=== PATIENT | female | born 1940 | race Caucasian/White ===

== ENCOUNTER → 2017-08-16 09:58 | Outpatient (CLI) | payer MEDICARE, SELFPAY ==
[2017-08-16 12:05] LABS: Absolute Lymphocyte Count 2.58 X10^3/ul (0.83-4.51); Absolute Neutrophil Count 6.3 X10^3/uL (2.0-7.7); Basophil# 0.07 X10^3/uL; Basophil% 0.7 % (0-1); Eosinophils% 3.9 % (0-5); Hemoglobin 12.7 g/dl (12.0-15.0); Lymphocyte # 2.58 X10^3/ul (4.0); Lymphocyte % 25.4 % (19-41); Mean Corp Hgb Conc 31.8 g/gl (32-36); Mean Corpuscular Hgb 26.5 pg (27.0-32.0); Mean Corpuscular Volume 83.3 fL (81-99); Mean Platelet Vol. 10.8 fl (6.2-12.0); Monocyte# 0.66 X10^3/uL; Monocyte% 6.5 % (0-10); Neutrophil # 6.34 X10^3/uL (2.7-7.7); Neutrophil % 62.5 % (47-70); Platelet Count 255 K/mm3 (150-450); RBC Distribution Width CV 14.3 % (11.6-14.6); RBC Distribution Width SD 43.1 fl (35.1-43.9); White Blood Count 10.2 K/mm3 (4.4-11.0)
[2017-08-16 12:07] LABS: POSITIVE COUNT NO; POSITIVE DIFFERENTIAL NO; POSITIVE MORPHOLOGY NO
[2017-08-16 12:46] LABS: ALB/GLOB Ratio 0.7 RATIO (0.9-2.4); AST(SGOT) 13 U/L (15-37); Alanine Aminotransfer ALT/SGPT 27 U/L (13-56); Albumin, Serum 3.3 g/dL (3.2-5.0); Alkaline Phosphatase 87 U/L (45-117); Anion Gap 9 (5-15); BUN 10 mg/dL (7-18); BUN/Creat Ratio 10.3 RATIO (10-20); Calcium,Total 8.4 mg/dL (8.5-10.1); Chloride 100 mmol/L (98-107); Creatinine, Serum 0.97 mg/dL (0.55-1.02); EST Glomerular Filtration Rate 59 mL/min (>60); Est Glom Filt Rate - Afr Amer 71 mL/min (>60); Globulin 4.5 g/dL (2.2-4.2); Glucose 143 mg/dL (70-110); Potassium 3.7 mmol/L (3.5-5.1); Protein, Total 7.8 g/dL (6.4-8.2); Sodium Level 136 mmol/L (136-145); T4 Free Direct 1.28 ng/dL (0.76-1.46); Thyroid Stim Hormone (TSH) 2.51 uIU/mL (0.358-3.74)
== END ==
PROVIDERS: Family Provider Family Medicine; PCP Family Medicine; Visit Provider Family Medicine
DX: E11.9 Type 2 diabetes mellitus without complications (principal); I10 Essential (primary) hypertension; E55.9 Vitamin D deficiency, unspecified; F41.9 Anxiety disorder, unspecified
CPT/HCPCS: 36415; 80053; 84439; 84443; 85025

== ENCOUNTER → 2017-08-23 08:41 | Outpatient (CLI) | payer MEDICARE, SELFPAY ==
[2017-08-23 13:31] LABS: Vitamin D,25 Hydroxy 37.4 ng/mL (19.95-100.01)
== END ==
PROVIDERS: Visit Provider Family Medicine
DX: E11.9 Type 2 diabetes mellitus without complications (principal); I10 Essential (primary) hypertension; E55.9 Vitamin D deficiency, unspecified; F41.9 Anxiety disorder, unspecified
CPT/HCPCS: 82306

== ENCOUNTER → 2017-08-27 08:39 | Outpatient (CLI) | payer MEDICARE, SELFPAY ==
[2017-08-10 08:31] VITALS: BP 175/75; BMI 40.8
[2017-08-27 09:36] VITALS: PULSE 103; PULSE 110; PULSE 113; PULSE 117; PULSE 120; PULSE 122; PULSE 91; PULSE 92; O2SAT 95; O2SAT 96; O2SAT 97; O2SAT 98
--- NOTE | 2017-08-27 09:41 | CPS ---
PATIENT ARRIVED AT BASELINE BREATHING (RATED AT 2) SHORT REST BREAK TAKEN AT 3 AND 5 MINUTES FOR LEG FATIGUE AND SHORTNESS OF BREATH. ENTIRE TEST DONE ON ROOM AIR
--- NOTE | 2017-08-27 11:26 | WT_ITS ---
PSN 6 Minute Walk Test - 6 Minute Walk Test 6 Minute Walk Test: 6 Minute Walk Test PSN:6-Minute Walk Test Start: 08/27/17 09: 36 Freq: Status: Active Protocol: RESP.6MINW Document 08/27/17 09:36 [facility] (Rec: 08/27/17 09:46 [facility] [id number]) 6 Minute Walk Test Date Performed 08/27/17 Time Performed 09:00 Height 5 ft 6 in Weight: 115.666 kg Weight in Pounds 255.[address]: Patricia Espana FIO2 (% Oxygen) 21 Assistive device used: None Pre-test Oxygen Delivery Method Room Air Pulse Ox (%) 98 Pulse Rate (60-100 beats/min) 91 Dyspnea Shakeel Scale (0-10) 2 Reported Symptoms Increased Work of Breathing 1st minute Oxygen Delivery Method Room Air Pulse Ox (%) 96 Pulse Rate (60-100 beats/min) 103 H Dyspnea Shakeel Scale (0-10) 3 Reported Symptoms Increased Work of Breathing 2nd minute Oxygen Delivery Method Room Air Pulse Ox (%) 96 Pulse Rate (60-100 beats/min) 113 H Dyspnea Shakeel Scale (0-10) 3 Reported Symptoms Increased Work of Breathing 3rd minute Oxygen Delivery Method Room Air Pulse Ox (%) 96 Pulse Rate (60-100 beats/min) 117 H Dyspnea Shakeel Scale (0-10) 4 Number of Rests Taken 1 Reported Symptoms Increased Work of Breathing 4th minute Oxygen Delivery Method Room Air Pulse Ox (%) 95 Pulse Rate (60-100 beats/min) 122 H Dyspnea Shakeel Scale (0-10) 4 Reported Symptoms Increased Work of Breathing 5th minute Oxygen Delivery Method Room Air Pulse Ox (%) 96 Pulse Rate (60-100 beats/min) 120 H Dyspnea Shakeel Scale (0-10) 4 Number of Rests Taken 1 Reported Symptoms Increased Work of Breathing 6th minute Oxygen Delivery Method Room Air Pulse Ox (%) 97 Pulse Rate (60-100 beats/min) 110 H Dyspnea Shakeel Scale (0-10) 5 Reported Symptoms Increased Work of Breathing Post-test Oxygen Delivery Method Room Air Pulse Ox (%) 98 Pulse Rate (60-100 beats/min) 92 Dyspnea Shakeel Scale (0-10) 2 Reported Symptoms Increased Work of Breathing Full Laps Walked 11 Partial Lap, Number of Tiles Walked 11 Total Distance Walked (ft) 660 08/27/17 09:41 Cardiopulmonary Services by Sangeeta Mendoza PATIENT ARRIVED AT BASELINE BREATHING (RATED AT 2) SHORT REST BREAK TAKEN AT 3 AND 5 MINUTES FOR LEG FATIGUE AND SHORTNESS OF BREATH. ENTIRE TEST DONE ON ROOM AIR Initialized on 08/27/17 09:41 - END OF NOTE - Interpretation Interpretation: The patient ambulated 660 feet over the course of 6 minutes on room air with no assistive devices and 2 breaks. Patient reported leg pain and increased work of breathing as etiology of breaks. No significant desaturation was noted, but patient did have significant tachycardia as high as 122 bpm. These findings are consistent with a cardiovascular limitation exercise tolerance. - Recommendations Recommendations: No supplemental oxygen is indicated at this time. Patient may benefit from a cardiovascular evaluation if not completed previously.
== END ==
PROVIDERS: Family Provider Family Medicine; PCP Family Medicine; Visit Provider Nurse Practitioner Acute Care
DX: J44.9 Chronic obstructive pulmonary disease, unspecified (principal)
CPT/HCPCS: 94618

== ENCOUNTER → 2017-09-07 08:38 | Outpatient (CLI) | payer MEDICARE, SELFPAY ==
--- NOTE | 2017-09-07 15:05 | PFTCOMP ---
COMPLETE PULMONARY FUNCTION TEST INTERPRETATION Brief HPI: Patient is a 77 year old female, currently under the care of Patricia Espana, who presents to [facility] for complete pulmonary function tests secondary to diagnosis of COPD. Respiratory therapist reports good effort and reproducible results. Interpretation: Forced expiration spirometry shows no large airways obstructive ventilatory defect with an FEV1 of 74 % predicted. There is no significant bronchodilator response by ATS criteria. Spirograms are of good quality and plateau slowly, indicating slowly emptying areas of the lungs. The respiratory flow volume loop shows decreased expiratory flow rates at high lung volumes consistent with small airways obstruction. Lung volumes by body plethysmography show a normal total lung capacity at 4.9 L, 95 % predicted. There is a trend towards air-trapping, but this does not reach clinical significance by ATS criteria. Diffusion capacity by carbon monoxide is decreased at 50 % predicted. The airway resistance is normal. No previous pulmonary function tests were available for review. Impression: Isolated defect in diffusion capacity consistent with possible pulmonary hypertension. There is some stigmata of small airways disease noted.
--- NOTE | 2017-09-07 15:08 | PFTCOMP_ITS ---
COMPLETE PULMONARY FUNCTION TEST INTERPRETATION Brief HPI: Patient is a 77 year old female, currently under the care of Patricia Espana, who presents to [facility] for complete pulmonary function tests secondary to diagnosis of COPD. Respiratory therapist reports good effort and reproducible results. Interpretation: Forced expiration spirometry shows no large airways obstructive ventilatory defect with an FEV1 of 74 % predicted. There is no significant bronchodilator response by ATS criteria. Spirograms are of good quality and plateau slowly, indicating slowly emptying areas of the lungs. The respiratory flow volume loop shows decreased expiratory flow rates at high lung volumes consistent with small airways obstruction. Lung volumes by body plethysmography show a normal total lung capacity at 4.9 L , 95 % predicted. There is a trend towards air-trapping, but this does not reach clinical significance by ATS criteria. Diffusion capacity by carbon monoxide is decreased at 50 % predicted. The airway resistance is normal. No previous pulmonary function tests were available for review. Impression: Isolated defect in diffusion capacity consistent with possible pulmonary hypertension. There is some stigmata of small airways disease noted.
== END ==
PROVIDERS: Family Provider Family Medicine; PCP Family Medicine; Visit Provider Nurse Practitioner Acute Care
DX: J44.9 Chronic obstructive pulmonary disease, unspecified (principal)
CPT/HCPCS: 94060; 94726; 94729

== ENCOUNTER → 2017-09-28 08:28 | Outpatient (CLI) | payer MEDICARE, SELFPAY | PROVIDERS: Family Provider Family Medicine; PCP Family Medicine; Visit Provider Nurse Practitioner Acute Care | DX: R06.02 Shortness of breath (principal) | CPT/HCPCS: 36415; 83880 ==

== ENCOUNTER → 2017-10-19 08:39 | Outpatient (CLI) | payer MEDICARE, SELFPAY ==
--- NOTE | 2017-10-19 08:41 | ECHOCS_ITS ---
Reason For Study: DYSPNEA Procedure This was a 2D Doppler, Color Flow transthoracic echocardiogram. Contrast injection was performed. The exam was of poor technical quality due to body habitus. Exam performed in department. Left Ventricle Normal size and thickness. The estimated ejection fraction is 60 %. Stage 1 diastolic dysfunction. No regional wall motion abnormalities noted. Right Ventricle Normal size and thickness. Normal systolic function. Mitral Valve The mitral valve is structurally normal. No prolapse or stenosis seen. Tricuspid Valve Normal tricuspid valve. Trivial tricuspid valve insufficiency. Right ventricular systolic pressure estimated to be 16 mmHg. Aortic Valve Normal aortic valve. Pulmonic Valve Normal pulmonic valve. Great Vessels Normal aortic root. Normal arch. Normal inferior vena cava. Inferior vena cava collapse with sniff. Pericardium/Pleural No pericardial effusion. Medication 22 gauge I.V. with prn adaptor inserted into left arm. Diluted definity 3ml given slow IV push to enhance endocardial definition. MMode/2D Measurements & Calculations LVIDd: 5.3 cm IVSd: 1.1 cm Ao root diam: 3.5 cm LVIDs: 3.6 cm LVPWd: 0.98 cm LA dimension: 3.1 cm RVDd: 4.2 cm FS: 32.5 % LVAd ap4: 29.6 cm2 SV(MOD-sp4): 48.9 ml SV(sp4-el): 51.6 ml EDV(MOD-sp4): 98.0 ml EDV(sp4-el): 102.1 ml LVAs ap4: 18.5 cm2 ESV(MOD-sp4): 49.1 ml ESV(sp4-el): 50.5 ml EF(MOD-sp4): 49.9 % EF(sp4-el): 50.5 % Doppler Measurements & Calculations MV E max ivelisse: 112.1 cm/sec Ao V2 max: 168.5 cm/sec LV V1 max: 94.3 cm/sec MV A max ivelisse: 131.9 cm/sec Ao max P.4 mmHg LV V1 max P.6 mmHg MV E/A: 0.85 PA V2 max: 85.5 cm/sec TR max ivelisse: 166.4 cm/sec TR max P.1 mmHg Interpretation Summary The estimated ejection fraction is 60 %. Trivial tricuspid valve insufficiency. Right ventricular systolic pressure estimated to be 16 mmHg, may be underestimated. Stage 1 diastolic dysfunction. Compared to echo report dated 09/15/2016, No appreciable changes noted. The study was technically difficult. Contrast injection was performed. Ordering Physician: Patricia Espana Referring Physician: AYLA TURNER Performed By: Josephine Haider RDCS, RVT
== END ==
PROVIDERS: Family Provider Family Medicine; PCP Family Medicine; Visit Provider Nurse Practitioner Acute Care
DX: R60.0 Localized edema (principal)
CPT/HCPCS: 93306; Q9957; A4216; C8929

== ENCOUNTER → 2017-11-04 09:27 | Outpatient (CLI) | payer MEDICARE, SELFPAY ==
[2017-11-04 10:38] LABS: Anion Gap 9 (5-15); BUN 13 mg/dL (7-18); BUN/Creat Ratio 12.9 RATIO (10-20); Calcium,Total 8.8 mg/dL (8.5-10.1); Chloride 99 mmol/L (98-107); Creatinine, Serum 1.01 mg/dL (0.55-1.02); EST Glomerular Filtration Rate 56 mL/min (>60); Est Glom Filt Rate - Afr Amer 68 mL/min (>60); Glucose 138 mg/dL (74-106); Sodium Level 137 mmol/L (136-145)
== END ==
PROVIDERS: Family Provider Family Medicine; PCP Family Medicine; Visit Provider Nurse Practitioner Acute Care
DX: E11.9 Type 2 diabetes mellitus without complications (principal)
CPT/HCPCS: 36415; 80048

== ENCOUNTER → 2018-06-20 07:42 | Outpatient (CLI) | payer MEDICARE, SELFPAY ==
[2018-03-28 11:08] VITALS: BMI 42.3
--- NOTE | 2018-06-20 13:37 | PFT ---
INTRODUCTION: The patient is an 78-year-old female that presents for pulmonary function testing secondary to a diagnosis of MATTHEW and heart disease. Respiratory therapy reports good patient effort. Bronchodilators were used during testing. INTERPRETATION: Forced expiration spirometry demonstrates no evidence of a large airways obstructive ventilatory defect. There was no significant response to aerosolized bronchodilators. Spirograms are of good quality and do not plateau indicating slow emptying of the lungs. Body plethysmography was performed and reveals a decreased TLC to 4.48 L, 78% of predicted, indicative of a mild restrictive ventilatory defect. The remainder of the lung volumes are symmetrically reduced. Diffusing capacity by single breath CO is severely reduced at 26% of predicted. When compared to previous pulmonary function studies dated August 2017, there has been a significant reduction in the patient's DLCO. 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 There has been significant worsening in the patient's DLCO since August 2017.
--- OUTSIDE RECORDS SUMMARY | 2018-08-13 07:17 | XMS RPT_ITS ---
:1940 Author Organization [place] Support Name Relationship Address Phone HAL BEN Unavailable [address] + [place] [address] R Unavailable Unavailable Unavailable HAL, BEN Unavailable [address] + [place] [address] R Unavailable Unavailable Unavailable HAL, BEN Unavailable [address] + [place] [address] R Unavailable Unavailable Unavailable HAL, BEN Unavailable [address] + [place] [address] R Unavailable Unavailable Unavailable HAL, BEN Unavailable [address] + [place] [address] R Unavailable Unavailable Unavailable HAL, BEN Unavailable [address] + [place] [address] R Unavailable Unavailable Unavailable HAL, BEN Unavailable [address] + [place] [address] R Unavailable Unavailable Unavailable HAL, BEN Unavailable [address] + [place] [address] R Unavailable Unavailable Unavailable HAL, BEN Unavailable [address] + [place] [address] R Unavailable Unavailable Unavailable HAL, BEN Unavailable [address] + [place] [address] R Unavailable Unavailable Unavailable HAL, BEN Unavailable [address] + [place] [address] R Unavailable Unavailable Unavailable HAL, BEN Unavailable [address] + [place] [address] R Unavailable Unavailable Unavailable HAL, BEN Unavailable [address] + [place] [address] R Unavailable Unavailable Unavailable HAL, BEN Unavailable [address] + [place] [address] R Unavailable Unavailable Unavailable HAL, BEN Unavailable [address] + [place] [address] R Unavailable Unavailable Unavailable HAL, BEN Unavailable [address] + [place] [address] R Unavailable Unavailable Unavailable HAL, BEN Unavailable [address] + [place] [address] R Unavailable Unavailable Unavailable HAL, BEN Unavailable [address] + [place] [address] R Unavailable Unavailable Unavailable HAL, BEN Unavailable [address] + [place] [address] R Unavailable Unavailable Unavailable Care Team Providers Name Role Phone Bryant Bangura D.O. Attending Unavailable Quintin Uribe Referring Unavailable Natalie Riddle Attending Unavailable Patricia Espana Attending Unavailable Marilynn, Ayla Referring Unavailable Marilynn, Ayla Attending Unavailable [facility], Ayla Primary Care Unavailable Marilynn, Ayla Attending Unavailable Patricia Espana Attending Unavailable Marilynn, Ayla Primary Care Unavailable Patricia Espana Referring Unavailable Patricia Espana Attending Unavailable [facility], Ayla Primary Care Unavailable Quintin Uribe Attending Unavailable Patricia Espana Referring Unavailable Patricia Espana Attending Unavailable Marilynn, Ayla Referring Unavailable Patricia Espana Attending Unavailable Marilynn, Ayla Referring Unavailable Marilynn, Ayla Primary Care Unavailable Patricia Espana Attending Unavailable Patricia Espana Referring Unavailable Marilynn, Ayla Primary Care Unavailable Quintin Uribe Attending Unavailable Patricia Espana Referring Unavailable Patricia Espana Attending Unavailable Patricia Espana Referring Unavailable Marilynn, Ayla Primary Care Unavailable Patricia Espana Attending Unavailable Marilynn, Ayla Referring Unavailable Patricia Espana Attending Unavailable Jovi Patricia Referring Unavailable Marilynn, Ayla Primary Care Unavailable Silvio Yost Attending Unavailable Jovi, Patricia Referring Unavailable Rony, Quintin Attending Unavailable Marilynn, Ayla Referring Unavailable Marilynn, Ayla Primary Care Unavailable Rony, Quintin Attending Unavailable Rony, Quintin Referring Unavailable Marilynn, Ayla Primary Care Unavailable Rony, Quintin Attending Unavailable Rony, Quintin Referring Unavailable Marilynn, Ayla Primary Care Unavailable PROBLEMS PROBLEMS DATE TYPE CONDITION / CODE ATTENDING STATUS SOURCE 07/01/2018 Unknown G47.33 - Rony, Quintin Active [facility] Obstructive sleep Community apnea (adult) Hospital (pediatric) / Repository G47.33(ICD-10) 07/01/2018 Unknown M32.9 - Systemic Rony, Quintin Active [facility] lupus Community erythematosus, Hospital unspecified / Repository M32.9(ICD-10) 07/01/2018 Unknown I51.9 - Heart Rony, Quintin Active [facility] disease, Community unspecified / Hospital I51.9(ICD-10) Repository 03/28/2018 Unknown E66.01 - Morbid RonyQuintin chambers Active [facility] (severe) obesity Community due to excess Hospital calories / Repository E66.01(ICD-10) 11/04/2017 Unknown E11.9 - Type 2 [place], Active [facility] diabetes mellitus [facility] without Hospital complications / Repository E11.9(ICD-10) 11/12/2017 Unknown R60.0 - Localized Silvio Yost Active Ward edema / Community R60.0(ICD-10) Hospital Repository 09/28/2017 Unknown R06.02 - Shortness [place]a, Active [facility] of breath / [facility] R06.02(ICD-10) Hospital Repository 09/07/2017 Unknown J44.9 - Chronic [place], Active Ward obstructive [facility] pulmonary disease, Hospital unspecified / Repository J44.9(ICD-10) 09/07/2017 Unknown F17.200 - Nicotine [place], Active [facility] dependence, [facility] unspecified, Hospital uncomplicated / Repository F17.200(ICD-10) PROCEDURES PROCEDURES No Procedure Records FoundRESULTS RESULTS 6 MINUTE WALK TEST Observed: 07/02/2018 Status: F Source: [facility] 5:48 AM [facility]PITAL REPOSITORY [facility] Pulmonary Services/Neurology [address] [place] [address] MR#: [id number] Acct: [id number] Name: CANDICE BARRY Rep #: [id number] : 1940 78 From: Quintin Uribe MD Referring Dr: Quintin Uribe MD Date: Ordering Dr: Sex: F C Location: PS PSN 6 Minute Walk Test - 6 Minute Walk Test 6 Minute Walk Test: 6 Minute Walk Test PSN:6-Minute Walk Test Start: 07/01/18 11:17 Freq: Status: Active Protocol: RESP.6MINW Document 07/01/18 11:17 SFENTON (Rec: 07/01/18 11:19 SFENTON [id number]) 6 Minute Walk Test Date Performed 07/01/18 Time Performed 11:00 Height 5 ft 8 in Weight: 116.12 kg Weight in Pounds 256.[address]: Quintin Uribe Assistive device used: None Pre-test Oxygen Delivery Method Room Air Pulse Ox (%) 98 Pulse Rate (60-100 beats/min) 80 Dyspnea Shakeel Scale (0-10) 0 Exertion Shakeel Scale (6-20) 6 1st minute Oxygen Delivery Method Room Air Pulse Ox (%) 96 Pulse Rate (60-100 beats/min) 108 H 2nd minute Oxygen Delivery Method Room Air Pulse Ox (%) 96 Pulse Rate (60-100 beats/min) 121 H 3rd minute Oxygen Delivery Method Room Air Pulse Ox (%) 97 Pulse Rate (60-100 beats/min) 124 H Number of Rests Taken 1 4th minute Oxygen Delivery Method Room Air Pulse Ox (%) 97 Pulse Rate (60-100 beats/min) 121 H 5th minute Oxygen Delivery Method Room Air Pulse Ox (%) 98 Pulse Rate (60-100 beats/min) 133 H Number of Rests Taken 1 6th minute Oxygen Delivery Method Room Air Pulse Ox (%) 98 Pulse Rate (60-100 beats/min) 135 H Dyspnea Shakeel Scale (0-10) 4 Exertion Shakeel Scale (6-20) 14 Post-test Oxygen Delivery Method Room Air Pulse Ox (%) 98 Pulse Rate (60-100 beats/min) 89 Full Laps Walked 12 Partial Lap, Number of Tiles Walked 30 Total Distance Walked (ft) 738 - Interpretation Interpretation: The patient was able to ambulate 738 feet over the course of 6 minutes on room air with no assistive devices, but 2 breaks. The patient experienced no significant desaturation, but did have significant tachycardia with a peak heart rate of 135 bpm. These findings are consistent with a cardiovascular limitation exercise tolerance. - Recommendations Recommendations: No supplemental oxygen is indicated at this time. Patient may benefit from a cardiovascular evaluation. 07/02/18 0548 <Electronically signed by Quintin Uribe MD> Date Quintin Uribe MD CC: Date Dictated: 07/01/18 1524 Date Transcribed: 07/01/181523 Db2 Dba: Quintin Uribe Signed PULMONARY FUNCTION Observed: 06/20/2018 Status: F Source: [place] TEST 1:40 PM [facility] REPOSITORY [facility] Pulmonary Services/Neurology [address] [place] [address] MR#: [id number] Acct: [id number] Name: CANDICE BARRY Rep #: [id number] : 1940 78 From: Bryant Bangura DO Referring Dr: Quintin Uribe MD Status: REG CLI Ordering Dr: Date: Location: [facility] Sex: F C INTRODUCTION: The patient is an 78-year-old female that presents for pulmonary function testing secondary to a diagnosis of MATTHEW and heart disease. Respiratory therapy reports good patient effort. Bronchodilators were used during testing. INTERPRETATION: Forced expiration spirometry demonstrates no evidence of a large airways obstructive ventilatory defect. There was no significant response to aerosolized bronchodilators. Spirograms are of good quality and do not plateau indicating slow emptying of the lungs. Body plethysmography was performed and reveals a decreased TLC to 4.48 L, 78% of predicted, indicative of a mild restrictive ventilatory defect. The remainder of the lung volumes are symmetrically reduced. Diffusing capacity by single breath CO is severely reduced at 26% of predicted. When compared to previous pulmonary function studies dated August 2017, there has been a significant reduction in the patient's DLCO. 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 There has been significant worsening in the patient's DLCO since August 2017. 06/20/18 1340 <Electronically signed by Bryant Bangura DO> Date Bryant Willem NULL CC: Quintin Uribe MD; Ayla Subramanian MD Date Dictated: 06/20/181336 Date Transcribed: 06/20/181336 Db2 Dba: KEENA Signed PULMONARY VISIT REPORT Observed: 03/28/2018 Status: F Source: [place] 11:55 AM [facility] REPOSITORY [facility] [place] [address] [place] [address] OFFICE VISIT Date of Service: 03/28/18 MR#: [id number] Acct: [id number] Name: CANDICE BARRY Rep #: [id number] : 1940 Provider: Quintin Uribe MD Age/Sex: 77/F [facility] Status: Signed Assessment AND Plan Problems 1. MATTHEW (obstructive sleep apnea) G47.33 2. Diastolic dysfunction I51.9 3. Morbid obesity E66.01 4. SLE (systemic lupus erythematosus) M32.9 Plan Unclear etiology at this time. Patient does not report any smoking or exposure that would lead to decompensation of respiratory function. Patient has not had any significant response to Symbicort therapy. Clinical suspicion for possible uncompensated diastolic dysfunction leading to issues given patient's increased lower extremity swelling and significant salt intake. Did discuss with patient at length about a low-salt diet. Will obtain a complete pulmonary function test for comparison to see if there is been any change compared to previous. We will also obtain a walking oximetry for evaluation of exertional hypoxemia. No change in medications for now until further information is available. Also discussed with the patient about increasing MATTHEW therapy to 6 hours per night to achieve better results of both congestive heart failure and daytime fatigue. Continue current medications. Obtain walking oximetry and complete PFT. Goal for patient to increase MATTHEW therapy to 6 hours per night. Orders Orders: Plan Detail Follow Up 3 Months ([facility]) HPI 3 M FU: Chief Complaint: Shortness of breath on exertion Details: Patient is a 77-year-old female, currently under care of Dr. Subramanian, who presents for evaluation secondary to increased shortness of breath on exertion. Since last visit, patient denies any ER visits, hospitalizations or prednisone burst. Patient was initiated on Symbicort therapy and reports no subjective change in overall condition. Patient reports she has been compliant with her MATTHEW therapy. Patient states that she typically only sleeps 3-4 hours a night, but feels herself falling asleep during the day. Patient states she typically goes to bed at 10:00 and will wake up at about 3 or 4:00. Patient denies any issues with dry mouth, epistaxis or soreness limiting compliance. Patient does not wake up with the mask beside her. Patient does state that recently she slept for 7 hours a night and felt significantly better during the day. Patient feels her dyspnea is worsened compared to previous visit. Patient feels that the Symbicort made no difference in her overall condition. Patient is reporting significant swelling of her lower extremities that is sore to the touch. Patient denies any fevers, chills or exudate. Patient states that cardiology has increased her from 20 mg of Lasix to 40 mg of Lasix but she is unclear if this is making any difference. When asked about a low-salt diet. Patient does admit that she tends to babysit her grandchildren on a daily basis. Patient states she does not add salt to anything, but was very surprised to find out that diet soda does have salt in it. Patient was also unaware of the quadrants of salt in sauces or packaged food. Patient has made some effort to limit lunch meat and cheese out of her diet. Patient does state that she drinks water frequently. Documentation personally reviewed with the patient Compliance report (February 2018): Compliant 97% of days for an average of 4 hours 31 minutes on CPAP 15 cm of water with residual AHI of 0.9 and fairly controlled leak. Intake Vital Signs03/28/18 Height 5 ft 6 in 03/28/18 Weight: 118.841 kg 03/28/18 Body Mass Index (BMI) 42.3 03/28/18 Blood Pressure 154/84 Intake Visit Reasons: 3 M FU Chief Complaint: Shortness of breath DME Vendor: [employer] Accompanied by: Self Allergies acetaminophen [From Darvocet-N] Allergy (Severe, Verified 11/04/17 08:27) Unknown bupropion [From Wellbutrin] Allergy (Severe, Verified 11/04/17 08:27) Unknown gabapentin [From Neurontin] Allergy (Severe, Verified 11/04/17 08:27) Unknown pregabalin [From Lyrica] Allergy (Severe, Verified 11/04/17 08:27) Unknown propoxyphene [From Darvocet-N] Allergy (Severe, Verified 11/04/17 08:27) Unknown sulfadiazine Allergy (Severe, Verified 11/04/17 08:27) Unknown Medications cholecalciferol (vitamin D3) 50,000 unit capsule 50,000 unit PO QWEEK 07/26/17 [History Confirmed 11/04/17] insulin admin supplies subcutaneous pen See Dose Instructions .ROUTE .MEDSUPPLY #1 ea 07/26/17 [History Confirmed 11/04/17] lisinopril 20 mg tablet 20 mg PO BID tab 07/26/17 [History Confirmed 11/04/17] lorazepam 0.5 mg tablet 0.5 mg PO TID PRN tab 07/26/17 [History Confirmed 11/04/17] potassium chloride ER 10 mEq capsule,extended release 10 meq PO QDAY 07/26/17 [History Confirmed 11/04/17] ranitidine 150 mg tablet 150 mg PO Q12H PRN tab 07/26/17 [History Confirmed 11/04/17] simvastatin 20 mg tablet 20 mg PO QAM 07/26/17 [History Confirmed 11/04/17] albuterol sulfate 2.5 mg/3 mL (0.083 %) solution for nebulization 2.5 mg INHALATION Q4H PRN ml 08/10/17 [History Confirmed 11/04/17] furosemide 40 mg tablet 40 mg PO BID #14 tab 09/28/17 [Rx Confirmed 11/04/17] albuterol sulfate HFA 90 mcg/actuation aerosol inhaler 2 puff INHALATION Q4H PRN #18 g 11/04/17 [Rx Confirmed 11/04/17] budesonide-formoterol HFA 160 mcg-4.5 mcg/actuation aerosol inhaler 2 puff INHALATION BID #1 ea 11/04/17 [Rx Confirmed 11/04/17] [facility] TIA (transient ischemic attack) (Acute) Fibromyalgia (Chronic) Depression (Chronic) MATTHEW (obstructive sleep apnea) (Chronic) Emphysema, unspecified (Chronic) Anxiety (Chronic) Morbid obesity (Chronic) Hypokalemia (Acute) Hyperlipidemia (Acute) Diabetic neuropathy (Chronic) Diabetes type 2, controlled (Chronic) COPD (chronic obstructive pulmonary disease) (Chronic) CAD (coronary artery disease) (Chronic) HTN (hypertension) (Chronic) SLE (systemic lupus erythematosus) (Chronic) Tobacco use disorder (Chronic) History of rectal bleeding (Chronic) Surgical History History of cholecystectomy (Resolved) History of hysterectomy (Resolved) Knee joint replacement status (Chronic) Family History Father CAD (coronary artery disease) Social History Smoking Status: Former smoker second hand exposure: Yes alcohol intake: never substance use type: does not use Review of Systems Const CONSTITUTIONAL: Positive fever(s), night sweats and fatigue; negative anorexia, body ache, chills, daytime sleepiness, oral thrush, stops breathing during sleep, weight loss, sleeping in chair, weight loss, weight gain, frequent colds, seasonal allergies, other, headache(s) or orthopnea EETM Ear Nose Throat Mouth: Positive hearing normal; negative hard of hearing, hoarseness, dry mouth in morning, change in vision, itchy eyes, eye pain, swallowing Difficulty, ear pain, nose bleed, headache(s), mouth pain, nasal congestion, nasal discharge, post nasal drip, sinus pain, sinus pressure, sore throat or other Cardio Cardiovascular: Negative chest pain, chest pain at rest, chest pain with activity, irregular heart rhythm, edema, shortness of breath when lying down, palpitations, murmur or other Resp Respiratory: Positive as per HPI, shortness of breath shortness of breath: Positive with activity and worsening and chest tightness; negative pain with cough, wheezing, chest congestion, cough, pain on inspiration, inhalers, increase use of rescue inhalers, snoring, apnea or other Gastro Gastrointestional: Negative bloody stools, change in appetite, difficulty swallowing, reflux, hematemesis, melena stool, loose stool, constipation or other Genitourinary: Negative blood in urine, nocturia, pain with urination or other Musc Musculoskeletal: Negative body pain, back pain, neck pain or other Skin/Breast Skin/Breast: Negative dry skin, itching, rash, unusual bruising, breast lump or other Neuro Neurological: Negative restless legs, confusion, weakness or other Psych Psychocological: Negative abnormal sleep pattern, anxiety, thoughts of hurting self/others, hopelessness or other Lymph Lymphatic: Negative easy bleeding, easy bruising, swollen lymph nodes or other Exam Const Constitutional: Positive conversant, cooperative, in no acute respiratory distress, healthy appearing, well developed, well nourished, good hygiene and obese; negative wearing supplemental oxygen or ill appearing Head Head: Positive normocephalic and atraumatic; negative cyanosis of lips/distal nose, frontal sinus tenderness or maxillary sinus tenderness Eyes Eye: Positive clear conjunctiva; negative nystagmus, scleral abnormality or cataract present Ears Ear: Positive hearing normal and external ears normal; negative hard of hearing Nose Nose: Positive external nose normal and no nasal discharge; negative epistaxis, nasal polyp or septum normal Mouth Mouth: Positive oral mucosae normal, no lesions, dentures and crowded posterior oropharynx; negative post nasal drip, malodorous breath or oral thrush present Mallampati Score: III: Mallampati Score Neck Neck: Positive normal visual inspection, full ROM, trachea midline, thick neck and female neck greater than 37 cm (15 in); negative lymphadenopathy or JVD Chest Wall Chest: Positive normal inspection of the chest and symmetric chest movement; negative crepitus or tenderness Resp lung sounds: Positive clear to auscultation, diminished and prolonged expiratory time; negative wheezes, rhonchi, rales, use of accessory muscles, wheeze present on forced exhalation or dullness to percussion Cardio Cardiac: Positive regular rate, regular rhythm, S1 normal and S2 normal; negative murmur, rub or gallop GI GI: Positive normal to inspection, normal bowel sounds and obese; negative distended, ascites or epigastric tenderness Genitourinary: Positive deferred Musc Musculoskeletal: Positive steady gait; negative using an assistive device for ambulation, kyphosis or scoliosis Skin Pulmonary Skin Exam: Positive intact; negative rash, lesion, ulcers or erythema Pulses Pulse: Yes radial pulses present Extremities Extremities: Yes capillary refill normal, No clubbing, No cyanosis, Yes edema (2+ lower extremity) Neuro Neurologic: Yes conversant, Yes no focal neuro deficits, Yes normal concentration, Yes understands questions, Yes cooperative, Yes normal cognition, Yes normal coordination Lymph Lymphatic: No lymphadenopathy Psych Appearance: Positive grossly normal Mental Status: Positive mental status grossly normal Mood: Positive congruent mood Affect: Positive normal affect Coding Level of Care Code Off vis,est,level 4 Diagnoses MATTHEW (obstructive sleep apnea) G47.33 Diastolic dysfunction I51.9 Morbid obesity E66.01 SLE (systemic lupus erythematosus) M32.9 03/28/18 1155 <Electronically signed by Quintin Uribe MD> Date Quintin Uribe MD Cosigner Signature: Date (if applicable) CC: Ayla Subramanian MD PULMONARY VISIT REPORT Observed: 11/04/2017 Status: F Source: [place] 10:54 AM [facility] REPOSITORY Pulmonary Medicine of [address] [place] [address] OFFICE VISIT Date of Service: 11/04/17 MR#: [id number] Acct: [id number] Name: JHONNYCANDICE Tereso Rep #: [id number] : 1940 Provider: Patricia Espana Age/Sex: 77/F Location: [facility] Status: Signed Assessment AND Plan 1. MATTHEW (obstructive sleep apnea) G47.33 Status Chronic Plan She is using and benefiting from current CPAP therapy. No indication for titration study at this time. Replacement headgear will be ordered. Follow- up with Dr. Uribe in 3 months. 2. Diastolic dysfunction I51.9 Status Acute Plan Deteriorated. Continue 40 mg of Lasix twice daily, has a follow-up next week with her primary care physician. Defer further management of the Lasix to her PCP. Will obtain a BMP today to evaluate kidney function given the increased dose of Lasix over the past few weeks. She has been encouraged to label read, as the below-knee and cottage cheese that she has been eating are high in sodium. She conveys understanding. She has been asked to keep a food diary starting today through the day that she follows up with her primary care provider at which time she has been asked to present to him. Follow-up with Dr. Uribe in 3 months. 3. Chronic obstructive pulmonary disease, unspecified COPD type J44.9 Status Chronic Plan Deteriorated. She does not appear to be in exacerbation of her COPD at this time, but she is not adequately maintained without the use of a maintenance inhaler. Reviewed her pulmonary function test which were completed back in August and showed some small airway obstruction. She does have some wheezing occasionally. Therefore, I have placed her on Symbicort to be taken 2 puffs twice daily. A sample was provided in the office today, as well as a spacer. She was given personal instruction on how to use the medication and the first dose was administered in the office. She has been encouraged to contact the office after she has been on the medication for approximately 2 weeks to give us an update on how she is feeling. Otherwise, follow-up with Dr. Uribe in 3 months. Plan Detail Other Orders Orders: Other Medications New: budesonide-formoterol 160-4.5 mcg/actuation (Symbicort) adminis2 puffs Inhalation BID ter with spacer, rinse mouth after each use Follow Up 3 Months ([facility] HPI 2 W FU: Chief Complaint: shortness of breath HPI Comments Details: This patient presents to the office today for a short interval follow-up after recently being treated for diastolic heart failure. She is ambulatory and currently on room air. She has not been seen in the ED or urgent care since her last office visit. She has not required antibiotics or prednisone for any breathing problems. She has been compliant with the increased dose of Lasix which is 40 mg twice daily. She is having a good urinary output, but feels as though it probably should be more. Unfortunately, she felt that she was compliant with a low-sodium diet by not adding salt to her meals, but has been consuming cottage cheese frequently and has even had processed below-knee. She reports that her lower extremity edema has not improved and quite possibly might be worse. She continues to experience shortness of breath with minimal activity. She feels as though she is bloated and swollen. She is using her nebulizer before bedtime. She is not currently on any maintenance inhalers. She denies any cough, wheezing or sputum production/hemoptysis. She denies any fever, chills or body aches. She has been compliant with her CPAP. Current complaints report shows that she has been 100% compliant with an average use of 4 hours and 37 minutes. Setting is 15 cm of water. Current AHI is controlled at an average of one event per hour. Leaks do appear to be an occasional issue, she does report that she needs a replacement headgear. Echo completed on 10/19/17, showing an EF of 60% with stage I diastolic dysfunction. RVSP estimated to be 16 mmHg. BNP drawn shows level of 7. 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: [employer] Accompanied by: Self Allergies acetaminophen [From Darvocet-N] Allergy (Severe, Verified 11/04/17 08:27) Unknown bupropion [From Wellbutrin] Allergy (Severe, Verified 11/04/17 08:27) Unknown gabapentin [From Neurontin] Allergy (Severe, Verified 11/04/17 08:27) Unknown pregabalin [From Lyrica] Allergy (Severe, Verified 11/04/17 08:27) Unknown propoxyphene [From Darvocet-N] Allergy (Severe, Verified 11/04/17 08:27) Unknown sulfadiazine Allergy (Severe, Verified 11/04/17 08:27) Unknown Medications cholecalciferol (vitamin D3) 50,000 unit capsule 50,000 unit PO QWEEK 07/26/17 [History Confirmed 11/04/17] insulin admin supplies subcutaneous pen See Dose Instructions .ROUTE .MEDSUPPLY #1 ea 07/26/17 [History Confirmed 11/04/17] lisinopril 20 mg tablet 20 mg PO BID tab 07/26/17 [History Confirmed 11/04/17] lorazepam 0.5 mg tablet 0.5 mg PO TID PRN tab 07/26/17 [History Confirmed 11/04/17] potassium chloride ER 10 mEq capsule,extended release 10 meq PO QDAY 07/26/17 [History Confirmed 11/04/17] ranitidine 150 mg tablet 150 mg PO Q12H PRN tab 07/26/17 [History Confirmed 11/04/17] simvastatin 20 mg tablet 20 mg PO QAM 07/26/17 [History Confirmed 11/04/17] albuterol sulfate 2.5 mg/3 mL (0.083 %) solution for nebulization 2.5 mg INHALATION Q4H PRN ml 08/10/17 [History Confirmed 11/04/17] furosemide 40 mg tablet 40 mg PO BID #14 tab 09/28/17 [Rx Confirmed 11/04/17] albuterol sulfate HFA 90 mcg/actuation aerosol inhaler 2 puff INHALATION Q4H PRN #18 g 11/04/17 [Rx Confirmed 11/04/17] budesonide-formoterol HFA 160 mcg-4.5 mcg/actuation aerosol inhaler 2 puff INHALATION BID #1 ea 11/04/17 [Rx Confirmed 11/04/17] PFS Medical History TIA (transient ischemic attack) (Acute) Fibromyalgia (Chronic) Depression (Chronic) MATTHEW (obstructive sleep apnea) (Chronic) Emphysema, unspecified (Chronic) Anxiety (Chronic) Morbid obesity (Chronic) Hypokalemia (Acute) Hyperlipidemia (Acute) Diabetic neuropathy (Chronic) Diabetes type 2, controlled (Chronic) COPD (chronic obstructive pulmonary disease) (Chronic) CAD (coronary artery disease) (Chronic) HTN (hypertension) (Chronic) SLE (systemic lupus erythematosus) (Chronic) Tobacco use disorder (Chronic) History of rectal bleeding (Chronic) Surgical History History of cholecystectomy (Resolved) History of hysterectomy (Resolved) Knee joint replacement status (Chronic) Family History Father CAD (coronary artery disease) Social History Smoking Status: Former smoker second hand exposure: Yes alcohol intake: never substance use type: does not use Review of Systems Const CONSTITUTIONAL: Negative anorexia, body ache, chills, daytime sleepiness, fever(s), night sweats, oral thrush, stops breathing during sleep, weight loss, sleeping in chair, fatigue, weight loss, weight gain, frequent colds, seasonal allergies, other, headache(s) or orthopnea EETM Ear Nose Throat Mouth: Positive hearing normal; negative hard of hearing, hoarseness, dry mouth in morning, change in vision, itchy eyes, eye pain, swallowing Difficulty, ear pain, nose bleed, headache(s), mouth pain, nasal congestion, nasal discharge, post nasal drip, sinus pain, sinus pressure, sore throat or other Cardio Cardiovascular: Negative chest pain, chest pain at rest, chest pain with activity, irregular heart rhythm, edema, shortness of breath when lying down, palpitations, murmur or other Resp Respiratory: Positive as per HPI, shortness of breath shortness of breath: Positive with activity and worsening and chest tightness; negative pain with cough, wheezing, chest congestion, cough, pain on inspiration, inhalers, increase use of rescue inhalers, snoring, apnea or other Gastro Gastrointestional: Negative bloody stools, change in appetite, difficulty swallowing, reflux, hematemesis, melena stool, loose stool, constipation or other Genitourinary: Negative blood in urine, nocturia, pain with urination or other Musc Musculoskeletal: Negative body pain, back pain, neck pain or other Skin/Breast Skin/Breast: Negative dry skin, itching, rash, unusual bruising, breast lump or other Neuro Neurological: Negative restless legs, confusion, weakness or other Psych Psychocological: Negative abnormal sleep pattern, anxiety, thoughts of hurting self/others, hopelessness or other Lymph Lymphatic: Negative easy bleeding, easy bruising, swollen lymph nodes or other Exam Const Constitutional: Positive conversant, cooperative, in no acute respiratory distress, healthy appearing, well developed, well nourished, good hygiene, obese and dyspenic Head Head: Positive normocephalic and atraumatic; negative cyanosis of lips/distal nose Eyes Eye: Positive clear conjunctiva and nystagmus; negative scleral abnormality Ears Ear: Positive hearing normal and external ears normal; negative hard of hearing Nose Nose: Positive external nose normal and no nasal discharge; negative epistaxis Mouth Mouth: Positive oral mucosae normal, no lesions, poor dentition and crowded posterior oropharynx; negative post nasal drip, malodorous breath or oral thrush present Mallampati Score: III: Mallampati Score Neck Neck: Positive normal visual inspection, full ROM, trachea midline, female neck greater than 37 cm (15 in) and thick neck; negative lymphadenopathy, JVD or tender Chest Wall Chest: Positive normal inspection of the chest and symmetric chest movement; negative increased A/P diameter Resp lung sounds: Positive clear to auscultation, diminished, normal expiratory time and normal respiratory effort; negative wheezes, rhonchi, rales, dullness to percussion or wheeze present on forced exhalation Cardio Cardiac: Positive regular rate, regular rhythm, S1 normal and S2 normal; negative murmur GI GI: Positive normal to inspection, normal bowel sounds and obese; negative distended Genitourinary: Positive deferred Musc Musculoskeletal: Positive steady gait and ROM normal; negative kyphosis or scoliosis Skin Pulmonary Skin Exam: Positive intact; negative rash, lesion, ulcers, erythema, scaly or dermal atrophy Pulses Pulse: Yes pulses normal x4 extremities Extremities Extremities: Yes edema Location: lower extremity location: Bilateral pitting +2, Yes capillary refill normal, No clubbing, No cyanosis, No stasis dermatitis Neuro Neurologic: Yes conversant, Yes no focal neuro deficits, Yes cooperative, Yes normal cognition, Yes normal coordination, Yes normal concentration, Yes understands questions Lymph Lymphatic: No lymphadenopathy, No tenderness, No cervical adenopathy, No axillary adenopathy Psych Appearance: Positive grossly normal, eye contact and well kempt Mental Status: Positive mental status grossly normal Mood: Positive anxious mood Affect: Positive anxious affect Office Procedures Inhaler Training Inhaler Training Procedure performed by: Patricia Espana Inhaler Training: Yes personally trained on inhaler use, sample provided, first dose given in the office, expresses understanding and continue to monitor Coding Level of Care Code Off vis,est,level 4 Diagnoses MATTHEW (obstructive sleep apnea) G47.33 Diastolic dysfunction I51.9 Chronic obstructive pulmonary disease, unspecified COPD type J44.9 COPD type: unspecified COPD 11/04/17 1054 <Electronically signed by Patricia LÓPEZ> Date Patricia LÓPEZ Cosigner Signature: Date (if applicable) CC: Ayla Subramanian BASIC METABOLIC Collected: 11/04/2017 Status: F Source: EDVIN PROFILE ([facility]) 9:32 AM [facility] [place] REPOSITORY TYPE CODE TESTS RESULT OUT OF RANGE REFERENCE UNITS LAB L501.0100 74-106 mg/dL High GLU 138 Result Comment: Fasting Glucose result greater than or equal to 126 mg/dL suggests DIABETES MELLITUS per A.D.A. criteria. Please note revised GLUCOSE reference range effective 2017. LAB L501.1000 7-18 mg/dL Normal BUN 13 LAB L501.1100 0.55-1.02 mg/dL Normal CREAT,SERUM 1.01 Result Comment: The validity of the calculated GFR AND GFRAA in patients over 70 years has not been determined. Clinical correlation is essential. LAB L501.1110 >60 mL/min Low EST GFR 56 Result Comment: Non- GFR Calc LAB L501.1115 >60 mL/min Normal EST GFR - AA 68 Result Comment: GFR Calc LAB L501.1300 10-20 RATIO Normal BUN/CRE 12.9 LAB L501.2200 8.5-10.1 mg/dL CA Normal 8.8 LAB L501.5300 136-145 mmol/L NA Normal 137 LAB L501.5600 3.5-5.1 mmol/L K Normal 4.0 LAB L501.5900 98-107 mmol/L CL Normal 99 LAB L501.6100 21.0-32.0 mmol/L Normal CO2 29.0 LAB L501.6200 5-15 Normal GAP 9 Performed By: #### L500.2500 #### [facility] [address] [place], [address] ECHO, COMPLETE W/ Observed: 10/19/2017 Status: F Source: STIGLER CONTRAST 10:49 AM [facility] [place] REPOSITORY [facility] Cardiovascular Services [address] [place] [address] Echo Complete W/ Contrast 10/19/17 0857 MR#: [id number] Acct: [id number] Name: CANDICE BARRY Tereso Rep #: [id number] : 1940 77 From: Silvio Yost MD Attending Dr: Patricia Espana MAIL READER Status: REG CLI Ordering Dr: Patricia Espana MAIL READER-C Date: 10/19/17 Location: [facility] Sex: F C Admitted: Reason For Study: DYSPNEA Procedure This was a 2D Doppler, Color Flow transthoracic echocardiogram. Contrast injection was performed. The exam was of poor technical quality due to body habitus. Exam performed in department. Left Ventricle Normal size and thickness. The estimated ejection fraction is 60 %. Stage 1 diastolic dysfunction. No regional wall motion abnormalities noted. Right Ventricle Normal size and thickness. Normal systolic function. Mitral Valve The mitral valve is structurally normal. No prolapse or stenosis seen. Tricuspid Valve Normal tricuspid valve. Trivial tricuspid valve insufficiency. Right ventricular systolic pressure estimated to be 16 mmHg. Aortic Valve Normal aortic valve. Pulmonic Valve Normal pulmonic valve. Great Vessels Normal aortic root. Normal arch. Normal inferior vena cava. Inferior vena cava collapse with sniff. Pericardium/Pleural No pericardial effusion. Medication 22 gauge I.V. with prn adaptor inserted into left arm. Diluted definity 3ml given slow IV push to enhance endocardial definition. MMode/2D Measurements AND Calculations LVIDd: 5.3 cm IVSd: 1.1 cm Ao root diam: 3.5 cm LVIDs: 3.6 cm LVPWd: 0.98 cm LA dimension: 3.1 cm RVDd: 4.2 cm FS: 32.5 % LVAd ap4: 29.6 cm2 SV(MOD-sp4): 48.9 ml SV(sp4-el): 51.6 ml EDV(MOD-sp4): 98.0 ml EDV(sp4-el): 102.1 ml LVAs ap4: 18.5 cm2 ESV(MOD-sp4): 49.1 ml ESV(sp4-el): 50.5 ml EF(MOD-sp4): 49.9 % EF(sp4-el): 50.5 % Doppler Measurements AND Calculations MV E max ivelisse: 112.1 cm/sec Ao V2 max: 168.5 cm/sec LV V1 max: 94.3 cm/sec MV A max ivelisse: 131.9 cm/sec Ao max P.4 mmHg LV V1 max P.6 mmHg MV E/A: 0.85 PA V2 max: 85.5 cm/sec TR max ivelisse: 166.4 cm/sec TR max P.1 mmHg Interpretation Summary The estimated ejection fraction is 60 %. Trivial tricuspid valve insufficiency. Right ventricular systolic pressure estimated to be 16 mmHg, may be underestimated. Stage 1 diastolic dysfunction. Compared to echo report dated 09/15/2016, No appreciable changes noted. The study was technically difficult. Contrast injection was performed. Ordering Physician: Patricia Espana Referring Physician: AYLA SUBRAMANIAN Performed By: Josephine Haider RDCS, RVT 10/19/17 1048 Date Silvio Yost MD CC: Patricia Subramanian Date Dictated: 10/19/17 0857 Date Transcribed: 10/19/171047 Db2 Dba: Signed BNP,B-TYPE NATRIURETIC Collected: 09/28/2017 Status: F Source: EDVIN PEPTIDE 8:33 AM [facility] [place] REPOSITORY TYPE CODE TESTS RESULT OUT OF RANGE REFERENCE UNITS LAB L503.6620 0-100 pg/mL Normal B-TYPE 7.0 CHIOMA PEP Performed By: #### L503.6620 #### [facility] [address] [place], [address] PULMONARY VISIT REPORT Observed: 09/28/2017 Status: F Source: EDVIN 8:32 AM [facility] [place] REPOSITORY [facility] [address] [place] [address] OFFICE VISIT Date of Service: 09/28/17 MR#: [id number] Acct: [id number] Name: CANDICE BARRY Rep #: [id number] : 1940 Provider: Patricia Espana Age/Sex: 77/F Location: [facility] [place] Status: Signed Assessment AND Plan 1. MATTHEW (obstructive sleep apnea) G47.33 Status Chronic CPAP of 15 cm water Plan She is using and benefiting from current CPAP therapy. No indication for titration study at this time. Leaks that were present on this months compliance report were related to a worn out cushion, which has since been replaced. Plan to follow-up with her in approximately 2 weeks to discuss test results that have been ordered today. 2. Shortness of breath R06.02 Plan Recent pulmonary function tests indicate possible pulmonary vascular disorder, concern for pulmonary hypertension. Patient has not had an echocardiogram since 2012. We will repeat the echocardiogram, as well as obtain a BNP. Patient is displaying symptoms of heart failure at this time with fluid volume overload. Plan to treat with increasing Lasix from 20 mg twice daily to 40 mg twice daily for 7 days. She has been encouraged to contact the office if she develops any side effects from the increased dose of Lasix, such as leg cramping. She is currently on calcium replacement and has been encouraged to continue that. I will follow-up with her in about 2 weeks to discuss test results and to see how she responded to therapy. Orders Orders: 3. Lower extremity edema R60.0 Plan As discussed in assessment and plan #2, plan to treat for an acute exacerbation of what is felt to be heart failure. BNP to be drawn today echocardiogram scheduled. Increasing Lasix for 7 days. Patient has been encouraged to contact the office if her symptoms worsen or if new symptoms present. Orders Orders: Plan Detail Other Medications New: Follow Up 2 Weeks (CSM) HPI 2 W FU: Chief Complaint: Shortness of breath HPI Comments Details: This is a 77 year old very pleasant f, currently under the care of Ayla Subramanian MD, here today to review test results. I personally reviewed the tests/images/tracings which showed: Complete Pulmonary Function test were preformed on September 07, 2017, and showed FVC of 77 % of predicted, FEV1 of 7472 % of predicted, FEV1/FVC ratio of %, TLC of 95 % of predicted, RV of 07/30/1951 percent of predicted % of predicted, DLCO . The test was interpreted to be consistent with an isolated defect in diffusing capacity. Pulmonary stress test was completed on August 27, 2017, and did not show a drop in saturation below 89%, which suggested no current need for supplemental oxygen on ambulation at this time. She did experience tachycardia, highest heart rate was 120 bpm which occurred during minute 5. Compliance report for the past 30 days was reviewed and showed the patient has been 97% compliance. Average use is 3 hours and 49 minutes. Current setting is 15 cm of water. Current AHI is 0.7 events per hour leaks do appear to be a consistent issue. She reports that her shortness of breath has worsened. She is more short of breath on exertion. She also reports that she is having lower extremity edema bilaterally. Her weight is up 6 pounds since her last office visit. She is now using her nebulizer twice daily and senna only before bedtime. She does have wheezing but denies any cough, sputum production or hemoptysis. She denies any chest pain or palpitations. She is compliant with her CPAP and denies any difficulties with the mask or pressure support. She does report feeling rested in the morning. She denies snoring through the mask. She denies dry mouth in the morning. She denies any episodes of nocturia or napping. Intake Vital Signs09/28/17 Height 5 ft 6 in 09/28/17 Weight: 261 lb Intake Visit Reasons: 2 W [place] [facility] [place] Vendor[place] [employer] Accompanied by: Daughter Allergies acetaminophen [From Darvocet-N] Allergy (Severe, Verified 09/28/17 07:36) Unknown bupropion [From Wellbutrin] Allergy (Severe, Verified 09/28/17 07:36) Unknown gabapentin [From Neurontin] Allergy (Severe, Verified 09/28/17 07:36) Unknown pregabalin [From Lyrica] Allergy (Severe, Verified 09/28/17 07:36) Unknown propoxyphene [From Darvocet-N] Allergy (Severe, Verified 09/28/17 07:36) Unknown sulfadiazine Allergy (Severe, Verified 09/28/17 07:36) Unknown Medications albuterol sulfate 2.5 mg/3 mL (0.083 %) solution for nebulization 2.5 mg INHALATION Q4H PRN ml 07/26/17 [History Confirmed 09/28/17] cholecalciferol (vitamin D3) 50,000 unit capsule 50,000 unit PO QWEEK 07/26/17 [History Confirmed 09/28/17] furosemide 20 mg tablet 20 mg PO BID tab 07/26/17 [History Confirmed 09/28/17] insulin admin supplies subcutaneous pen See Dose Instructions .ROUTE .MEDSUPPLY #1 ea 07/26/17 [History Confirmed 09/28/17] lisinopril 20 mg tablet 20 mg PO BID tab 07/26/17 [History Confirmed 09/28/17] lorazepam 0.5 mg tablet 0.5 mg PO TID PRN tab 07/26/17 [History Confirmed 09/28/17] potassium chloride ER 10 mEq capsule,extended release 10 meq PO QDAY 07/26/17 [History Confirmed 09/28/17] ranitidine 150 mg tablet 150 mg PO Q12H PRN tab 07/26/17 [History Confirmed 09/28/17] simvastatin 20 mg tablet 20 mg PO QAM 07/26/17 [History Confirmed 09/28/17] albuterol sulfate 2.5 mg/3 mL (0.083 %) solution for nebulization 2.5 mg INHALATION Q4H PRN ml 08/10/17 [History Confirmed 09/28/17] furosemide 40 mg tablet 40 mg PO BID #14 tab 09/28/17 [Rx Confirmed 09/28/17] PFSH Medical History TIA (transient ischemic attack) (Acute) Fibromyalgia (Chronic) Depression (Chronic) MATTHEW (obstructive sleep apnea) (Chronic) Emphysema, unspecified (Chronic) Anxiety (Chronic) Morbid obesity (Chronic) Hypokalemia (Acute) Hyperlipidemia (Acute) Diabetic neuropathy (Chronic) Diabetes type 2, controlled (Chronic) COPD (chronic obstructive pulmonary disease) (Chronic) CAD (coronary artery disease) (Chronic) HTN (hypertension) (Chronic) SLE (systemic lupus erythematosus) (Chronic) Tobacco use disorder (Chronic) History of rectal bleeding (Chronic) Surgical History History of cholecystectomy (Resolved) History of hysterectomy (Resolved) Knee joint replacement status (Chronic) Family History Father CAD (coronary artery disease) Social History Smoking Status: Former smoker second hand exposure: Yes alcohol intake: never substance use type: does not use Review of Systems Const CONSTITUTIONAL: Positive fatigue; negative anorexia, body ache, chills, daytime sleepiness, fever(s), night sweats, oral thrush, stops breathing during sleep, weight loss, sleeping in chair, weight loss, weight gain, frequent colds, seasonal allergies, other, headache(s) or orthopnea EETM Ear Nose Throat Mouth: Positive hearing normal; negative hard of hearing, hoarseness, dry mouth in morning, change in vision, itchy eyes, eye pain, swallowing Difficulty, ear pain, nose bleed, headache(s), mouth pain, nasal congestion, nasal discharge, post nasal drip, sinus pain, sinus pressure, sore throat or other Cardio Cardiovascular: Negative chest pain, chest pain at rest, chest pain with activity, irregular heart rhythm, edema, shortness of breath when lying down, palpitations, murmur or other Resp Respiratory: Positive as per HPI, shortness of breath shortness of breath: Positive with activity and worsening, wheezing and inhalers; negative pain with cough, chest congestion, cough, chest tightness, pain on inspiration, increase use of rescue inhalers, snoring, apnea or other Gastro Gastrointestional: Negative bloody stools, change in appetite, difficulty swallowing, reflux, hematemesis, melena stool, loose stool, constipation or other Genitourinary: Negative blood in urine, nocturia, pain with urination or other Musc Musculoskeletal: Negative body pain, back pain, neck pain or other Skin/Breast Skin/Breast: Negative dry skin, itching, rash, unusual bruising, breast lump or other Neuro Neurological: Negative restless legs, confusion, weakness or other Psych Psychocological: Negative abnormal sleep pattern, anxiety, thoughts of hurting self/others, hopelessness or other Lymph Lymphatic: Negative easy bleeding, easy bruising, swollen lymph nodes or other Exam Const Constitutional: Positive conversant, cooperative, in no acute respiratory distress, healthy appearing, well developed, well nourished, good hygiene and obese Head Head: Positive normocephalic and atraumatic; negative cyanosis of lips/distal nose Eyes Eye: Positive clear conjunctiva and nystagmus; negative scleral abnormality Ears Ear: Positive hearing normal and external ears normal; negative hard of hearing Nose Nose: Positive external nose normal and no nasal discharge; negative epistaxis Mouth Mouth: Positive oral mucosae normal, no lesions, poor dentition and crowded posterior oropharynx; negative post nasal drip, malodorous breath or oral thrush present Mallampati Score: III: Mallampati Score Neck Neck: Positive normal visual inspection, full ROM, trachea midline, thick neck and female neck greater than 37 cm (15 in); negative lymphadenopathy, JVD or tender Chest Wall Chest: Positive normal inspection of the chest and symmetric chest movement; negative increased A/P diameter Resp lung sounds: Positive clear to auscultation, good air exchange, normal expiratory time and normal respiratory effort; negative diminished, wheezes, rhonchi, rales, dullness to percussion or wheeze present on forced exhalation Cardio Cardiac: Positive regular rate, regular rhythm, S1 normal and S2 normal; negative murmur GI GI: Positive normal to inspection, normal bowel sounds and obese; negative distended Genitourinary: Positive deferred Musc Musculoskeletal: Positive steady gait and ROM normal; negative kyphosis or scoliosis Skin Pulmonary Skin Exam: Positive intact; negative rash, lesion, ulcers, erythema, scaly or dermal atrophy Pulses Pulse: Yes pulses normal x4 extremities Extremities Extremities: Yes capillary refill normal, No clubbing, No cyanosis, Yes edema Location: lower extremity location: Right leg swelling: pitting pitting: +1 (left LE 2+) Neuro Neurologic: Yes conversant, Yes no focal neuro deficits, Yes cooperative, Yes normal cognition, Yes normal coordination, Yes normal concentration, Yes understands questions Lymph Lymphatic: No lymphadenopathy, No tenderness, No cervical adenopathy, No axillary adenopathy Psych Appearance: Positive grossly normal, eye contact and well kempt Mental Status: Positive mental status grossly normal Mood: Positive congruent mood Affect: Positive normal affect Coding Level of Care Code Off vis,est,level 4 Diagnoses MATTHEW (obstructive sleep apnea) G47.33 Shortness of breath R06.02 Lower extremity edema R60.0 09/28/17 0832 <Electronically signed by Patricia Espana MAIL READER-C> Date Patricia Espana MAIL READER-C Cosigner Signature: Date (if applicable) CC: Ayla Subramanian PULMONARY FUNCTION Observed: 09/07/2017 Status: F Source: STIGLER REPORT COMP 3:08 PM [facility] [place] REPOSITORY [facility] Pulmonary Services/Neurology [address] [place] [address] MR#: [id number] Acct: [id number] Name: CANDICE BARRY Rep #: [id number] : 1940 77 From: Quintin Uribe MD Referring Dr: Patricia Espana MAIL READER Status: REG CLI Ordering Dr: Date: Location: [facility] Sex: F C COMPLETE PULMONARY FUNCTION TEST INTERPRETATION Brief HPI: Patient is a 77 year old female, currently under the care of Patricia Espana, who presents to [facility] for complete pulmonary function tests secondary to diagnosis of COPD. Respiratory therapist reports good effort and reproducible results. Interpretation: Forced expiration spirometry shows no large airways obstructive ventilatory defect with an FEV1 of 74 % predicted. There is no significant bronchodilator response by ATS criteria. Spirograms are of good quality and plateau slowly, indicating slowly emptying areas of the lungs. The respiratory flow volume loop shows decreased expiratory flow rates at high lung volumes consistent with small airways obstruction. Lung volumes by body plethysmography show a normal total lung capacity at 4.9 L, 95 % predicted. There is a trend towards air-trapping, but this does not reach clinical significance by ATS criteria. Diffusion capacity by carbon monoxide is decreased at 50 % predicted. The airway resistance is normal. No previous pulmonary function tests were available for review. Impression: Isolated defect in diffusion capacity consistent with possible pulmonary hypertension. There is some stigmata of small airways disease noted. 09/07/17 1508 <Electronically signed by Quintin Uribe MD> Date Quintin Uribe MD CC: Quintin Uribe MD; Ayla Subramanian Date Dictated: 09/07/171504 Date Transcribed: 09/07/171504 Db2 Dba: TREV Signed 6 MINUTE WALK TEST Observed: 08/27/2017 Status: F Source: EDVIN 11:26 AM [facility] REPOSITORY [facility] Pulmonary Services/Neurology [address] [place] [address] MR#: [id number] Acct: [id number] Name: CANDICE BARRY Rep #: [id number] : 1940 77 From: Quintin Uribe MD Referring Dr: Patricia Espana MAIL READER Date: Ordering Dr: Sex: F C Location: PSN PSN 6 Minute Walk Test - 6 Minute Walk Test 6 Minute Walk Test: 6 Minute Walk Test PSN:6-Minute Walk Test Start: 08/27/17 09:36 Freq: Status: Active Protocol: RESP.6MINW Document 08/27/17 09:36 AMH (Rec: 08/27/17 09:46 AMH [id number]) 6 Minute Walk Test Date Performed 08/27/17 Time Performed 09:00 Height 5 ft 6 in Weight: 115.666 kg Weight in Pounds 255.[address]: Patricia Espana FIO2 (% Oxygen) 21 Assistive device used: None Pre-test Oxygen Delivery Method Room Air Pulse Ox (%) 98 Pulse Rate (60-100 beats/min) 91 Dyspnea Shakeel Scale (0-10) 2 Reported Symptoms Increased Work of Breathing 1st minute Oxygen Delivery Method Room Air Pulse Ox (%) 96 Pulse Rate (60-100 beats/min) 103 H Dyspnea Shakeel Scale (0-10) 3 Reported Symptoms Increased Work of Breathing 2nd minute Oxygen Delivery Method Room Air Pulse Ox (%) 96 Pulse Rate (60-100 beats/min) 113 H Dyspnea Shakeel Scale (0-10) 3 Reported Symptoms Increased Work of Breathing 3rd minute Oxygen Delivery Method Room Air Pulse Ox (%) 96 Pulse Rate (60-100 beats/min) 117 H Dyspnea Shakeel Scale (0-10) 4 Number of Rests Taken 1 Reported Symptoms Increased Work of Breathing 4th minute Oxygen Delivery Method Room Air Pulse Ox (%) 95 Pulse Rate (60-100 beats/min) 122 H Dyspnea Shakeel Scale (0-10) 4 Reported Symptoms Increased Work of Breathing 5th minute Oxygen Delivery Method Room Air Pulse Ox (%) 96 Pulse Rate (60-100 beats/min) 120 H Dyspnea Shakeel Scale (0-10) 4 Number of Rests Taken 1 Reported Symptoms Increased Work of Breathing 6th minute Oxygen Delivery Method Room Air Pulse Ox (%) 97 Pulse Rate (60-100 beats/min) 110 H Dyspnea Shakeel Scale (0-10) 5 Reported Symptoms Increased Work of Breathing Post-test Oxygen Delivery Method Room Air Pulse Ox (%) 98 Pulse Rate (60-100 beats/min) 92 Dyspnea Shakeel Scale (0-10) 2 Reported Symptoms Increased Work of Breathing Full Laps Walked 11 Partial Lap, Number of Tiles Walked 11 Total Distance Walked (ft) 660 08/27/17 09:41 Cardiopulmonary Services by Sangeeta Mendoza PATIENT ARRIVED AT BASELINE BREATHING (RATED AT 2) SHORT REST BREAK TAKEN AT 3 AND 5 MINUTES FOR LEG FATIGUE AND SHORTNESS OF BREATH. ENTIRE TEST DONE ON ROOM AIR Initialized on 08/27/17 09:41 - END OF NOTE - Interpretation Interpretation: The patient ambulated 660 feet over the course of 6 minutes on room air with no assistive devices and 2 breaks. Patient reported leg pain and increased work of breathing as etiology of breaks. No significant desaturation was noted, but patient did have significant tachycardia as high as 122 bpm. These findings are consistent with a cardiovascular limitation exercise tolerance. - Recommendations Recommendations: No supplemental oxygen is indicated at this time. Patient may benefit from a cardiovascular evaluation if not completed previously. 08/27/17 1126 <Electronically signed by Quintin Uribe MD> Date Quintin Uribe MD CC: Date Dictated: 08/27/17 1125 Date Transcribed: 08/27/171124 Db2 Dba: Quintin Uribe Signed VITAMIN D,25 HYDROXY Collected: 08/23/2017 Status: F Source: EDVIN 8:43 AM [facility] REPOSITORY TYPE CODE TESTS RESULT OUT OF RANGE REFERENCE UNITS LAB L506.1000 19.95-100.01 ng/mL Normal Vitamin D 37.4 25-OH Result Comment: Vitamin D 25(OH) Status Range Deficiency <20 ng/mL (50nmol/L) Insuffciency 20 - 30 ng/mL (50 - 75 nmol/L) Sufficiency 30 - 100 ng/mL (75 - 250 nmol/L) Toxicity >100 ng/mL (>250 nmol/L) Performed By: #### L506.1000 #### [facility] [address] [place], [address] CBC W/DIFF, AUTOMATED Collected: 08/16/2017 Status: F Source: EDVIN 10:00 AM [facility] REPOSITORY TYPE CODE TESTS RESULT OUT OF RANGE REFERENCE UNITS LAB L100.1000 4.4-11.0 K/mm3 Normal WBC 10.2 LAB L100.1200 4.2-5.4 M/mm3 Normal RBC 4.80 LAB L100.1300 12.0-15.0 g/dl Normal HGB 12.7 LAB L100.1400 37-47 % Normal HCT 40.0 LAB L100.1500 81-99 fL Normal MCV 83.3 LAB L100.1600 27.0-32.0 pg Low MCH 26.5 LAB L100.1700 32-36 g/gl Low MCHC 31.8 LAB L100.1810 11.6-14.6 % Normal RDW CV 14.3 LAB L100.1820 35.1-43.9 fl Normal RDW SD 43.1 LAB L100.1900 150-450 K/mm3 Normal PLT 255 LAB L100.2000 6.2-12.0 fl Normal MPV 10.8 LAB L100.2100 47-70 % Normal NEUT% 62.5 LAB L100.2200 19-41 % Normal LY% 25.4 LAB L100.2300 0-10 % Normal MONO% 6.5 LAB L100.2400 0-5 % Normal EO% 3.9 LAB L100.2500 0-1 % Normal BASO% 0.7 LAB L100.2550 0.0-0.9 % High IM GRAN % 1.000 Result Comment: IG% - Immature Granulocytes (promyelocytes, myelocytes and metamyelocytes) > 1% indicates that a LEFT SHIFT is Present. LAB L100.2620 2.0-7.7 X10 3/uL Normal Absolute Neut 6.3 LAB L100.2720 0.83-4.51 X10 3/ul Normal Absolute Lymph 2.58 Performed By: #### L100.0100 #### [facility] [address] [place], [place], [address] COMPREHENSIVE METABOLIC Collected: 08/16/2017 Status: F Source: EDVIN PROFIL 10:00 AM [facility] REPOSITORY TYPE CODE TESTS RESULT OUT OF RANGE REFERENCE UNITS LAB L501.0100 70-110 mg/dL High GLU 143 Result Comment: Fasting Glucose result greater than or equal to 126 mg/dL suggests DIABETES MELLITUS per A.D.A. criteria. LAB L501.1000 7-18 mg/dL Normal BUN 10 LAB L501.1100 0.55-1.02 mg/dL Normal CREAT,SERUM 0.97 Result Comment: The validity of the calculated GFR AND GFRAA in patients over 70 years has not been determined. Clinical correlation is essential. LAB L501.1110 >60 mL/min Low EST GFR 59 Result Comment: Non- GFR Calc LAB L501.1115 >60 mL/min Normal EST GFR - AA 71 Result Comment: GFR Calc LAB L501.1300 10-20 RATIO Normal BUN/CRE 10.3 LAB L501.1500 6.4-8.2 g/dL T Normal PROT 7.8 LAB L501.1800 3.2-5.0 g/dL Normal ALB 3.3 LAB L501.1950 2.2-4.2 g/dL High GLOB 4.5 LAB L501.2000 0.9-2.4 RATIO Low A/G 0.7 LAB L501.2200 8.5-10.1 mg/dL Low CA 8.4 LAB L501.4100 15-37 U/L Low AST 13 LAB L501.4305 45-117 U/L Normal ALK P 87 LAB L501.4405 13-56 U/L Normal ALT 27 Result Comment: Please note revised ALT reference range effective 2017. LAB L501.4600 0.20-1.00 mg/dL Normal T BILI 0.50 LAB L501.5300 136-145 mmol/L Normal NA 136 LAB L501.5600 3.5-5.1 mmol/L Normal K 3.7 LAB L501.5900 98-107 mmol/L Normal CL 100 LAB L501.6100 21.0-32.0 mmol/L Normal CO2 27.0 LAB L501.6200 5-15 Normal GAP 9 Performed By: #### L500.4050, L501.9520, L506.0400 #### [facility] [address] [place], [address] THYROID STIM HORMONE Collected: 08/16/2017 Status: F Source: EDVIN (TSH) 10:00 AM [facility] REPOSITORY TYPE CODE TESTS RESULT OUT OF RANGE REFERENCE UNITS LAB L501.9520 0.358-3.74 uIU/mL Normal TSH 2.51 Performed By: #### L500.4050, L501.9520, L506.0400 #### [facility] [address] [place], [address] T4 FREE DIRECT Collected: 08/16/2017 Status: F Source: EDVIN 10:00 AM [facility] REPOSITORY TYPE CODE TESTS RESULT OUT OF RANGE REFERENCE UNITS LAB L506.0400 0.76-1.46 ng/dL Normal T4 FREE 1.28 DIRECT Performed By: #### L500.4050, L501.9520, L506.0400 #### [facility] [address] [place], [address] PULMONARY VISIT REPORT Observed: 08/10/2017 Status: F Source: EDVIN 1:49 PM [facility] REPOSITORY Pulmonary Medicine of [address] [place] [address] OFFICE VISIT Date of Service: 08/10/17 MR#: [id number] Acct: [id number] Name: CANDICE BARRY Rep #: [id number] : 1940 Provider: Patricia Espana Age/Sex: 77/F Location: [facility] Status: Signed Assessment AND Plan 1. Chronic obstructive pulmonary disease, unspecified COPD type J44.9 Patient Instructions At the last office visit it was discussed to potentially step up her therapy pending pulmonary function tests. Coronary function testing has been ordered, the patient will follow up afterwards discussed appropriate inhaler regime. The patient is agreeable to this plan. She does not appear to be in exacerbation today, does not require antibiotics or prednisone. I do think she would benefit from maintenance medications. Once started on therapy we will initially follow at 3 months, once stable follow-up 6 months. Orders Orders: 2. MATTHEW (obstructive sleep apnea) G47.33 Plan She is using and benefiting from current CPAP. She does admit that she is more comfortable with it and is able to tolerate longer periods of time. No indication for titration study at this time. Continue current prescription. Follow-up in 1 month, if stable will plan to follow-up in 3 months. 3. Morbid obesity E66.01 Plan Encourage the patient to increase her physical activity as tolerates. She does admit that she has difficulty during the wintertime she does not have a ride to a facility to walk-in such as [facility]. Currently, she is walking in [facility] on Sundays. She does anticipate that she will be able to get outside once the weather is nicer and be more active. 4. Tobacco use disorder F17.200 Plan Resolved, patient has been successful at smoking cessation at this time. Continue to encourage smoking cessation. Plan Detail Follow Up 1 Month ([facility]) HPI 6 M FU: Chief Complaint: dyspnea HPI Comments Details: This is a 77 year old pleasant f, currently under the care of Dr. Summers, here to follow up for sleep apnea and chronic obstructive pulmonary disorder. Current use of pressure support therapy is on average of 325 minutes hours per night with current settings of 15 cmH2O. Last sleep study was completed on December 16, 2016. CANDICE denies any daytime somnolence, dry mouth in the morning, nocturia, snoring through the mask, morning headaches or difficulty with mask leaks, but is experiencing daytime somnolence, dry mouth in the morning, nocturia, snoring through the mask, morning headaches and difficulty with mask leaks. CANDICE reports feeling rested in the morning and is benefitting from current therapy. Compliance report was reviewed and shows 100% compliance, current AHI is 0.9 events per hour and air leaks do appear to be an issue. She has not been seen or treated for any respiratory illnesses in the ED urgent care since her last office visit. She has not required antibiotics or prednisone. She continues compliance with her Ventolin rescue inhaler and albuterol nebulizer used as needed. She is typically using her albuterol nebulizer once nightly. She does admit to continued shortness of breath, and utilizes her Ventolin rescue inhaler for shortness of breath when she is out shopping. She denies any cough, but is having some wheezing and chest tightness occasionally. The albuterol does provide her with relief from the shortness of breath, wheezing and chest tightness. She denies any fever or chills. She denies any sputum production or hemoptysis. She does report continued increase in weight since she has stopped smoking. Intake Vital Signs08/10/17 Height 5 ft 7 in 08/10/17 Weight: 261 lb Intake Visit Reasons: 6 M FU Accompanied by: Sister Allergies acetaminophen [From Darvocet-N] Allergy (Severe, Verified 08/10/17 08:32) Unknown bupropion [From Wellbutrin] Allergy (Severe, Verified 08/10/17 08:32) Unknown gabapentin [From Neurontin] Allergy (Severe, Verified 08/10/17 08:32) Unknown pregabalin [From Lyrica] Allergy (Severe, Verified 08/10/17 08:32) Unknown propoxyphene [From Darvocet-N] Allergy (Severe, Verified 08/10/17 08:32) Unknown sulfadiazine Allergy (Severe, Verified 08/10/17 08:32) Unknown Medications albuterol sulfate 2.5 mg/3 mL (0.083 %) solution for nebulization 2.5 mg INHALATION Q4H PRN ml 07/26/17 [History Confirmed 08/10/17] cholecalciferol (vitamin D3) 50,000 unit capsule 50,000 unit PO QWEEK 07/26/17 [History Confirmed 08/10/17] furosemide 20 mg tablet 20 mg PO BID tab 07/26/17 [History Confirmed 08/10/17] insulin admin supplies subcutaneous pen See Dose Instructions .ROUTE .MEDSUPPLY #1 ea 07/26/17 [History Confirmed 08/10/17] lisinopril 20 mg tablet 20 mg PO BID tab 07/26/17 [History Confirmed 08/10/17] lorazepam 0.5 mg tablet 0.5 mg PO TID PRN tab 07/26/17 [History Confirmed 08/10/17] potassium chloride ER 10 mEq capsule,extended release 10 meq PO QDAY 07/26/17 [History Confirmed 08/10/17] ranitidine 150 mg tablet 150 mg PO Q12H PRN tab 07/26/17 [History Confirmed 08/10/17] simvastatin 20 mg tablet 20 mg PO QAM 07/26/17 [History Confirmed 08/10/17] albuterol sulfate 2.5 mg/3 mL (0.083 %) solution for nebulization 2.5 mg INHALATION Q4H PRN ml 08/10/17 [History Confirmed 08/10/17] [facility] Medical History TIA (transient ischemic attack) (Acute) Fibromyalgia (Chronic) Depression (Chronic) MATTHEW (obstructive sleep apnea) (Chronic) Emphysema, unspecified (Chronic) Anxiety (Chronic) Morbid obesity (Chronic) Hypokalemia (Acute) Hyperlipidemia (Acute) Diabetic neuropathy (Chronic) Diabetes type 2, controlled (Chronic) COPD (chronic obstructive pulmonary disease) (Chronic) CAD (coronary artery disease) (Chronic) HTN (hypertension) (Chronic) SLE (systemic lupus erythematosus) (Chronic) Tobacco use disorder (Chronic) History of rectal bleeding (Chronic) Surgical History History of cholecystectomy (Resolved) History of hysterectomy (Resolved) Knee joint replacement status (Chronic) Family History Father CAD (coronary artery disease) Social History Smoking Status: Former smoker second hand exposure: Yes alcohol intake: never substance use type: does not use Review of Systems Const CONSTITUTIONAL: Positive daytime sleepiness; negative anorexia, body ache, chills, fever(s), night sweats, oral thrush, stops breathing during sleep, weight loss, sleeping in chair, fatigue, weight loss, weight gain, frequent colds, seasonal allergies, other, headache(s) or orthopnea EETM Ear Nose Throat Mouth: Positive hearing normal; negative hard of hearing, hoarseness, dry mouth in morning, change in vision, itchy eyes, eye pain, swallowing Difficulty, ear pain, nose bleed, headache(s), mouth pain, nasal congestion, nasal discharge, post nasal drip, sinus pain, sinus pressure, sore throat or other Cardio Cardiovascular: Positive edema Location: lower extremity; negative chest pain, chest pain at rest, chest pain with activity, irregular heart rhythm, shortness of breath when lying down, palpitations, murmur or other Resp Respiratory: Positive as per HPI, wheezing and increase use of rescue inhalers; negative shortness of breath, pain with cough, chest congestion, cough, chest tightness, pain on inspiration, inhalers, snoring, apnea or other Gastro Gastrointestional: Negative bloody stools, change in appetite, difficulty swallowing, reflux, hematemesis, melena stool, loose stool, constipation or other Genitourinary: Negative blood in urine, nocturia, pain with urination or other Musc Musculoskeletal: Positive back pain; negative body pain, neck pain or other Skin/Breast Skin/Breast: Positive dry skin and itching; negative rash, unusual bruising, breast lump or other Neuro Neurological: Positive restless legs; negative confusion, weakness or other Psych Psychocological: Positive abnormal sleep pattern; negative anxiety, thoughts of hurting self/others, hopelessness or other Lymph Lymphatic: Negative easy bleeding, easy bruising, swollen lymph nodes or other Exam Const Constitutional: Positive conversant, cooperative, in no acute respiratory distress, healthy appearing, well developed, well nourished, poor hygiene and obese Head Head: Positive normocephalic and atraumatic; negative cyanosis of lips/distal nose Eyes Eye: Positive clear conjunctiva and nystagmus; negative scleral abnormality Ears Ear: Positive hearing normal and external ears normal; negative hard of hearing Nose Nose: Positive external nose normal and no nasal discharge; negative epistaxis Mouth Mouth: Positive oral mucosae normal, no lesions, edentulous and posterior oropharynx is adequate; negative post nasal drip, malodorous breath or oral thrush present Mallampati Score: II: Mallampati Score Neck Neck: Positive normal visual inspection, full ROM, trachea midline, thick neck and female neck greater than 37 cm (15 in); negative lymphadenopathy, JVD or tender Chest Wall Chest: Positive normal inspection of the chest and symmetric chest movement; negative increased A/P diameter Resp lung sounds: Positive diminished, clear to auscultation and prolonged expiratory time; negative wheeze present on forced exhalation, wheezes, dullness to percussion, rales, rhonchi, normal expiratory time, increased work of breathing or use of accessory muscles Cardio Cardiac: Positive S1 normal and S2 normal; negative murmur, regular rhythm or regular rate GI GI: Positive normal to inspection, normal bowel sounds and obese; negative distended Genitourinary: Positive deferred Musc Musculoskeletal: Positive steady gait and ROM normal; negative kyphosis, scoliosis or using an assistive device for ambulation Skin Pulmonary Skin Exam: Positive intact; negative rash, lesion, ulcers, erythema, scaly or dermal atrophy Pulses Pulse: Yes pulses normal x4 extremities Extremities Extremities: Yes edema Location: lower extremity location: Right leg swelling: pitting (LEFT 2+) pitting: +1, Yes capillary refill normal, Yes clubbing, No cyanosis, No stasis dermatitis Neuro Neurologic: Yes conversant, Yes no focal neuro deficits, Yes cooperative, Yes normal cognition, Yes normal coordination, Yes understands questions, Yes normal concentration Lymph Lymphatic: No lymphadenopathy, No tenderness, No axillary adenopathy, No cervical adenopathy Psych Appearance: Positive grossly normal, eye contact and well kempt Mental Status: Positive mental status grossly normal Mood: Positive congruent mood Affect: Positive anxious affect Coding Level of Care Code Off vis,est,level 4 Diagnoses Chronic obstructive pulmonary disease, unspecified COPD type J44.9 COPD type: unspecified COPD MATTHEW (obstructive sleep apnea) G47.33 Morbid obesity E66.01 Tobacco use disorder F17.200 08/10/17 1349 <Electronically signed by Patricia LÓPEZ> Date Patricia LÓPEZ Cosigner Signature: Date (if applicable) CC: Ayla HOBBS Observed: 08/03/2017 Status: COMPLETED Source: MELODIE 12:00 AM [facility] REPOSITORY Refill (INTMWS) CANDICE BARRY ([id number]) 1940 F Date Time Provider Department 08/03/17 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 MICHA Jimenez 08/04/2017 12:14 PM Signed Patient is receiving care elsewhere and no longer with Dr. Melchor. Sarah Rebollar, YANELIR Allergies As of Date: 08/03/2017 Noted Allergy Reaction ADHESIVE 08/14/2013 2 - Rash CYMBALTA (DULOXETINE) 01/17/2014 1 - Mental Status Change DARVOCET-N 100 (PROPOXYPHENE N-AC*03/02/2005 NEURONTIN (GABAPENTIN) 02/09/2008 Comments: Drowsiness at even low doses WELLBUTRIN (BUPROPION HCL) 06/24/2010 1 - Mental Status Change Comments: tearfulness Date Reviewed: 08/09/2015 Reviewed by: Liseth Cruz Dynamite Packing Machine Feeder - Fully Assessed Reason for Visit: Refill Request [94] Prescriptions as of 08/03/2017 Sig: SIMVASTATIN 20 MG TABLET take 1 tablet by mouth at bed* LISINOPRIL 20 MG TABLET take 2 tablets by mouth once * BACLOFEN 20 MG TABLET take 1 tablet by mouth three * BLOOD SUGAR DIAGNOSTIC, DISC * test 3 times daily - dx E11.4* LORAZEPAM 0.5 MG TABLET Take 1 tablet by mouth twice * PREGABALIN 50 MG CAPSULE Take 1 capsule by mouth three* ALBUTEROL SULFATE 2.5 MG/3 ML* Use 3 mL via nebulizer three * INSULIN GLARGINE 100 UNIT/ML * Inject 10 Units subcutaneousl* PEN NEEDLE, DIABETIC 31 GAUGE* Use 4 times a day DX Diabetes* RANITIDINE 150 MG TABLET Take 1 tablet by mouth twice * CHOLECALCIFEROL (VITAMIN D3) * Take 1 capsule by mouth twice* PREDNISONE 10 MG TABLET Take 4 tabs daily for 3 days,* VITAMIN D2 50,000 UNIT CAPSULE take 1 capsule by mouth TWICE* COMPOUNDED PRESCRIPTION Nebulizer tubing, mask, nasal* COMPOUNDED PRESCRIPTION Blood pressure cuff. CETIRIZINE 10 MG TABLET Take 1 tablet by mouth once d* TRIAMCINOLONE ACETONIDE 0.1 %* Apply 1 application to affect* LANCETS Use as instructed up to 3 soheila* BLOOD-GLUCOSE METER, DISC-TYP* 1 Each as directed. Use up to* FLUTICASONE 250 MCG-SALMETERO* RINSE AND GARGLE MOUTH WITH W* INSULIN ASPART 100 UNIT/ML GONZALEZ* 3 times daily with meals as n* HYDROCHLOROTHIAZIDE 25 MG TAB* Take 1 tablet by mouth once d* AMLODIPINE 10 MG TABLET Take 1 tablet by mouth once d* ASPIRIN 81 MG TABLET Take 1 tablet by mouth once d* COMPOUNDED PRESCRIPTION bath/shower chair * DIAPER,BRIEF,ADULT,DISPOSABLE 1 Each four times daily as ne* * BREEZE 2 TEST STRIPS To check blood sugar ONCE susu* Problem List As Of Date 08/03/2017 Noted Resolved Malignant Neoplasm of Uterus, Part Unspecified *INVALID FOR* Priority: Moderate More... Other Emphysema [J43.8] INVALID FOR* Priority: Moderate More... Unspecified essential hypertension [I10] INVALID FOR* Priority: Moderate More... 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 Diverticulosis of Colon (without Mention of Hem*INVALID FOR* Internal Hemorrhoids without Mention of Complic*INVALID FOR* DM w/o Complication Type II [E11.9] INVALID FOR*04/24/2014 Priority: Moderate More... Systemic lupus erythematosus (HCC) [M32.9] INVALID FOR* Priority: Moderate More... Obesity, unspecified [E66.9] INVALID FOR* Priority: Moderate More... Generalized anxiety disorder [F41.1] INVALID FOR* Priority: Mild More... Edema [R60.9] INVALID FOR* FIBROMYALGIA [QJD2762] INVALID FOR* Priority: A More... 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 More... Routine Gynecological Examination [Z01.419] INVALID FOR* Class: Chronic More... Unspecified vitamin D deficiency [E55.9] INVALID FOR* Priority: Moderate Restless legs syndrome (RLS) [G25.81] INVALID FOR* Priority: A More... Diabetic neuropathy (HCC) [E11.40] INVALID FOR* Priority: Moderate More... Pelvic floor dysfunction [M62.89] INVALID FOR* Priority: Moderate More... Hyperlipidemia [E78.5] INVALID FOR* More... Family history of colon cancer [Z80.0] INVALID FOR* Diabetes mellitus with neuropathy [E11.40] INVALID FOR* More... Depression [F32.9] INVALID FOR* More... Degenerative arthritis of right knee [M17.11] INVALID FOR* TIA (transient ischemic attack) [G45.9] INVALID FOR* More... Abscess [L02.91] INVALID FOR*09/21/2014 Cellulitis [L03.90] INVALID FOR*09/21/2014 Back pain [M54.9] INVALID FOR* Tobacco abuse [Z72.0] INVALID FOR* More... Vitamin D deficiency [E55.9] INVALID FOR* More... Anxiety [F41.9] INVALID FOR* More... Encounter Status:Closed by ELISSA BEAULIEU LPN on 08/10/17 ALLERGIES ALLERGIES DATE TYPE / CODE NAME / CODE REACTION SEVERITY SOURCE 11/04/2017 Drug propoxyphene Unknown [facility] Allergy/4160 /[id number]( [place] [address](SNOMED RXNORM) Repository CT) 11/04/2017 Drug acetaminophe Unknown [facility] Allergy/4160 n/[id number] [place] [address](SNOMED (RXNORM) Repository CT) 11/04/2017 Drug sulfadiazine Unknown [facility] Allergy/4160 /[id number]( [facility] [address](SNOMED RXNORM) Repository CT) 11/04/2017 Drug gabapentin/F Unknown [facility] Allergy/4160 [id number](RX Hospital [address]344(SNOMED NORM) Repository CT) 11/04/2017 Drug bupropion/F0 Unknown [facility] Allergy/4160 76546521(RXN Hospital [address]754(SNOMED ORM) Repository CT) 11/04/2017 Drug pregabalin/F Unknown [facility] Allergy/4160 [id number](RX Hospital [address]82(SNOMED NORM) Repository CT) ENCOUNTERS ENCOUNTERS ADMIT/DISCHARGE ACCOUNT ADMITTING ENCOUNTER LOCATION SOURCE NUMBER CLASS 07/01/2018 [id number] Ambulatory [facility] [facility] 2 [facility] ing:PSN Repository 06/20/2018 [id number] Ambulatory BMSBuilding:W Ward 6 [facility] Repository 06/20/2018 [id number] Ambulatory [facility] [facility] 9 [facility] ing:PSN Repository 03/28/2018/ [id number] Ambulatory [facility]B [place] 8 [facility] [place] 11/04/2017 [id number] Ambulatory Ward [place] 6 [facility] ing:LAB Repository 11/04/2017/ [id number] Ambulatory BMSBuilding:B [address] 8 4 [facility] Repository 10/19/2017 [id number] [facility] [place] [facility] 4 [facility] Repository 10/19/2017 [id number] Ambulatory BMSBuilding:W [place] 9 [facility] Repository 09/28/2017 [id number] Ambulatory Ward [place]vin 1 [facility] ing:LAB Repository 09/28/2017/ [id number] Ambulatory BMSBuilding:B [place] 8 2 [facility] Repository 09/15/2017 [id number] Ambulatory BMSBuilding:B [place] 3 [facility] Repository 09/07/2017 [id number] Ambulatory [facility]PSN Repository 09/07/2017 [id number] Ambulatory BMSBuilding:W Edvin 1 [facility] Repository 08/27/2017 [id number] Ambulatory Edvin Edvin 9 [facility] ing:PSN Repository 08/27/2017 [id number] Ambulatory BMSBuilding:W Ward 9 [facility] Repository 08/23/2017 [id number] Ambulatory Ward Edvin 0 [facility] ing:BFHLAB Repository 08/16/2017 [id number] Ambulatory Edvin Edvin 5 [facility] ing:BFHLAB Repository 08/10/2017/ [id number] [facility] 07/26/2017 [id number] Ambulatory BMSBuilding:B [place] 6 [facility] PAYERS PAYERS ENCOUNTER GUARANTOR PAYER SUBSCRIBER SOURCE 07/01/2018 CANDICE Rider Primary CANDICE Rider Edvin [id number] Insurance:MYCARE [employer]SC MURRAYDOB: Community [place]IN [id number] [place] Number[place]ository [place] [address]Omf: [id number] Date:1299-83-08INDY () CLAIMS DEPO [facility] [address] [place] [address]CN: 07/01/2018 Secondary NOT GIVENUNK Ward Insurance:SELF PAY [facility] Number: Effective Repository Date:2018-03-28 06/20/2018 CANDICE Rider Primary CANDICE Velasquezoster [id number] Insurance:[facility] MURRAYDOB: Community [place] [facility] [id number] [place], Number: [place]ository [place] [address]Hks: [id number] Date:1874-85-26DUHC () [place]S [address], [place] [address]WH: 06/20/2018 Secondary NOT GIVENUNK Ward Insurance:SELF PAY [facility] Number: Effective Repository Date:2018-06-20 06/20/2018 CANDICE Rider Primary CANDICE Velasquezoster [id number] Insurance:MYCARE CRSC MURRAYDOB: Community [place] [facility] [id number] [place], Number: [place]ository [place] [address]Thv: [id number] Date:9119-41-95GILZ () [place] [address]DD: 06/20/2018 Secondary NOT GIVENUNK Ward Insurance:SELF PAY [facility] Number: Effective Repository Date:2018-03-28 03/28/2018 CANDICE Rider Primary CANDICE Rider Ed[place] [id number] Insurance:MYCARE CRSC MURRAYDOB: Community [place] [address]-11-25[facility], Number: [place]ository [place] [address]Tka: [id number] Date:3223-81-48WQYO () [address] [place] [address]AD: 03/28/2018 Secondary NOT GIVENUNK [place] Insurance:SELF PAY [facility] Number: Effective Repository Date:2018-02-22 11/04/2017 CANDICE Rider Primary CANDICE Rider Ward [id number] Insurance:MYCARE CRSC MURRAYDOB: Community [place] [facility] [id number] [place], Number: Repository [place] [address]Vbr: [id number] Date:6243-52-42EYGB () CLAIMS [address] [place] [address]QA: 11/04/2017 Secondary NOT GIVENUNK Ward Insurance:SELF PAY [facility] Number: Effective Repository Date:2017-11-04 11/04/2017 CANDICE Rider Primary CANDICE Rider Ed[place] [id number] Insurance:MYCARE CRSC MURRAYDOB: Community [place] [facility] [id number] Hospital [facility] [place], Number: Repository [place] [address]Htz: [id number] Date:1807-75-46LVUQ (HP) [address]S [address] [address]NS: 11/04/2017 Secondary NOT GIVENUNK [place] Insurance:SELF PAY [facility] Number: Effective Repository Date:2017-10-18 10/19/2017 CANDICE Rider Primary CANDICE D Ward [id number] Insurance:MYCARE CRSC MURRAYDOB: Community [place] [facility] [id number] Hospital [place], Number: [place]ository [place] [address]Zpy: [id number] Date:9210-07-13RGJI (HP) [address]S [address] [address]VK: 10/19/2017 Secondary NOT GIVENUNK [place] Insurance:SELF PAY [facility] Number: Effective Repository Date:2017-09-28 10/19/2017 CANDICE Rider Primary CANDICE D [place] [id number] Insurance:MYCARE CRSC MURRAYDOB: Community [place] [facility] [id number] Hospital [place], Number: [place]ository [place] [address]Rwt: [id number] Date:6754-45-93XCIP (HP) [place]S [address] [address]XF: 10/19/2017 Secondary NOT GIVENUNK Ward Insurance:SELF PAY [facility] Number: Effective Repository Date:2017-10-19 09/28/2017 CANDICE Rider Primary CANDICE D Ward [id number] Insurance:MYCARE CRSC MURRAYDOB: Community [place] [facility] [id number] Hospital [place], Number: [place]ository [place] [address]Vnf: [id number] Date:5233-22-32XGQS (HP) CLAIMS [address] [address]XI: 09/28/2017 Secondary NOT GIVENUNK [place] Insurance:SELF PAY [facility] Number: Effective Repository Date:2017-09-28 09/28/2017 CANDICE Rider Primary CANDICE Tereso Ward [id number] Insurance:MYCARE CRSC MURRAYDOB: Community [place] *[place] [facility] [id number] Hospital [place], Number: [place]ository [place] [address]Qee: [id number] Date:1523-75-35TOSJ (HP) [place]S [address] [address]TE: 09/28/2017 Secondary NOT GIVENUNK [place] Insurance:SELF PAY [facility] Number: Effective Repository Date:2017-09-16 09/15/2017 CANDICE Rider Primary CANDICE Tereso VelasquezWard [id number] Insurance:MYCARE CRSC MURRAYDOB: Community [place] *[place] [facility] [id number] Hospital [place], Number: [place]ository [place] [address]Vef: [id number] Date:6042-09-91RTXL () [place]S [address] [address]DZ: 09/15/2017 Secondary NOT GIVENUNK [place] Insurance:SELF PAY [facility] Number: Effective Repository Date:2017-08-10 09/07/2017 CANDICE Rider Primary CANDICE Tereso [place] [id number] Insurance:MYCARE CRSC MURRAYDOB: Community [place] *[place] [facility] [id number] Hospital [place], Number: [place]ository [place] [address]Lwo: [id number] Date:9967-33-65WJJO () [place]S [address] [address]MW: 09/07/2017 Secondary NOT GIVENUNK Ward Insurance:SELF PAY [facility] Number: Effective Repository Date:2017-08-10 09/07/2017 CANDICE Rider Primary CANDICE D [place] [id number] Insurance:MYCARE CRSC MURRAYDOB: Community [place] *[place] [facility] [id number] Hospital [place], Number: [place]ository [place] [address]Oht: [id number] Date:4836-03-26YIJE () [place]S [address] [address]YX: 09/07/2017 Secondary NOT GIVENUNK Ward Insurance:SELF PAY [facility] Number: Effective Repository Date:2017-09-07 08/27/2017 CANDICE Rider Primary CANDICE Pardo [id number] Insurance:MYCARE CRSC MURRAYDOB: Community [place] [address], Number: [place]ository [place] [address]Smh: [id number] Date:4416-02-37FRLA () [place]S [address] [address]SW: 08/27/2017 Secondary NOT GIVENUNK [place] Insurance:SELF PAY [facility] Number: Effective Repository Date:2017-08-10 08/27/2017 CANDICE Rider Primary CANDICE Pardo [id number] Insurance:MYCARE CRSC MURRAYDOB: Community [place] [address], Number: [place]ository [place] [address]Xgp: [id number] Date:2960-26-08APZK () [place] [address]ZZ: 08/27/2017 Secondary NOT GIVENUNK [place] Insurance:SELF PAY [facility] Number: Effective Repository Date:2017-08-27 08/23/2017 CANDICE Rider Primary CANDICE Pardo [id number] Insurance:MYCARE CRSC MURRAYDOB: Community [place] [address], Number: [place]ository [place] [address]Xry: [id number] Date:5448-26-19XDUX (HP) [address]S [address] [address]TP: 08/23/2017 Secondary NOT GIVENUNK [place] Insurance:SELF PAY [facility] Number: Effective Repository Date:2017-08-23 08/16/2017 CANDICE Rider Primary CANDICE Pardo [id number] Insurance:MYCARE CRSC MURRAYDOB: Community [place] *[place] [facility] [id number] Hospital [place], Number: [place]ository [place] [address]Jgg: [id number] Date:2942-95-52VWPW (HP) [address]S [address] [address]MY: 08/16/2017 Secondary NOT GIVENUNK [place] Insurance:SELF PAY [facility] Number: Effective Repository Date:2017-08-16 08/10/2017 CANDICE Rider Primary CANDICE D Ward [id number] Insurance:MYCARE CRSC MURRAYDOB: Community [place] *[place] [facility] [id number] Hospital [place], Number: [place]ository [place] [address]Lxm: [id number] Date:9766-65-02XZQZ (HP) [address] [place] [address]GS: 08/10/2017 Secondary NOT GIVENUNK [place] Insurance:SELF PAY [facility] Number: Effective Repository Date:2017-06-27 07/26/2017 Candice D Primary Candice D Ed[place] [id number] Insurance:MYCARE CRSC MurrayDOB: Community [place] *[place] [facility] [id number] [facility]e [facility], Number: Repository [place] [address]Zcb: [id number] Date:2375-90-19QOZY (HP) CLAIMS [address] [place] [address]TL: 07/26/2017 Secondary NOT GIVENUNK Ward Insurance:SELF PAY [facility] Number: Effective Repository Date:2017-07-26
== END ==
PROVIDERS: Family Provider Family Medicine; PCP Family Medicine; Referring Provider Internal Medicine Critical Care Medicine; Visit Provider Internal Medicine Critical Care Medicine
DX: G47.33 Obstructive sleep apnea (adult) (pediatric) (principal); I51.9 Heart disease, unspecified; M32.9 Systemic lupus erythematosus, unspecified
CPT/HCPCS: 94060; 94726; 94729

== ENCOUNTER → 2018-07-01 10:44 | Outpatient (CLI) | payer MEDICARE, SELFPAY ==
[2018-07-01 11:17] VITALS: PULSE 108; PULSE 121; PULSE 124; PULSE 133; PULSE 135; PULSE 80; PULSE 89; O2SAT 96; O2SAT 97; O2SAT 98
--- NOTE | 2018-07-01 15:25 | WT_ITS ---
PSN 6 Minute Walk Test - 6 Minute Walk Test 6 Minute Walk Test: 6 Minute Walk Test PSN:6-Minute Walk Test Start: 07/01/18 11:17 Freq: Status: Active Protocol: RESP.6MINW Document 07/01/18 11:17 [facility] (Rec: 07/01/18 11:19 [facility] [id number]) 6 Minute Walk Test Date Performed 07/01/18 Time Performed 11:00 Height 5 ft 8 in Weight: 116.12 kg Weight in Pounds 256.[address]: Quintin Uribe Assistive device used: None Pre-test Oxygen Delivery Method Room Air Pulse Ox (%) 98 Pulse Rate (60-100 beats/min) 80 Dyspnea Shakeel Scale (0-10) 0 Exertion Shakeel Scale (6-20) 6 1st minute Oxygen Delivery Method Room Air Pulse Ox (%) 96 Pulse Rate (60-100 beats/min) 108 H 2nd minute Oxygen Delivery Method Room Air Pulse Ox (%) 96 Pulse Rate (60-100 beats/min) 121 H 3rd minute Oxygen Delivery Method Room Air Pulse Ox (%) 97 Pulse Rate (60-100 beats/min) 124 H Number of Rests Taken 1 4th minute Oxygen Delivery Method Room Air Pulse Ox (%) 97 Pulse Rate (60-100 beats/min) 121 H 5th minute Oxygen Delivery Method Room Air Pulse Ox (%) 98 Pulse Rate (60-100 beats/min) 133 H Number of Rests Taken 1 6th minute Oxygen Delivery Method Room Air Pulse Ox (%) 98 Pulse Rate (60-100 beats/min) 135 H Dyspnea Shakeel Scale (0-10) 4 Exertion Shakeel Scale (6-20) 14 Post-test Oxygen Delivery Method Room Air Pulse Ox (%) 98 Pulse Rate (60-100 beats/min) 89 Full Laps Walked 12 Partial Lap, Number of Tiles Walked 30 Total Distance Walked (ft) 738 - Interpretation Interpretation: The patient was able to ambulate 738 feet over the course of 6 minutes on room air with no assistive devices, but 2 breaks. The patient experienced no significant desaturation, but did have significant tachycardia with a peak heart rate of 135 bpm. These findings are consistent with a cardiovascular limitation exercise tolerance. - Recommendations Recommendations: No supplemental oxygen is indicated at this time. Patient may benefit from a ca rdiovascular evaluation.
--- OUTSIDE RECORDS SUMMARY | 2018-08-17 01:47 | XMS RPT_ITS ---
:1940 Author Organization [place] Support Name Relationship Address Phone HAL, BEN Unavailable [address] + [place] [address] R Unavailable Unavailable Unavailable HAL, BEN Unavailable [address] + [place] [address] R Unavailable Unavailable Unavailable HAL, BEN Unavailable [address] + [place] [address] R Unavailable Unavailable Unavailable HAL, BEN Unavailable [address] + [place] [address] R Unavailable Unavailable Unavailable HAL, BEN Unavailable [address] + [place] [address] R Unavailable Unavailable Unavailable HAL, BEN Unavailable [address] + [place] [address] R Unavailable Unavailable Unavailable HAL, BEN Unavailable [address] + [place] [address] R Unavailable Unavailable Unavailable HAL, BEN Unavailable [address] + [place] [address] R Unavailable Unavailable Unavailable HAL, BEN Unavailable [address] + [place] [address] R Unavailable Unavailable Unavailable HAL, BEN Unavailable [address] + [place] [address] R Unavailable Unavailable Unavailable HAL, BEN Unavailable [address] + [place] [address] R Unavailable Unavailable Unavailable HAL, BEN Unavailable [address] + [place] [address] R Unavailable Unavailable Unavailable HAL, BEN Unavailable [address] + [place] [address] R Unavailable Unavailable Unavailable HAL, BEN Unavailable [address] + [place] [address] R Unavailable Unavailable Unavailable HAL, BEN Unavailable [address] + [place] [address] R Unavailable Unavailable Unavailable HAL, BEN Unavailable [address] + [place] [address] R Unavailable Unavailable Unavailable HAL, BEN Unavailable [address] + [place] [address] R Unavailable Unavailable Unavailable HAL, BEN Unavailable [address] + [place] [address] R Unavailable Unavailable Unavailable HAL, BEN Unavailable [address] + [place] [address] R Unavailable Unavailable Unavailable HAL, BEN Unavailable [address] + [place] [address] R Unavailable Unavailable Unavailable HAL, BEN Unavailable [address] + [place] [address] R Unavailable Unavailable Unavailable HAL, BEN Unavailable [address] + [place] [address] R Unavailable Unavailable Unavailable Care Team Providers Name Role Phone Bryant Bangura D.O. Attending Unavailable Quintin Uribe Referring Unavailable Quintin Uribe Attending Unavailable Quintin Uribe Referring Unavailable Patricia Espana Attending Unavailable Ayla Subramanian Referring Unavailable Patricia Espana Attending Unavailable Ayla Subramanian Referring Unavailable Sanjana Bains Attending Unavailable Montana Shepard Attending Unavailable Ayla Subramanian Referring Unavailable Ayla Subramanian Attending Unavailable Ayla Subramanian Primary Care Unavailable Ayla Subramanian Attending Unavailable Patricia Espana Attending Unavailable Ayla Subramanian Primary Care Unavailable Espana, Patricia Referring Unavailable Espana, Patricia Attending Unavailable Marilynn, Ayla Primary Care Unavailable Rony, Quintin Attending Unavailable Espana, Patricia Referring Unavailable Espana, Patricia Attending Unavailable Marilynn, Ayla Referring Unavailable Espana, Patricia Attending Unavailable Marilynn, Ayla Referring Unavailable Marilynn, Ayla Primary Care Unavailable Espana, Patricia Attending Unavailable Espana, Patricia Referring Unavailable Marilynn, Ayla Primary Care Unavailable Rony, Quintin Attending Unavailable Espana, Patricia Referring Unavailable Espana, Patricia Attending Unavailable Espana, Patricia Referring Unavailable Marilynn, Ayla Primary Care Unavailable Espana, Patricia Attending Unavailable Marilynn, Ayla Referring Unavailable Espana, Patricia Attending Unavailable Espana, Patricia Referring Unavailable Marilynn, Ayla Primary Care Unavailable Silvio Yost Attending Unavailable Espana, Patricia Referring Unavailable Rony, Quintin Attending Unavailable Marilynn, Ayla Referring Unavailable Marilynn, Ayla Primary Care Unavailable Rony, Quintin Attending Unavailable Rony, Quintin Referring Unavailable Marilynn, Ayla Primary Care Unavailable Rony, Quintin Attending Unavailable Rony, Quintin Referring Unavailable Marilynn, Ayla Primary Care Unavailable PROBLEMS PROBLEMS DATE TYPE CONDITION / CODE ATTENDING STATUS SOURCE 08/03/2018 Unknown R07.9 - Chest pain, Drea, [place] Active [facility] unspecified / Community R07.9(ICD-10) Hospital Repository 08/03/2018 Unknown I50.32 - Chronic Drea, [place] Active [facility] diastolic Community (congestive) heart Hospital failure / Repository I50.32(ICD-10) 08/03/2018 Unknown I10 - Essential Drea, [place] Active [facility] (primary) Community hypertension / Hospital I10(ICD-10) Repository 07/25/2018 Unknown R06.02 - Shortness [place], Active [facility] of breath / Patricia Community R06.02(ICD-10) Hospital Repository 07/08/2018 Unknown J96.11 - Chronic Rony, Quintin Active [facility] respiratory failure Community with hypoxia / Hospital J96.11(ICD-10) Repository 07/01/2018 Unknown M32.9 - Systemic Rony, Quintin Active [facility] lupus Community erythematosus, Hospital unspecified / Repository M32.9(ICD-10) 07/01/2018 Unknown G47.33 - Rony, Quintin Active [facility] Obstructive sleep Community apnea (adult) Hospital (pediatric) / Repository G47.33(ICD-10) 07/01/2018 Unknown I51.9 - Heart Rony, Quintin Active [facility] disease, Community unspecified / Hospital I51.9(ICD-10) Repository 03/28/2018 Unknown E66.01 - Morbid Quintin Uribe Active [facility] (severe) obesity Community due to excess Hospital calories / Repository E66.01(ICD-10) 11/04/2017 Unknown E11.9 - Type 2 [place]a, Active [facility] diabetes mellitus [facility] without Hospital complications / Repository E11.9(ICD-10) 11/12/2017 Unknown R60.0 - Localized Silvio Yost Active [facility] edema / Community R60.0(ICD-10) Hospital Repository 09/07/2017 Unknown J44.9 - Chronic [place], Active [facility] obstructive [facility] pulmonary disease, Hospital unspecified / Repository J44.9(ICD-10) PROCEDURES PROCEDURES No Procedure Records FoundRESULTS RESULTS 12 LEAD EKG PERFORMED Observed: 08/03/2018 Status: F Source: [facility] BY [facility] 2:19 PM [facility] REPOSITORY [facility] [address] [place] [address] 12 Lead EKG performed by [facility] 08/03/18 1418 MR#: [id number] Acct: [id number] Name: DAWNA BARRY Rep #: [id number] : 1940 78 From: Montana Shepard MD Attending Dr: Montana Shepard MD Status: DEP AMB Ordering Dr: Montana Shepard MD Date: 08/03/18 [place] [facility] Sex: F C Admitted: BMS/12 Lead EKG performed by [facility] ECG Report Interpretation Sinus Rhythm Low voltage in precordial leads. -Old anterior infarct. -Nonspecific ST depression + Nonspecific T-abnormality -Nondiagnostic. ABNORMAL Electronically signed on 08/09/2018 at 13:31 by Montana Shepard [employer] Version [id number] 08/09/18 1334 Date Montana Shepard MD CC: Ayla Subramanian MD Date Dictated: 08/03/181417 Date Transcribed: 08/03/181417 Director [facility]: [place] Signed CARDIOLOGY VISIT Observed: 08/03/2018 Status: F Source: [place] REPORT 2:16 PM [facility] REPOSITORY [facility] [address] [place] [address] OFFICE VISIT Date of Service: 08/03/18 MR#: [id number] Acct: [id number] Name: DAWNA BARRY Rep #: [id number] : 1940 Provider: [place] Shepard MD Age/Sex: 78/F Location: [facility] Status: Signed HPI HPI Chief Complaint: Initial visit Details: DAWNA BARRY, is a 78 F who presents to the office today for an initial visit. She is a lady with a history of hypertension, diabetes mellitus, previous tobacco abuse, status post cardiac catheterization in 2010 which demonstrated minimal coronary artery disease. She has been complaining of shortness of breath and was evaluated by the head shipper. An echocardiogram was performed with demonstrated preserved ejection fraction of 60% with stage I diastolic dysfunction. She was started on a diuretic which she has continued. She denies any dizziness or diaphoresis or near syncope or syncope. She says she is been compliant with all her medications but sometimes her legs get swollen enough that they sting. She has had no presyncope or syncope. Her physical exam here today demonstrates clear lung mullen regular rate and rhythm and trivial pedal edema. Intake Vital Signs08/03/18 Height 5 ft 6 in 08/03/18 Weight: 255 lb 08/03/18 Body Mass Index (BMI) 41.1 08/03/18 Height 5 ft 6 in Intake Visit Reasons: per Dr Uribe, re-est care Allergies acetaminophen [From Darvocet-N] Allergy (Severe, Verified 07/25/18 09:27) Unknown bupropion [From Wellbutrin] Allergy (Severe, Verified 07/25/18 09:27) Unknown gabapentin [From Neurontin] Allergy (Severe, Verified 07/25/18 09:27) Unknown pregabalin [From Lyrica] Allergy (Severe, Verified 07/25/18 09:27) Unknown propoxyphene [From Darvocet-N] Allergy (Severe, Verified 07/25/18 09:27) Unknown sulfadiazine Allergy (Severe, Verified 07/25/18 09:27) Unknown Medications cholecalciferol (vitamin D3) 50,000 unit capsule 50,000 unit PO QWEEK 07/26/17 [History Confirmed 07/25/18] insulin admin supplies subcutaneous pen See Dose Instructions .ROUTE .MEDSUPPLY #1 ea 07/26/17 [History Confirmed 07/25/18] lisinopril 20 mg tablet 20 mg PO BID tab 07/26/17 [History Confirmed 07/25/18] lorazepam 0.5 mg tablet 0.5 mg PO TID PRN tab 07/26/17 [History Confirmed 07/25/18] ranitidine 150 mg tablet 150 mg PO Q12H PRN tab 07/26/17 [History Confirmed 07/25/18] simvastatin 20 mg tablet 20 mg PO QAM 07/26/17 [History Confirmed 07/25/18] albuterol sulfate 2.5 mg/3 mL (0.083 %) solution for nebulization 2.5 mg INHALATION Q4H PRN ml 08/10/17 [History Confirmed 07/25/18] albuterol sulfate HFA 90 mcg/actuation aerosol inhaler 2 puff INHALATION Q4H PRN #18 g 11/04/17 [Rx Confirmed 07/25/18] budesonide-formoterol HFA 160 mcg-4.5 mcg/actuation aerosol inhaler 2 puff INHALATION BID #1 ea 11/04/17 [Rx Confirmed 07/25/18] benzonatate 200 mg capsule 200 mg PO TID PRN #90 cap 07/25/18 [Rx Confirmed 07/25/18] furosemide 40 mg tablet 40 mg PO DAILY #90 tab 08/03/18 [Rx Confirmed 08/03/18] spironolactone 25 mg tablet 25 mg PO DAILY #90 tab 08/03/18 [Rx Confirmed 08/03/18] [facility] Medical History Chronic diastolic (congestive) heart failure (Chronic) Hyperlipidemia (Chronic) Essential (primary) hypertension (Chronic) TIA (transient ischemic attack) (Chronic) MATTHEW (obstructive sleep apnea) (Chronic) Emphysema, unspecified (Chronic) Morbid obesity (Chronic) COPD (chronic obstructive pulmonary disease) (Chronic) Tobacco use disorder (Chronic) Anxiety and depression (Chronic) Fibromyalgia (Chronic) Rectal bleed (Chronic) Type 2 diabetes mellitus (Chronic) History of left heart catheterization (Resolved 03/30/11) Diabetic neuropathy (Inactive) Hypokalemia (Inactive) Surgical History History of hysterectomy (Resolved) History of knee replacement (Resolved) Hx of cholecystectomy (Resolved) Family History Father CAD (coronary artery disease) Social History Smoking Status: Former smoker second hand exposure: Yes alcohol intake: never substance use type: does not use ROS Const Const: Positive for fatigue (New onset of fatigue over the past 3 months) and weakness; negative for difficulty sleeping, frequent falls, excessive sweating or headache(s) Eyes Eyes: Negative for loss of peripheral vision, transient loss of vision, blurry vision, tunnel vision or double vision ENT ENT: Negative for headache(s), dizziness, Nosebleed/epistaxis or balance problems Cardio Chest Pain: Yes (new onset of chest pain over the past 2 weeks) Frequency: daily Character: other, squeezing (and burning ) Onset: at rest, exercise Location: left chest (radiates to right breast) Duration: minutes Exacerbation: activity, rest (wakes her from her sleep) Palpitations: No Edema: None Muscle aches with walking: None Resp Respiratory: Positive for SOB with activity; negative for SOB at rest, SOB orthopnea\SOB lying down, paroxysmal nocturnal dyspnea or Cough Additional Details: Uses CPAP GI GI: Negative nausea, heartburn, black,tarry stools or vomiting : Negative for hematuria Musc Musc: Negative for balance problems, muscle aches/ myalgia, muscle weakness or joint pain Skin Skin: Negative non-healing lesions, unusual bruising or rash Neuro Neuro: Positive for weakness; negative for frequent falls, headache(s), blurry vision, double vision, dizziness, lightheadedness, orthostatic symptoms, near syncope, syncope or lack of coordination Shane Hematologic/Lymphatic: Negative for easy bruising or easy bleeding Endo Endo: Positive for fatigue (New onset of fatigue over the past 3 months); negative for excessive sweating or increased thirst/drinking Psych Psych: Negative for anxiety or depression Allergy Allergy/Immunology: Negative for hives, Negative for rash Cardiology Exam Const Appearance: cooperative, healthy appearing, well developed, well groomed and no acute distress Nutritional Appearance: well nourished and average body habitus Orientation: alert, awake and oriented x3 Head Head: normal to inspection, normocephalic and atraumatic Ears: hearing grossly normal bilaterally and external ears normal Nose: external nose normal, nasal mucous membranes and turbinates normal, nares normal, septum normal, no nasal discharge Face and Sinus: face symmetric Mouth: oral mucosae normal, tongue normal, oropharynx normal and moist mucous membranes Teeth and gingiva: dentition normal Throat: posterior oropharynx normal, tonsils normal and uvula midline Eyes General: appearance normal, both eyes and all related structures Eyelids: eyelids normal Conjunctivae: conjunctivae normal Pupils: PERRL, normal by confrontation and accommodation normal EOM: EOM intact bilaterally Neck Neck: normal visual inspection, trachea midline and no JVD JVD: +5 Carotids: normal carotid upstroke and bounding pulses Chest Chest inspection: normal inspection of the chest, symmetric chest movement and normal respiratory effort Auscultation: Bilateral: Clear to Auscultation Cardio Palpation: normal PMI Rate: regular rate Rhythm: regular rhythm Heart sounds: S1 normal, S2 normal and normal, physiologic split S2; negative rub, gallop or murmur GI GI: normal to inspection, soft, no hepatosplenomegaly and bowel sounds present Neuro General: alert, awake, oriented x3, no focal sensory deficit, gait normal and moves all extremities Skin Skin: no rashes or lesions noted Extremities Pulses: Normal: Right Femoral Pulse, Left Femoral Pulse, Right Dorsalis Pedis Pulse, Left Dorsalis Pedis Pulse, Right Posterior Tibial Pulse, Left Posterior Tibial Pulse, Right Radial Pulse, Left Radial Pulse Lower Extremity Edema: None: Bilateral Musculoskel Musculoskeletal: No joint tenderness Psych Psychological: normal affect Assessment AND Plan 1. Chest pain R07.9 Plan She does have a history of chest pain. This appears to be somewhat atypical. My recommendation at this time will be for us to obtain a pharmacologic myocardial perfusion stress test. Depending on the results further recommendations will be made. Orders Orders: 2. Chronic diastolic (congestive) heart failure I50.32 Plan She appears to have diastolic heart failure. She is on Lasix 40 mg twice a day I would suggest reducing it to Lasix 40 mg once a day, adding spironolactone 25 mg a day and discontinuing the potassium. She will continue with the YADY inhibitor and check a chemistry profile in approximately 2-4 weeks. 3. Essential (primary) hypertension I10 Plan She does have a history of hypertension but her blood pressure appears to be well controlled at this particular time. No other changes will be made. Thank you for allowing me to participate in the care of your patient. Please don't hesitate to call if any issues arise Plan Detail Other Medications New: Discontinued: Follow Up 6 Months (mmm) Coding Level of Care Code Off vis,new,level 4 Diagnoses Chest pain R07.9 Chronic diastolic (congestive) heart failure I50.32 Essential (primary) hypertension I10 Coding Level of Care Code Off vis,new,level 4 Diagnoses Chest pain R07.9 Chronic diastolic (congestive) heart failure I50.32 Essential (primary) hypertension I10 Supplemental Info Supplemental Information Diagnostics Echocardiogram 10/19/17 Pulmonary Pulmonary Function Test 06/20/18 Pulmonary Exercise Test 07/01/18 08/03/18 1416 <Electronically signed by Montana Shepard MD> Date Montana Shepard MD Cosigner Signature: Date (if applicable) CC: Quintin Uribe MD; Ayla Subramanian MD PULMONARY VISIT REPORT Observed: 07/25/2018 Status: F Source: [place] 1:14 PM [facility] REPOSITORY [facility] of [address] [place] [address] OFFICE VISIT Date of Service: 07/25/18 MR#: [id number] Acct: [id number] Name: DAWNA BARRY Rep #: [id number] : 1940 Provider: Patricia Espana Age/Sex: 78/F Location: [facility] Status: Signed Assessment AND Plan 1. Shortness of breath R06.02 Plan Recent pulmonary stress test showed tachycardia, which could be attributed to deconditioning, obesity, or may be related to an underlying cardiac. The patient previously saw Dr. Shepard but admits that she has not seen him in probably 8-9 years. I have asked her to reestablish a relationship with cardiology for input. Follow-up with Dr. Uribe in 3 months. Contact the office with any new or worsening symptoms in the meantime. Orders Referrals: 2. MATTHEW (obstructive sleep apnea) G47.33 Plan Patient is using and benefiting from Pap therapy. No indication for titration study at this time. Continue to encourage weight loss. Contact the office for any new or worsening symptoms in the meantime. Follow-up in 3 months. 3. Morbid obesity E66.01 Plan Continue to encourage weight loss. Plan Detail Other Medications New: Follow Up 3 Months (BWA) HPI 3 M FU: Chief Complaint: Shortness of breath HPI Comments Details: This is a 78 year old F, currently under the care of Ayla Subramanian MD, here today to review test results. This patient presents the office today follow-up on her shortness of breath. She is ambulatory, currently in room air and accompanied today by her daughter. She has not been seen in the ED or urgent care for any respiratory illnesses since her last office visit. She has not required any antibiotics or prednisone for any breathing problems. She does believe that she is coming down with a common cold, states that she has been babysitting her grandchildren. She has noticed increasing shortness of breath over the weekend, has reported wheezing and a nonproductive cough. Denies any sputum production or hemoptysis. Denies any fever, chills or body aches. Denies any chest pain, chest tightness or palpitations. She has been using her albuterol nebulizer more frequently and reports that does give her temporary relief of her shortness of breath and wheezing. She has not had any [id number] occasions. She is compliant with Symbicort 2 puffs twice daily, and reports rinsing her mouth out after each use. She denies any medication side effects such as sore throat or thrush. I personally reviewed the tests/images/tracings which showed: Complete Pulmonary Function test were preformed on June 20, 2018, and showed FVC of 73 % of predicted, FEV1 of 71 % of predicted, FEV1/FVC ratio of 73 %, TLC of 78 % of predicted, RV of 83 % of predicted, DLCO 26% of predicted. The test was interpreted to be consistent with a mild restrictive ventilatory defect, and a disproportionate reduction in diffusing capacity. Pulmonary stress test was completed on July 01, 2018, and did not show a drop in saturation below 89%, which suggests no requirement of supplemental oxygen on ambulation at this time. She was able to ambulate a total of 738 feet over the course of 6 minutes. She did show tachycardia beginning at minute 3, with the highest heart rate of 135 bpm which occurred at minute 6. Compliance report for the past 30 days was reviewed and shows 100% compliance average use is 5 hours and 41 minutes, current setting is 15 cm of water. AHI is controlled at an average of 0.9 events per hour and leaks do not appear to be a consistent problem. Intake Vital Signs07/25/18 Height 5 ft 6 in 07/25/18 Weight: 256 lb Intake Visit Reasons: 3 M [place] [facility] [place] [employer] Accompanied by: Family / Other Allergies acetaminophen [From Darvocet-N] Allergy (Severe, Verified 07/25/18 09:27) Unknown bupropion [From Wellbutrin] Allergy (Severe, Verified 07/25/18 09:27) Unknown gabapentin [From Neurontin] Allergy (Severe, Verified 07/25/18 09:27) Unknown pregabalin [From Lyrica] Allergy (Severe, Verified 07/25/18 09:27) Unknown propoxyphene [From Darvocet-N] Allergy (Severe, Verified 07/25/18 09:27) Unknown sulfadiazine Allergy (Severe, Verified 07/25/18 09:27) Unknown Medications cholecalciferol (vitamin D3) 50,000 unit capsule 50,000 unit PO QWEEK 07/26/17 [History Confirmed 07/25/18] insulin admin supplies subcutaneous pen See Dose Instructions .ROUTE .MEDSUPPLY #1 ea 07/26/17 [History Confirmed 07/25/18] lisinopril 20 mg tablet 20 mg PO BID tab 07/26/17 [History Confirmed 07/25/18] lorazepam 0.5 mg tablet 0.5 mg PO TID PRN tab 07/26/17 [History Confirmed 07/25/18] potassium chloride ER 10 mEq capsule,extended release 10 meq PO QDAY 07/26/17 [History Confirmed 07/25/18] ranitidine 150 mg tablet 150 mg PO Q12H PRN tab 07/26/17 [History Confirmed 07/25/18] simvastatin 20 mg tablet 20 mg PO QAM 07/26/17 [History Confirmed 07/25/18] albuterol sulfate 2.5 mg/3 mL (0.083 %) solution for nebulization 2.5 mg INHALATION Q4H PRN ml 08/10/17 [History Confirmed 07/25/18] furosemide 40 mg tablet 40 mg PO BID #14 tab 09/28/17 [Rx Confirmed 07/25/18] albuterol sulfate HFA 90 mcg/actuation aerosol inhaler 2 puff INHALATION Q4H PRN #18 g 11/04/17 [Rx Confirmed 07/25/18] budesonide-formoterol HFA 160 mcg-4.5 mcg/actuation aerosol inhaler 2 puff INHALATION BID #1 ea 11/04/17 [Rx Confirmed 07/25/18] benzonatate 200 mg capsule 200 mg PO TID PRN #90 cap 07/25/18 [Rx Confirmed 07/25/18] [facility] Medical History History of hysterectomy (Resolved) TIA (transient ischemic attack) (Acute) Fibromyalgia (Chronic) [...] (Chronic) Surgical History History of cholecystectomy (Resolved) Knee joint replacement status (Chronic) Family [...] other Cardio Cardiovascular: Positive edema Location: lower extremity Right/Left: Left, Right; negative chest pain, chest pain at rest, chest pain with activity, irregular heart rhythm, shortness of breath when lying down, palpitations, murmur or other Resp Respiratory: Positive as per HPI, shortness of breath shortness of breath: Positive with activity and worsening, wheezing and cough cough: Positive non-productive (moist); negative pain with cough, chest congestion, chest tightness, pain on inspiration, inhalers, increase use of [...] rash, unusual bruising, breast lump or other (pain/burming to Rt breast) Neuro Neurological: Negative restless legs, confusion, weakness or other Psych Psychocological: Negative abnormal sleep pattern, anxiety, thoughts of hurting self/others, hopelessness or other Lymph Lymphatic: Negative easy bleeding, easy bruising, swollen lymph nodes or other Exam Const Constitutional: Positive conversant, cooperative, in no acute respiratory distress, healthy appearing, well developed, well nourished, good hygiene, obese and smells of smoke Head Head: Positive normocephalic and atraumatic; negative cyanosis of lips/distal nose Eyes Eye: Positive clear conjunctiva; negative nystagmus or scleral abnormality Ears Ear: Positive hearing normal and external ears normal; negative hard of hearing Nose Nose: Positive external nose normal and no nasal discharge; negative epistaxis Mouth Mouth: Positive oral mucosae normal, no lesions, poor dentition and crowded posterior oropharynx; negative post nasal drip, malodorous breath or oral thrush present Mallampati Score: III: Mallampati Score Neck Neck: Positive normal visual inspection, full ROM and trachea midline; negative lymphadenopathy, JVD or tender Chest Wall Chest: Positive normal inspection of the chest and symmetric chest movement; negative increased A/P diameter Resp lung sounds: Positive clear to auscultation, diminished, normal respiratory effort and prolonged expiratory time; negative wheezes, rhonchi, rales, dullness to percussion or wheeze present on forced exhalation Cardio Cardiac: Positive regular rate, regular rhythm, S1 normal and S2 normal; negative murmur GI GI: Positive normal to inspection and obese; negative distended Genitourinary: Positive deferred Musc Musculoskeletal: Positive steady gait and ROM normal; negative kyphosis or scoliosis Skin Pulmonary Skin Exam: Positive intact; negative rash Pulses Pulse: Yes pulses normal x4 extremities Extremities Extremities: Yes capillary refill normal, No clubbing, No cyanosis, No edema Neuro Neurologic: Yes conversant, Yes no focal neuro deficits, Yes normal concentration, Yes understands questions, Yes cooperative, Yes normal cognition, Yes normal coordination, No tremor Lymph Lymphatic: No lymphadenopathy, No tenderness, No cervical adenopathy Psych Appearance: Positive grossly normal, eye contact and well kempt Mental Status: Positive mental status grossly normal Mood: Positive congruent mood Affect: Positive normal affect Coding Level of Care Code Off vis,est,level 4 Diagnoses Shortness of breath R06.02 MATTHEW (obstructive sleep apnea) G47.33 Morbid obesity E66.01 07/25/18 1314 <Electronically signed by Patricia LÓPEZ> Date Patricia SILVERC Cosigner Signature: Date (if applicable) CC: Ayla Subramanian MD 6 MINUTE WALK TEST Observed: 07/02/2018 Status: F Source: [place] 5:48 AM [facility] REPOSITORY [facility] Pulmonary Services/Neurology [address] [place] [address] MR#: [id number] Acct: [id number] Name: DAWNA BARRY Rep #: [id number] : 1940 78 From: Quintin Uribe MD Referring Dr: Quintin Uribe MD Date: Ordering Dr: Sex: F C Location: PSN PSN 6 Minute Walk Test - 6 Minute Walk Test 6 Minute Walk Test: 6 Minute Walk Test PSN:6-Minute Walk Test Start: 07/01/18 11:17 Freq: Status: Active Protocol: RESP.6MINW Document 07/01/18 11:17 [facility] (Rec: 07/01/18 11:19 SF[facility]ON [id number]) 6 Minute Walk Test Date Performed 07/01/18 [...] Date Dictated: 07/01/18 1524 Date Transcribed: 07/01/181523 Director Child Development Center: Quintin Uribe Signed PULMONARY FUNCTION Observed: 06/20/2018 Status: F Source: [place] TEST 1:40 PM [facility] REPOSITORY [facility] Pulmonary Services/Neurology [address] [place] [address] MR#: [id number] Acct: [id number] Name: DAWNA BARRY Tereso Rep #: [id number] : 1940 78 From: Bryant Bangura DO Referring Dr: Quintin Uribe MD Status: REG CLI Ordering Dr: Date: Location: [facility] Sex: F C INTRODUCTION: The [...] signed by Bryant Bangura DO> Date Bryant Bangura DO CC: Quintin Uribe MD; Ayla Subramanian MD Date Dictated: 06/20/181336 Date Transcribed: 06/20/181336 Director Child Development Center: KEENA Signed PULMONARY VISIT REPORT Observed: 03/28/2018 Status: F Source: [place] 11:55 AM [facility] Pulmonary Medicine of [address] [place] [address] OFFICE VISIT Date of Service: 03/28/18 MR#: [id number] Acct: [id number] Name: DAWNA BARRY Rep #: [id number] : 1940 Provider: Quintin Uribe MD Age/Sex: 77/F Location: [facility].PM[facility] Status: Signed Assessment AND Plan Problems 1. [...] Orders: Plan Detail Follow Up 3 Months ([facility]) HPI 3 M FU: Chief Complaint: Shortness [...] Chief Complaint: Shortness of breath DME Vendor: [employer] Accompanied by: Self Allergies acetaminophen [From Darvocet-N] [...] BID #1 ea 11/04/17 [Rx Confirmed 11/04/17] [facility] Medical History TIA (transient ischemic attack) (Acute) [...] VISIT REPORT Observed: 11/04/2017 Status: F Source: [place] 10:54 AM [facility] Pulmonary Medicine of [address] [place] [address] OFFICE VISIT Date of Service: 11/04/17 MR#: [id number] Acct: [id number] Name: DAWNA BARRY Rep #: [id number] : 1940 Provider: Patricia Espana Age/Sex: 77/F Location: [facility] Status: Signed Assessment AND Plan 1. MATTHEW [...] after each use Follow Up 3 Months ([facility]) HPI 2 W FU: Chief Complaint: shortness [...] Chief Complaint: Shortness of breath DME Vendor: [employer] Accompanied by: Self Allergies acetaminophen [From Darvocet-N] [...] BID #1 ea 11/04/17 [Rx Confirmed 11/04/17] [facility] Medical History TIA (transient ischemic attack) [...] Collected: 11/04/2017 Status: F Source: [place] PROFILE (BMP) 9:32 AM [facility] REPOSITORY TYPE CODE TESTS RESULT OUT OF [...] GAP 9 Performed By: #### L500.2500 #### [facility] [address] [facility] [place], [address] ECHO, COMPLETE W/ Observed: 10/19/2017 Status: F Source: [place] CONTRAST 10:49 AM [facility] REPOSITORY [facility] Cardiovascular Services [address] [facility] [place] [address] Echo Complete W/ Contrast 10/19/17 0857 MR#: [id number] Acct: [id number] Name: DAWNA BARRY Rep #: [id number] : 1940 77 From: Silvio Yost MD Attending Dr: Patricia Espana [address]IGHW[address] MAINTENANCE SUPERVISOR Status: REG CLI Ordering Dr: Patricia Espana [address]IGHW[address] MAINTENANCE SUPERVISOR-C Date: 10/19/17 Location: [facility] Sex: F C Admitted: Reason For Study: [...] Referring Physician: AYLA SUBRAMANIAN Performed By: Josephine Haider, CESARCS, RVT 10/19/17 1048 Date Silvio Yost MD CC: Patricia Subramanian Date Dictated: 10/19/17 0857 Date Transcribed: 10/19/178 Director Child Development Center: Signed BNP,B-TYPE NATRIURETIC Collected: 09/28/2017 Status: F Source: [place] PEPTIDE 8:33 AM [facility] REPOSITORY TYPE CODE TESTS RESULT OUT OF RANGE REFERENCE UNITS LAB L503.6620 0-100 pg/mL Normal B-TYPE 7.0 CHIOMA PEP Performed By: #### L503.6620 #### [facility] [address] [place], [address] PULMONARY VISIT REPORT Observed: 09/28/2017 Status: F Source: [place] 8:32 AM [facility] REPOSITORY Pulmonary Medicine of [place] [address] [place] [address] OFFICE VISIT Date of Service: 09/28/17 MR#: [id number] Acct: [id number] Name: DAWNA BARRY Rep #: [id number] : 1940 Provider: Patricia Espana Age/Sex: 77/F Location: [facility] Status: Signed Assessment AND Plan 1. MATTHEW [...] Other Medications New: Follow Up 2 Weeks ([facility]) HPI 2 W FU: Chief Complaint: Shortness [...] lb Intake Visit Reasons: 2 W FU DME Vendor: [employer] Accompanied by: Daughter Allergies acetaminophen [From Darvocet-N] [...] 09/28/17 0832 <Electronically signed by Patricia Espana HIGHWAY MAINTENANCE SUPERVISOR-C> Date Patricia Espana [address]IGHW[address] MAINTENANCE SUPERVISOR-C Cosigner Signature: Date (if applicable) CC: Ayla Subramanian PULMONARY FUNCTION Observed: 09/07/2017 Status: F Source: [place] REPORT COMP 3:08 PM [facility] REPOSITORY [facility] Pulmonary Services/Neurology [address] [place] [address] MR#: [id number] Acct: [id number] Name: DAWNA BARRY Rep #: [id number] : 1940 77 From: Quintin Uribe MD Referring Dr: Patricia Espana NP Status: REG CLI Ordering Dr: Date: Location: [facility] Sex: F C COMPLETE PULMONARY FUNCTION TEST INTERPRETATION Brief HPI: Patient is a 77 year old female, currently under the care of Patricia Espana, who presents to [facility] for complete pulmonary function tests secondary [...] Quintin Uribe MD; Ayla Subramanian Date Dictated: 09/07/17 150 Date Transcribed: 09/07/171504 Director Child Development Center: TREV Signed 6 MINUTE WALK TEST Observed: 08/27/2017 Status: F Source: [place] 11:26 AM [facility] REPOSITORY [facility] Pulmonary Services/Neurology [address] [place] [address] MR#: [id number] Acct: [id number] Name: JHONNYDAWNA D Rep #: [id number] : 1940 77 From: Quintin Uribe MD Referring Dr: Patricia Espana [address]HW[address] MAINTENANCE SUPERVISOR Date: Ordering Dr: Sex: F C Location: PSN PSN 6 Minute Walk Test - 6 Minute Walk Test 6 Minute Walk Test: 6 Minute Walk Test PSN:6-Minute Walk Test Start: 08/27/17 09:36 Freq: Status: Active Protocol: RESP.6MINW Document 08/27/17 09:36 [facility] (Rec: 08/27/17 09:46 [facility] [id number]) 6 Minute Walk Test Date Performed 08/27/17 [...] Date Quintin Uribe MD CC: Date Dictated: 08/27/175 Date Transcribed: 08/27/171124 Director Child Development Center: Quintin Uribe Signed VITAMIN D,25 HYDROXY Collected: 08/23/2017 Status: F Source: [place] 8:43 AM [facility] REPOSITORY TYPE CODE TESTS RESULT OUT OF RANGE REFERENCE UNITS LAB L506.1000 19.95-100.01 ng/mL Normal Vitamin D 37.4 25-OH Result Comment: Vitamin D 25(OH) Status Range Deficiency <20 ng/mL (50nmol/L) Insuffciency 20 - 30 ng/mL (50 - 75 nmol/L) Sufficiency 30 - 100 ng/mL (75 - 250 nmol/L) Toxicity >100 ng/mL (>250 nmol/L) Performed By: #### L506.1000 #### [facility] [address] [place], [place], [address] CBC W/DIFF, AUTOMATED Collected: 08/16/2017 Status: F Source: [place] 10:00 AM [facility] REPOSITORY TYPE CODE TESTS RESULT OUT OF [...] Lymph 2.58 Performed By: #### L100.0100 #### [facility] [address] [place], [place], [address] COMPREHENSIVE METABOLIC Collected: 08/16/2017 Status: F Source: [facility] 10:00 AM [facility] REPOSITORY TYPE CODE TESTS RESULT OUT OF [...] Performed By: #### L500.4050, L501.9520, L506.0400 #### [facility] [address] [facility] [place], [address] THYROID STIM HORMONE Collected: 08/16/2017 Status: F Source: [place] (TSH) 10:00 AM [facility] REPOSITORY TYPE CODE TESTS RESULT OUT OF RANGE REFERENCE UNITS LAB L501.9520 0.358-3.74 uIU/mL Normal TSH 2.51 Performed By: #### L500.4050, L501.9520, L506.0400 #### [facility] [address] [facility] [place], [address] T4 FREE DIRECT Collected: 08/16/2017 Status: F Source: [place] 10:00 AM [facility] REPOSITORY TYPE CODE TESTS RESULT OUT OF RANGE REFERENCE UNITS LAB L506.0400 0.76-1.46 ng/dL Normal T4 FREE 1.28 DIRECT Performed By: #### L500.4050, L501.9520, L506.0400 #### [facility] [address] [facility] [place], [address] ALLERGIES ALLERGIES DATE TYPE / CODE NAME / CODE REACTION SEVERITY SOURCE 07/25/2018 Drug propoxyphene [facility] All[facility]/4160 /[id number]( [facility] 95221(SNOMED RXNORM) Repository CT) 07/25/2018 Drug acetaminophe Unknown [facility]/4160 n/[id number] [facility] 28571(SNOMED (RXNORM) Repository CT) 07/25/2018 Drug sulfadiazine Unknown [facility] Allergy/4160 /[id number]( Hospital 34911(SNOMED RXNORM) Repository CT) 07/25/2018 Drug gabapentin/F Unknown [facility] Allergy/4160 [id number]([facility] 62943(SNOMED NORM) Repository CT) 07/25/2018 Drug bupropion/F0 Unknown [facility] Allergy/4160 50932259([facility] 81725(SNOMED ORM) Repository CT) 07/25/2018 Drug pregabalin/F Unknown [facility] Allergy/4160 [id number]([facility] 61543(SNOMED NORM) Repository CT) ENCOUNTERS ENCOUNTERS ADMIT/DISCHARGE ACCOUNT ADMITTING ENCOUNTER LOCATION SOURCE NUMBER CLASS 08/03/2018/ [id number] Ambulatory BMSBuilding:B [place] [facility] [address] [place] Repository 08/03/2018 [id number] Ambulatory BMSBuilding:B [place] [address] [facility] Repository 07/25/2018/ [id number] Ambulatory [facility]MSBuilding:[place] 9 [facility] [place] 07/20/2018 [id number] Ambulatory [facility] [place] 8 [facility] [place] 07/01/2018 [id number] Ambulatory BMSBuilding:W [facility] 3 [facility] Repository 07/01/2018 [id number] Ambulatory [facility] 2 [facility] Hospital ing:PSN Repository 06/20/2018 [id number] Ambulatory BMSBuilding:W [facility] 6 [facility] Repository 06/20/2018 [id number] Ambulatory [facility] 9 [facility] Hospital ing:PSN Repository 03/28/2018/ [id number] Ambulatory BMSBuilding:[place] 8 5 [facility] [place] 11/04/2017 [id number] Ambulatory [place] 6 [facility] Hospital ing:LAB Repository 11/04/2017/ [id number] Ambulatory BMSBuilding:[place] 8 4 [facility] [place] 10/19/2017 [id number] Ambulatory [place] 4 [facility] Hospital ing:CVS Repository 10/19/2017 [id number] Ambulatory BMSBuilding:W [place] 9 [facility] Hospital Repository 09/28/2017 [id number] Ambulatory Jack Jack 1 [facility] Hospital ing:LAB Repository 09/28/2017/ [id number] Ambulatory BMSBuilding:B [place] 8 2 [facility] Hospital Repository 09/15/2017 [id number] Ambulatory BMSBuilding:B [place] 3 [facility] Repository 09/07/2017 [id number] Ambulatory [place] 5 [facility] Hospital ing:PSN Repository 09/07/2017 [id number] Ambulatory BMSBuilding:W [place] 1 [facility] Hospital Repository 08/27/2017 [id number] Ambulatory [place] 9 [facility] Hospital ing:PSN Repository 08/27/2017 [id number] Ambulatory BMSBuilding:W Jack 9 [facility] Hospital Repository 08/23/2017 [id number] Ambulatory Jack [place] 0 [facility] Hospital ing:BFHLAB Repository 08/16/2017 [id number] Ambulatory [facility] Jack 5 [facility] Hospital ing:BFHLAB Repository PAYERS PAYERS ENCOUNTER GUARANTOR PAYER SUBSCRIBER SOURCE 08/03/2018 DAWNA Rider Primary DAWNA Pardo [id number] Insurance:MYCARE CRSC MURRAYDOB: Community [place] [facility] 4718[facility]-13[facility], Number: Repository [place] [address]Cgv: [id number] Date:6879-21-62JKMR () [address], [place] [address]MC: 08/03/2018 Secondary NOT GIVENUNK [place] Insurance:SELF PAY [facility] Number: Effective Repository Date:2018-08-03 08/03/2018 DAWNA Rider Primary DAWNA Lomasoster [id number] Insurance:MYCARE CRSC MURRAYDOB: [facility] [place] [facility] 9618-41-36[facility]IX[facility], Number: Repository [place] [address]Zhb: [id number] Date:9360-13-85WTRD (HP) [place]S [address] [address]WQ: 08/03/2018 Secondary NOT GIVENUNK Jack Insurance:SELF PAY [facility] Number: Effective Repository Date:2018-08-03 07/25/2018 DAWNA Rider Primary DAWNA Rider Jack [id number] Insurance:MYCARE CRSC MURRAYDOB: Community [place] [address]25[facility], Number: Repository [place] [address]Xlg: [id number] Date:3500-22-28IMDP (HP) CLAIMS [address] [address]LQ: 07/25/2018 Secondary NOT GIVENUNK [place] Insurance:SELF PAY [facility] Number: Effective Repository Date:2018-07-21 07/20/2018 DAWNA Rider Primary DAWNA D Jack [id number] Insurance:MYCARE CRSC MURRAYDOB: Community [place] [address], Number: Repository [place] [address]Urj: [id number] Date:2143-21-44AXMG (HP) CLAIMS [address] [address]LN: 07/20/2018 Secondary NOT GIVENUNK Jack Insurance:SELF PAY [facility] Number: Effective Repository Date:2018-07-15 07/01/2018 DAWNA Rider Primary DAWNA D Jack [id number] Insurance:MYCARE CRSC MURRAYDOB: Community [place] [address], Number: Repository [place] [address]Rvd: [id number] Date:3825-75-17ZRRP (HP) CLAIMS [address] [address]OW: 07/01/2018 Secondary NOT GIVENUNK Jack Insurance:SELF PAY [facility] Number: Effective Repository Date:2018-07-01 07/01/2018 DAWNA Rider Primary DAWNA D [place] [id number] Insurance:MYCARE CRSC MURRAYDOB: Community [place] *[place] [facility] 9645-55-39[facility]RO[facility], Number: Repository [place] [address]Zqx: [id number] Date:3468-80-38GVRL (HP) CLAIMS [address], [place] [address]QL: 07/01/2018 Secondary NOT GIVENUNK [place] Insurance:SELF PAY [facility] Number: Effective Repository Date:2018-03-28 06/20/2018 DAWNA Rider Primary DAWNA D Jack [id number] Insurance:MYCARE CRSC MURRAYDOB: Community [place] [facility] 7587-33-09PWD[facility], Number: Repository [place] [address]Rwa: [id number] Date:9073-93-92WTCZ (HP) CLAIMS [address], [place] [address]GH: 06/20/2018 Secondary NOT GIVENUNK [place] Insurance:SELF PAY [facility] Number: Effective Repository Date:2018-06-20 06/20/2018 DAWNA Rider Primary DAWNA D Jack [id number] Insurance:MYCARE CRSC MURRAYDOB: Community [place] [facility] 5049-71-74QVKCollege Hospital, Number: Repository [place] [address]Auo: [id number] Date:6295-25-51DGRH (HP) CLAIMS [address], [place] [address]KZ: 06/20/2018 Secondary NOT GIVENUNK [place] Insurance:SELF PAY [facility] Number: Effective Repository Date:2018-03-28 03/28/2018 DAWNA Rider Primary DAWNA D [place] [id number] Insurance:MYCARE CRSC MURRAYDOB: Community [place] [facility] 9430-33-05FWJCollege [facility], Number: Repository [place] [address]Vul: [id number] Date:2639-42-15XDDG () CLAIMS [address] [place] [address]OV: 03/28/2018 Secondary NOT GIVENUNK Jack Insurance:SELF PAY [facility] Number: Effective Repository Date:2018-02-22 11/04/2017 DAWNA Rider Primary DAWNA Tereso [place] [id number] Insurance:MYCARE CRSC MURRAYDOB: Community [place] [facility] 9713-40-47ISBCollege Hospital, Number: Repository [place] [address]Ksr: [id number] Date:1859-61-48WOMR () CLAIMS [address] [address]YC: 11/04/2017 Secondary NOT GIVENUNK [place] Insurance:SELF PAY [facility] Number: Effective Repository Date:2017-11-04 11/04/2017 DAWNA Rider Primary DAWNA Tereso Jack [id number] Insurance:MYCARE CRSC MURRAYDOB: Community [place] [facility] 7838-21-52DCOCollege [facility], Number: Repository [place] [address]Nnl: [id number] Date:1759-30-23HOIK () CLAIMS [address] [place] [address]QN: 11/04/2017 Secondary NOT GIVENUNK Jack Insurance:SELF PAY [facility] Number: Effective Repository Date:2017-10-18 10/19/2017 DAWNA Rider Primary DAWNA Tereso Jack [id number] Insurance:MYCARE CRSC MURRAYDOB: Community [place] [facility] 5838-53-82GESCollege Hospital, Number: Repository [place] [address]Ftf: [id number] Date:9375-10-14XANB () CLAIMS [address], [place] [address]ZK: 10/19/2017 Secondary NOT GIVENUNK Ed[place] Insurance:SELF PAY [facility] Number: Effective Repository Date:2017-09-28 10/19/2017 DAWNA Rider Primary DAWNA D Jack [id number] Insurance:MYCARE CRSC MURRAYDOB: Community [place] [facility] 1694-62-60LKZCollege Hospital, Number: Repository [place] [address]Zjv: [id number] Date:1158-30-29LTHY () CLAIMS [address] [address]SB: 10/19/2017 Secondary NOT GIVENUNK Jack Insurance:SELF PAY [facility] Number: Effective Repository Date:2017-10-19 09/28/2017 DAWNA Rider Primary DAWNA D Jack [id number] Insurance:MYCARE CRSC MURRAYDOB: Community [place] [facility] 9381-05-23VUHCollege Hospital, Number: Repository [place] [address]Tmz: [id number] Date:8207-65-77XUDJ () CLAIMS [address] [address]HV: 09/28/2017 Secondary NOT GIVENUNK Ed[place] Insurance:SELF PAY [facility] Number: Effective Repository Date:2017-09-28 09/28/2017 DAWNA Rider Primary DAWNA D Jack [id number] Insurance:MYCARE CRSC MURRAYDOB: Community [place] [facility] 9628-16-04KXQCollege [facility], Number: Repository [place] [address]Qzb: [id number] Date:2878-27-15GUXJ () CLAIMS [address] [address]GG: 09/28/2017 Secondary NOT GIVENUNK Jack Insurance:SELF PAY [facility] Number: Effective Repository Date:2017-09-16 09/15/2017 DAWNA Rider Primary DAWNA Tereso LomasJack [id number] Insurance:MYCARE CRSC MURRAYDOB: Community [place] [facility] 8173-24-26JRPCollege Hospital, Number: Repository [place] [address]Glm: [id number] Date:0058-53-01SGTZ (HP) CLAIMS [address] [address]PW: 09/15/2017 Secondary NOT GIVENUNK Ed[place] Insurance:SELF PAY [facility] Number: Effective Repository Date:2017-08-10 09/07/2017 DAWNA Rider Primary DAWNA Lomasoster [id number] Insurance:MYCARE CRSC MURRAYDOB: Community [place] [facility] 9387-58-98IHCCollege Hospital, Number: Repository [place] [address]Fcb: [id number] Date:8123-61-35DUAI (HP) CLAIMS [address] [address]MO: 09/07/2017 Secondary NOT GIVENUNK Edvin Insurance:SELF PAY [facility] Number: Effective Repository Date:2017-08-10 09/07/2017 DAWNA Rider Primary DAWNA Rider Jack [id number] Insurance:MYCARE CRSC MURRAYDOB: Community [place] [facility] 0418-78-21XGACollege Hospital, Number: Repository [place] [address]Wac: [id number] Date:5244-65-21GMNU (HP) CLAIMS [address], [place] [address]YD: 09/07/2017 Secondary NOT GIVENUNK Edvin Insurance:SELF PAY [facility] Number: Effective Repository Date:2017-09-07 08/27/2017 DAWNA Rider Primary DAWNA Rider Jack [id number] Insurance:MYCARE CRSC MURRAYDOB: Community [place] [facility] 5820-98-94VVQCollege [facility], Number: Repository [place] [address]Zct: [id number] Date:1487-08-44BROJ () CLAIMS [address] [place] [address]JX: 08/27/2017 Secondary NOT GIVENUNK Ed[place] Insurance:SELF PAY [facility] Number: Effective Repository Date:2017-08-10 08/27/2017 DAWNA Rider Primary DAWNA Pardo [id number] Insurance:MYCARE CRSC MURRAYDOB: Community [place] [address], Number: Repository [place] [address]Rxo: [id number] Date:3629-39-98YQQF () CLAIMS [address] [place] [address]TJ: 08/27/2017 Secondary NOT GIVENUNK Ed[place] Insurance:SELF PAY [facility] Number: Effective Repository Date:2017-08-27 08/23/2017 DAWNA Rider Primary DAWNA Pardo [id number] Insurance:MYCARE CRSC MURRAYDOB: Community [place] *[place] [address]25[facility], Number: Repository [place] [address]Tyz: [id number] Date:2884-42-68EFCD () CLAIMS [address] [place] [address]HO: 08/23/2017 Secondary NOT GIVENUNK Ed[place] Insurance:SELF PAY [facility] Number: Effective Repository Date:2017-08-23 08/16/2017 DAWNA Rider Primary DAWNA [id number] Insurance:MYCARE CRSC MURRAYDOB: Community [place] [address], Number: Repository [place] [address]Urs: [id number] Date:2819-49-43FVUY () CLAIMS [address]PT[address], [place] [address]TW: 08/16/2017 Secondary NOT GIVENUNK Edvin Insurance:SELF PAY [facility] Number: Effective Repository Date:2017-08-16
== END ==
PROVIDERS: Family Provider Family Medicine; PCP Family Medicine; Referring Provider Internal Medicine Critical Care Medicine; Visit Provider Internal Medicine Critical Care Medicine
DX: G47.33 Obstructive sleep apnea (adult) (pediatric) (principal); I51.9 Heart disease, unspecified; M32.9 Systemic lupus erythematosus, unspecified
CPT/HCPCS: 94618

== ENCOUNTER → 2018-08-17 06:59 | Outpatient (CLI) | payer MEDICARE, SELFPAY ==
[2018-08-03 13:49] VITALS: BMI 41.1
--- NOTE | 2018-08-17 10:52 | STRESSREP ---
Stress Test Report Pharmacologic myocardial perfusion stress test. 78-year-old lady with a history of chest pain. Medications: Lisinopril simvastatin furosemide spironolactone. Stress protocol: Resting EKG demonstrates sinus bradycardia with a rate of 54 bpm poor R wave progression resting blood pressure 120/86 mmHg. 0.4 mg of regadenoson was infused per usual protocol followed by rapid intravenous saline flush injection continuous EKG monitoring was performed. The maximum heart rate attained was 69 bpm which was 49% of maximum predicted heart rate the maximum workload was 1 metabolic equivalent. At rest there were no ST or T wave changes noted suggest abnormal flow reserve at peak infusion nonspecific ST-T wave changes were noted suggest abnormal flow reserve. The resting blood pressure 120/86. Myocardial perfusion protocol. 14.2 mCi of technetium 99m sestamibi was injected at rest. 0.4 mg of regadenoson was infused per usual protocol. At peak infusion 44.5 mCi of technetium 99m sestamibi was injected stress images were obtained stress and rest images were reconstructed and compared in the short axis vertical long and horizontal long axis. Gated images were also obtained Perfusion SPECT analysis: Review of the stress images demonstrate normal uptake of tracer noted in all areas of the myocardium. The resting images similarly demonstrate normal uptake of tracer noted in all areas of the myocardium. No areas of reversibility are noted suggest ischemia no previous infarct is noted. Gated SPECT analysis: The gated ejection fraction is noted to be 61%. Conclusion: Normal pharmacologic myocardial perfusion stress test. Preserved ejection fraction.
== END ==
PROVIDERS: Family Provider Family Medicine; PCP Family Medicine; Referring Provider Internal Medicine Cardiovascular Disease; Visit Provider Internal Medicine Cardiovascular Disease
DX: R07.9 Chest pain, unspecified (principal)
CPT/HCPCS: 78452; 93017; A9500; A4216; J2785

== ENCOUNTER → 2019-02-13 10:21 | Outpatient (CLI) | payer MEDICARE, SELFPAY ==
[2018-10-26 08:33] VITALS: BMI 42.6
[2019-02-13 12:22] LABS: Absolute Lymphocyte Count 3.07 X10^3/uL (0.83-4.51); Absolute Neutrophil Count 7.1 X10^3/uL (2.0-7.7); Basophil# 0.11 X10^3/uL; Eosinophil# 0.35 X10^3/uL; Eosinophils% 3.1 % (0-5); Hematocrit 40.1 % (37-47); Hemoglobin 12.4 g/dL (12.0-15.0); Lymphocyte # 3.07 X10^3/ul (4.0); Mean Corp Hgb Conc 30.9 g/dL (32-36); Mean Corpuscular Hgb 25.5 pg (27.0-32.0); Mean Corpuscular Volume 82.5 fL (81-99); Monocyte# 0.56 X10^3/uL; Monocyte% 4.9 % (0-10); NRBC Flagged by Analyzer 0 % (0-5); Neutrophil % 62.2 % (47-70); Platelet Count 243 K/mm3 (150-450); RBC Distribution Width CV 14.3 % (11.6-14.6); RBC Distribution Width SD 42.6 fl (35.1-43.9); Red Blood Count 4.86 M/mm3 (4.2-5.4); White Blood Count 11.4 K/mm3 (4.4-11.0)
[2019-02-13 12:38] LABS: ALB/GLOB Ratio 0.7 RATIO (0.9-2.4); AST(SGOT) 13 U/L (15-37); Alanine Aminotransfer ALT/SGPT 24 U/L (13-56); Albumin, Serum 3.1 g/dL (3.2-5.0); Alkaline Phosphatase 100 U/L (45-117); Anion Gap 10 (5-15); BUN 25 mg/dL (7-18); BUN/Creat Ratio 21.7 RATIO (10-20); Calcium,Total 8.7 mg/dL (8.5-10.1); Chloride 102 mmol/L (98-107); Creatinine, Serum 1.15 mg/dL (0.55-1.02); EST Glomerular Filtration Rate 48 mL/min (>60); Est Glom Filt Rate - Afr Amer 58 mL/min (>60); Globulin 4.5 g/dL (2.2-4.2); Glucose 256 mg/dL (74-106); Protein, Total 7.6 g/dL (6.4-8.2); Sodium Level 136 mmol/L (136-145); T4 Free Direct 1.22 ng/dL (0.76-1.46); Thyroid Stim Hormone (TSH) 3.14 uIU/mL (0.358-3.74)
[2019-02-13 22:06] LABS: Vitamin D,25 Hydroxy 32.6 ng/mL (29.95-100.01)
== END ==
PROVIDERS: Family Provider Family Medicine; PCP Family Medicine; Visit Provider Family Medicine
DX: E11.9 Type 2 diabetes mellitus without complications (principal); I10 Essential (primary) hypertension; E55.9 Vitamin D deficiency, unspecified; E87.6 Hypokalemia
CPT/HCPCS: 36415; 80053; 82306; 84439; 84443; 85025

== ENCOUNTER → 2019-02-17 14:54 | Outpatient (CLI) | payer MEDICARE, SELFPAY ==
[2019-02-17 13:22] VITALS: BMI 42.3
[2019-02-17 16:36] LABS: BNP,B-Type NATRIURETIC PEPTIDE 16.6 pg/mL (0-100)
== END ==
PROVIDERS: Family Provider Family Medicine; PCP Family Medicine; Referring Provider Nurse Practitioner Family; Visit Provider Nurse Practitioner Family
DX: I50.32 Chronic diastolic (congestive) heart failure (principal); R06.09 Other forms of dyspnea
CPT/HCPCS: 83880

== ENCOUNTER → 2019-04-18 07:52 | Outpatient (CLI) | payer MEDICARE, SELFPAY ==
[2018-10-26 08:33] VITALS: BMI 42.6
[2019-02-17 13:22] VITALS: BMI 42.3
--- NOTE | 2019-04-18 14:45 | PFTCOMP ---
COMPLETE PULMONARY FUNCTION TEST INTERPRETATION Brief HPI: Patient is an 78 year old female, currently under the care of myself, who presents to [facility] for complete pulmonary function tests secondary to diagnosis of COPD. Respiratory therapist reports good effort and reproducible results. Interpretation: Forced expiration spirometry shows a mild large airways obstructive ventilatory defect with an FEV1 of 74% predicted. There is no significant bronchodilator response by strict ATS criteria. Spirograms are of good quality and plateau slowly, indicating slowly emptying areas of the lungs. The respiratory flow volume loop shows decreased expiratory flow rates at all lung volumes consistent with airway obstruction. Lung volumes by body plethysmography show a normal total lung capacity at 4.5 L, 88% predicted. All other lung volumes are within normal limits. Diffusion capacity by carbon monoxide is decreased at 55% predicted. The airway resistance is normal. Compared to previous pulmonary function tests from 06/20/2018, there is been a significant improvement in DLCO. Impression: Irreversible mild large airways obstructive ventilatory defect with a reduction in diffusing capacity consistent with patient's diagnosis of COPD. There has been some improvement compared to previous testing.
== END ==
PROVIDERS: Family Provider Family Medicine; PCP Family Medicine; Referring Provider Internal Medicine Critical Care Medicine; Visit Provider Internal Medicine Critical Care Medicine
DX: I50.32 Chronic diastolic (congestive) heart failure (principal); J44.9 Chronic obstructive pulmonary disease, unspecified
CPT/HCPCS: 94060; 94726; 94729

== ENCOUNTER → 2019-04-25 12:03 | Outpatient (CLI) | payer MEDICARE, SELFPAY ==
[2018-10-26 08:33] VITALS: BMI 42.6
[2019-02-17 13:22] VITALS: BMI 42.3
[2019-04-25 12:39] VITALS: PULSE 108; PULSE 117; PULSE 118; PULSE 120; PULSE 131; PULSE 67; PULSE 88; PULSE 94; O2SAT 94; O2SAT 95; O2SAT 96; O2SAT 97
--- NOTE | 2019-04-25 12:46 | CPS ---
She wears CPAP at night. She had to stop walking due to leg and back pain. She states that bothers her more than SO. But she was also audible wheezing with her walk today
--- NOTE | 2019-04-26 13:36 | PCM.PSN.6M ---
PSN 6 Minute Walk Test - 6 Minute Walk Test 6 Minute Walk Test: 6 Minute Walk Test PSN:6-Minute Walk Test Start: 04/25/19 12:39 Freq: Status: Active Protocol: [id number] Document 04/25/19 12:39 FR (Rec: 04/25/19 12:48 FR [id number]) 6 Minute Walk Test Date Performed 04/25/19 Time Performed 12:15 Height 5 ft 6 in Weight: 255 lb Weight in Pounds 255.0 lbs Assistive device used: None Pre-test Oxygen Delivery Method Room Air Pulse Ox (%) 97 Pulse Rate (60-100 beats/min) 67 Dyspnea Shakeel Scale (0-10) 7 Exertion Shakeel Scale (6-20) 13 1st minute Oxygen Delivery Method Room Air Pulse Ox (%) 95 Pulse Rate (60-100 beats/min) 94 2nd minute Oxygen Delivery Method Room Air Pulse Ox (%) 94 Pulse Rate (60-100 beats/min) 108 H Reported Symptoms Increased Work of Breathing 3rd minute Oxygen Delivery Method Room Air Pulse Ox (%) 96 Pulse Rate (60-100 beats/min) 118 H Number of Rests Taken 1 Reported Symptoms Increased Work of Breathing 4th minute Oxygen Delivery Method Room Air Pulse Ox (%) 95 Pulse Rate (60-100 beats/min) 117 H Reported Symptoms Increased Work of Breathing 5th minute Oxygen Delivery Method Room Air Pulse Ox (%) 95 Pulse Rate (60-100 beats/min) 120 H Reported Symptoms Increased Work of Breathing 6th minute Oxygen Delivery Method Room Air Pulse Ox (%) 96 Pulse Rate (60-100 beats/min) 131 H Dyspnea Shakeel Scale (0-10) 10 Exertion Shakeel Scale (6-20) 16 Reported Symptoms Increased Work of Breathing Post-test Oxygen Delivery Method Room Air Pulse Ox (%) 97 Pulse Rate (60-100 beats/min) 88 Full Laps Walked 10 Partial Lap, Number of Tiles Walked 0 Total Distance Walked (ft) 590 04/25/19 12:46 Cardiopulmonary Services by Alejandra Borja She wears CPAP at night. She had to stop walking due to leg and back pain. She states that bothers her more than SO. But she was also audible wheezing with her walk today Initialized on 04/25/19 12:46 - END OF NOTE - Interpretation Interpretation: The patient ambulated 590 feet over the course of 6 minutes beginning on room air without assistive devices. Pretesting oxygen saturation was noted to be 97% on room air. With ambulation, the randal oxygen saturation was 94%. The patient did become progressively tachycardic with exertion. There was no significant exertional oxygen desaturation. - Recommendations Recommendations: There is no indication for the use of supplemental oxygen at this time.
== END ==
PROVIDERS: Family Provider Family Medicine; PCP Family Medicine; Referring Provider Internal Medicine Critical Care Medicine; Visit Provider Internal Medicine Critical Care Medicine
DX: I50.32 Chronic diastolic (congestive) heart failure (principal); J44.9 Chronic obstructive pulmonary disease, unspecified
CPT/HCPCS: 94618

== ENCOUNTER → 2019-05-03 12:54 | Outpatient (CLI) | payer MEDICARE, SELFPAY ==
[2019-05-02 07:52] VITALS: BMI 42.3
== END ==
PROVIDERS: Family Provider Family Medicine; PCP Family Medicine; Referring Provider Nurse Practitioner Acute Care; Visit Provider Nurse Practitioner Acute Care
DX: G47.33 Obstructive sleep apnea (adult) (pediatric) (principal)
CPT/HCPCS: 98960; G0463

== ENCOUNTER → 2020-06-14 09:36 | Outpatient (CLI) | payer MEDICARE, MEDICAID, SELFPAY ==
[2020-05-09 10:51] VITALS: BMI 41.3
--- NOTE | 2020-06-14 09:48 | RAD_ITS ---
STUDY: X-RAY - LUMBAR SPINE REASON FOR EXAM: Female, 80 years old. Severe low back pain. TECHNIQUE: 4 view(s) of the lumbar spine were obtained on 6 images. COMPARISON: None FINDINGS: Diffuse osteopenia. Normal lumbar lordosis. There is no substantial scoliosis. There is a normal alignment of the vertebrae. Diffuse facet sclerosis most marked in the lower lumbar spine. Diffuse intervertebral disc space narrowing with small osteophytes. Vascular calcification. RAD/L/S Spine Min 4 Views IMPRESSION: Osteopenia with diffuse mild lumbar spondylosis. No acute finding. Electronically Signed: Trevon Hayes MD at 12:35 EST , Service support ,
--- NOTE | 2020-06-14 09:55 | RAD_ITS ---
STUDY: X-RAY - PELVIS AND LEFT HIP REASON FOR EXAM: Female, 80 years old. Severe low back pain and leg weakness. TECHNIQUE: 3 views of the pelvis and hip on 4 images. COMPARISON: None. FINDINGS: There is a non-specific bowel gas pattern. Generalized osteopenia. Normal bilateral iliac wings, sacroiliac joints and visualized sacrum. Normal bilateral superior and inferior pubic rami. Osteoarthrosis of the symphysis pubis. Normal bilateral ischial tuberosities. Multiple opacities in the soft tissues projected between the lesser trochanter of the right femur and the ischium felt to be artifact since they were not present on the right hip images. Mild osteoarthrosis of both hips. 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 Probable artifact in the proximal right femoral soft tissues as described. Electronically Signed: Trevon Hayes MD at 12:28 EST , Service support ,
--- NOTE | 2020-06-14 09:55 | RAD_ITS ---
STUDY: X-RAY - PELVIS AND RIGHT HIP REASON FOR EXAM: Female, 80 years old. Severe low back pain and worsening leg weakness. TECHNIQUE: 2 views of the pelvis and hip. COMPARISON: None. FINDINGS: There is a non-specific bowel gas pattern. Normal visualized soft tissue structures. Generalized osteopenia. Normal bilateral iliac wings, sacroiliac joints and visualized sacrum. Normal bilateral superior and inferior pubic rami. Normal pubic symphysis. Normal bilateral ischial tuberosities. Mild arthrosis of the right hip. Normal acetabulum. Normal hip joint. RAD/Hip Min 2 Views (Portable) IMPRESSION: Osteopenia with mild arthrosis of the right hip. No acute osseous abnormality. Electronically Signed: Trevon Hayes MD at 12:24 EST , Service support ,
[2020-06-14 12:21] LABS: Absolute Lymphocyte Count 2.71 X10^3/uL (0.83-4.51); Absolute Neutrophil Count 6.7 X10^3/uL (2.0-7.7); Basophil# 0.11 X10^3/uL; Eosinophil# 0.56 X10^3/uL; Eosinophils% 5.1 % (0-5); Hematocrit 39.5 % (37-47); Hemoglobin 12.2 g/dL (12.0-15.0); Lymphocyte # 2.71 X10^3/ul (4.0); Lymphocyte % 24.8 % (19-41); Mean Corp Hgb Conc 30.9 g/dL (32-36); Mean Corpuscular Hgb 25.6 pg (27.0-32.0); Mean Corpuscular Volume 82.8 fL (81-99); Mean Platelet Vol. 11.1 fl (6.2-12.0); Monocyte# 0.61 X10^3/uL; Monocyte% 5.6 % (0-10); NRBC Flagged by Analyzer 0 % (0-5); Neutrophil % 61.2 % (47-70); Platelet Count 206 K/mm3 (150-450); RBC Distribution Width CV 14.6 % (11.6-14.6); RBC Distribution Width SD 43.8 fl (35.1-43.9); Red Blood Count 4.77 M/mm3 (4.2-5.4); White Blood Count 10.9 K/mm3 (4.4-11.0)
[2020-06-14 12:39] LABS: ALB/GLOB Ratio 0.6 RATIO (0.9-2.4); AST(SGOT) 11 U/L (15-37); Alanine Aminotransfer ALT/SGPT 21 U/L (13-56); Alkaline Phosphatase 113 U/L (45-117); Anion Gap 6 (5-15); BUN 22 mg/dL (7-18); BUN/Creat Ratio 15.9 RATIO (10-20); Calcium,Total 8.9 mg/dL (8.5-10.1); Chloride 100 mmol/L (98-107); Creatinine, Serum 1.38 mg/dL (0.55-1.02); EST Glomerular Filtration Rate 39 mL/min (>60); Est Glom Filt Rate - Afr Amer 47 mL/min (>60); Globulin 4.9 g/dL (2.2-4.2); Glucose 354 mg/dL (74-106); Potassium 4.3 mmol/L (3.5-5.1); Protein, Total 7.9 g/dL (6.4-8.2); Sodium Level 134 mmol/L (136-145); Thyroid Stim Hormone (TSH) 2.17 uIU/mL (0.358-3.74)
[2020-06-14 14:46] LABS: Vitamin D,25 Hydroxy 57.5 ng/mL
[2020-06-14 15:29] LABS: BNP,B-Type NATRIURETIC PEPTIDE 35.6 pg/mL (0-100)
== END ==
PROVIDERS: PCP Family Medicine; Referring Provider Family Medicine; Visit Provider Family Medicine
DX: M54.5 Low back pain (principal); M16.0 Bilateral primary osteoarthritis of hip; M62.81 Muscle weakness (generalized); E11.9 Type 2 diabetes mellitus without complications; E55.9 Vitamin D deficiency, unspecified; I50.30 Unspecified diastolic (congestive) heart failure
CPT/HCPCS: 36415; 72110; 73502; 80053; 82306; 83036; 83880; 84443; 85025

== ENCOUNTER → 2020-09-30 13:25 | Outpatient (CLI) | payer MEDICARE, SELFPAY ==
[2020-08-26 11:29] VITALS: BMI 40.6
[2020-09-30 15:25] LABS: Absolute Lymphocyte Count 3.21 X10^3/uL (0.83-4.51); Basophil# 0.14 X10^3/uL; Eosinophil# 0.41 X10^3/uL; Hemoglobin 12.7 g/dL (12.0-15.0); Lymphocyte # 3.21 X10^3/ul (4.0); Lymphocyte % 23.4 % (19-41); Mean Corp Hgb Conc 30.2 g/dL (32-36); Mean Corpuscular Hgb 24.8 pg (27.0-32.0); Mean Corpuscular Volume 81.9 fL (81-99); Mean Platelet Vol. 10.9 fl (6.2-12.0); Monocyte# 0.67 X10^3/uL; Monocyte% 4.9 % (0-10); NRBC Flagged by Analyzer 0 % (0-5); Neutrophil # 8.97 X10^3/uL (2.7-7.7); Neutrophil % 65.4 % (47-70); Platelet Count 156 K/mm3 (150-450); RBC Distribution Width CV 14.9 % (11.6-14.6); RBC Distribution Width SD 44.8 fl (35.1-43.9); Red Blood Count 5.13 M/mm3 (4.2-5.4); White Blood Count 13.7 K/mm3 (4.4-11.0)
[2020-09-30 16:17] LABS: ALB/GLOB Ratio 0.6 RATIO (0.9-2.4); AST(SGOT) 10 U/L (15-37); Alanine Aminotransfer ALT/SGPT 18 U/L (13-56); Albumin, Serum 3.1 g/dL (3.2-5.0); Alkaline Phosphatase 131 U/L (45-117); Anion Gap 7 (5-15); BUN 31 mg/dL (7-18); BUN/Creat Ratio 22.3 RATIO (10-20); Calcium,Total 9.5 mg/dL (8.5-10.1); Chloride 98 mmol/L (98-107); Creatinine, Serum 1.39 mg/dL (0.55-1.02); EST Glomerular Filtration Rate 39 mL/min (>60); Est Glom Filt Rate - Afr Amer 47 mL/min (>60); Globulin 4.9 g/dL (2.2-4.2); Glucose 264 mg/dL (74-106); Potassium 4.1 mmol/L (3.5-5.1); Sodium Level 131 mmol/L (136-145)
== END ==
PROVIDERS: PCP Family Medicine; Visit Provider Family Medicine
DX: I10 Essential (primary) hypertension (principal); E11.65 Type 2 diabetes mellitus with hyperglycemia
CPT/HCPCS: 36415; 80053; 85025

== ENCOUNTER → 2021-07-10 13:00 | Outpatient (CLI) | payer MEDICARE, SELFPAY | PROVIDERS: PCP Family Medicine; Referring Provider Internal Medicine Critical Care Medicine; Visit Provider Internal Medicine Critical Care Medicine | DX: G47.33 Obstructive sleep apnea (adult) (pediatric) (principal) | CPT/HCPCS: 98960; G0463 ==

== ENCOUNTER → 2022-06-05 | Outpatient (CLI) | payer MEDICARE, MEDICAID, SELFPAY ==
--- NOTE | 2022-06-05 15:26 | MRI_ITS ---
STUDY: MRI BRAIN WITH AND WITHOUT CONTRAST (ATTENTION INTERNAL AUDITORY CANALS - I.A.C.''s) REASON FOR EXAM: Female, 81 years old. HEARING LOSS TECHNIQUE: Standardized multiplanar fat and water weighted pulse sequences were obtained. 25CC IV CLARISCAN was administered for the contrast portion of the examination. COMPARISON: None. FINDINGS: Normal bilateral temporal bones. Normal bilateral internal auditory canals. There is no demonstrated intracanalicular or cisternal vestibular schwannoma (acoustic neuroma). There is no enhancement of the bilateral VIIth or VIIIth cranial nerves. Normal bilateral cochlea, vestibules and semicircular canals. Normal size of the ventricles and extra-axial spaces for the patient''s age. T2 FLAIR hyperintensity foci in the white matter both cerebral hemispheres are chronic white matter ischemic changes. Normal bilateral basal ganglia. Normal thalami. Normal flow voids within the major intracranial circulation suggesting patency by spin echo criteria. Normal venous enhancement. There is no enhancing intra-axial or extra-axial abnormality. There is no extra-axial fluid accumulation. Normal sella turcica, pituitary gland, infundibular stalk, optic chiasm and hypothalamus. Normal tectal plate and pineal gland. Normal midbrain, tania and medulla. Normal cerebellum. Normal basal cisterns. No demonstrated orbital abnormality, within the constraints of a routine brain study. Moderate mucosal thickening in the left maxillary sinus. Mild mucosal thickening in the right maxillary sinus. Mild mucosal thickening in the right sphenoid sinus. Normal ethmoid sinus and frontal sinus. Mucosal edema of the left temporal mastoid bone. Normal right temporal mastoid bone. Normal bony calvarium and skull base. Normal visualized soft tissue structures. Normal visualized upper cervical spine. MRI/Brain W/WO Contrast IMPRESSION: 1. Normal unenhanced and enhanced MRI of the bilateral internal auditory canals (I.A.C''s). 2. Chronic white matter ischemic changes in both cerebral hemispheres. 3. Mucosal edema of the left temporal mastoid bone suggestive of mastoiditis. 4. Moderate mucosal thickening in the left maxillary sinus and mild mucosal thickening in the right maxillary sinus and right sphenoid sinus. Electronically Signed: Irineo Fan MD at 9:48 EST ,
[2022-06-05 15:55] LABS: CREATININE FINGERSTICK 1.1 mg/dL (0.55-1.02)
== END | disposition home or self-care (01) ==
LOC: MRI 15:18
PROVIDERS: PCP Family Medicine; Visit Provider Otolaryngology
DX: H90.3 Sensorineural hearing loss, bilateral (principal)
CPT/HCPCS: 70553; A9575

== ENCOUNTER → 2022-10-22 | Outpatient (CLI) | payer MEDICARE, MEDICAID, SELFPAY ==
[2022-10-22 15:05] LABS: Absolute Lymphocyte Count 2.83 X10^3/uL (0.83-4.51); Absolute Neutrophil Count 7.1 X10^3/uL (2.0-7.7); Basophil# 0.09 X10^3/uL; Basophil% 0.8 % (0-1); Eosinophils% 5.2 % (0-5); Hematocrit 37.9 % (37-47); Hemoglobin 11.9 g/dL (12.0-15.0); Lymphocyte # 2.83 X10^3/ul (0.83-4.51); Lymphocyte % 24.6 % (19-41); Mean Corp Hgb Conc 31.4 g/dL (32-36); Mean Corpuscular Volume 85.9 fL (81-99); Mean Platelet Vol. 10.9 fl (6.2-12.0); Monocyte# 0.64 X10^3/uL; Monocyte% 5.6 % (0-10); NRBC Flagged by Analyzer 0 % (0-5); Neutrophil # 7.13 X10^3/uL (2.7-7.7); Neutrophil % 62.1 % (47-70); Platelet Count 297 K/mm3 (150-450); RBC Distribution Width CV 14.4 % (11.6-14.6); RBC Distribution Width SD 45.2 fl (35.1-43.9); Red Blood Count 4.41 M/mm3 (4.2-5.4); White Blood Count 11.5 K/mm3 (4.4-11.0)
[2022-10-22 16:14] LABS: ALB/GLOB Ratio 0.7 RATIO (0.9-2.4); AST(SGOT) 16 U/L (15-37); Alanine Aminotransfer ALT/SGPT 26 U/L (13-56); Albumin, Serum 3.2 g/dL (3.2-5.0); Alkaline Phosphatase 90 U/L (45-117); Anion Gap 8 (5-15); BUN 54 mg/dL (7-18); BUN/Creat Ratio 34.6 RATIO (10-20); Calcium,Total 9.6 mg/dL (8.5-10.1); Chloride 103 mmol/L (98-107); Cholesterol 131 mg/dL (200); Creatinine, Serum 1.56 mg/dL (0.55-1.02); EST Glomerular Filtration Rate 34 mL/min (>60); Est Glom Filt Rate - Afr Amer 41 mL/min (>60); Globulin 4.3 g/dL (2.2-4.2); Glucose 172 mg/dL (74-106); High Density Lipoprotein 42 mg/dL; Potassium 4.4 mmol/L (3.5-5.1); Protein, Total 7.5 g/dL (6.4-8.2); Sodium Level 135 mmol/L (136-145); Triglycerides 196 mg/dL; Very Low Density Lipoprotein 39 mg/dL (5-40)
[2022-10-22 16:36] LABS: Microalbumin:Creatinine Ratio 19.7 mg/g CRE (<30 mg/g CRE)
== END | disposition home or self-care (01) ==
LOC: BFHLAB 11:18
PROVIDERS: PCP Family Medicine; Referring Provider Family Medicine; Visit Provider Family Medicine
DX: I10 Essential (primary) hypertension (principal); E11.9 Type 2 diabetes mellitus without complications; E78.5 Hyperlipidemia, unspecified
CPT/HCPCS: 36415; 80053; 80061; 82043; 82570; 85025

== ENCOUNTER → 2023-01-21 | Outpatient (CLI) | payer MEDICARE, MEDICAID, SELFPAY ==
[2023-01-21 15:41] LABS: Vitamin B12 1812 pg/mL (211-911)
[2023-01-21 15:46] LABS: Anion Gap 6 (5-15); BUN 52 mg/dL (7-18); Chloride 103 mmol/L (98-107); Creatinine, Serum 1.53 mg/dL (0.55-1.02); EST Glomerular Filtration Rate 34 mL/min (>60); Est Glom Filt Rate - Afr Amer 42 mL/min (>60); Glucose 204 mg/dL (74-106); Potassium 4.2 mmol/L (3.5-5.1); Sodium Level 136 mmol/L (136-145); T4 Free Direct 1.01 ng/dL (0.76-1.46); Thyroid Stim Hormone (TSH) 0.97 uIU/mL (0.358-3.74)
== END | disposition home or self-care (01) ==
LOC: LAB.FUTURE 13:10
PROVIDERS: PCP Family Medicine; Referring Provider Family Medicine; Visit Provider Family Medicine
DX: I10 Essential (primary) hypertension (principal); G47.33 Obstructive sleep apnea (adult) (pediatric); R53.83 Other fatigue
CPT/HCPCS: 36415; 80048; 82607; 84439; 84443; 93306; Q9957; A4216; C8929

== ENCOUNTER → 2023-01-21 | Outpatient (CLI) | payer MEDICARE, MEDICAID, SELFPAY ==
--- NOTE | 2023-01-21 12:31 | ECHOCS_ITS ---
Reason For Study: MATTHEW Procedure This was a 2D Doppler, Color Flow transthoracic echocardiogram. The study was technically difficult. D/T body habitus. Contrast injection was performed. Exam performed in department. Images #[id number] are the two chamber view. Left Ventricle Normal LV size. Left ventricular systolic function is normal. The estimated ejection fraction is 45 %. Stage 1 diastolic dysfunction. No regional wall motion abnormalities noted. Right Ventricle Normal RV size. Normal systolic function. Pulmonic Valve The pulmonic valve is not well visualized. Great Vessels Normal aortic root. The pulmonary is not well visualized. Normal inferior vena cava. Pericardium/Pleural No pericardial effusion. Medication 22 gauge I.V. with prn adaptor inserted into right arm. Diluted definity 4.0ml given slow IV push to enhance endocardial definition. MMode/2D Measurements & Calculations LVIDd: 6.5 cm IVSd: 1.2 cm Ao root diam: 3.4 cm LVIDs: 4.6 cm LVPWd: 1.2 cm RVDd: 2.5 cm FS: 29.6 % LAV(MOD-bp): 61.9 ml LVAd ap4: 29.7 cm2 LVAd ap2: 26.9 cm2 LAV(MOD-bp) Indexed: 27.9 ml/m2 LVLd ap4: 8.0 cm LVLd ap2: 7.4 cm LAV(MOD-sp2): 64.2 ml EDV(MOD-sp4): 90.8 ml EDV(MOD-sp2): 80.1 ml LAV(MOD-sp4): 52.1 ml EDV(sp4-el): 93.8 ml EDV(sp2-el): 83.2 ml LVAs ap4: 14.9 cm2 LVAs ap2: 14.8 cm2 LVLs ap4: 6.0 cm LVLs ap2: 5.9 cm ESV(MOD-sp4): 29.8 ml ESV(MOD-sp2): 30.5 ml ESV(sp4-el): 31.7 ml ESV(sp2-el): 31.6 ml EF(MOD-sp4): 67.1 % EF(MOD-sp2): 61.9 % EF(sp4-el): 66.2 % SV(MOD-sp4): 61.0 ml SV(MOD-sp2): 49.5 ml SV(sp4-el): 62.1 ml LA A4 area: 19.8 cm2 LA dimension(2D): 3.5 cm RA A4 area: 14.8 cm2 TAPSE: 2.5 cm Time Measurements MV dec time: 0.30 sec Doppler Measurements & Calculations MV E max jaspal: 98.2 cm/sec Lat Peak E' Jaspal: 6.7 cm/sec Med Peak E' Jaspal: 5.9 cm/sec MV A max jaspal: 119.1 cm/sec E/E' lat: 14.6 E/E' med: 16.7 MV E/A: 0.82 Ao V2 max: 172.3 cm/sec LV V1 max: 96.2 cm/sec PA V2 max: 85.8 cm/sec Ao max P.9 mmHg LV V1 max P.7 mmHg Ao V2 mean: 136.9 cm/sec LV V1 mean P.5 mmHg Ao mean P.0 mmHg LV V1 mean: 77.2 cm/sec Ao V2 VTI: 40.7 cm LV V1 VTI: 24.4 cm AV (velocity ratio): 0.60 ECHO/Echo Complete W/ Contrast Interpretation Summary Normal LV size. Left ventricular systolic function is normal. The estimated ejection fraction is 45 %. Stage 1 diastolic dysfunction. The study was technically difficult. Contrast injection was performed. Ordering Physician: [place] Shepard Referring Physician: Ruperto Jesus Performed By: Aliyah Colby, JUDY, RVT
== END | disposition home or self-care (01) ==
LOC: CVS 12:30
PROVIDERS: PCP Family Medicine; Referring Provider Internal Medicine Cardiovascular Disease; Visit Provider Internal Medicine Cardiovascular Disease
DX: G47.33 Obstructive sleep apnea (adult) (pediatric) (principal)
CPT/HCPCS: 93306; Q9957; A4216; C8929

== ENCOUNTER → 2023-10-14 | Outpatient (CLI) | payer MEDICARE, MEDICAID, SELFPAY ==
--- NOTE | 2023-10-14 12:21 | STRESSREP ---
Stress Test Report Pharmacologic myocardial perfusion stress test. 83-year-old lady with a history of shortness of breath and chest pain Resting EKG demonstrates sinus rhythm with a left bundle branch block and a rate of 62 bpm. Resting blood pressure is 118/60 mmHg. 0.4 mg of regadenoson was infused per usual protocol followed by rapid intravenous saline flush injection. Continuous EKG monitoring was performed. The maximum heart rate was 80 bpm which was 59% of max impacted heart rate the maximum workload was 1 metabolic equivalent. At rest there were no ST or T wave changes noted to suggest ischemia and at peak infusion nonspecific ST changes were noted which did not meet the criteria for ischemia. No clinical angina is noted. The final blood pressure was 110/60 mmHg. Myocardial perfusion protocol. 14.6 mCi of technetium 99m sestamibi was injected at rest. 0.4 mg of regadenoson was infused per usual protocol. At peak infusion 44 point mCi of technetium 99m sestamibi was injected stress images were obtained stress and rest images were reconstructed and compared in the short axis vertical long and horizontal long axis. Gated images were also obtained. Perfusion SPECT analysis: Review of the stress images demonstrate normal uptake of tracer noted in all areas of the myocardium except for the anterior septum and apex with reduced perfusion. The resting images similar demonstrated near normal uptake of tracer noted in all areas of the myocardium. The improvement in the anteroseptal wall suggest ischemia in this distribution. Gated SPECT analysis: The gated ejection fraction is 67%. Conclusion: Abnormal pharmacologic myocardial perfusion stress test. Preserved ejection fraction. Anteroseptal ischemia noted
== END | disposition home or self-care (01) ==
PROVIDERS: PCP Family Medicine; Referring Provider Physician Assistant Medical; Visit Provider Physician Assistant Medical
DX: R07.9 Chest pain, unspecified (principal)
CPT/HCPCS: 78452; 93017; A9500; A4216; J2785

== ENCOUNTER 2023-10-29 10:02 | Day surgery (SDC) | payer MEDICARE, MEDICAID, SELFPAY ==
[2023-10-18 10:11] LABS: Hematocrit 36.1 % (37-47); Hemoglobin 11.2 g/dL (12.0-15.0); Mean Corpuscular Hgb 25.9 pg (27.0-32.0); Mean Corpuscular Volume 83.6 fL (81-99); Platelet Count 327 K/mm3 (150-450); RBC Distribution Width CV 15.3 % (11.6-14.6); RBC Distribution Width SD 46.6 fl (35.1-43.9); Red Blood Count 4.32 M/mm3 (4.2-5.4); White Blood Count 12.6 K/mm3 (4.4-11.0)
[2023-10-18 10:48] LABS: AST(SGOT) 16 U/L (15-37); Alanine Aminotransfer ALT/SGPT 25 U/L (13-56); Alkaline Phosphatase 92 U/L (45-117); Anion Gap 5 (5-15); BUN 28 mg/dL (7-18); BUN/Creat Ratio 20.4 RATIO (10-20); Bilirubin, Direct 0.16 mg/dL (0.00-0.30); Calcium,Total 9.2 mg/dL (8.5-10.1); Chloride 104 mmol/L (98-107); Cholesterol 129 mg/dL (200); Creatinine, Serum 1.37 mg/dL (0.55-1.02); EST Glomerular Filtration Rate 39 mL/min (>60); Est Glom Filt Rate - Afr Amer 47 mL/min (>60); Globulin 4.2 g/dL (2.2-4.2); Glucose 148 mg/dL (74-106); High Density Lipoprotein 47 mg/dL; Potassium 4.1 mmol/L (3.5-5.1); Protein, Total 7.2 g/dL (6.4-8.2); Sodium Level 138 mmol/L (136-145); Triglycerides 98 mg/dL; Very Low Density Lipoprotein 20 mg/dL (5-40)
--- NOTE | 2023-10-20 20:57 | HP.PCM_ITS ---
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 She has a history of hypertension, diabetes mellitus, previous tobacco abuse, status post cardiac catheterization in 2010 which demonstrated minimal coronary artery disease. She also has a hx of MATTHEW and is on CPAP. She does have hearing aides now, this has helped. Pt notes that previously she had a chest heaviness that this lasted a couple days. She does have mild sharp chest pain. She does not have any worsening SOB. She used a WC to get up to the office and walked back to the exam room. She does not have any palpitations. She does have some edema but she feels that this is better. 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: No Is patient in pain?: No Allergies acetaminophen [From Darvocet-N] Allergy (Severe, Verified 09/21/23 13:16) Unknown bupropion [From Wellbutrin] Allergy (Severe, Verified 09/21/23 13:16) Unknown gabapentin [From Neurontin] Allergy (Severe, Verified 09/21/23 13:16) Unknown pregabalin [From Lyrica] Allergy (Severe, Verified 09/21/23 13:16) Unknown propoxyphene [From Darvocet-N] Allergy (Severe, Verified 09/21/23 13:16) Unknown sulfadiazine Allergy (Severe, Verified 09/21/23 13:16) Unknown Medications See EMR [facility] Medical History Anxiety and depression Chronic diastolic (congestive) heart failure COPD (chronic obstructive pulmonary disease) Diabetic neuropathy Emphysema, unspecified Essential (primary) hypertension Fibromyalgia Hyperlipidemia Morbid obesity MATTHEW (obstructive sleep apnea) TIA (transient ischemic attack) Tobacco use disorder Type 2 diabetes mellitus Surgical History History of ear, nose, and throat (ENT) surgery History of hysterectomy History of knee replacement Hx of cholecystectomy Family History Father CAD (coronary artery disease) Social History Smoking Status: Former smoker how long ago did patient quit smokin years ago second hand exposure: Yes alcohol intake: never substance use type: does not use caffeine: Yes Type: coffee Number of servings: 1 ROS Const Const: Negative for fatigue, weakness, headache(s), frequent falls, difficulty sleeping or excessive sweating Eyes Eyes: Negative for loss of peripheral vision, transient loss of vision, blurry vision, double vision or tunnel vision ENT ENT: Negative for headache(s), dizziness, Nosebleed/epistaxis or balance problems Cardio Chest Pain: Yes Palpitations: No Edema: Bilateral Muscle aches with walking: None Resp Respiratory: Negative for SOB with activity, SOB at rest, SOB orthopnea\SOB lying down, Cough or paroxysmal nocturnal dyspnea GI GI: Negative nausea, vomiting or heartburn : Negative for hematuria Musc Musc: Negative for muscle aches/ myalgia, muscle weakness, joint pain or balance problems Skin Skin: Negative non-healing lesions, rash or unusual bruising Neuro Neuro: Negative for dizziness, lightheadedness, near syncope, syncope, orthos tatic symptoms, frequent falls, headache(s), weakness, confusion, memory loss, blurry vision, double vision, vertigo or lack of coordination Shane Hematologic/Lymphatic: Negative for easy bleeding or easy bruising Endo Endo: Negative for fatigue, excessive sweating, flushing or increased thirst/drinking Psych Psych: Negative for anxiety or depression Allergy Allergy/Immunology: Negative for hives and Negative for rash Cardiology Exam Const Appearance: cooperative, no acute distress and well developed Nutritional Appearance: obese Orientation: alert, awake and oriented x3 Limitations: physical limitations (uses walker) Head Head: normal to inspection Ears: hearing grossly normal bilaterally Nose: external nose normal Face and Sinus: face symmetric Mouth: oral mucosae normal, lip normal and moist mucous membranes Eyes General: appearance normal, both eyes and all related structures Eyelids: eyelids normal Conjunctivae: conjunctivae normal Pupils: PERRL EOM: EOM intact bilaterally Neck Neck: normal visual inspection and trachea midline; Negative no JVD Carotids: Negative bruit Chest Chest inspection: normal inspection of the chest Auscultation: Bilateral: Diminished Lung Sounds Cardio Palpation: normal PMI Rate: regular rate Rhythm: regular rhythm Heart sounds: S1 normal and S2 normal; Negative rub, gallop or murmur GI GI: soft, no hepatosplenomegaly, bowel sounds present and obese Neuro General: patient alert, patient awake, patient oriented x3 and CN's II-XI intact bilaterally Extremities Pulses: Normal: Right Posterior Tibial Pulse, Left Posterior Tibial Pulse, Right Radial Pulse and Left Radial Pulse Lower Extremity Edema: Trace: Bilateral Psych Psychological: normal affect Supplemental Info Supplemental Information Echocardiogram 2022: Normal LV size. Left ventricular systolic function is normal. The estimated ejection fraction is 45 %. Stage 1 diastolic dysfunction. The study was technically difficult. Contrast injection was performed. Echocardiogram 10/19/2017: The estimated ejection fraction is 60 %. Trivial tricuspid valve insufficiency. Right ventricular systolic pressure estimated to be 16 mmHg, may be underesti mated. Stage 1 diastolic dysfunction. Compared to echo report dated 09/15/2016, No appreciable changes noted. The study was technically difficult. Contrast injection was performed. Stress Test From 10/14/2023: Conclusion: Abnormal pharmacologic myocardial perfusion stress test. Preserved ejection fraction. Anteroseptal ischemia noted Assessment and Plan Assessment and Plan (1) Chronic diastolic (congestive) heart failure: Status: Chronic Plan: She has a history of diastolic heart failure. She appears to doing quite well at this time will not recommend that we make any changes. Reviewed echocardiogram from 2022. She will continue with her metoprolol, lisinopril, sp ironolactone, furosemide. She does not have any symptoms of heart failure. (2) Essential (primary) hypertension: Status: Chronic Plan: She does have a history of hypertension. Her blood pressure is under good control I would not recommend that we make any other major changes. (3) Hyperlipidemia: Status: Chronic Qualifiers: Hyperlipidemia type: unspecified Qualified Code(s): E78.5 - Hyperlipidemia, unspecified Plan: She does have a history of hyperlipidemia. She will continue with the current risk factor modification. (4) Chest pain: Status: Acute Plan: With patient's symptoms of chest discomfort, she underwent a stress test on 10/14/2023 to assess further. It was abnormal. On account of symptoms and test results, she will proceed with heart catheterization. Depending on results, further recommendation will be made.
--- NOTE | 2023-10-27 12:20 | RAD_ITS ---
STUDY: X-RAY CHEST REASON FOR EXAM: Female, 83 years old. SOB -- for heart cath TECHNIQUE: PA and lateral views of the chest. COMPARISON: None. FINDINGS: The lungs are clear and expanded. There is no demonstrated pleural abnormality. Normal size heart. Normal mediastinum and isablea. Normal visualized pulmonary arteries. Normal visualized aortic arch and descending thoracic aorta. Normal visualized thoracic spine. Normal visualized ribs, clavicles, and shoulders. There is no demonstrated abnormality of the visualized soft tissue structures of the upper abdomen. RAD/Chest PA and Lateral IMPRESSION: Normal x-ray examination of the chest. Electronically Signed: Zana Alonso MD at 20:35 EDT ,
--- NOTE | 2023-10-29 12:52 | CL.D_ITS ---
Patient Name: DAWNA BARRY Study Date: 10/29/2023 Performing: Montana Shepard MD Ht: 66 inches 167.64 cm : 1940 Wt: lbs kg Age: 83 Gender: female BSA: PROCEDURE(S) PERFORMED [id number])LHC/COR/LV CLINICAL PROFILE AND INDICATIONS Indications: Suspected CAD Heart Failure: None Stress/Imaging Date: 10/14/23 CAD Presentations: No Sxs, no angina. CONCLUSIONS Diffuse LAD disease with no areas of high-grade stenosis present. Mild right coronary artery and left circumflex artery stenosis. RECOMMENDATIONS Medical therapy DESCRIPTION OF PROCEDURE The patient arrived to the procedure lab. The risks and benefits of the procedure as well as a full description of our services here and current unavailability of surgical backup were fully explained to the patient and/or their significant other prior to the catheterization. The Timeout was completed, verifying the correct patient and procedure. The patient's procedural site was prepped and draped in the usual fashion. Local anesthetic was given subcutaneously to right radial region with Lidocaine 2%. Using a modified Seldinger technique, arterial access was obtained via the right radial artery, a 6Fr sheath was inserted. Right Coronary Artery selective angiography was then performed in multiple views using a 5 Fr. 4.0 Bethel catheter. Left Coronary Artery selective angiography was performed in multiple views using a 5 Fr. JL4 catheter. Left Ventriculography was performed in ZAMORA projection using a 5 Fr. Pigtail catheter. LV to AO pullback pressures were then recorded.The arterial sheath was pulled and a TR Band was applied for hemostasis CORONARY ANGIOGRAPHY DOMINANCE: Right Dominant LEFT HEART ASSESSMENT Left Ventricular Ejection Fraction: by LV Gram 60 % Normal LV wall motion Normal Left Ventricular systolic function LEFT MAIN: Angiographically normal LEFT ANTERIOR DESCENDING ARTERY: Left anterior descending artery is a medium size vessel with distal 50% diffuse stenosis present. CIRCUMFLEX ARTERY: Mild luminal irregularities RIGHT CORONARY ARTERY: Mild luminal irregularities less than 30% COMPLICATIONS No Complications PROCEDURE MEDICATIONS Fentanyl 50 mcg IV Versed 1 mg IV Oxygen: 2 L/min via nasal cannula Aspirin (325mg) 1 Tabs PO @ 10/29/2023 10:28:58 Heparin given IA 10/29/2023 11:51:18 Verapamil 2.5mg, Ntg 100mcgs, 3000 units of Heparin given IA 10/29/2023 11:51:18 SUMMARY OF HEMODYNAMIC DATA Time AIR REST ECG 10:30:40 AO 114/54 (73) SA 12:04:25 LV 104/10, 18 12:11:08 LV 111/12, 19 12:11:17 LV 106/14, 22 12:11:53 LVp 102/14, 19 12:12:03 AOp 107/45 (68) 12:12:10 ECG 12:31:18 Signed By Montana Shepard MD On 10/29/2023 12:52:03 Montana Shepard MD
== END 2023-10-29 13:45 | disposition home or self-care (01) ==
LOC: CLSP 10:03
PROVIDERS: PCP Family Medicine; Referring Provider Internal Medicine Cardiovascular Disease; Visit Provider Internal Medicine Cardiovascular Disease
DX: I25.10 Atherosclerotic heart disease of native coronary artery without angina pectoris (principal); I11.0 Hypertensive heart disease with heart failure; I50.32 Chronic diastolic (congestive) heart failure; J43.9 Emphysema, unspecified; E11.40 Type 2 diabetes mellitus with diabetic neuropathy, unspecified; Z79.4 Long term (current) use of insulin; E66.9 Obesity, unspecified; E78.5 Hyperlipidemia, unspecified; G47.33 Obstructive sleep apnea (adult) (pediatric); Z79.84 Long term (current) use of oral hypoglycemic drugs; Z79.899 Other long term (current) drug therapy; Z86.73 Personal history of transient ischemic attack (TIA), and cerebral infarction without residual deficits; Z87.891 Personal history of nicotine dependence; Z82.49 Family history of ischemic heart disease and other diseases of the circulatory system
CPT/HCPCS: 36415; 71046; 80048; 80061; 80076; 85027; 93458; 99152; 99153; J7040; Q9967; C1769; C1894

== ENCOUNTER → 2023-11-22 | Outpatient (CLI) | payer MEDICARE, MEDICAID, SELFPAY ==
[2023-11-22 15:44] LABS: Microalbumin,Random Urine 24.3 mg/L (NO RANGE EST.)
[2023-11-22 16:18] LABS: Cholesterol 123 mg/dL (200); High Density Lipoprotein 42 mg/dL; Triglycerides 169 mg/dL; Very Low Density Lipoprotein 34 mg/dL (5-40)
== END | disposition home or self-care (01) ==
LOC: BFHLAB 14:00
PROVIDERS: PCP Family Medicine; Referring Provider Family Medicine; Visit Provider Family Medicine
DX: E11.40 Type 2 diabetes mellitus with diabetic neuropathy, unspecified (principal); R30.0 Dysuria
CPT/HCPCS: 36415; 80061; 82043; 82570; 87077; 87086; 87088; 87186

== ENCOUNTER → 2024-05-26 | Outpatient (CLI) | payer MEDICARE, MEDICAID, SELFPAY ==
[2024-05-26 17:26] LABS: Absolute Lymphocyte Count 3.18 X10^3/uL (0.83-4.51); Absolute Neutrophil Count 7.9 X10^3/uL (2.0-7.7); Basophil# 0.15 X10^3/uL; Basophil% 1.2 % (0-1); Eosinophils% 3.9 % (0-5); Hemoglobin 11.6 g/dL (12.0-15.0); Lymphocyte # 3.18 X10^3/ul (0.83-4.51); Lymphocyte % 25.1 % (19-41); Mean Corp Hgb Conc 30.5 g/dL (32-36); Mean Corpuscular Hgb 26.1 pg (27.0-32.0); Mean Corpuscular Volume 85.6 fL (81-99); Mean Platelet Vol. 10.5 fl (6.2-12.0); Monocyte# 0.74 X10^3/uL; Monocyte% 5.8 % (0-10); NRBC Flagged by Analyzer 0 % (0-5); Neutrophil # 7.93 X10^3/uL (2.7-7.7); Neutrophil % 62.7 % (47-70); Platelet Count 355 K/mm3 (150-450); RBC Distribution Width CV 15.2 % (11.6-14.6); RBC Distribution Width SD 47.6 fl (35.1-43.9); Red Blood Count 4.44 M/mm3 (4.2-5.4); White Blood Count 12.7 K/mm3 (4.4-11.0)
[2024-05-26 17:37] LABS: Anion Gap 6 (5-15); BUN 62 mg/dL (7-18); BUN/Creat Ratio 30.5 RATIO (10-20); Calcium,Total 9.3 mg/dL (8.5-10.1); Chloride 106 mmol/L (98-107); Creatinine, Serum 2.03 mg/dL (0.55-1.02); EST Glomerular Filtration Rate 25 mL/min (>60); Est Glom Filt Rate - Afr Amer 30 mL/min (>60); Glucose 127 mg/dL (74-106); Potassium 4.6 mmol/L (3.5-5.1); Sodium Level 136 mmol/L (136-145)
[2024-05-26 17:44] LABS: Color, Urine Yellow (Yellow); Glucose, Dipstick Normal (Normal); Ketone-Dipstick Negative (Negative); Leukocyte Esterase-Dipstick 500 /ul (Negative); Nitrite-Dipstick Negative (Negative); Occult Blood-Urine Negative /ul (Negative); Protein-Dipstick Negative (Negative); Urine Bilirubin Dipstick Negative (Negative); Urine Clarity Sl. Cloudy (Clear); Urine Urobilinogen Normal (Normal)
== END | disposition home or self-care (01) ==
LOC: BFHLAB 14:44
PROVIDERS: PCP Family Medicine; Referring Provider Family Medicine; Visit Provider Family Medicine
DX: N18.32 Chronic kidney disease, stage 3b (principal); D63.1 Anemia in chronic kidney disease; M54.9 Dorsalgia, unspecified
CPT/HCPCS: 36415; 80048; 81002; 85025; 87077; 87086; 87088; 87186

== ENCOUNTER → 2024-08-25 | Outpatient (CLI) | payer MEDICARE, MEDICAID, SELFPAY ==
[2024-08-25 18:10] LABS: Anion Gap 8 (5-15); BUN 40 mg/dL (7-18); BUN/Creat Ratio 20.5 RATIO (10-20); Calcium,Total 8.9 mg/dL (8.5-10.1); Chloride 102 mmol/L (98-107); Creatinine, Serum 1.95 mg/dL (0.55-1.02); EST Glomerular Filtration Rate 26 mL/min (>60); Est Glom Filt Rate - Afr Amer 31 mL/min (>60); Glucose 142 mg/dL (74-106); Sodium Level 135 mmol/L (136-145)
== END | disposition home or self-care (01) ==
LOC: BFHLAB 14:30
PROVIDERS: PCP Family Medicine; Visit Provider Family Medicine
DX: N18.32 Chronic kidney disease, stage 3b (principal)
CPT/HCPCS: 36415; 80048

== ENCOUNTER 2024-10-08 21:42 | Emergency (ER) | payer MEDICARE, MEDICAID, SELFPAY ==
[2024-10-08 21:44] VITALS: BP 130/62; PULSE 102; RESP 18; TEMP 35.9; O2SAT 96; BMI 35.6
[2024-10-08] MEDS: Ondansetron 4 MG/2 ML Vial IV (22:45)
[2024-10-08] MEDS: HYDROmorphone 1 MG/ML Syringe IV (22:45)
[2024-10-08] MEDS: Enoxaparin 100 MG/ML Syringe 165 MG SC (22:46)
[2024-10-08 23:02] LABS: Absolute Lymphocyte Count 2.09 X10^3/uL (0.83-4.51); Absolute Neutrophil Count 8.4 X10^3/uL (2.0-7.7); Basophil# 0.11 X10^3/uL; Basophil% 0.9 % (0-1); Eosinophil# 0.52 X10^3/uL; Eosinophils% 4.4 % (0-5); Hematocrit 35.1 % (37-47); Hemoglobin 11.1 g/dL (12.0-15.0); Lymphocyte # 2.09 X10^3/ul (0.83-4.51); Lymphocyte % 17.6 % (19-41); Mean Corp Hgb Conc 31.6 g/dL (32-36); Mean Corpuscular Hgb 26.9 pg (27.0-32.0); Mean Corpuscular Volume 85.2 fL (81-99); Mean Platelet Vol. 9.9 fl (6.2-12.0); Monocyte# 0.59 X10^3/uL; NRBC Flagged by Analyzer 0 % (0-5); Neutrophil # 8.35 X10^3/uL (2.7-7.7); Neutrophil % 70.3 % (47-70); Platelet Count 310 K/mm3 (150-450); RBC Distribution Width CV 14.6 % (11.6-14.6); RBC Distribution Width SD 45.4 fl (35.1-43.9); Red Blood Count 4.12 M/mm3 (4.2-5.4); White Blood Count 11.9 K/mm3 (4.4-11.0)
--- NOTE | 2024-10-08 23:05 | RAD_ITS ---
PROCEDURE: ANKLE MIN 3 VIEWS 10/08/2024 REASON FOR EXAM: ? OSTEO TECHNIQUE: 3 views of the left ankle COMPARISON: None available FINDINGS: The foot is in plantar flexion on the oblique view causing overlap of the calcaneus and lateral malleolus limiting the evaluation. No definite fracture or dislocation identified. No bony destruction or periosteal reaction identified. The joint spaces appear within limits. [id number] enthesophyte at the plantar surface of the calcaneus noted. Vascular calcification seen. Appearance of lateral ankle soft tissue swelling suggested. RAD/Ankle min 3 Views IMPRESSION: The foot is in plantar flexion on the oblique view causing overlap of the calca neus and lateral malleolus limiting the evaluation. No definite fracture or dislocation identified. No bony destructio n or periosteal reaction identified. Appearance of lateral ankle soft tissue swelling suggested. Reading Location: [id number]
[2024-10-08 23:21] LABS: Uric Acid 11.4 mg/dL (2.6-6.0)
[2024-10-08 23:37] LABS: Anion Gap 14 (5-15); BUN 41 mg/dL (4-19); BUN/Creat Ratio 21.3 RATIO (10-20); Calcium,Total 8.9 mg/dL (7.6-11.0); Carbon Dioxide 21.7 mmol/L (21.0-32.0); Chloride 99 mmol/L (98-108); Creatinine, Serum 1.94 mg/dL (0.70-1.20); EST Glomerular Filtration Rate 25 (>60); Estimated Creatinine Clearance 27.42 ml/min (50-250); Glucose 184 mg/dL (70-99); Potassium 4.4 mmol/L (3.3-5.1); Sodium Level 134 mmol/L (133-145)
[2024-10-08 23:42] VITALS: BP 96/53; PULSE 80; RESP 16; O2SAT 92
[2024-10-08 23:48] LABS: Lactic Acid 1.6 mmol/L (0.0-2.0)
[2024-10-08 23:52] VITALS: BP 100/59
[2024-10-09 00:43] LABS: Procalcitonin 0.07 ng/mL (<=0.10)
[2024-10-09 00:48] VITALS: BP 95/58; PULSE 84; RESP 16; O2SAT 95
[2024-10-09 01:13] VITALS: BP 104/56; PULSE 77; RESP 16; TEMP 36.6; O2SAT 97
--- NOTE | 2024-10-09 01:13 | EX.ED.DYSGE1 ---
HPI History of Present Illness Chief Complaint: Edema Informant: patient and friend Narrative Narrative: Patient is an 84-year-old female with past medical history of congestive heart failure hypertension hyperlipidemia type 2 diabetes and COPD. She states that over the last 1 to 2 days she has been developing increasing pain and swelling of the left leg compared to right. She states that there has been no recent trauma. She denies any history of DVT. She states that initially she noticed pain in the left ankle which made it difficult to stand and walk or even put her shoe on. She states that the area then turned red and warm and then she noticed some swelling throughout the leg. She denies any fevers or chills or trauma. She states there is no chest pain or shortness of breath or pleuritic chest pain however with concern potential DVT as a cause of her symptoms she presents for evaluation [facility] Medical History Chronic diastolic (congestive) heart failure Type 2 diabetes mellitus Anxiety and depression Fibromyalgia Hyperlipidemia Essential (primary) hypertension TIA (transient ischemic attack) MATTHEW (obstructive sleep apnea) Emphysema, unspecified Morbid obesity Diabetic neuropathy Tobacco use disorder COPD (chronic obstructive pulmonary disease) Home Medications ?Medication ?Instructions ?Recorded ?Last Taken ?Type insulin admin supplies (InPen (for #1 ea 07/26/17 Unknown History Novolog or Fiasp) subcutaneous) lorazepam 0.5 mg tablet (Ativan) 0.5 mg PO TID PRN anxiety 07/26/17 Unknown History simvastatin 20 mg tablet (Zocor) 20 mg PO QAM 07/26/17 Unknown History oxycodone-acetaminophen 5 mg-325 1 tab PO Q8H PRN pain 05/09/20 Unknown History mg tablet (Percocet) blood pressure cuff/machine #1 ea 01/03/21 Unknown Rx hydroxyzine HCl 25 mg tablet 12.5 - 50 mg PO TID-QID PRN itching 09/29/21 Unknown History cholecalciferol (vitamin D3) 125 125 mcg PO DAILY 12/16/21 Unknown History mcg (5,000 unit) tablet albuterol sulfate 2.5 mg/3 mL 2.5 mg (3 mL) inhalation Q4H PRN 02/24/23 Unknown Rx (0.083 %) solution for nebulization shortness of breath or wheezing #180 mL insulin glargine 100 unit/mL (3 60 unit subcut DAILY 06/29/23 Unknown History mL) subcutaneous pen spironolactone 25 mg tablet See Rx Instructions .Route 07/14/23 Unknown Rx .COMPLEX #90 tabs glipizide 10 mg tablet, extended 10 mg PO DAILY 09/21/23 10/29/23 History release 24 hr ascorbic acid (vitamin C) 250 mg 250 mg PO BID 11/03/23 Unknown History tablet lisinopril 20 mg tablet 20 mg PO DAILY 11/03/23 Unknown History zinc glycinate 30 mg capsule 30 mg PO DAILY 11/03/23 Unknown History furosemide 40 mg tablet (Lasix) 40 mg PO DAILY #90 tabs 12/20/23 Unknown Rx albuterol sulfate 90 mcg/actuation 2 puff inhalation Q4H PRN 03/21/24 Unknown Rx aerosol inhaler (Ventolin HFA) shortness of breath or wheezing #3 ea budesonide-formoterol HFA 160 2 puff inhalation BID #3 ea 03/21/24 Unknown Rx mcg-4.5 mcg/actuation aerosol inhaler (Symbicort) fluticasone propionate 50 2 spray intranasal DAILY #16 grams 03/21/24 Unknown Rx mcg/actuation nasal spray,suspension ropinirole 2 mg tablet 2 mg PO QHS #90 tabs 03/21/24 Unknown Rx tiotropium bromide 2.5 2 puff inhalation QDAY #3 ea 03/21/24 Unknown Rx mcg/actuation mist for inhalation (Spiriva Respimat) metoprolol succinate 25 mg 25 mg PO QDAY 05/12/24 Unknown History tablet,extended release 24 hr semaglutide 0.25 mg or 0.5 mg (2 mg subcut 05/12/24 Unknown History mg/3 mL) subcutaneous pen injector (Ozempic) colchicine 0.6 mg capsule 0.6 mg PO BID 7 days #14 caps 10/09/24 Unknown Rx Allergy/AdvReac Type Severity Reaction Status Date / Time acetaminophen (From Allergy Severe Unknown Verified 10/08/24 21:44 Darvocet-N) bupropion (From Wellbutrin) Allergy Severe Unknown Verified 10/08/24 21:44 gabapentin (From Neurontin) Allergy Severe Unknown Verified 10/08/24 21:44 pregabalin (From Lyrica) Allergy Severe Unknown Verified 10/08/24 21:44 propoxyphene (From Allergy Severe Unknown Verified 10/08/24 21:44 Darvocet-N) sulfadiazine Allergy Severe Unknown Verified 10/08/24 21:44 Family History Father CAD (coronary artery disease) Surgical History History of ear, nose, and throat (ENT) surgery Hx of cholecystectomy History of hysterectomy History of knee replacement Social History Smoking Status: Former smoker how long ago did patient quit smokin years ago second hand exposure: Yes alcohol intake: never substance use type: does not use caffeine: Yes Type: coffee Number of servings: 1 ROS ROS ED Constitutional Constitutional ED: Denies chills or fever(s) Eyes Eyes: Denies blurry vision or change in vision ENT ENT ED: Denies sore throat Cardiovascular Cardiovascular: Denies chest pain, palpitations or racing heartbeat Respiratory/Chest Respiratory/Chest: Denies cough or dyspnea Gastrointestinal Gastrointestinal: Denies abdominal pain, diarrhea, nausea or vomiting Genitourinary Genitourinary ED: Denies dysuria Musculoskeletal Musculoskeletal: Reports other Details: Positive left ankle pain and positive left lower leg edema Integumentary Reports other Details: Positive redness left ankle Neurologic Neurologic: Denies headache(s) Hematologic/Lymphatic Hematologic/Lymphatic: Denies easy bleeding or easy bruising EXAM Physical Exam Const Vital Signs: 10/08/24 21:44 10/08/24 21:52 10/08/24 23:42 Temperature 96.7 F L Temperature Source Temporal Pulse Rate 102 H 80 Respiratory Rate 18 16 Respiratory Pattern Normal Blood Pressure 130/62 H 96/53 L Blood Pressure Mean 84 67 Pulse Ox 96 92 Oxygen Delivery Method Room Air 10/08/24 23:52 10/09/24 00:48 10/09/24 01:13 Temperature 98 F Temperature Source Pulse Rate 84 77 Respiratory Rate 16 16 Respiratory Pattern Blood Pressure 100/59 L 95/58 L 104/56 L Blood Pressure Mean 72 70 72 Pulse Ox 95 97 Oxygen Delivery Method Room Air Positive well nourished, well developed and obese General Appearance ED: well developed Nutritional Appearance: obese HEENT HEENT Narrative: Normocephalic atraumatic Eyes PERRL and EOMs intact bilaterally General Eye ED: Negative for scleral icterus Neck supple and no JVD Resp normal respiratory effort Resp Narrative: Breath sounds are diminished throughout with diffuse expiratory wheeze and faint rhonchi in the bilateral bases consistent with history of COPD but no signs of respiratory distress Cardio regular rate and regular rhythm Rate: other Other Details: Radial and carotid pulses are equal and symmetric Extremity Extremity Narrative: Bilateral lower extremities are neurovascularly intact There is asymmetric edema of the left lower leg compared to right; the asymmetry is essentially from the dorsum of the foot to just below the knee The left lower extremity has asymmetric erythema and warmth mainly of the left ankle/lateral malleolus with slight streaking into the proximal third of the sabillon No crepitance or abscess formation noted Compartments are soft and compressible going against compartment syndrome Neuro oriented x3 and CN's II-XII intact bilaterally Sensorium / Orientation: alert Psych mental status grossly normal Skin Skin Narrative: Soft tissue changes to the left lower leg as documented above Patient does have chronic stasis changes to both legs consistent with history of diabetes Capillary refill is less than 3 seconds MDM MDM MDM Narrative Medical decision making narrative: Patient arrived to the ER with stable vitals. She reported pain in the left lower leg and swelling that was different/asymmetric from her right however there is no report of trauma. Differential diagnosis is for congestive heart failure exacerbation versus cellulitis versus abscess versus DVT versus gout versus osteomyelitis versus Charcot joint. With the patient reporting symptoms were initially pain at the left ankle followed by increased swelling and redness at the ankle then progressing into the lower leg I do feel this is most likely a gout exacerbation. However as osteomyelitis Charcot joint and cellulitis are possibilities I did elect to perform basic laboratory studies with a x-ray. Labs show mild leukocytosis at a white count of 11.9 but chart review reveals that she typically has leukocytosis and this is at baseline. Her lactic acid is normal her procalcitonin is normal and therefore I feel this is most likely not an infectious process such as cellulitis or osteomyelitis. The patient's uric acid level is greatly elevated at 11.4 which would lend to a diagnosis of gout. The patient's x-ray did not show signs of fracture or moth-eaten appearance to suggest osteomyelitis. I cannot perform a venous duplex at this time of night and there is still a possibility that the patient's asymmetric swelling as it does extend into the left lower leg/calf is from a DVT. Therefore should be given a dose of Lovenox secondary to this concern and an order form for a venous duplex to be obtained on Wednesday. As she does not have chest pain or shortness of breath or hypoxia I do not feel strongly that she has a PE and there is no need for a CTA of the chest. The patient was started on colchicine secondary to her symptoms being most likely related to gout but as she is hemodynamically stable there is no need for admission and she is otherwise safe for discharge History & Record Review Discussion w/independent historian: Patient and Friend Lab Data Attestation: I reviewed the patient's lab results. Labs: Laboratory Results - last 24 hr 10/08/24 22:46 WBC 11.9 H RBC 4.12 L Hgb 11.1 L Hct 35.1 L MCV 85.2 MCH 26.9 L MCHC 31.6 L RDW Std Deviation 45.4 H RDW Coeff of Marii 14.6 Plt Count 310 MPV 9.9 Immature Gran % (Auto) 1.800 H Neut % (Auto) 70.3 H Lymph % (Auto) 17.6 L Pershing % (Auto) 5.0 Eos % (Auto) 4.4 Baso % (Auto) 0.9 Absolute Neuts (auto) 8.4 H Absolute Lymphs (auto) 2.09 Nucleated RBC % 0 Sodium 134 Potassium 4.4 Chloride 99 Carbon Dioxide 21.7 Anion Gap 14 BUN 41 H Creatinine 1.94 H Estim Creat Clear Calc 27.42 L Est GFR (MDRD) Non-Af 25 L BUN/Creatinine Ratio 21.3 H Glucose 184 H Lactic Acid 1.6 Uric Acid 11.4 H Calcium 8.9 Procalcitonin 0.07 Radiography Diagnostic Testing: Clinical Impression(s) from Imaging Studies Ankle X-Ray 10/08/24 23:05 IMPRESSION: The foot is in plantar flexion on the oblique view causing overlap of the calcaneus and lateral malleolus limiting the evaluation. No definite fracture or dislocation identified. No bony destruction or periosteal reaction identified. Appearance of lateral ankle soft tissue swelling suggested. Reading Location: [id number] X-ray of the left ankle as interpreted by the emergency medicine physician reveals degenerative changes without acute fracture dislocation or moth-eaten appearance to suggest osteomyelitis Discharge Plan Triage Chief Complaint: Edema ED Provider: Homero Galvan Dx/Rx/DC Orders Clinical Impression: Acute gout of left ankle, COPD (chronic obstructive pulmonary disease), Essential (primary) hypertension, Hyperlipidemia, Chronic diastolic (congestive) heart failure, Type 2 diabetes mellitus Instructions: ED Gout, ED Gout Diet Prescriptions: New colchicine 0.6 mg capsule 0.6 mg PO BID 7 Days Qty: 14 0RF No Action lorazepam [Ativan] 0.5 mg tablet 0.5 mg PO TID PRN (Reason: anxiety) simvastatin [Zocor] 20 mg tablet 20 mg PO QAM (DME) insulin admin supplies [InPen (for Novolog or Fiasp)] insulin pen See Dose Instructions .ROUTE .MEDSUPPLY Qty: 1 Rx Instructions: As directed lisinopril 20 mg tablet 20 mg PO DAILY oxycodone-acetaminophen [Percocet] 5-325 mg tablet 1 tab PO Q8H PRN (Reason: pain) (DME) blood pressure cuff/machine See Rx Instructions .Route .MEDSUPPLY Qty: 1 0RF Rx Instructions: As directed hydroxyzine HCl 25 mg tablet 12.5 - 50 mg PO TID-QID PRN (Reason: itching) Patient Comments: take 1/2 to 2 tablet by mouth three times a day if needed for itching cholecalciferol (vitamin D3) 125 mcg (5,000 unit) tablet 125 mcg PO DAILY insulin glargine 100 unit/mL (3 mL) insulin pen 60 unit subcut DAILY albuterol sulfate 2.5 mg /3 mL (0.083 %) solution for nebulization 2.5 mg INHALATION Q4H PRN (Reason: shortness of breath or wheezing) Qty: 180 5RF glipizide 10 mg tablet extended release 24hr 10 mg PO DAILY Patient Comments: take 1 tablet by mouth every morning with breakfast zinc glycinate 30 mg capsule 30 mg PO DAILY ascorbic acid (vitamin C) 250 mg tablet 250 mg PO BID Ozempic 0.25 mg or 0.5 mg (2 mg/3 mL) pen injector subcut metoprolol succinate 25 mg tablet extended release 24 hr 25 mg PO QDAY spironolactone 25 mg tablet See Rx Instructions .ROUTE .COMPLEX Qty: 90 3RF Dose Instruction: take 1 tablet by mouth once daily Rx Instructions: take 1 tablet by mouth once daily furosemide [Lasix] 40 mg tablet 40 mg PO DAILY Qty: 90 3RF albuterol sulfate [Ventolin HFA] 90 mcg/actuation HFA aerosol inhaler 2 puff INHALATION Q4H PRN (Reason: shortness of breath or wheezing) Qty: 3 3RF Symbicort 160-4.5 mcg/actuation HFA aerosol inhaler 2 puff INHALATION BID Qty: 3 3RF Rx Instructions: administer with spacer, rinse mouth after each use fluticasone propionate 50 mcg/actuation spray,suspension 2 spray intranasal DAILY Qty: 16 11RF ropinirole 2 mg tablet 2 mg PO QHS Qty: 90 3RF Rx Instructions: administer 1-3 hours before bedtime Spiriva Respimat 2.5 mcg/actuation mist 2 puff inhalation QDAY Qty: 3 3RF Rx Instructions: administer at approximately the same time(s) each day Other Ambulatory Orders: Venous Duplex US, Unilateral (Stat) Facility: [facility] - Location: [facility] Ordered By: Dr. Homero Galvan Primary Care Provider: Ruperto Jesus Referrals: Ruperto eJsus DO [Primary Care Provider] - Activity Restrictions/Additional Instructions: Your workup today is most consistent with gout which should resolve in the next 48 to 72 hours with the prescribed colchicine. However as there is concern for potential DVT/blood clot obtain your outpatient venous duplex. Return to the ER should you have any further concerns or worsening of symptoms Print Language: Grenadian Disposition Disposition: Home, Self Care Discharge Date/Time: 10/09/24 01:34
[2024-10-09] MEDS: Colchicine 0.6 MG TABLET 1.2 MG PO (01:27)
== END 2024-10-09 01:34 | disposition home or self-care (01) ==
PROVIDERS: Emergency Provider Emergency Medicine; PCP Family Medicine; Visit Provider Emergency Medicine
DX: M10.072 Idiopathic gout, left ankle and foot (principal); I11.0 Hypertensive heart disease with heart failure; I50.32 Chronic diastolic (congestive) heart failure; J44.9 Chronic obstructive pulmonary disease, unspecified; E11.9 Type 2 diabetes mellitus without complications; Z79.4 Long term (current) use of insulin; E78.5 Hyperlipidemia, unspecified; E66.9 Obesity, unspecified; Z68.35 Body mass index [BMI] 35.0-35.9, adult; Z79.84 Long term (current) use of oral hypoglycemic drugs; Z79.899 Other long term (current) drug therapy; Z87.891 Personal history of nicotine dependence
CPT/HCPCS: 73610; 80048; 83605; 84145; 84550; 85025; 96372; 96374; 96375; 99284; A4216; J2405

== ENCOUNTER → 2024-10-09 | Outpatient (CLI) | payer MEDICARE, MEDICAID, SELFPAY ==
--- NOTE | 2024-10-09 14:17 | VDLE_ITS ---
Reason For Study Reason For Study: Swelling LLE RIGHT LEFT CFV is compressible, spontaneous, phasic, competent GSV is normal. and demonstrates normal augmentation. CFV is compressible, spontaneous, phasic, competent, Procedure and demonstrates normal augmentation. This is a venous duplex using B-mode, color flow and FV is compressible, spontaneous, phasic, competent spectral Doppler. and demonstrates normal augmentation. Exam performed in department. POP V is compressible, spontaneous, phasic, competent A preliminary report was called and/or faxed to and demonstrates normal augmentation. Ann Marie. T/P Trunk is compressible. PTV is compressible. LT PerV is compressible. VL/Venous Duplex US, Unilateral Interpretation Summary Deep veins of the left lower extremity are patent and compressible segmentally. There is no evidence of left lower extremity deep vein thrombosis. Valvular competence appears intact within the p roximal deep venous system on the left . The left great saphenous vein appears patent and compressible segmentally. The right common femoral vein is patent and compressible . Ordering Physician: Homero Galvan Referring Physician: Ruperto Jesus Performed By: Merna Hannah, JUDY, RVT
== END | disposition home or self-care (01) ==
LOC: CVS 14:16
PROVIDERS: PCP Family Medicine; Referring Provider Emergency Medicine; Visit Provider Emergency Medicine
DX: R22.42 Localized swelling, mass and lump, left lower limb (principal)
CPT/HCPCS: 93971

== ENCOUNTER → 2025-03-20 | Outpatient (CLI) | payer MEDICARE, MEDICAID, SELFPAY ==
[2025-03-20 12:44] LABS: Hematocrit 37.9 % (37-47); Hemoglobin 11.9 g/dL (12.0-15.0); Immature Granulocytes Count 0.100 X10^3/uL (0.0-0.0); Mean Corp Hgb Conc 31.4 g/dL (32-36); Mean Corpuscular Volume 85.4 fL (81-99); Mean Platelet Vol. 11.0 fl (6.2-12.0); NRBC Flagged by Analyzer 0 % (0-5); Platelet Count 311 K/mm3 (150-450); RBC Distribution Width CV 14.6 % (11.6-14.6); RBC Distribution Width SD 45.6 fl (35.1-43.9); Red Blood Count 4.44 M/mm3 (4.2-5.4); White Blood Count 11.5 K/mm3 (4.4-11.0)
[2025-03-20 13:03] LABS: Creatinine, Urine (random) 80.40 mg/dL (28.00-217.00); Microalbumin,Random Urine < 12.0 mg/L (<20 mg/L)
[2025-03-20 15:58] LABS: Anion Gap 13 (5-15); BUN 59 mg/dL (4-19); BUN/Creat Ratio 28.8 RATIO (10-20); Calcium,Total 9.5 mg/dL (7.6-11.0); Carbon Dioxide 20.3 mmol/L (21.0-32.0); Chloride 103 mmol/L (98-108); Cholesterol 128 mg/dL (<=200); Glucose 106 mg/dL (70-99); Low Density Lipoprotein Calc. 55 mg/dL; Potassium 5.2 mmol/L (3.3-5.1); Triglycerides 113 mg/dL; Uric Acid 8.4 mg/dL (2.6-6.0); Very Low Density Lipoprotein 23 mg/dL (5-40); cholesterol:hdl ratio screen 2.54
== END | disposition home or self-care (01) ==
LOC: BFHLAB 10:45
PROVIDERS: PCP Family Medicine; Visit Provider Family Medicine
DX: I12.9 Hypertensive chronic kidney disease with stage 1 through stage 4 chronic kidney disease, or unspecified chronic kidney disease (principal); E11.40 Type 2 diabetes mellitus with diabetic neuropathy, unspecified; E11.22 Type 2 diabetes mellitus with diabetic chronic kidney disease; N18.32 Chronic kidney disease, stage 3b; D63.1 Anemia in chronic kidney disease; M10.9 Gout, unspecified
CPT/HCPCS: 36415; 80048; 80061; 82043; 82570; 84550; 85025

== ENCOUNTER 2025-04-06 11:51 | Outpatient (CLI) | payer MEDICARE, MEDICAID, SELFPAY ==
[2025-04-06 15:53] LABS: AST(SGOT) 24 U/L (<=31); Alanine Aminotransfer ALT/SGPT 28 U/L (<=34); Albumin, Serum 3.6 g/dL (3.4-4.8); Alkaline Phosphatase 117 U/L (35-104); Bilirubin, Direct 0.15 mg/dL (0.00-0.30); Cholesterol 124 mg/dL (<=200); Globulin 3.4 g/dL (2.2-4.2); Low Density Lipoprotein Calc. 50 mg/dL; Triglycerides 128 mg/dL; Very Low Density Lipoprotein 26 mg/dL (5-40); cholesterol:hdl ratio screen 2.54
[2025-04-06 16:04] LABS: Anion Gap 16 (5-15); BUN 41 mg/dL (4-19); BUN/Creat Ratio 24.0 RATIO (10-20); Calcium,Total 8.7 mg/dL (7.6-11.0); Carbon Dioxide 18.3 mmol/L (21.0-32.0); Chloride 99 mmol/L (98-108); Glucose 292 mg/dL (70-99); Potassium 4.2 mmol/L (3.3-5.1)
== END 2025-04-06 23:59 | disposition home or self-care (01) ==
LOC: BFHLAB 11:52
PROVIDERS: Student in an Organized Health Care Education/Training Program; PCP Family Medicine; Visit Provider Internal Medicine Cardiovascular Disease
DX: I10 Essential (primary) hypertension (principal); E78.00 Pure hypercholesterolemia, unspecified
CPT/HCPCS: 36415; 80048; 80061; 80076

== ENCOUNTER → 2025-06-21 | Outpatient (CLI) | payer MEDICARE, MEDICAID, SELFPAY | END | disposition home or self-care (01) | LOC: LABSPEC 14:39 | PROVIDERS: PCP Family Medicine; Visit Provider Family Medicine | DX: R82.90 Unspecified abnormal findings in urine (principal) | CPT/HCPCS: 87086; 87088 ==

== ENCOUNTER 2025-06-26 14:09 | Emergency (ER) | payer MEDICARE, MEDICAID, SELFPAY ==
[2025-06-26 14:11] VITALS: BP 166/66; PULSE 75; RESP 18; TEMP 36.2; O2SAT 99
--- NOTE | 2025-06-26 14:58 | EKG12_ITS ---
Test Reason : FLANK PAIN Blood Pressure : */* mmHG Vent. Rate : 59 BPM Atrial Rate : 59 BPM P-R Int : 170 ms QRS Dur : 144 ms QT Int : 462 ms P-R-T Axes : 75 -22 135 degrees QTcB Int : 457 ms Sinus bradycardia with Premature supraventricular complexes Left bundle branch block Abnormal ECG Confirmed by RENATE GLOVER, MARINA ([id number]), editor map DANIELLE PARISI ([id number]) on 07/02/2025 6:18:29 AM Referred By: Confirmed By: MARINA DEWITT MD
--- NOTE | 2025-06-26 15:11 | CT_ITS ---
PROCEDURE: CT ABDOMEN/PELVIS W IV CONT ONLY 06/26/2025 REASON FOR EXAM: RIGHT SIDE FLANK PAIN, RUQ PAIN TECHNIQUE: Procedure Code: [id number] Modality: CT Procedure: ABDOMEN/PELVIS W IV CONT ONLY Coronal and Sagittal reconstruction series were provided. CONTRAST: Isovue 300 VOLUME: 96 mL One or more dose reduction techniques were used (e.g., Automated exposure control, adjustment of the mA and/or kV according to patient size, use of iterative reconstruction technique. RADIATION DOSE SUMMARY: DLP: 1370.19 mGycm COMPARISON: None. FINDINGS: Lung bases: Clear. Liver: Mild hepatic steatosis. Gallbladder: Contracted. No significant biliary ductal dilatation. Age-related mild prominence of the CBD. No findings to suggest acute cholecystitis. No radiodense gallstones. Spleen: Unremarkable. Pancreas: Within normal limits. Adrenals: Unremarkable. Kidneys: Unremarkable. No urolithiasis or hydroureteronephrosis. Bladder: Unremarkable. Reproductive Organs: Prior hysterectomy. Unremarkable adnexae. Bowel: No evidence of obstruction or active inflammatory process. Normal appendix. Lymph nodes: No suspicious lymph node enlargement. Few nonspecific granulomatous calcified right inguinal lymph nodes. Vasculature: Normal caliber abdominal aorta. Mild atherosclerotic disease. Peritoneum / Retroperitoneum: No ascites or free air. Bones: Multilevel degenerative changes of the spine. CT/Abdomen/Pelvis W IV Cont ONLY IMPRESSION: 1. No acute or active inflammatory intra-abdominal pathology. 2. No urinary tract calculi or hydroureteronephrosis on either side. 3. Mild diffuse hepatic steatosis. Reading Location: [id number]
[2025-06-26] MEDS: 0.9% Normal Saline (1000mL) 1,000 ML 999 ML IV (15:19)
--- NOTE | 2025-06-26 15:30 | EX.ED.DYSGE1 ---
HPI History of Present Illness Chief Complaint: Flank Pain Narrative Narrative: Patient is a 85-year-old female with past medical history of type 2 diabetes, fibromyalgia, hyperlipidemia, hypertension, MATTHEW, COPD who presented to the emergency department with chief complaint of right sided pain. States that this been going on for a month at least maybe even longer she states that she followed up with her primary care physician who did a urine test and was told that she did not have a UTI. She states that she is on Percocet and states that she has been taking this as prescribed and states that this is not touching the pain. When inquiring what changed today she states that she can no longer take the pain any longer. States that she is having normal bowel movements and urinating normally for self. Patient denies any known trauma or injuries. Patient states that she has had a cholecystectomy as well as her uterus out for cancer. Patient denies any black stools. [facility] Medical History Gout Chronic diastolic (congestive) heart failure Type 2 diabetes mellitus Anxiety and depression Fibromyalgia Hyperlipidemia Essential (primary) hypertension TIA (transient ischemic attack) MATTHEW (obstructive sleep apnea) Emphysema, unspecified Morbid obesity Diabetic neuropathy Tobacco use disorder COPD (chronic obstructive pulmonary disease) Home Medications ?Medication ?Instructions ?Recorded ?Last Taken ?Type insulin admin supplies (InPen (for #1 ea 07/26/17 Unknown History Novolog or Fiasp) subcutaneous) lorazepam 0.5 mg tablet (Ativan) 0.5 mg PO TID PRN anxiety 07/26/17 06/25/25 History simvastatin 20 mg tablet (Zocor) 20 mg PO QHS cholesterol 07/26/17 06/25/25 History blood pressure cuff/machine #1 ea 01/03/21 Unknown Rx cholecalciferol (vitamin D3) 125 125 mcg PO DAILY supplement 12/16/21 06/26/25 History mcg (5,000 unit) tablet albuterol sulfate 2.5 mg/3 mL 2.5 mg (3 mL) inhalation Q4H PRN 02/24/23 06/25/25 Rx (0.083 %) solution for nebulization shortness of breath or wheezing #180 mL insulin glargine 100 unit/mL (3 40 unit subcut DAILY blood sugar 06/29/23 Unknown History mL) subcutaneous pen glipizide 10 mg tablet, extended 10 mg PO DAILY blood sugar 09/21/23 06/26/25 History release 24 hr lisinopril 20 mg tablet 20 mg PO DAILY blood pressure 11/03/23 06/26/25 History furosemide 40 mg tablet (Lasix) 40 mg PO DAILY edema #90 tabs 12/20/23 06/26/25 Rx fluticasone propionate 50 2 spray intranasal DAILY #16 grams 03/21/24 06/25/25 Rx mcg/actuation nasal spray,suspension ropinirole 2 mg tablet 2 mg PO QHS restless leg #90 tabs 03/21/24 06/25/25 Rx metoprolol succinate 25 mg 25 mg PO QDAY heart 05/12/24 06/26/25 History tablet,extended release 24 hr semaglutide 1 mg/dose (4 mg/3 mL) 1 mg subcut MO weight loss 11/14/24 06/25/25 History subcutaneous pen injector (Ozempic) allopurinol 100 mg tablet 100 mg PO QDAY gout 12/05/24 06/26/25 History albuterol sulfate 90 mcg/actuation 2 puff inhalation Q4H PRN 01/08/25 06/25/25 Rx aerosol inhaler (Ventolin HFA) shortness of breath or wheezing #3 ea budesonide-formoterol HFA 160 2 puff inhalation BID #3 ea 01/08/25 06/26/25 Rx mcg-4.5 mcg/actuation aerosol inhaler (Symbicort) tiotropium bromide 2.5 2 puff inhalation QDAY #3 ea 06/19/25 06/26/25 Rx mcg/actuation mist for inhalation (Spiriva Respimat) acetaminophen 500 mg capsule 500 mg PO Q6H PRN pain 06/26/25 06/26/25 History cyclobenzaprine 5 mg tablet 5 mg PO TID PRN muscle spasm #20 06/26/25 Unknown Rx tabs lidocaine 5 % topical patch 1 patch topical DAILY #15 ea 06/26/25 Unknown Rx mecobalamin (vitamin B12) 500 mcg 500 mcg PO DAILY supplement 06/26/25 06/25/25 History chewable tablet oxycodone-acetaminophen 7.5 mg-325 1 tab PO Q6H PRN severe pain 06/26/25 06/26/25 History mg tablet Allergy/AdvReac Type Severity Reaction Status Date / Time acetaminophen (From Allergy Severe Unknown Verified 06/26/25 14:13 Darvocet-N) bupropion (From Wellbutrin) Allergy Severe Unknown Verified 06/26/25 14:13 gabapentin (From Neurontin) Allergy Severe Unknown Verified 06/26/25 14:13 pregabalin (From Lyrica) Allergy Severe Unknown Verified 06/26/25 14:13 propoxyphene (From Allergy Severe Unknown Verified 06/26/25 14:13 Darvocet-N) sulfadiazine Allergy Severe Unknown Verified 06/26/25 14:13 Family History Father CAD (coronary artery disease) Surgical History History of ear, nose, and throat (ENT) surgery Hx of cholecystectomy History of hysterectomy History of knee replacement Social History Smoking Status: Former smoker how long ago did patient quit smokin years ago second hand exposure: Yes alcohol intake: never substance use type: does not use caffeine: Yes Type: coffee Number of servings: 1 ROS ROS ED ROS Narrative Constitutional: Denies any fevers, chills, headaches Eyes: Denies double vision blurry vision change in vision Cardiovascular: Denies chest pain Respiratory: Denies shortness of breath Abdomen: Denies abdominal pain nausea vomiting diarrhea states that eating does not further her pain : Denies urinary symptoms Neurological: Denies numbness, weakness, ting Musculoskeletal: Complains of right flank pain as noted above Skin: Denies any rashes or lesions EXAM Physical Exam Narrative Exam Narrative: general: Patient is lying in bed rest comfortably did not appear to be in acute distress Head: Atraumatic, normocephalic Eyes: PERRL bilaterally, EOMI bilaterally, no conjunctival injection noted Neck: Soft, supple, trachea midline Cardiovascular: Regular rate and rhythm no murmurs gallops rubs and Respiratory: Clear to auscultation bilaterally Abdomen: Soft, nondistended, tenderness to palpation the right upper quadrant no rebound or guarding on exam Musculoskeletal: Patient does have right CVA tenderness noted on exam no tenderness palpation in midline of the thoracolumbar spine Extremities: +5/5 strength noted in the bilateral lower extremities Neurological: Patient following commands that she was at [facility] years 2024 Skin: Warm, dry, intact no rashes or lesions noted Const Vital Signs: 06/26/25 14:11 06/26/25 16:10 06/26/25 18:00 Temperature 97.2 F L Temperature Source Temporal Pulse Rate 75 70 62 Respiratory Rate 18 20 H 18 Blood Pressure 166/66 H 127/75 H 131/61 H Blood Pressure Mean 99 92 84 Pulse Ox 99 98 99 Oxygen Delivery Method Room Air Room Air Room Air 06/26/25 18:42 Temperature 98.1 F Temperature Source Pulse Rate 72 Respiratory Rate 18 Blood Pressure 132/79 H Blood Pressure Mean 96 Pulse Ox 99 Oxygen Delivery Method MDM MDM MDM Narrative Medical decision making narrative: Patient is a 85-year-old female who presented to the emergency department with a chief complaint of right sided abdominal and flank pain. On the differential diagnosis includes but not limited to choledocholithiasis, pancreatitis, nephrolithiasis, urolithiasis, UTI, pyelonephritis, AAA. Once workup is obtained and reviewed she will be reevaluated. Patient will given IV fluids morphine and Zofran. Patient's CBC was reviewed showed no evidence leukocytosis white blood count normal at 10.4, hemoglobin 1.8, plate count of 333. Patient sodium normal 138, potassium normal at 3.9, creatinine was stable at 1.56 she has underlying chronic kidney disease, glucose was noted 128. Patient AST and ALT were 19 and 16 respectively. Patient lipase normal at 15, urinalysis reviewed showed no evidence of infection negative nitrites negative leukocyte esterase 0-5 white cells 1+ bacteria she does not have any urinary symptoms. Patient CT ab pelvis with IV contrast was reviewed showed no acute or active inflammatory intra-abdominal pathology no urinary tract calculi or hydroureteronephrosis findings are side and mild diffuse hepatic steatosis noted. Patient is EKG reviewed showed sinus bradycardia with a rate of 59 bpm with PVCs noted. I discussed the results with the patient and several family members at bedside and after discussion I did offer her admission for PT OT evaluation for potential placement with rehab and she states that she does not want this she wants to go home. States that she has a caregiver who is at bedside that is there 08/02. We will try multimodal pain therapy she already is prescribed Percocet at home she was advised to use the muscle relaxer as prescribed and the Lidoderm patches prescribed as well. She is encouraged to follow-up with her doctor and return with worsening symptoms or concerns. All questions earns answered she was discharged home in stable condition Lab Data Labs: Laboratory Results - last 24 hr 06/26/25 06/26/25 15:19 16:03 WBC 10.4 RBC 4.56 Hgb 11.8 L Hct 37.7 MCV 82.7 MCH 25.9 L MCHC 31.3 L RDW Std Deviation 44.0 H RDW Coeff of Marii 14.7 H Plt Count 333 MPV 10.2 Immature Gran % (Auto) 0.800 Neut % (Auto) 64.7 Lymph % (Auto) 23.2 Smith % (Auto) 5.4 Eos % (Auto) 4.6 Baso % (Auto) 1.3 H Absolute Neuts (auto) 6.8 Absolute Lymphs (auto) 2.42 Nucleated RBC % 0 Sodium 138 Potassium 3.9 Chloride 101 Carbon Dioxide 27.2 Anion Gap 11 BUN 29 H Creatinine 1.56 H Est GFR (MDRD) Non-Af 32 L BUN/Creatinine Ratio 18.3 Glucose 128 H Calcium 9.1 Total Bilirubin 0.35 AST 19 ALT 16 Alkaline Phosphatase 100 Total Protein 7.4 Albumin 3.9 Globulin 3.5 Albumin/Globulin Ratio 1.1 Lipase 15 Urine Color Yellow Urine Clarity Clear Urine pH 6.0 Ur Specific [place] 1.015 Urine Protein Negative Urine Glucose (UA) Normal Urine Ketones Negative Urine Occult Blood Negative Urine Nitrite Negative Urine Bilirubin Negative Urine Urobilinogen Normal Ur Leukocyte Esterase Negative Urine RBC 0-5 SEEN Urine WBC 0-5 SEEN Ur Squamous Epith Cells 0-5 SEEN Urine Bacteria 1+ Hyaline Casts 5-10 SEEN Urine Mucus 0 SEEN Radiography Diagnostic Testing: Clinical Impression(s) from Imaging Studies Abdomen/Pelvis CT 06/26/25 15:11 IMPRESSION: 1. No acute or active inflammatory intra-abdominal pathology. 2. No urinary tract calculi or hydroureteronephrosis on either side. 3. Mild diffuse hepatic steatosis. Reading Location: [facility] Discharge Plan Triage Chief Complaint: Flank Pain ED Provider: Major Rodríguez Dx/Rx/DC Orders Clinical Impression: Abdominal pain, Flank pain, Essential (primary) hypertension, Chronic diastolic (congestive) heart failure, TIA (transient ischemic attack) Prescriptions: New cyclobenzaprine 5 mg tablet 5 mg PO TID PRN (Reason: muscle spasm) Qty: 20 0RF lidocaine 5 % adhesive patch,medicated 1 patch topical DAILY Qty: 15 0RF Rx Instructions: leave on most painful area for up to 12 hrs No Action lorazepam [Ativan] 0.5 mg tablet 0.5 mg PO TID PRN (Reason: anxiety) simvastatin [Zocor] 20 mg tablet 20 mg PO QHS (DME) insulin admin supplies [InPen (for Novolog or Fiasp)] insulin pen See Dose Instructions .ROUTE .MEDSUPPLY Qty: 1 Rx Instructions: As directed lisinopril 20 mg tablet 20 mg PO DAILY (DME) blood pressure cuff/machine See Rx Instructions .Route .MEDSUPPLY Qty: 1 0RF Rx Instructions: As directed cholecalciferol (vitamin D3) 125 mcg (5,000 unit) tablet 125 mcg PO DAILY insulin glargine 100 unit/mL (3 mL) insulin pen 40 unit subcut DAILY albuterol sulfate 2.5 mg /3 mL (0.083 %) solution for nebulization 2.5 mg INHALATION Q4H PRN (Reason: shortness of breath or wheezing) Qty: 180 5RF glipizide 10 mg tablet extended release 24hr 10 mg PO DAILY Patient Comments: take 1 tablet by mouth every morning with breakfast metoprolol succinate 25 mg tablet extended release 24 hr 25 mg PO QDAY Ozempic 1 mg/dose (4 mg/3 mL) pen injector 1 mg subcut MO Patient Comments: INJECT 1 MG SUBCUTANEOUSLY WEEKLY FOR 30 DAYS pt takes every wednesday allopurinol 100 mg tablet 100 mg PO QDAY oxycodone-acetaminophen 7.5-325 mg tablet 1 tab PO Q6H PRN (Reason: severe pain) Patient Comments: pt took 3 today 06/26/25 mecobalamin (vitamin B12) 500 mcg tablet,chewable 500 mcg PO DAILY acetaminophen 500 mg capsule 500 mg PO Q6H PRN (Reason: pain) furosemide [Lasix] 40 mg tablet 40 mg PO DAILY Qty: 90 3RF fluticasone propionate 50 mcg/actuation spray,suspension 2 spray intranasal DAILY Qty: 16 11RF ropinirole 2 mg tablet 2 mg PO QHS Qty: 90 3RF Rx Instructions: administer 1-3 hours before bedtime albuterol sulfate [Ventolin HFA] 90 mcg/actuation HFA aerosol inhaler 2 puff INHALATION Q4H PRN (Reason: shortness of breath or wheezing) Qty: 3 3RF Symbicort 160-4.5 mcg/actuation HFA aerosol inhaler 2 puff INHALATION BID Qty: 3 3RF Rx Instructions: administer with spacer, rinse mouth after each use Spiriva Respimat 2.5 mcg/actuation mist 2 puff inhalation QDAY Qty: 3 3RF Rx Instructions: administer at approximately the same time(s) each day Primary Care Provider: Ruperto Jesus Referrals: Ruperto Jesus DO [Primary Care Provider, [facility]] Activity Restrictions/Additional Instructions: Your blood work here today did not show any acute findings. Your CT did not show any acute findings either. Use your pain medication as prescribed and use the muscle relaxers and the Lidoderm patch as prescribed. The muscle relaxer will make you sleepy and drowsy therefore be careful with taking this medication. Return with worsening symptoms or any other concerns Print Language: Bolivian Disposition Disposition: Home, Self Care
[2025-06-26 15:58] LABS: Hematocrit 37.7 % (37-47); Hemoglobin 11.8 g/dL (12.0-15.0); Immature Granulocytes Count 0.080 X10^3/uL (0.0-0.0); Mean Corp Hgb Conc 31.3 g/dL (32-36); Mean Corpuscular Volume 82.7 fL (81-99); Mean Platelet Vol. 10.2 fl (6.2-12.0); NRBC Flagged by Analyzer 0 % (0-5); Platelet Count 333 K/mm3 (150-450); RBC Distribution Width CV 14.7 % (11.6-14.6); RBC Distribution Width SD 44.0 fl (35.1-43.9); Red Blood Count 4.56 M/mm3 (4.2-5.4); White Blood Count 10.4 K/mm3 (4.4-11.0)
[2025-06-26 16:06] LABS: AST(SGOT) 19 U/L (<=31); Alanine Aminotransfer ALT/SGPT 16 U/L (<=34); Albumin, Serum 3.9 g/dL (3.4-4.8); Alkaline Phosphatase 100 U/L (35-104); Anion Gap 11 (5-15); BUN 29 mg/dL (4-19); BUN/Creat Ratio 18.3 RATIO (10-20); Calcium,Total 9.1 mg/dL (7.6-11.0); Carbon Dioxide 27.2 mmol/L (21.0-32.0); Chloride 101 mmol/L (98-108); Globulin 3.5 g/dL (2.2-4.2); Glucose 128 mg/dL (70-99); Lipase 15 U/L (13-75); Potassium 3.9 mmol/L (3.3-5.1)
[2025-06-26 16:08] LABS: Mucous, Urine 0 SEEN /hpf (<or=2+)
[2025-06-26 16:10] VITALS: BP 127/75; PULSE 70; RESP 20; O2SAT 98
[2025-06-26 16:16] LABS: Color, Urine Yellow (Yellow); Glucose, Dipstick Normal (Normal); Ketone-Dipstick Negative (Negative); Leukocyte Esterase-Dipstick Negative /ul (Negative); Nitrite-Dipstick Negative (Negative); Occult Blood-Urine Negative /ul (Negative); Protein-Dipstick Negative (Negative); Specific Gravity, Urine 1.015 (1.002-1.030); Urine Bilirubin Dipstick Negative (Negative)
[2025-06-26 17:32] LABS: Squamous Epithelial Cells - UA 0-5 SEEN /hpf (5-10)
[2025-06-26 17:33] LABS: Red Blood Cells-Urine 0-5 SEEN /hpf (0-5)
[2025-06-26 18:00] VITALS: BP 131/61; PULSE 62; RESP 18; O2SAT 99
[2025-06-26 18:42] VITALS: BP 132/79; PULSE 72; RESP 18; TEMP 36.7; O2SAT 99
== END 2025-06-26 19:03 | disposition home or self-care (01) ==
PROVIDERS: Emergency Provider Emergency Medicine; PCP Family Medicine; Visit Provider Emergency Medicine
DX: R10.A1 Flank pain, right side (principal); I13.0 Hypertensive heart and chronic kidney disease with heart failure and stage 1 through stage 4 chronic kidney disease, or unspecified chronic kidney disease; I50.32 Chronic diastolic (congestive) heart failure; E11.22 Type 2 diabetes mellitus with diabetic chronic kidney disease; E11.40 Type 2 diabetes mellitus with diabetic neuropathy, unspecified; Z79.4 Long term (current) use of insulin; N18.9 Chronic kidney disease, unspecified; Z79.84 Long term (current) use of oral hypoglycemic drugs; Z79.899 Other long term (current) drug therapy; Z86.73 Personal history of transient ischemic attack (TIA), and cerebral infarction without residual deficits; Z87.891 Personal history of nicotine dependence
CPT/HCPCS: 74177; 80053; 81001; 83690; 85025; 93005; 96361; 96374; 96375; 99282; Q9967; A4216; J2405

== ENCOUNTER → 2025-07-02 | Outpatient (CLI) | payer MEDICARE, MEDICAID, SELFPAY ==
--- NOTE | 2025-07-02 16:55 | US_ITS ---
PROCEDURE: KIDNEY AND BLADDER 07/02/2025 REASON FOR EXAM: FLANK PAIN RIGHT SIDE TECHNIQUE: Procedure Code: USKI Modality: US Procedure: KIDNEY AND BLADDER FINDINGS: Right kidney measures 9.6 Cm and left kidney measures 10 cm. Normal echotexture of bilateral kidneys. No hydronephrosis. No renal stones. Urinary bladder is unremarkable. US/Kidney and Bladder IMPRESSION: No hydronephrosis. Reading Location: [facility]
--- OUTSIDE RECORDS SUMMARY | 2025-07-02 20:47 | XMS RPT_ITS | CCD ---
Author Organization [facility] Care Team Providers Care Flue Cleaner Name Role Phone Jeronimo [employer] GLAZER, Fani Genesis Unavailable Unavaila ble Rony, Quintin Msasey Unavailable Jeronimo [employer] GLAZER, Fani Genesis Unavailable Unavaila ble Jeronimo [employer] GLAZER, Fani Genesis Unavailable Unavaila ble Jeronimo [employer] GLAZER, Fani Genesis Unavailable Unavaila ble Dr. Trenton Subramanian Primary Care Provider Dr. Trenton Subramanian Referring Provider Jovi LOW VISION THERAPIST, LOW VISION THERAPIST-Awilda Gomez Attending Provider Dr. Trenton Subramanian Primary Care Provider Dr. Trenton Subramanian Referring Provider Dr. Quintin Uribe Attending Provider Dr. Trenton Subramanian Referring Provider Dr. Montana Shepard Attending Provider Dr. Ruperto Jesus Primary Care Provider [phone] Dr. Ruperto Jesus Primary Care Provider Dr. Ruperto Jesus Referring Provider Dr. Quintin Uribe Attending Provider MAYTE Rodriguez Attending Provider MAYTE Rodriguez Referring Provider MAYTE Rodriguez Other Provider Dr. Montana Shepard Attending Provider Dr. Ruperto Jesus Primary Care Provider [phone] Dr. Ruperto Jesus Referring Provider Dr. Montana Shepard Other Provider Jovi LOW VISION THERAPIST, LOW VISION THERAPIST-C Patricia Attending Provider [facility], Dr. Hickey Primary Care Provider [facility], Dr. Hickey Attending Provider [facility] DO, Dr. Hickey Referring Provider Sarai Rodriguez Attending Provider Andes DO, Dr. Valentin Emergency Provider Andes DO, Dr. Valentin Attending Provider Andes DO, Dr. Valentin Referring Provider Andes DO, Dr. Valentin Attending Provider Marti GLOVER, Dr. Ernst cEhols Attending Provider Jovi LOW VISION THERAPIST-C, Patricia Attending Provider [facility] , Dr. Hickey Primary Care Provider [facility], Dr. Hickey Referring Provider Jovi BAUM-Patricia Kaiser Attending Provider [facility] , Dr. Hickey Attending Provider Maldonado Akers Attending Provider Ann Marie DO, Dr. Hickey Primary Care Physician [facility] , Dr. Hickey Attending Physician [facility] , Dr. Hickey Referring Provider Maldonado Akers Attending Physician Drea GLOVER, Dr. Boyle Attending Physician Ruperto Jesus Primary Care Unavailable Maldonado Guillory Attending Unavailable Ann Marie, Ruperto Referring Unavailable Ann Marie, Ruperto Referring Unavailable Sarai Rodriguez Attending Unavail able Ann Marie, Ruperto Primary Care Unavailable Ann Marie, Ruperto Referring Unavailable Ann Marie, Ruperto Primary Care Unavailable Patricia Espana NP Attending Unavailable Ann Marie, Ruperto Primary Care Unavailable Jovi LOW VISION THERAPIST, Patricia Attending Unavailable Ann MarieRuperto daniel Referring Unavailable Ann Marie, Ruperto Primary Care Unavailable Jovi LOW VISION THERAPIST, Patricia Attending Unavailable Ann Marie, Ruperto Referring Unavailable AndHomero mcgrath Attending Unavailable AndHomero mcgrath Referring Unavailable Ann Marie, Ruperto Primary Care Unavailable AndHomero mcgrath Attending Unavailable Ann Marie, Ruperto Primary Care Unavailable Ann Marie, Ruperto Primary Care Unavailable Ann Marie, Ruperto Attending Unavailable Montana Shepard Attending Unavailable Ann Marie, Ruperto Primary Care Unavailable Ann Marie, Ruperto Primary Care Unavailable Ann Marie, Ruperto Attending Unavailable Allergies Allergy Classification Reported Allergen(s) Allergy Type Date of Onset Reaction(s) Facility (5 sources) acetaminophen drug allergy 1 Nausea [facility] Work Phone: (5 sources) acetaminophen / propoxyphene drug allergy 1 Nausea [facility] Work Phone: (5 sources) buPROPion drug allergy 1 mental status change [facility] Work Phone: (5 sources) gabapentin drug allergy 1 Drowsiness [facility] Work Phone: (5 sources) pregabalin drug allergy 7 [facility] Work Phone: (18 sources) sulfADIAZINE drug allergy 7 Unknown [facility] Work Phone: (13 sources) Acetaminophen Drug Allergy 2 Unknown [facility] (13 sources) buPROPion Drug Allergy 2 Unknown [facility] (13 sources) gabapentin Drug Allergy 2 Unknown [facility] (13 sources) pregabalin Drug Allergy 2 Unknown [facility] (13 sources) Propoxyphene Drug Allergy 2 Unknown [facility] (1 source) Acetaminophen Drug Allergy 5 [facility] (1 source) buPROPion Drug Allergy 5 [facility] (1 source) gabapentin Drug Allergy 5 [facility] (1 source) pregabalin Drug Allergy 5 [facility] (1 source) Propoxyphene Drug Allergy 5 [facility] (1 source) sulfADIAZINE Drug Allergy 5 [facility] Medications Current Medications Medication Drug Class(es) Dates Sig (Normalized) Sig (Original) acetaminophen 325 mg / oxyCODONE hydrochloride 5 mg oral tablet (20 sources) Opioid Agonist Start: 05-09-2020 Start: 03-18-2011 End: 04-05-2014 take 1 tablet by mouth four times daily as needed PERCOCET 5-325 MG TABS One tablet by connor th four times daily as needed OXYCODONE-ACETAMINOPHEN [id number] An Bonner Start: 03-18-2011 take 1 tablet by connor th four times daily as needed PERCOCET 5-325 MG TABS One tablet by connor th four times daily as needed OXYCODONE-ACETAMINOPHEN [id number] An Bonner Start: 03-18-2011 End: 04-05-2014 take 1 tablet by mouth four times daily as needed PERCOCET 5-325 MG TABS One tablet by connor th four times daily as needed OXYCODONE-ACETAMINOPHEN [id number] Montana Shepard MD Albuterol Sulfate 2.5 mg /3 mL (0.083 %) solution for nebulization (5 sources) Start: 02-24-2023 take 2.5 mg by inhalation every four hours as needed for wheezing Albuterol Sulfate 2.5 mg /3 mL (0.083 %) solution for nebulization Active 2.5 mg INHALATION Q4H as needed for shortness of breath or wheezing 180 5 February 24, 2023 1:23pm Start: 02-24-2023 take 2.5 mg by inhal ation every four hours as needed for wheezing Albuterol Sulfate 2.5 mg /3 mL (0.083 %) solution for nebulization Active 2.5 mg INHALATION Q4H as needed for shortness of breath or wheezing 180 February 24, 2023 1:23pm allopurinol 100 mg oral tablet (4 sources) Xanthine Oxidase Inhibitor Start: 12-05-2024 ascorbic acid 250 mg oral tablet (7 sources) Vitamin C Start: 11-03-2023 take 1 tablet by mouth twice daily blood pressure cuff/machine (13 sources) Start: 01-03-2021 blood pressure cuff/machine Active 0 .Route .MEDSUPPLY 1 0 January 03, 2021 12:00am As directed Start: 01-03-2021 blood pressure cuff/machine Active 0 .Route .MEDSUPPLY 1 January 03, 2021 12:00am As directed Start: 01-03-2021 blood pressure cuff/machine Active 0 .Route .MEDSUPPLY 1 January 02, 2021 11:00pm As directed cholecalciferol 0.125 mg ora l tablet (20 sources) Vitamin D Start: 12-16-2021 take 1 tablet by connor th once daily Start: 07-26-2017 End: 12-16-2021 take 1 capsule by mouth every week Cholecalciferol (Vitamin D3) 50,000 unit capsule Discontinued 48980 U PO EVERY WEEK July 26, 2017 1:00am December 16, 2021 11:47am colchicine 0.6 mg oral capsule (6 sources) Start: 10-09-2024 take 1 capsule by mo uth twice daily glipiZIDE er 10 mg 24 hr extended release oral tablet (18 sources) Sulfonylurea Start: 09-21-2023 take 1 tablet by connor th once daily Start: 09-21-2023 Glipizide Acti ve MG PO September 21, 2023 1:00am Start: 06-29-2023 End: 09-21-2023 take 1 tablet by mouth once daily Glipizide 5 mg tablet extended release 24hr Discontinued 5 mg PO DAILY June 29, 2023 1:00am September 21, 2023 2:43pm 12 hr guaiFENesin 1200 mg ex tended release oral tablet (20 sources) Start: 11-14-2024 take 1 tablet by connor th every twelve hours Start: 08-26-2020 End: 01-12-2023 take 1 tablet by mouth every twelve hours Guaifenesin 1,200 mg tablet extended release 12hr Discontinued 1200 mg PO Q12H 60 6 April 30, 2022 8:07am January 12, 2023 1:10pm Insulin Admin Supplies (Inpe n (For Novolog Or Fiasp)) insulin pen (13 sources) Start: 07-26-2017 Insulin Admin Supplies (Inpen (For Novolog Or Fiasp)) insulin pen Active 0 .ROUTE .MEDSUPPLY 1 0 July 26, 2017 1:00am As directed Start: 07-26-2017 Insulin Admin Supplies (Inpen (For Novolog Or Fiasp)) insulin pen Active 0 .ROUTE .MEDSUPPLY 1 July 26, 2017 1:00am As directed Start: 07-26-2017 Insulin Admin Supplies (Inpen (For Novolog Or Fiasp)) insulin pen Active 0 .ROUTE .MEDSUPPLY July 26, 2017 12:00am As directed 3 ml insulin glargine 100 un t/ml pen injector (20 sources) Insulin Analog Start: 06-29-2023 Start: 12-16-2021 End: 06-29-2023 Insulin Glargine 100 unit/mL (3 mL) insulin pen Discontinued 50 U SC TWICE A DAY December 16, 2021 12:00am June 29, 2023 1:44pm lisinopril 20 mg oral tablet (20 sources) Angiotensin Converting Enzyme Inhibitor Start: 11-03-2023 take 1 tablet by mouth once daily Start: 07-26-2017 End: 11-03-2023 take 1 tablet by mouth twice daily Lisinopril 20 mg tablet Discontinued 20 mg PO TWICE A DAY July 26, 2017 1:00am November 03, 2023 1:51pm Start: 02-17-2016 LISINOPRIL 20 MG TABS One tab twice daily LISINOPRIL [id number] Fani Sevilla Start: 09-13-2012 take 1 tablet by connor th once daily LISINOPRIL 20 MG TABS One tablet by mouth daily LISINOPRIL [id number] Montana Shepard MD Start: 09-02-2012 take 1 tablet by connor th once daily LISINOPRIL 10 MG TABS One tablet by mouth daily LISINOPRIL [id number] Nuria Glasgow RN LORazepam 0.5 mg oral tablet (20 sources) Benzodiazepine Start: 07-26-2017 take 1 tablet by connor th three times daily as needed for anxiety Start: 07-19-2016 ATIVAN 0.5 MG TABS One tab up to three times daily as needed LORAZEPAM [id number] Fani L Roel Start: 04-05-2014 ATIVAN 1 MG TA BS as needed LORAZEPAM [id number] Montana Shepard MD 24 hr metoprolol succinate 25 mg extended release oral tablet (20 sources) beta-Adrenergic Niko Start: 05-12-2024 take 1 tablet by mouth once daily Start: 08-03-2018 End: 05-12-2024 take 1 tablet by mouth once daily Metoprolol Succinate 50 mg tablet extended release 24 hr Discontinued 0 .ROUTE .COMPLEX 90 3 December 20, 2023 9:31am May 12, 2024 1:43pm take 1 tablet by mouth once daily Semaglutide (4 sources) Start: 11-14-2024 Start: 11-14-2024 Semaglutide (O zempic) 1 mg/dose (4 mg/3 mL) pen injector Active mg SC November 14, 2024 12:00am simvastatin 20 mg oral tablet (20 sources) HMG-CoA Reductase Inhibitor Start: 07-26-2017 take 1 tablet by mouth once daily in the morning Start: 02-01-2017 take 1 tablet by connor th once daily ZOCOR 20 MG TABS One tablet by mouth daily SIMVASTATIN [id number] Faniabel Jeronimo LPN Start: 08-02-2012 End: 10-09-2016 take 1 tablet by mouth at bedtime SIMVASTATIN 20 MG TABS One tablet by mouth at bedtime. SIMVASTATIN [id number] Fani Yamilex Sevilla Start: 06-17-2011 End: 07-10-2011 take 1 tablet by mouth at bedtime ZOCOR 20 MG TABS One tablet by mouth at bedtime. SIMVASTATIN [id number] Zabrina Thorpe, JOHN zinc glycinate (7 sources) Start: 11-03-2023 take 1 capsule by mouth once d aily Start: 11-03-2023 take 1 capsule by mo uth once daily Zinc Glycinate 30 mg capsule Active 30 mg PO DAILY November 03, 2023 12:00am Start: 11-03-2023 take 30 mg by mouth once daily Zinc Glycinate Active 30 MG PO DAILY November 03, 2023 12:00am Completed/Discontinued Medications Medication Drug Class(es) Dates Sig (Normalized) Sig (Original) [id number] 200 actuat albuterol 0.09 mg/actuat metered dose inhaler (20 sources) beta2-Adrenergic Agonist Start: 02-24-2023 take 2.5 mg by inhalation every four hours Albuterol Sulfate Active 2.5 MG INHALATION Q4H 180 February 24, 2023 1:23pm Start: 12-19-2018 End: 01-08-2025 Albuterol Sulfate (Ventolin Hfa) 90 mcg/actuation HFA aerosol inhaler Discontinued 2 NMA INHALATION Q4H as needed for shortness of breath or wheezing 3 March 21, 2024 11:48am January 08, 2025 3:02pm Start: 12-19-2018 End: 11-03-2023 take 1 puff(s) by inhalation every four hours Albuterol Sulfate (Ventolin Hfa) 90 mcg/actuation HFA aerosol inhaler Active 2 PUFF INHALATION Q4H November 03, 2023 2:19pm Start: 11-04-2017 End: 12-19-2018 Albuterol Sulfate (Ventolin Hfa) 90 mcg/actuation HFA aerosol inhaler Discontinued 2 NMA INHALATION Q4H as needed for shortness of breath or wheezing 18 November 04, 2017 12:00am December 19, 2018 9:57am Start: 11-04-2017 End: 12-19-2018 take 1 puff(s) by inhalation every four hours Albuterol Sulfate (Ventolin Hfa) 90 mcg/actuation HFA aerosol inhaler Discontinued 2 PUFF INHALATION Q4H November 04, 2017 12:00am December 19, 2018 9:57am Start: 07-26-2017 End: 02-24-2023 take 2.5 mg by inhalation every four hours as needed for wheezing Albuterol Sulfate 2.5 mg /3 mL (0.083 %) solution for nebulization Discontinued 2.5 mg INHALATION Q4H as needed for shortness of breath or wheezing August 10, 2017 1:00am February 24, 2023 1:24pm Start: 11-11-2016 ALBUTEROL SULF ATE (2.5 MG/3ML) 0.083% NEBU 1 unit dose every 4 hours as needed ALBUTEROL SULFATE [id number] Nataliehasmukh Riddle Start: 11-11-2016 ALBUTEROL SULF ATE (2.5 MG/3ML) 0.083% NEBU 1 unit dose every 4 hours as needed ALBUTEROL SULFATE [id number] Nataliehasmukh Riddle Start: 03-18-2011 End: 10-09-2016 ALBUTEROL SULFATE 2 MG/5ML S YRP Via nebulizer 3-4 X daily as needed ALBUTEROL SULFATE [id number] Fani Sevilla amLODIPine 10 mg oral tablet (10 sources) Dihydropyridine Calcium Channel Niko Start: 09-13-2012 End: 10-09-2016 take 1 tablet by mouth once daily NORVASC 10 MG TABS One tablet by mouth daily AMLODIPINE BESYLATE [id number] Fani Sevilla amoxicillin 875 mg / clavulanate 125 mg oral tablet (13 sources) Penicillin-class Antibacterial Start: 04-30-2022 End: 08-27-2022 Amoxicillin-Pot Clavulanate 875-125 mg tablet Discontinued 1 {tbl} PO TWICE A DAY April 30, 2022 12:00am August 27, 2022 1:55pm Start: 04-30-2022 End: 08-27-2022 take 1 tablet by mouth twice daily Amoxicillin-Pot Clavulanate Discontinued 1 TABLET PO TWICE A DAY April 30, 2022 12:00am August 27, 2022 1:55pm aspirin 81 mg oral tablet (10 sources) Nonsteroidal Anti-inflammatory Drug Start: 09-02-2012 End: 10-09-2016 take 1 tablet by mouth once daily ASPIRIN 81 MG TABS One tablet by mouth daily ASPIRIN [id number] Fani Sevilla Start: 09-02-2012 End: 10-09-2016 take 1 tablet by mouth once daily ASPIRIN 81 MG TABS One tablet by mouth daily ASPIRIN [id number] Fani Sevilla atorvastatin 10 mg oral tablet (5 sources) HMG-CoA Reductase Inhibitor Start: 07-10-2011 take 1 tablet by mouth once daily at bedtime LIPITOR 10 MG TABS One tablet by mouth daily @ bedtime ATORVASTATIN CALCIUM [id number] Montana Shepard MD baclofen 20 mg oral tablet (13 sources) gamma-Aminobutyr ic Acid-ergic Agonist Start: 02-17-2016 End: 02-01-2017 BACLOFEN 20 MG TABS One tab three times daily with food or milk BACLOFEN [id number] Fani Jeronimo LPN Start: 09-13-2012 take 1 tablet by connor th three times daily BACLOFEN 10 MG TABS One tablet by mouth three times daily BACLOFEN [id number] Montana Shepard MD benzonatate 200 mg oral capsule (20 sources) Non-narcotic Antitussive Start: 11-14-2024 End: 01-08-2025 take 1 capsule by mouth three times daily as needed for cough Benzonatate 200 mg capsule Discontinued 200 mg PO THREE TIMES A DAY as needed for cough 90 0 December 12, 2024 9:28am January 08, 2025 3:02pm Start: 07-25-2018 End: 10-25-2019 take 1 capsule by mouth three times daily as needed for cough Benzonatate 200 mg capsule Discontinued 200 mg PO THREE TIMES A DAY as needed for cough 90 0 July 25, 2018 1:00am October 25, 2019 1:16pm betamethasone 0.5 mg/ml topical lotion (10 sources) Corticosteroid Start: 03-18-2011 End: 10-09-2016 BETAMETHASONE DIPROPIONATE 0.05 % LOTN Apply to affected area twice daily as needed BETAMETHASONE DIPROPIONATE [id number] Fani Sevilla 120 actuat budesonide 0.16 mg/actuat / formoterol fumarate 0.0045 mg/actuat metered dose inhaler (20 sources) Corticosteroid, beta2-Adrenergic Agonist Start: 03-21-2021 End: 01-08-2025 Budesonide-Formoterol (Symbicort) 160-4.5 mcg/actuation HFA aerosol inhaler Discontinued 2 NMA INHALATION TWICE A DAY 3 March 21, 2024 11:48am January 08, 2025 3:02pm administer with spacer, rinse mouth after each use Start: 03-21-2021 End: 11-03-2023 take 1 puff(s) by mouth twice daily Budesonide-Formoterol (Symbicort) 160-4.5 mcg/actuation HFA aerosol inhaler Active 2 PUFF INHALATION TWICE A DAY 3 November 03, 2023 2:19pm administer with spacer, rinse mouth after each use Start: 06-25-2020 End: 03-21-2021 Budesonide-Formoterol (Symbi michael) 160-4.5 mcg/actuation HFA aerosol inhaler Discontinued 2 NMA INHALATION TWICE A DAY 1 June 25, 2020 2:59pm March 21, 2021 9:15am administer with spacer, rinse mouth after each use Start: 06-25-2020 End: 03-21-2021 Budesonide-Formoterol (Symbi michael) 160-4.5 mcg/actuation HFA aerosol inhaler Discontinued 2 NMA INHALATION TWICE A DAY June 25, 2020 2:59pm March 21, 2021 9:15am administer with spacer, rinse mouth after each use Start: 06-25-2020 End: 03-21-2021 take 1 puff(s) by mouth twice daily Budesonide-Formoterol (Symbicort) 160-4.5 mcg/actuation HFA aerosol inhaler Discontinued 2 PUFF INHALATION TWICE A DAY June 25, 2020 2:59pm March 21, 2021 9:15am administer with spacer, rinse mouth after each use Start: 06-25-2020 End: 03-21-2021 take 1 puff(s) by mouth twice daily Budesonide-Formoterol (Symbicort) 160-4.5 mcg/actuation HFA aerosol inhaler Discontinued 2 PUFF INHALATION TWICE A DAY June 25, 2020 1:59pm March 21, 2021 8:15am administer with spacer, rinse mouth after each use Start: 11-04-2017 End: 06-25-2020 Budesonide-Formoterol (Symbi michael) 160-4.5 mcg/actuation HFA aerosol inhaler Discontinued 2 NMA INHALATION TWICE A DAY 1 December 19, 2018 9:57am October 17, 2019 10:58am administer with spacer, rinse mouth after each use Start: 11-04-2017 End: 06-25-2020 take 1 puff(s) by mouth twice daily Budesonide-Formoterol (Symbicort) 160-4.5 mcg/actuation HFA aerosol inhaler Discontinued 2 PUFF INHALATION TWICE A DAY December 19, 2018 9:57am October 17, 2019 10:58am administer with spacer, rinse mouth after each use citalopram 20 mg oral tablet (10 sources) Serotonin Reuptake Inhibitor Start: 03-18-2011 End: 09-13-2012 take 1 tablet by mouth once daily CELEXA 20 MG TABS One tablet by mouth daily CITALOPRAM HYDROBROMIDE [id number] An Bonner cyclobenzaprine hydrochloride 10 mg oral tablet (5 sources) Muscle Relaxant Start: 03-18-2011 take 1 tablet by mouth at bedtime as needed FLEXERIL 10 MG TABS One tablet by mouth at bedtime as needed CYCLOBENZAPRINE HCL [id number] An Bonner diazePAM 5 mg oral tablet (15 sources) Benzodiazepine Start: 09-02-2012 End: 10-09-2016 take 1 tablet by mouth twice daily as needed VALIUM 5 MG TABS One tablet by mouth twice daily as needed DIAZEPAM [id number] Nuria Glasgow RN Start: 03-18-2011 take 1 tablet by connor th three times daily as needed VALIUM 5 MG TABS One tablet by mouth three times daily as needed DIAZEPAM [id number] An Bonner 24 hr dilTIAZem hydrochloride 180 mg extended release oral capsule (10 sources) Calcium Channel Niko Start: 03-18-2011 End: 09-13-2012 take 1 tablet by mouth once daily CARDIZEM CD 180 MG [id number] One tablet by mouth daily DILTIAZEM HCL COATED BEADS [id number] An Bonner Start: 03-18-2011 End: 09-13-2012 take 1 tablet by mouth once daily CARDIZEM CD 180 MG [id number] One tablet by mouth daily DILTIAZEM HCL COATED BEADS [id number] Montana Shepard MD Start: 03-18-2011 take 1 tablet by connor th once daily CARDIZEM CD 180 MG [id number] One tablet by mouth daily DILTIAZEM HCL COATED BEADS [id number] An Bonner doxycycline hyclate 100 mg oral tablet (4 sources) Tetracycline-class Drug Start: 11-14-2024 End: 03-23-2025 take 1 tablet by mouth twice daily Doxycycline Hyclate 100 mg tablet Discontinued 100 mg PO TWICE A DAY November 14, 2024 12:00am March 23, 2025 1:25pm ergocalciferol 89513 unt oral capsule (10 sources) Provitamin D2 Compound Start: 02-17-2016 take 1 capsule by mouth every week VITAMIN D (ERGOCALCIFEROL) 48316 UNIT CAPS Take one capsule by mouth once weekly ERGOCALCIFEROL [id number] Fani Sevilla Start: 02-17-2016 take 1 capsule by [facility] every week VITAMIN D (ERGOCALCIFEROL) 27937 UNIT CAPS Take one capsule by mouth once weekly ERGOCALCIFEROL [id number] Fani Sevilla Start: 03-18-2011 take 1 capsule by [facility] two times weekly VITAMIN D (ERGOCALCIFEROL) 20908 UNIT CAPS Take one capsule by mouth twice weekly ERGOCALCIFEROL [id number] An Bonner fluticasone propionate 0.05 mg/actuat metered dose nasal spray (20 sources) Corticosteroid Start: 04-30-2022 End: 03-21-2024 Fluticasone Propionate 50 mcg/actuation spray,suspension Discontinued 2 NMA INTRANASAL DAILY 03 06November 03, 2023 2:21pm March 21, 2024 11:49am Start: 04-30-2022 End: 11-03-2023 Fluticasone Propionate Activ e 2 SPRAY INTRANASAL DAILY November 03, 2023 2:21pm 14 actuat fluticasone propionate 0.25 mg/actuat / salmeterol 0.05 mg/actuat dry powder inhaler (10 sources) Corticosteroid, beta2-Adrenergic Agonist Start: 03-18-2011 End: 10-09-2016 ADVAIR DISKUS 250-50 MCG/DOSE AEPB One inhalation twice daily FLUTICASONE-SALMETEROL [id number] Fani Sevilla Start: 03-18-2011 ADVAIR DISKUS 250-50 MCG/DOSE AEPB One inhalation twice daily FLUTICASONE-SALMETEROL [id number] An Bonner Start: 03-18-2011 End: 10-09-2016 ADVAIR DISKUS 250-50 MCG/DOS E AEPB One inhalation twice daily FLUTICASONE-SALMETEROL [id number] Fani Sevilla furosemide 40 mg oral tablet (20 sources) Loop Diuretic Start: 08-03-2018 End: 12-20-2023 take 1 tablet by mouth once daily Furosemide (Lasix) 40 mg tablet Discontinued 40 mg PO DAILY 90 3 January 07, 2023 12:26pm December 20, 2023 8:12am Start: 09-28-2017 End: 08-03-2018 take 1 tablet by mouth twice daily Furosemide 40 mg tablet Discontinued 40 mg PO TWICE A DAY 14 0 September 28, 2017 12:00am August 03, 2018 3:11pm Start: 07-26-2017 End: 11-04-2017 take 1 tablet by mouth twice daily Furosemide (Lasix) 20 mg tablet Discontinued 20 mg PO TWICE A DAY July 26, 2017 1:00am November 04, 2017 8:31am Start: 08-19-2016 FUROSEMIDE 20 MG TABS One tab two times daily FUROSEMIDE [id number] Fani Sevilla Start: 03-18-2011 End: 09-13-2012 take 1 tablet by mouth once daily as needed LASIX 40 MG TABS One tablet by mouth daily as needed for swelling FUROSEMIDE [id number] Montana Shepard MD hydroCHLOROthiazide 25 mg oral tablet (20 sources) Thiazide Diuretic Start: 06-17-2011 End: 10-09-2016 take 1 tablet by mouth once daily HYDROCHLOROTHIAZIDE 25 MG TABS One tablet by mouth daily HYDROCHLOROTHIAZIDE [id number] Fani Sevilla hydroCHLOROthiazide 25 mg / lisinopril 20 mg oral tablet (10 sources) Thiazide Diuretic, Angiotensin Converting Enzyme Inhibitor Start: 03-18-2011 End: 06-17-2011 take 1 tablet by mouth once daily LISINOPRIL-HYDROCHLOR OTHIAZIDE 20-25 MG TABS One tablet by mouth daily LISINOPRIL-HYDROCHLOR OTHIAZIDE [id number] Nuria Glasgow RN hydrOXYzine hydrochloride 25 mg oral tablet (13 sources) Antihistamine Start: 09-29-2021 End: 03-23-2025 take 12.5-50 mg by mouth three to four times daily as needed Hydroxyzine Hcl 25 mg tablet Discontinued 12.5 - 50 mg PO 3 to 4 times per day as needed for itching September 29, 2021 12:00am March 23, 2025 1:26pm insulin detemir 100 unt/ml injectable solution (10 sources) Insulin Analogue Start: 06-17-2011 End: 09-13-2012 inject 20 [IU] by subcutaneous injection once daily at bedtime LEVEMIR 100 UNIT/ML SOLN 20 units SQ daily at bedtime INSULIN DETEMIR [id number] Nuria Glasgow RN Start: 06-17-2011 take 20 [IU] by subc utaneous injection once daily at bedtime LEVEMIR 100 UNIT/ML SOLN 20 units SQ daily at bedtime INSULIN DETEMIR [id number] Nuria Glasgow RN Start: 06-17-2011 End: 09-13-2012 take 20 [IU] by subcutaneous injection once daily at bedtime LEVEMIR 100 UNIT/ML SOLN 20 units SQ daily at bedtime INSULIN DETEMIR [id number] Montana Shepard MD insulin, aspart, human 100 unt/ml injectable solution (5 sources) Insulin Analogue Start: 06-17-2011 NOVOLOG 100 U NIT/ML SOLN per sliding scale INSULIN ASPART [id number] Nuria Glasgow RN Start: 06-17-2011 NOVOLOG 100 UN IT/ML SOLN per sliding scale INSULIN ASPART [id number] Nuria Glasgow RN loratadine 10 mg oral tablet (10 sources) Start: 03-18-2011 End: 09-13-2012 take 1 tablet by mouth once daily LORATADINE 10 MG TABS One tablet by mouth daily LORATADINE [id number] An Bonner metFORMIN hydrochloride 500 mg oral tablet (10 sources) Biguanide Start: 03-18-2011 End: 09-13-2012 take 1 tablet by mouth once daily METFORMIN HCL 500 MG TABS One tablet by mouth daily METFORMIN HCL [id number] Montana Shepard MD potassium chloride 10 meq extended release oral capsule (18 sources) Start: 07-26-2017 End: 08-03-2018 take 1 capsule by mouth once daily Potassium Chloride 10 mEq capsule, extended release Discontinued 10 meq PO daily July 26, 2017 1:00am August 03, 2018 3:11pm Start: 03-19-2016 POTASSIUM CHLO RIDE TOBY ER 10 MEQ CR-TABS One tab once daily POTASSIUM CHLORIDE TOBY CR [id number] Fani Sevilla predniSONE 10 mg oral tablet (17 sources) Start: 11-14-2024 End: 11-26-2024 Prednisone 10 mg tablet Discontinued 10 mg PO daily 30 12 November 14, 2024 12:00am November 25, 2024 12:00am November 26, 2024 12:08am take 4 tabs for three days, then 3 tabs for three days, then 2 tabs for three days, then 1 tab for 3 days Start: 04-30-2022 End: 08-27-2022 take 3 tablets by mouth once daily at mealtime Prednisone 20 mg tablet Discontinued 60 mg PO daily April 30, 2022 12:00am August 27, 2022 1:55pm administer with food or milk Start: 04-30-2022 End: 08-27-2022 take 60 mg by mouth once daily at mealtime Prednisone Discontinued 60 MG PO daily April 30, 2022 12:00am August 27, 2022 1:55pm administer with food or milk raNITIdine 150 mg oral tablet (18 sources) Histamine-2 Receptor Antagonist Start: 07-26-2017 End: 10-25-2019 take 1 tablet by mouth every twelve hours as needed Ranitidine Hcl 150 mg tablet Discontinued 150 mg PO Q12H as needed for indigestion July 26, 2017 1:00am October 25, 2019 1:15pm Start: 07-19-2016 RANITIDINE HCL 150 MG TABS One tab every 12 hrs as needed RANITIDINE HCL [id number] Fani Sevilla rOPINIRole 2 mg oral tablet (20 sources) Nonergot Dopamine Agonist Start: 09-21-2023 End: 03-21-2024 take 1 tablet by mouth at bedtime Ropinirole 2 mg tablet Discontinued 2 mg PO AT BEDTIME 90 3 November 03, 2023 12:00am March 21, 2024 11:49am administer 1-3 hours before bedtime Start: 09-21-2023 Ropinirole Act jacquelin MG PO September 21, 2023 1:00am Start: 08-26-2020 End: 09-21-2023 take 1 tablet by mouth at bedtime Ropinirole 1 mg tablet Discontinued 1 mg PO AT BEDTIME 30 6 May 04, 2023 5:26am September 21, 2023 2:44pm administer 1-3 hours before bedtime Start: 05-08-2019 End: 08-26-2020 Ropinirole 0.5 mg tablet Discontinued 0.5 mg PO AT BEDTIME 60 0 July 22, 2020 3:35pm August 26, 2020 12:44pm administer 1-3 hours before bed, after 3 nights may increase to two tabs if needed Semaglutide (6 sources) Start: 05-12-2024 End: 11-14-2024 Semaglutide (Ozempic) 0.25 m g or 0.5 mg (2 mg/3 mL) pen injector Discontinued mg SC May 12, 2024 12:00am November 14, 2024 2:33pm Start: 05-12-2024 Semaglutide (O zempic) 0.25 mg or 0.5 mg (2 mg/3 mL) pen injector Active mg [place] May 12, 2024 12:00am sertraline 50 mg oral tablet (8 sources) Serotonin Reuptake Inhibitor Start: 09-13-2012 End: 02-01-2017 take 1 tablet by mouth once daily ZOLOFT 50 MG TABS One tablet by mouth daily SERTRALINE HCL [id number] Montana Shepard MD spironolactone 25 mg oral tablet (20 sources) Aldosterone Antagonist Start: 08-03-2018 End: 07-14-2023 take 1 tablet by mouth once daily Spironolactone 25 mg tablet Discontinued 0 .ROUTE .COMPLEX 90 3 July 27, 2022 3:20pm July 14, 2023 4:54pm take 1 tablet by mouth once daily 60 actuat tiotropium 0.0025 mg/actuat inhalation spray (20 sources) Anticholinergic Start: 09-29-2021 End: 03-21-2024 take 2.5 ug by inhalation once daily Tiotropium Maurice (Spiriva Respimat) 2.5 mcg/actuation mist Discontinued 2 NMA INHALATION daily 1 October 21, 2023 1:33pm November 03, 2023 2:21pm administer at approximately the same time(s) each day Start: 09-29-2021 End: 11-03-2023 take 1 puff(s) by inhalation once daily Tiotropium Maurice (Spiriva Respimat) 2.5 mcg/actuation mist Active 2 PUFF INHALATION daily 3 November 03, 2023 2:20pm administer at approximately the same time(s) each day varenicline 1 mg oral tablet (10 sources) Partial Cholinergic Nicotinic Agonist Start: 09-13-2012 End: 09-08-2013 take 1 tablet by mouth once daily CHANTIX 1 MG TABS One tablet by mouth daily VARENICLINE TARTRATE [id number] Montana Shepard MD Problems Active Problems Problem Classification Problem Date Documented Da te Episodic/Chronic Chronic kidney disease (1 source) Chronic kidney disease; Translations: [Chronic kidney disease, stage 3b] Onset: 09-11-2024 Chronic obstructive pulmonary disease and bronchiectasis (20 sources) Chronic obstructive lung disease; Translations: [Pulmonary emphysema] Onset: 03-18-2011 03-18-2011 Chronic Congestive heart failure; nonhypertensive (20 sources) Chronic diastolic heart failure; Translations: [Chronic diastolic (congestive) heart failure] Chronic Coronary atherosclerosis and other heart disease (5 sources) Coronary arteriosclerosis; Translations: [Atherosclerotic heart disease of red devil coronary artery without angina pectoris] Onset: 03-18-2011 03-18-2011 Chronic Diabetes mellitus with complications (13 sources) Neuropathy due to diabetes mellitus; Translations: [Type 2 diabetes mellitus with diabetic neuropathy, unspecified] 08-03-2018 Chronic Diabetes mellitus without complication (5 sources) Type 2 diabetes mellitus; Translations: [Type 2 diabetes mellitus without complications] 10-09-2024 Chronic Disorders of lipid metabolism (20 sources) Hyperlipidemia; Translations: [Hyperlipidemia, unspecified] Onset: 09-08-2013 09-08-2013 Chronic Essential hypertension (20 sources) Hypertensive disorder; Translations: [Essential hypertension] Onset: 03-18-2011 03-18-2011 Chronic Fluid and electrolyte disorders (14 sources) Hypokalemia; Translations: [Hypokalemia] Onset: 03-23-2025 01-03-2021 Episodic Gout and other crystal arthropathies (6 sources) Gouty arthritis of left ankle; Translations: [Gout, unspecified] 10-09-2024 Chronic Hypertension with complications and secondary hypertension (1 source) Hypertensive chronic kidney disease with stage 1 through stage 4 chronic kidney disease, or unspecified chronic kidney disease; Translations: [Hypertensive chronic kidney disease with stage 1 through stage 4 chronic kidney disease, or unspecified chronic kidney disease] Onset: 03-29-2025 Chronic Nonspecific chest pain (16 sources) Chest pain; Translations: [Chest pain, unspecified] 10-24-2019 Episodic Other and ill-defined heart disease (13 sources) Diastolic dysfunction; Translations: [Other ill-defined heart diseases] 08-03-2018 Chronic Comment on above: Stage I diastolic dy sfunction Other lower respiratory disease (13 sources) Dyspnea; Translations: [Shortness of breath] 10-24-2019 Episodic Other nutritional; endocrine; and metabolic disorders (4 sources) Body mass index (BMI) 34.0-34.9, adult; Translations: [Body mass index (BMI) 34.0-34.9, adult] Onset: 04-05-2014 04-05-2014 Chronic Other nutritional; endocrine; and metabolic disorders (16 sources) Morbid obesity; Translations: [Morbid (severe) obesity due to excess calories] 07-26-2017 Chronic Other nutritional; endocrine; and metabolic disorders (2 sources) Morbid (severe) obesity due to excess calories; Translations: [Morbid obesity] Chronic Residual codes; unclassified (16 sources) Obstructive sleep apnea syndrome; Translations: [Obstructive sleep apnea (adult) (pediatric)] 09-28-2017 Chronic Comment on above: CPAP of 15 cm water Residual codes; unclassified (4 sources) Obstructive sleep apnea (adult) (pediatric); Translations: [Obstructive sleep apnea (adult)(pediatric)] Chronic Residual codes; unclassified (13 sources) Bilateral lower limb edema; Translations: [Localized edema] 10-25-2019 Episodic Substance-related disorders (13 sources) Tobacco user; Translations: [Nicotine dependence, unspecified, uncomplicated] 07-26-2017 Chronic Transient cerebral ischemia (13 sources) Cerebral ischemia; Translations: [Transient cerebral ischemic attack, unspecified] 08-03-2018 Chronic Unclassified (3 sources) Obstructive sleep apnea of adult; Translations: [Obstructive sleep apnea (adult) (pediatric)] Onset: 02-01-2017 02-01-2017 Chronic Unclassified (1 source) Finding of body mass index; Translations: [Body mass index (BMI) 34.0-34.9, adult] Onset: 04-05-2014 04-05-2014 Past or Other Problems Problem Classification Problem Date Documented Da te Episodic/Chronic Other connective tissue disease (5 sources) Standard chest X-ray abnormal; Translations: [Other nonspecific abnormal finding of lung field] Onset: 11-11-2016 11-11-2016 Episodic Other skin disorders (1 source) Localized swelling, mass and lump, left lower limb; Translations: [Localized swelling, mass and lump, left lower limb] Onset: 10-14-2024 Episodic Residual codes; unclassified (1 source) Localized edema; Translations: [Localized edema] Onset: 10-16-2024 Episodic Unclassified (5 sources) Hypersomnia; Translations: [Hypersomnia, unspecified] Onset: 11-11-2016 11-11-2016 Episodic Results Test Name Value Interpretation Reference Range Facility Anion gap in Serum or Plasma Ordered By: Maldonado Guillory on 04-06-2025 Anion gap [Moles/Vol] 16 mmol/L High 11-30 [facility] BUN/creatinine ratioOrdered By: Maldonado Guillory on 04-06-2025 Urea nitrogen/Creatinine [Mass ratio] 24.0 mg/mg High 05-07 [facility] Basic Metabolic Profile (BMP )on 04-06-2025 BUN/CRE 24.0 RATIO High 05-07 [facility] Comment on above: Performed By: #### L 500.2500 #### [facility] [address] [place], [address] Calcium [Mass/Vol] 8.7 mg/dL Normal 7.6-11.0 [facility] Comment on above: Performed By: #### L 500.2500 #### [facility] [address] [place], [address] Chloride [Moles/Vol] 99 mmol/L Normal 98-108 [facility] Comment on above: Performed By: #### L 500.2500 #### [facility] [address] [place], [address] CO2 [Moles/Vol] 18.3 mmol/L Low 21.0-32.0 [facility] Comment on above: Performed By: #### L 500.2500 #### [facility] [address] [place], [address] Creatinine [Mass/Vol] 1.72 mg/dL High 0.70-1.20 [facility] Comment on above: Performed By: #### L 500.2500 #### [facility] [address] [place], [address] GAP 16 High 5-15 [facility] Comment on above: Performed By: #### L 500.2500 #### [facility] [address] [place], [address] GFR/1.73 sq M.predicted among non-blacks MDRD (S/P/Bld) [Vol rate/Area] 29 mL/min/{1.73_m2} Low >60 [facility] Comment on above: Result Comment: mL/m in/1.73m2 CKD-EPI Creatinine Equation (2020) Performed By: #### L 500.2500 #### [facility] [address] [place], [address] Glucose [Mass/Vol] 292 mg/dL High 70-99 [facility] Comment on above: Performed By: #### L 500.2500 #### [facility] [address] [place], [address] Potassium [Moles/Vol] 4.2 mmol/L Normal 3.3-5.1 [facility] Comment on above: Performed By: #### L 500.2500 #### [facility] [address] [place], [place], [id number] Sodium [Moles/Vol] 133 mmol/L Normal 133-145 [facility] Comment on above: Performed By: #### L 500.2500 #### [facility] [address] [place], [place], [address] Urea nitrogen [Mass/Vol] 41 mg/dL High 4-19 [facility] Comment on above: Performed By: #### L 500.2500 #### [facility] [address] [place], [place], [id number] Bilirubin directOrdered By: Montana Shepard on 04-06-2025 Bilirubin.direct [Mass/Vol] 0.15 mg/dL 0.00-0.30 [facility] Bilirubin, totalOrdered By: Montana Shepard on 04-06-2025 Bilirubin [Mass/Vol] 0.32 mg/dL 0.00-1.30 [facility] Calculated very low density lipoprotein (VLDL) cholesterol measurementOrdered By: [facility] on 04-06-2025 Calculated very low density lipoprotein (VLDL) cholesterol measurement 26 mg/dL 5-40 [facility] Carbon dioxide, total [Moles /volume] in Central venous bloodOrdered By: Maldonado Guillory on 04-06-2025 CO2 [Moles/Vol] 18.3 mmol/L Low 21.0-32.0 [facility] Chloride assayOrdered By: Kathrine Guillory on 04-06-2025 Chloride [Moles/Vol] 99 mmol/L 98-108 [facility] Glomerular filtration rate ( GFR) estimation/1.73 sq m using serum, plasma, or whole bOrdered By: Maldonado Guillory on 04-06-2025 GFR/1.73 sq M.predicted among non-blacks MDRD (S/P/Bld) [Vol rate/Area] 29 mL/min/{1.73_m2} Low >60 [facility] Comment on above: mL/min/1.73m2 CKD-EP I Creatinine Equation (2020) LDL calc ser/plasOrdered By: Montana Shepard on 04-06-2025 Cholesterol in LDL [Mass/Vol] 50 mg/dL [facility] Comment on above: Obtymutfjn=710-722 m g/dL & Higher Dhcw=326 mg/dL or greaterFriedwald Equation for LDL-C Laboratory - Chemistry and C hemistry - challengeOrdered By: Montana Shepard on 04-06-2025 AST [Catalytic activity/Vol] 24 U/L <32 [facility] Lipid Profileon 04-06-2025 CHOL:HDL 2.54 Normal [facility] Comment on above: Performed By: #### L 500.4100, L500.3400 ####[facility] [address] [place], [address] Cholesterol [Mass/Vol] 124 mg/dL Normal <=200 [facility] Comment on above: Result Comment: Chol esterol level, Desirable <200 mg/dL Borderline high cholesterol 200-239 mg/dL High cholesterol >=240 mg/dL Recommendations of the NCEP Adult Treatment Panel for the following risk-cutoff thresholds for the [place] population. Performed By: #### L 500.4100, L500.3400 ####[facility] [address] [place], [address] Cholesterol in HDL [Mass/Vol] 49 mg/dL Normal [facility] Comment on above: Result Comment: Roseanna onal Cholesterol Education Program (NCEP) guidelines: <40 mg/dL: Low HDL-cholesterol (major risk factor for CHD) >= 60 mg/dL: High HDL-cholesterol (negative risk factor for CHD) HDL-cholesterol is affected by a number of factors, e.g. smoking, exercise, hormones, sex and age. Performed By: #### L 500.4100, L500.3400 ####[facility] [address] [place], [address] Cholesterol in LDL [Mass/Vol] 50 mg/dL Normal [facility] Comment on above: Result Comment: Bord hglagi=900-296 mg/dL Higher Qctu=200 mg/dL or greater Friedwald Equation for LDL-C Performed By: #### L 500.4100, L500.3400 ####[facility] [address] [place], [address] Cholesterol in VLDL [Mass/Vol] 26 mg/dL Normal 5-40 [facility] Comment on above: Performed By: #### L 500.4100, L500.3400 ####[facility] [address] [place], [address] Triglyceride [Mass/Vol] 128 mg/dL Normal [facility] Comment on above: Result Comment: The drugs N-Acetylcysteine and Metamizole may falsely depress this assay. Normal range: <150 mg/dL Borderline High: 150-199 mg/dL High: 200-499 mg/dL Very High: >500 mg/dL Performed By: #### L 500.4100, L500.3400 ####[facility] [address] [place], [address] Liver Profileon 04-06-2025 Albumin [Mass/Vol] 3.6 g/dL Normal 3.4-4.8 [facility] Comment on above: Performed By: #### L 500.4100, L500.3400 #### [facility] [address] [place], [address] ALK PHOS 117 U/L High 35-104 [facility] Comment on above: Performed By: #### L 500.4100, L500.3400 #### [facility] [address] [place], [address] ALT [Catalytic activity/Vol] 28 U/L Normal <=34 [facility] Comment on above: Performed By: #### L 500.4100, L500.3400 #### [facility] [address] [place], [address] AST [Catalytic activity/Vol] 24 U/L Normal <=31 [facility] Comment on above: Performed By: #### L 500.4100, L500.3400 #### [facility] [address] [place], [address] Bilirubin [Mass/Vol] 0.32 mg/dL Normal 0.00-1.30 [facility] Comment on above: Performed By: #### L 500.4100, L500.3400 #### [facility] [address] [place], [address] Bilirubin.direct [Mass/Vol] 0.15 mg/dL Normal 0.00-0.30 [facility] Comment on above: Performed By: #### L 500.4100, L500.3400 #### [facility] [address] [place], [address] Globulin (S) [Mass/Vol] 3.4 g/dL Normal 2.2-4.2 [facility] Comment on above: Performed By: #### L 500.4100, L500.3400 #### [facility] [address] [place], [address] T PROT 7.0 g/dL Normal 5.9-8.4 [facility] Comment on above: Performed By: #### L 500.4100, L500.3400 #### [facility] [address] [place], [address] Potassium measurement (mass/ volume)Ordered By: Maldonado Guillory on 04-06-2025 Potassium (Unsp spec) [Mass/Vol] 4.2 mmol/L 3.3-5.1 [facility] Screening total cholesterol/ high density lipoprotein (HDL) cholesterol ratioOrdered By: Montana Shepard on 04-06-2025 Cholesterol.total/Choles terol in HDL [Mass ratio] 2.54 {ratio} [facility] Serum creatinine measurement (mass/volume)Ordered By: Maldonado Guillory on 04-06-2025 Creatinine [Mass/Vol] 1.72 mg/dL High 0.70-1.20 [facility] Serum globulin measurementOr dered By: Montana Shepard on 04-06-2025 Globulin (S) [Mass/Vol] 3.4 g/dL 2.2-4.2 [facility] Serum glucose measurement (m ass/volume)Ordered By: Maldonado Guillory on 04-06-2025 Glucose [Mass/Vol] 292 mg/dL High 70-99 [facility] Serum or plasma alanine fletcher otransferase (ALT) measurementOrdered By: Montana Shepard on 04-06-2025 ALT [Catalytic activity/Vol] 28 U/L <35 [facility] Serum or plasma albumin josh urement (mass/volume)Ordered By: Montana Shepard on 04-06-2025 Albumin [Mass/Vol] 3.6 g/dL 3.4-4.8 [facility] Serum or plasma alkaline ambrose sphatase measurementOrdered By: Montana Shepard on 04-06-2025 ALP [Catalytic activity/Vol] 117 U/L High 35-104 [facility] Serum or plasma calcium josh urement (mass/volume)Ordered By: Maldonado Guillory on 04-06-2025 Calcium [Mass/Vol] 8.7 mg/dL 7.6-11.0 [facility] Serum or plasma cholesterol in HDL measurement (mass/volume)Ordered By: Montana Shepard on 04-06-2025 Cholesterol in HDL [Mass/Vol] 49 mg/dL >40 [facility] Comment on above: National Cholesterol Education Program (NCEP) guidelines:<40 mg/dL: Low HDL-cholesterol (major risk factor for CHD)>= 60 mg/dL: High HDL-cholesterol (negative risk factor for CHD)HDL-cholesterol is affected by a number of factors, e.g. smoking, exercise, hormones, sex and age. Serum or plasma cholesterol measurement (mass/volume)Ordered By: Montana Shepard on 04-06-2025 Cholesterol [Mass/Vol] 124 mg/dL <201 [facility] Comment on above: Cholesterol level, D esirable <200 mg/dLBorderline high cholesterol 200-239 mg/dLHigh cholesterol >=240 mg/dLRecommendations of the NCEP Adult Treatment Panel for the following risk-cutoff thresholds for the [place] population. Serum or plasma urea nitroge n measurement (mass/volume)Ordered By: Maldonado Guillory on 04-06-2025 Urea nitrogen [Mass/Vol] 41 mg/dL High 4-19 [facility] Sodium levelOrdered By: Farooq Guillory on 04-06-2025 Sodium [Moles/Vol] 133 mmol/L 133-145 [facility] Total proteinOrdered By: Elan Shepard on 04-06-2025 Protein [Mass/Vol] 7.0 g/dL 5.9-8.4 [facility] Triglycerides measurementOrd ered By: Montana Shepard on 04-06-2025 Triglyceride [Mass/Vol] 128 mg/dL <199 [facility] Comment on above: The drugs N-Acetylcy steine and Metamizole may falsely depress this assay. Normal range: <150 mg/dLBorderline High: 150-199 mg/dLHigh: 200-499 mg/dLVery High: >500 mg/dL Cardiology Visit Reporton Cardiology Visit Report [facility] [address] [place] [address] OFFICE VISIT Date of Service: 03/23/25 MR#: [id number] Acct: [id number] Name: CANDICE BARRY Rep #: [id number] : 1940 Provider: MAYTE Ash Age/Sex: 84/F Location: [facility] [place] [place] Status: Signed HPI HPI History of Present Illness Details: Candice Barry is an 84-year-old female who presents to office today for follow-up for monitoring her cardiovascular health. She has a history of hypertension, diabetes mellitus, previous tobacco abuse, status post cardiac catheterization in 2010 which demonstrated minimal coronary artery disease. She has a history of MATTHEW and is compliant with CPAP. Upon presentation today, patient reports fatigue and finds herself napping that is chronic. She is compliant with her CPAP. She reports low activity level secondary to LE pain and back problems. She reports b/l LE edema L>R that is chronic; however seems to have worsened recently. She has been diagnosed with gout related to this. She reports US was done and negative. She reports her SOB has improved some. She reports chronic nightly chest pain that is unchanged and has been noticed for years. She finds herself SOB with activity and at rest and with lying flat that is not reported to be new. Further ROS below. Intake Vital Signs 09/21/24 07:42 12/05/24 07:58 03/23/25 06:58 Height 5 ft 6 in 5 ft 9 in 5 ft 9 in Weight: 240 lb BMI 35.4 BP 116/69 Blood Pressure Location Lt brachial Position Sitting Respiration 22 H Pulse 78 Pulse Source Monitor Pulse Oximetry (%) 97 Intake Visit Reasons: 6 M FU Electronic Wirer Required: No Is patient in pain?: No Allergies acetaminophen (From Darvocet-N) Allergy (Severe, Verified 03/23/25 13:24) Unknown bupropion (From Wellbutrin) Allergy (Severe, Verified 03/23/25 13:24) Unknown gabapentin (From Neurontin) Allergy (Severe, Verified 03/23/25 13:24) Unknown pregabalin (From Lyrica) Allergy (Severe, Verified 03/23/25 13:24) Unknown propoxyphene (From Darvocet-N) Allergy (Severe, Verified 03/23/25 13:24) Unknown sulfadiazine Allergy (Severe, Verified 03/23/25 13:24) Unknown Medications ???Medication ???Instructions ???Recorded ???Confirmed ???Type insulin admin supplies (InPen (for #1 ea 07/26/17 12/05/24 History Novolog or Fiasp) subcutaneous) lorazepam 0.5 mg tablet (Ativan) 0.5 mg PO TID PRN anxiety 07/26/17 03/23/25 History simvastatin 20 mg tablet (Zocor) 20 mg PO QAM 07/26/17 03/23/25 His tory oxycodone-acetaminop hen 5 mg-325 1 tab PO Q8H PRN pain 05/09/2012/10 History mg tablet (Percocet) blood pressure cuff/machine #1 ea 01/03/21 12/05/24 Rx cholecalciferol (vitamin D3) 125 125 mcg PO DAILY 12/16/21 03/23/25 History mcg (5,000 unit) tablet albuterol sulfate 2.5 mg/3 mL 2.5 mg (3 mL) inhalation Q4H PRN 0 02/24/23 03/23/25 Rx (0.083 %) solution for nebulization shortness of breath or wheezing #180 mL insulin glargine 100 unit/mL (3 60 unit subcut DAILY 06/29/2312/10 History mL) subcutaneous pen spironolactone 25 mg tablet See Rx Instructions .Route 3 03/23/25 Rx Held on 03/23/25. .COMPLEX #90 tabs Instructions: hyperkalemia glipizide 10 mg tablet, extended 10 mg PO DAILY 09/21/23 03/23/25 H istory release 24 hr ascorbic acid (vitamin C) 250 mg 250 mg PO BID 11/03/23 03/23/25 Hi story tablet lisinopril 20 mg tablet 20 mg PO DAILY 11/03/23 03/23/25 H istory zinc glycinate 30 mg capsule 30 mg PO DAILY 11/03/23 12/05/24 H istory furosemide 40 mg tablet (Lasix) 40 mg PO DAILY #90 tabs 12/20/23 0 03/23/25 Rx fluticasone propionate 50 2 spray intranasal DAILY #16 grams 03/21/24 03/23/25 Rx mcg/actuation nasal spray,suspension ropinirole 2 mg tablet 2 mg PO QHS #90 tabs 03/21/2412/10 Rx tiotropium bromide 2.5 2 puff inhalation QDAY #3 ea 03/2112/05/24 Rx mcg/actuation mist for inhalation (Spiriva Respimat) metoprolol succinate 25 mg 25 mg PO QDAY 05/12/24 03/23/25 Hi story tablet,extended release 24 hr colchicine 0.6 mg capsule 0.6 mg PO BID 7 days #14 caps 09/1703/23/25 Rx guaifenesin 1,200 mg tablet, 1,200 mg PO Q12H #60 tabs 11/14/24 03/23/25 Rx extended release 12 hr semaglutide 1 mg/dose (4 mg/3 mL) mg subcut 11/14/24 12/05/24 Histo ry subcutaneous pen injector (Ozempic) allopurinol 100 mg tablet 50 mg PO QDAY 12/05/24 03/23/25 Hi story albuterol sulfate 90 mcg/actuation 2 puff inhalation Q4H PRN 03/23/25 Rx aerosol inhaler (Ventolin HFA) shortness of breath or wheezing #3 ea benzonatate 200 mg capsule 200 mg PO TID PRN cough #90 caps 0 01/08/25 03/23/25 Rx budesonide-formotero l HFA 160 2 puff inhalation BID #3 ea 03/23/25 R (more content not included)... Normal [facility] Absolute lymphocyte countOrd ered By: Ruperto Jesus on 03-20-2025 Lymphocytes Auto (Unsp spec) [#/Vol] 2.94 10*3/uL 0.83-4.51 [facility] Absolute neutrophil countOrd ered By: Ruperto Jesus on 03-20-2025 Neutrophils (Bld) [#/Vol] 7.1 10*3/uL 2.0-7.7 [facility] Anion gap in Serum or Plasma Ordered By: Ruperto Jesus on 03-20-2025 Anion gap [Moles/Vol] 13 mmol/L 5-15 [facility] Automated lymphocyte count a s percentage of total leukocytesOrdered By: Ruperto Jesus on 03-20-2025 Lymphocytes/100 WBC Auto (Unsp spec) 25.7 % 19-41 [facility] BUN/creatinine ratioOrdered By: Ruperto Jesus on 03-20-2025 Urea nitrogen/Creatinine [Mass ratio] 28.8 mg/mg High 10- [facility] Basic Metabolic Profile (BMP )on 03-20-2025 BUN/CRE 28.8 RATIO High [facility] Comment on above: Performed By: #### L 500.2500, L501.1400, L500.4100, L502.0250, L100.0100 #### [facility] [address] [place], [address] Calcium [Mass/Vol] 9.5 mg/dL Normal 7.6-11.0 [facility] Comment on above: Performed By: #### L 500.2500, L501.1400, L500.4100, L502.0250, L100.0100 #### [facility] [address] [place], [address] Chloride [Moles/Vol] 103 mmol/L Normal 98-108 [facility] Comment on above: Performed By: #### L 500.2500, L501.1400, L500.4100, L502.0250, L100.0100 #### [facility] [address] [place], [address] CO2 [Moles/Vol] 20.3 mmol/L Low 21.0-32.0 [facility] Comment on above: Performed By: #### L 500.2500, L501.1400, L500.4100, L502.0250, L100.0100 #### [facility] [address] [place], [address] Creatinine [Mass/Vol] 2.04 mg/dL High 0.70-1.20 [facility] Comment on above: Performed By: #### L 500.2500, L501.1400, L500.4100, L502.0250, L100.0100 #### [facility] [address] [place], [address] GAP 13 Normal 5-15 [facility] Comment on above: Performed By: #### L 500.2500, L501.1400, L500.4100, L502.0250, L100.0100 #### [facility] [address] [place], [address] GFR/1.73 sq M.predicted among non-blacks MDRD (S/P/Bld) [Vol rate/Area] 23 mL/min/{1.73_m2} Low >60 [facility] Comment on above: Result Comment: mL/m in/1.73m2 CKD-EPI Creatinine Equation (2020) Performed By: #### L 500.2500, L501.1400, L500.4100, L502.0250, L100.0100 #### [facility] [address] [place], [address] Glucose [Mass/Vol] 106 mg/dL High 70-99 [facility] Comment on above: Performed By: #### L 500.2500, L501.1400, L500.4100, L502.0250, L100.0100 #### [facility] [address] [place], [address] Potassium [Moles/Vol] 5.2 mmol/L High 3.3-5.1 [facility] Comment on above: Performed By: #### L 500.2500, L501.1400, L500.4100, L502.0250, L100.0100 #### [facility] [address] [place], [address] Sodium [Moles/Vol] 136 mmol/L Normal 133-145 [facility] Comment on above: Performed By: #### L 500.2500, L501.1400, L500.4100, L502.0250, L100.0100 #### [facility] [address] [place], [address] Urea nitrogen [Mass/Vol] 59 mg/dL High 4-19 [facility] Comment on above: Performed By: #### L 500.2500, L501.1400, L500.4100, L502.0250, L100.0100 #### [facility] [address] [place], [address] Basophil percentageOrdered B y: Ruperto Jesus on 03-20-2025 Basophils/100 WBC (Bld) 1.3 % High 0-1 [facility] CBC W/Diff, Automatedon Absolute Lymph 2.94 X10 3/uL Normal 0.83-4.51 [facility] Comment on above: Performed By: #### L 500.2500, L501.1400, L500.4100, L502.0250, L100.0100 #### [facility] [address] [place], [address] Absolute Neut 7.1 X10 3/uL Normal 2.0-7.7 [facility] Comment on above: Performed By: #### L 500.2500, L501.1400, L500.4100, L502.0250, L100.0100 #### [facility] [address] [place], [address] Basophils/100 WBC (Bld) 1.3 % High 0-1 [facility] Comment on above: Performed By: #### L 500.2500, L501.1400, L500.4100, L502.0250, L100.0100 #### [facility] [address] [place], [address] Eosinophils/100 WBC (Bld) 4.7 % Normal 0-5 [facility] Comment on above: Performed By: #### L 500.2500, L501.1400, L500.4100, L502.0250, L100.0100 #### [facility] [address] [place], [address] Erythrocyte distribution width (RBC) [Ratio] 14.6 % Normal 11.6-14.6 [facility] Comment on above: Performed By: #### L 500.2500, L501.1400, L500.4100, L502.0250, L100.0100 #### [facility] [address] [place], [address] Hematocrit (Bld) [Volume fraction] 37.9 % Normal 37-47 [facility] Comment on above: Performed By: #### L 500.2500, L501.1400, L500.4100, L502.0250, L100.0100 #### [facility] [address] [place], [address] Hemoglobin (Bld) [Mass/Vol] 11.9 g/dL Low 12.0-15.0 [facility] Comment on above: Performed By: #### L 500.2500, L501.1400, L500.4100, L502.0250, L100.0100 #### [facility] [address] [place], [address] IG% 0.900 Normal 0.0-0.9 [facility] Comment on above: Result Comment: IG% - Immature Granulocytes (promyelocytes, myelocytes and metamyelocytes) > 1% indicates that a LEFT SHIFT is Present. Performed By: #### L 500.2500, L501.1400, L500.4100, L502.0250, L100.0100 #### [facility] [address] [place], [address] Lymphocytes/100 WBC (Bld) 25.7 % Normal 19-41 [facility] Comment on above: Performed By: #### L 500.2500, L501.1400, L500.4100, L502.0250, L100.0100 #### [facility] [address] [place], [address] MCH (RBC) [Entitic mass] 26.8 pg Low 27.0-32.0 [facility] Comment on above: Performed By: #### L 500.2500, L501.1400, L500.4100, L502.0250, L100.0100 #### [facility] [address] [place], [address] MCHC (RBC) [Mass/Vol] 31.4 g/dL Low 32-36 [facility] Comment on above: Performed By: #### L 500.2500, L501.1400, L500.4100, L502.0250, L100.0100 #### [facility] [address] [place], [address] MCV (RBC) [Entitic vol] 85.4 fL Normal 81-99 [facility] Comment on above: Performed By: #### L 500.2500, L501.1400, L500.4100, L502.0250, L100.0100 #### [facility] [address] [place], [address] Monocytes/100 WBC (Bld) 5.6 % Normal 0-10 [facility] Comment on above: Performed By: #### L 500.2500, L501.1400, L500.4100, L502.0250, L100.0100 #### [facility] [address] [place], [address] Neutrophils/100 WBC (Bld) 61.8 % Normal 47-70 [facility] Comment on above: Performed By: #### L 500.2500, L501.1400, L500.4100, L502.0250, L100.0100 #### [facility] [address] [place], [address] Nucleated RBC (Bld) [#/Vol] 0 10*3/uL Normal 0-5 [facility] Comment on above: Performed By: #### L 500.2500, L501.1400, L500.4100, L502.0250, L100.0100 #### [facility] [address] [place], [address] Platelet mean volume (Bld) [Entitic vol] 11.0 fL Normal 6.2-12.0 [facility] Comment on above: Performed By: #### L 500.2500, L501.1400, L500.4100, L502.0250, L100.0100 #### [facility] [address] [place], [address] Platelets (Bld) [#/Vol] 311 10*3/uL Normal 150-450 [facility] Comment on above: Performed By: #### L 500.2500, L501.1400, L500.4100, L502.0250, L100.0100 #### [facility] [address] [place], [address] RBC (Bld) [#/Vol] 4.44 10*6/uL Normal 4.2-5.4 [facility] Comment on above: Performed By: #### L 500.2500, L501.1400, L500.4100, L502.0250, L100.0100 #### [facility] [address] [place], [address] RDW SD 45.6 fl High 35.1-43.9 [facility] Comment on above: Performed By: #### L 500.2500, L501.1400, L500.4100, L502.0250, L100.0100 #### [facility] [address] [place], [address] WBC (Bld) [#/Vol] 11.5 10*3/uL High 4.4-11.0 [facility] Comment on above: Performed By: #### L 500.2500, L501.1400, L500.4100, L502.0250, L100.0100 #### [facility] [address] [place], [address] Calculated very low density lipoprotein (VLDL) cholesterol measurementOrdered By: Ruperto Jesus on 03-20-2025 Calculated very low density lipoprotein (VLDL) cholesterol measurement 23 mg/dL 5-40 [facility] Carbon dioxide, total [Moles /volume] in Central venous bloodOrdered By: Ruperto Jesus on 03-20-2025 CO2 [Moles/Vol] 20.3 mmol/L Low 21.0-32.0 [facility] Chloride assayOrdered By: Robbi Jesus on 03-20-2025 Chloride [Moles/Vol] 103 mmol/L 98-108 [facility] Eosinophil percentageOrdered By: Ruperto Jesus on 03-20-2025 Eosinophils/100 WBC (Bld) 4.7 % 0-5 [facility] Erythrocyte distribution wid th ratioOrdered By: Ruperto Jesus on 03-20-2025 Erythrocyte distribution width (RBC) [Ratio] 14.6 % 11.6-14.6 [facility] Erythrocyte distribution wid th standard deviationOrdered By: Ruperto Jesus on 03-20-2025 Erythrocyte distribution width (RBC) [Ratio] 45.6 fl High 35.1-43.9 [facility] Glomerular filtration rate ( GFR) estimation/1.73 sq m using serum, plasma, or whole bOrdered By: Ruperto Jesus on 03-20-2025 GFR/1.73 sq M.predicted among non-blacks MDRD (S/P/Bld) [Vol rate/Area] 23 mL/min/{1.73_m2} Low >60 [facility] Comment on above: mL/min/1.73m2 CKD-EP I Creatinine Equation (2020) Hematocrit Auto (Bld) [Volum e fraction]Ordered By: Ruperto Jesus on 03-20-2025 Hematocrit (Bld) [Volume fraction] 37.9 % 37-47 [facility] Hemoglobin measurementOrdere d By: Ruperto Jesus on 03-20-2025 Hemoglobin (Bld) [Mass/Vol] 11.9 g/dL Low 12.0-15.0 [facility] Immature granulocytes/100 WB C Auto (Bld)Ordered By: Ruperto Jesus on 03-20-2025 Immature granulocytes/100 WBC (Bld) 0.900 % 0.0-0.9 [facility] Comment on above: IG% - Immature Granu locytes (promyelocytes, myelocytes and metamyelocytes) > 1% indicates that a LEFT SHIFT is Present. LDL calc ser/plasOrdered By: Ruperto Jesus on 03-20-2025 Cholesterol in LDL [Mass/Vol] 55 mg/dL [facility] Comment on above: Ssphvhwnyi=757-825 m g/dL & Higher Qznl=940 mg/dL or greaterFriedwald Equation for LDL-C Lipid Profileon 03-20-2025 CHOL:HDL 2.54 Normal [facility] Comment on above: Performed By: #### L 500.2500, L501.1400, L500.4100, L502.0250, L100.0100 #### [facility] [address] [place], [address] Cholesterol [Mass/Vol] 128 mg/dL Normal <=200 [facility] Comment on above: Result Comment: Chol esterol level, Desirable <200 mg/dL Borderline high cholesterol 200-239 mg/dL High cholesterol >=240 mg/dL Recommendations of the NCEP Adult Treatment Panel for the following risk-cutoff thresholds for the [place] population. Performed By: #### L 500.2500, L501.1400, L500.4100, L502.0250, L100.0100 #### [facility] [address] [place], [address] Cholesterol in HDL [Mass/Vol] 50 mg/dL Normal [facility] Comment on above: Result Comment: Roseanna onal Cholesterol Education Program (NCEP) guidelines: <40 mg/dL: Low HDL-cholesterol (major risk factor for CHD) >= 60 mg/dL: High HDL-cholesterol (negative risk factor for CHD) HDL-cholesterol is affected by a number of factors, e.g. smoking, exercise, hormones, sex and age. Performed By: #### L 500.2500, L501.1400, L500.4100, L502.0250, L100.0100 #### [facility] [address] [place], [address] Cholesterol in LDL [Mass/Vol] 55 mg/dL Normal [facility] Comment on above: Result Comment: Bord bxmlbb=180-834 mg/dL Higher Fjwn=860 mg/dL or greater Friedwald Equation for LDL-C Performed By: #### L 500.2500, L501.1400, L500.4100, L502.0250, L100.0100 #### [facility] [address] [place], [address] Cholesterol in VLDL [Mass/Vol] 23 mg/dL Normal 5-40 [facility] Comment on above: Performed By: #### L 500.2500, L501.1400, L500.4100, L502.0250, L100.0100 #### [facility] [address] [place], [place], [id number] (838) Triglyceride [Mass/Vol] 113 mg/dL Normal [facility] Comment on above: Result Comment: The drugs N-Acetylcysteine and Metamizole may falsely depress this assay. Normal range: <150 mg/dL Borderline High: 150-199 mg/dL High: 200-499 mg/dL Very High: >500 mg/dL Performed By: #### L 500.2500, L501.1400, L500.4100, L502.0250, L100.0100 #### [facility] [address] [place], [address] MCV (mean corpuscular volume ) determinationOrdered By: Ruperto Jesus on 03-20-2025 MCV (RBC) [Entitic vol] 85.4 fL 81-99 [facility] Mean corpuscular hemoglobin (MCH) determinationOrdered By: Ruperto Jesus on 03-20-2025 MCH (RBC) [Entitic mass] 26.8 pg Low 27.0-32.0 [facility] Mean corpuscular hemoglobin concentration (MCHC) determinationOrdered By: Ruperto Jesus on 03-20-2025 MCHC (RBC) [Mass/Vol] 31.4 g/dL Low 32-36 [facility] Mean platelet volume determi nationOrdered By: Ruperto Jesus on 03-20-2025 Platelet mean volume (Bld) [Entitic vol] 11.0 fL 6.2-12.0 [facility] Microalb:Creat Ratio,Random URon 03-20-2025 Creatinine [Mass/Vol] 80.40 mg/dL Normal 28.00-217.00 [facility] Comment on above: Performed By: #### L 500.2500, L501.1400, L500.4100, L502.0250, L100.0100 #### [facility] [address] [place], [address] MALB:CREAT UNABLE TO CALCULATE Normal <30 mg/g CRE [facility] Comment on above: Performed By: #### L 500.2500, L501.1400, L500.4100, L502.0250, L100.0100 #### [facility] [address] [place], [address] MICROALBUMIN,UR < 12.0 Normal <20 mg/L [facility] Comment on above: Performed By: #### L 500.2500, L501.1400, L500.4100, L502.0250, L100.0100 #### [facility] [address] [place], [address] Microalbumin/creat ratio urO rdered By: Ruperto Jesus on 03-20-2025 Urine microalbumin/creatinine ratio measurement UNABLE TO CALCULATE mg/g CRE <30 [facility] Monocyte percentageOrdered B y: Ruperto Jesus on 03-20-2025 Monocytes/100 WBC (Bld) 5.6 % 0-10 [facility] Neutrophil percentageOrdered By: Ruperto Jesus on 03-20-2025 Neutrophils/100 WBC (Bld) 61.8 % 47-70 [facility] Nucleated red blood cell per centageOrdered By: Ruperto Jesus on 03-20-2025 Nucleated RBC/100 WBC (Bld) [Ratio] 0 % 0-5 [facility] Platelet countOrdered By: Robbi Jesus on 03-20-2025 Platelets (Bld) [#/Vol] 311 10*3/uL 150-450 [facility] Potassium measurement (mass/ volume)Ordered By: Ruperto Jseus on 03-20-2025 Potassium (Unsp spec) [Mass/Vol] 5.2 mmol/L High 3.3-5.1 [facility] RBC Auto (Bld) [#/Vol]Ordere d By: Ruperto Jesus on 03-20-2025 RBC (Bld) [#/Vol] 4.44 10*6/uL 4.2-5.4 [facility] Random urine creatinine josh urement (mass/volume)Ordered By: Ruperto Jesus on 03-20-2025 Creatinine Unsp time (U) [Mass/Vol] 80.40 mg/dL 28.00-217.00 [facility] Screening total cholesterol/ high density lipoprotein (HDL) cholesterol ratioOrdered By: Ruperto Jesus on 03-20-2025 Cholesterol.total/Choles terol in HDL [Mass ratio] 2.54 {ratio} [facility] Serum creatinine measurement (mass/volume)Ordered By: Ruperto Jesus on 03-20-2025 Creatinine [Mass/Vol] 2.04 mg/dL High 0.70-1.20 [facility] Serum glucose measurement (m ass/volume)Ordered By: Ruperto Jesus on 03-20-2025 Glucose [Mass/Vol] 106 mg/dL High 70-99 [facility] Serum or plasma calcium josh urement (mass/volume)Ordered By: Ruperto Jesus on 03-20-2025 Calcium [Mass/Vol] 9.5 mg/dL 7.6-11.0 [facility] Serum or plasma cholesterol in HDL measurement (mass/volume)Ordered By: Ruperto Jesus on 03-20-2025 Cholesterol in HDL [Mass/Vol] 50 mg/dL >40 [facility] Comment on above: National Cholesterol Education Program (NCEP) guidelines:<40 mg/dL: Low HDL-cholesterol (major risk factor for CHD)>= 60 mg/dL: High HDL-cholesterol (negative risk factor for CHD)HDL-cholesterol is affected by a number of factors, e.g. smoking, exercise, hormones, sex and age. Serum or plasma cholesterol measurement (mass/volume)Ordered By: Ruperto Jesus on 03-20-2025 Cholesterol [Mass/Vol] 128 mg/dL <201 [facility] Comment on above: Cholesterol level, D esirable <200 mg/dLBorderline high cholesterol 200-239 mg/dLHigh cholesterol >=240 mg/dLRecommendations of the NCEP Adult Treatment Panel for the following risk-cutoff thresholds for the [place] population. Serum or plasma urea nitroge n measurement (mass/volume)Ordered By: Ruperto Jesus on 03-20-2025 Urea nitrogen [Mass/Vol] 59 mg/dL High 4-19 [facility] Serum or plasma uric acid me asurement (mass/volume)Ordered By: Ruperto Jesus on 03-20-2025 Urate [Mass/Vol] 8.4 mg/dL High 2.6-6.0 [facility] Comment on above: The drugs N-Acetylcy steine and Metamizole may falsely depress this assay. Sodium levelOrdered By: Ruperto Jesus on 03-20-2025 Sodium [Moles/Vol] 136 mmol/L 133-145 [facility] Triglycerides measurementOrd ered By: Ruperto Jesus on 03-20-2025 Triglyceride [Mass/Vol] 113 mg/dL <199 [facility] Comment on above: The drugs N-Acetylcy steine and Metamizole may falsely depress this assay. Normal range: <150 mg/dLBorderline High: 150-199 mg/dLHigh: 200-499 mg/dLVery High: >500 mg/dL Uric Acidon 03-20-2025 URIC 8.4 mg/dL High 2.6-6.0 [facility] Comment on above: Result Comment: The drugs N-Acetylcysteine and Metamizole may falsely depress this assay. Performed By: #### L 500.2500, L501.1400, L500.4100, L502.0250, L100.0100 #### [facility] [address] [place], [place], [address] Urine albumin measurement wi detection limit of 20 mg/L or less (mass/volume)Ordered By: Ruperto Jesus on 03-20-2025 Albumin DL <= 20 mg/L (U) [Mass/Vol] < 12.0 mg/L <20 mg/L [facility] White blood cell (WBC) count Ordered By: Ruperto Jesus on 03-20-2025 WBC (Bld) [#/Vol] 11.5 10*3/uL High 4.4-11.0 [facility] Pulmonary Visit Reporton Pulmonary Visit Report [facility] [address] [place], [place] [address] OFFICE VISIT Date of Service: 12/05/24 MR#: [id number] Acct: [id number] Name: CANDICE BARRY Rep #: [id number] : 1940 Provider: MARIBEL Espana Age/Sex: 84/F Location: [facility] [place] [place].PMW Status: Signed Assessment and Plan Assessment and Plan (1) MATTHEW (obstructive sleep apnea): Status: Chronic Comment: CPAP of 15 cm water Plan: She is using and benefiting from Pap therapy. No indication for titration study at this time. Continue to encourage weight loss. Contact the office for any new or worsening symptoms in the meantime. Follow-up in April. (2) COPD (chronic obstructive pulmonary disease): Status: Chronic Qualifiers: COPD type: emphysema Emphysema type: centrilobular Qualified Code(s): J43.2 - Centrilobular emphysema Plan: She does not appear to be an exacerbation of COPD today. No need for prednisone or antibiotic. Continue current maintenance medication, continue triple therapy with the use of Symbicort and Spiriva. No additional testing at this time. Contact the office for any new or worsening symptoms. An acute visit and typically be arranged within 1-2 days. Follow-up in April. (3) Chronic diastolic (congestive) heart failure: Status: Chronic Plan: Complicates exam, plan, care and prognosis. (4) Morbid obesity: Status: Chronic Plan: Complicates exam, plan, care and prognosis. Continue to encourage weight loss. Plan Details Additional Comments: This note was generated with [employer] dictation software. It may contain incorrect words, spelling, and punctuation that were not noted in checking the note before signing. Follow Up: 04/18/25 HPI 3 wk fu Chief Complaint: Follow-up after recent exacerbation HPI Comments Details: This patient presents to the office today for follow-up of her emphysema and obstructive sleep apnea. She is ambulatory and currently accompanied by her daughter. She has not recently been seen in the ED or urgent care for any respiratory illness. She has not required any antibiotics or prednisone for any breathing problems. She is compliant with use of Symbicort 2 puffs twice daily. She does report rinsing her mouth out after each use. She denies any medication side effect such as sore throat or thrush. She is also compliant with Flonase and Spiriva daily. She typically uses albuterol in the nebulizer twice daily. She has shortness of breath on exertion. It has nearly returned to baseline. She denies any cough, sputum production or hemoptysis. She is wheezing more frequently and experiencing chest congestion, chest tightness. She denies any chest pain. She denies any fever, chills or body aches. She wakes up feeling rested and refreshed with the use of her Pap device. She has not experiencing excessive nocturia. She does occasionally have some dry mouth. She is also experiencing mask leak. She is not having morning headaches. Compliance report for the past 30 days shows 100 % compliance and average use of 6 hours and 3 minutes per night. Current setting is 15 cm of water with a residual AHI of 1.7 events per hour. Leaks do appear to be occurring apparently frequently. Intake Vital Signs 11/14/24 08:38 12/05/24 07:58 Height 5 ft 9 in 5 ft 9 in Weight: 242 lb 242 lb BMI 35.7 35.7 BP 122/69 H 110/75 Blood Pressure Location Lt brachial Lt brachial Position Sitting Sitting Respiration 18 20 H Pulse 83 88 Pulse Source Monitor Monitor Temp 97.3 F L 97.4 F L Temperature Source Temporal Artery Temporal Artery Pulse Oximetry (%) 98 98 Oxygen Delivery Method room air room air Intake Visit Reasons: 3 wk fu Chief Complaint: Initial visit Electronic Wirer Required: No KATH Vendor: Isidra Accompanied by: Daughter Allergies acetaminophen (From Darvocet-N) Allergy (Severe, Verified 12/05/24 11:08) Unknown bupropion (From Wellbutrin) Allergy (Severe, Verified 12/05/24 11:08) Unknown gabapentin (From Neurontin) Allergy (Severe, Verified 12/05/24 11:08) Unknown pregabalin (From Lyrica) Allergy (Severe, Verified 12/05/24 11:08) Unknown propoxyphene (From Darvocet-N) Allergy (Severe, Verified 12/05/24 11:08) Unknown sulfadiazine Allergy (Severe, Verified 12/05/24 11:08) Unknown Medications ???Medication ???Instructions ???Recorded ???Confirmed ???Type insulin admin supplies (InPen (for #1 ea 07/26/17 12/05/24 History Novolog or Fiasp) subcutaneous) lorazepam 0.5 mg tablet (Ativan) 0.5 mg PO TID PRN anxiety 07/26/17 12/05/24 History simvastatin 20 mg tablet (Zocor) 20 mg PO QAM 07/26/17 12/05/24 His tory oxycodone-acetaminop hen 5 mg-325 1 tab PO Q8H PRN pain 05/09/20 History mg tablet (Percocet) blood pressure cuff/machine #1 ea 01/03/2112/05 (more content not included)... Normal [facility] Pulmonary Visit Reporton Pulmonary Visit Report [facility] [address] [place] [address] OFFICE VISIT Date of Service: 11/14/24 MR#: [id number] Acct: [id number] Name: CANDICE BARRY Rep #: [id number] : 1940 Provider: MARIBEL Espana Age/Sex: 84/F Location: [facility] [place] [place].PMW Status: Signed Assessment and Plan Assessment and Plan (1) MATTHEW (obstructive sleep apnea): Status: Chronic Comment: CPAP of 15 cm water Plan: She is using and benefiting from Pap therapy. No indication for titration study at this time. Contact the office for any new or worsening symptoms in the meantime. (2) COPD (chronic obstructive pulmonary disease): Status: Chronic Qualifiers: COPD type: emphysema Emphysema type: centrilobular Qualified Code(s): J43.2 - Centrilobular emphysema Plan: Deteriorated. She does appear to be in exacerbation today. Placing her on doxycycline for 10 days and a prednisone taper for 12 days. Also putting her on Mucinex 1200 mg ER twice daily, ordering Tessalon Perles. Continue current maintenance medication, continue triple therapy with the use of Symbicort and Spiriva. No additional testing at this time. Contact the office for any new or worsening symptoms. An acute visit and typically be arranged within 1-2 days. Follow-up in 3 weeks. (3) Chronic diastolic (congestive) heart failure: Status: Chronic Plan: Complicates exam, plan, care and prognosis. (4) Morbid obesity: Status: Chronic Plan: Complicates exam, plan, care and prognosis. Continue to encourage weight loss. Medications: New guaifenesin ER 1,200 mg PO Q12H 60 tabs 6RF doxycycline hyclate 100 mg PO BID 20 tabs 0RF benzonatate 200 mg PO TID PRN 90 caps 0RF cough prednisone take 4 tabs for three days, then 3 tabs for three days, then 2 tabs for three days, then 1 tab for 3 days 10 mg PO QDAY 12 days 30 tabs 0RF Plan Details Additional Comments: This note was generated with Enubila dictation software. It may contain incorrect words, spelling, and punctuation that were not noted in checking the note before signing. Follow Up: 3 Weeks HPI HPI Comments Details: This patient presents to the office today for follow-up of her emphysema and obstructive sleep apnea. She is ambulatory and currently accompanied by her daughter. She has not recently been seen in the ED or urgent care for any respiratory illness. She has not required any antibiotics or prednisone for any breathing problems. She is compliant with use of Symbicort 2 puffs twice daily. She does report rinsing her mouth out after each use. She denies any medication side effect such as sore throat or thrush. She is also compliant with Flonase and Spiriva daily. She probably uses the albuterol 2 times per day. She typically uses albuterol in the nebulizer twice daily. She continues complete smoking cessation. She is compliant with Lasix 40 mg daily and is maintaining a low-sodium diet. She has noticed increasing shortness of breath over the past 2 weeks. She noticed a cough productive of clear-colored thick sputum over the past week. She denies any hemoptysis. She is wheezing more frequently and experiencing chest congestion, chest tightness. She denies any chest pain. She denies any fever, chills or body aches. She wakes up feeling rested and refreshed with the use of her Pap device. She has not experiencing excessive nocturia. She does occasionally have some dry mouth. She is also experiencing mask leak. She is not having morning headaches. Compliance report for the past 30 days shows 100 % compliance and average use of 5 hours and 46 minutes per night. Current setting is 15 cm of water with a residual AHI of 1.2 events per hour. Leaks do appear to be occurring apparently frequently. Intake Vital Signs 05/12/24 07:57 11/14/24 08:38 Height 5 ft 6 in 5 ft 9 in Weight: 242 lb BMI 35.7 BP 122/69 H Blood Pressure Location Lt brachial Position Sitting Respiration 18 Pulse 83 Pulse Source Monitor Temp 97.3 F L Temperature Source Temporal Artery Pulse Oximetry (%) 98 Oxygen Delivery Method room air Intake Visit Reasons: 6 M FU Chief Complaint: Initial visit Electronic Wirer Required: No DME Vendor: Isidra Accompanied by: Daughter Allergies acetaminophen (From Darvocet-N) Allergy (Severe, Verified 11/14/24 14:33) Unknown bupropion (From Wellbutrin) Allergy (Severe, Verified 11/14/24 14:33) Unknown gabapentin (From Neurontin) Allergy (Severe, Verified 11/14/24 14:33) Unknown pregabalin (From Lyrica) Allergy (Severe, Verified 11/14/24 14:33) Unknown propoxyphene (From Darvocet-N) Allergy (Severe, Verified 11/14/24 14:33) Unknown sulfadiazine Allergy (Severe, Verified 11/14/24 14:33) Unknown Medications ???Medication ???Instructions ???Recorded ???Con (more content not included)... Normal [facility] Emergency Department Summary on 10-09-2024 Emergency Department Summary [facility] Medical Records Department [address] [place] [address] Emergency Department Summary 10/09/24 MR#: [id number] Acct: [id number] Name: CANDICE BARRY Rep #: [id number] : 1940 84 From: Homero Galvan DO PCP: Dr. Ruperto Jesus, DO Status:DEP ER Location: ED HPI History of Present Illness Chief Complaint: Edema Informant: patient and friend Narrative Narrative: Patient is an 84-year-old female with past medical history of congestive heart failure hypertension hyperlipidemia type 2 diabetes and COPD. She states that over the last 1 to 2 days she has been developing increasing pain and swelling of the left leg compared to right. She states that there has been no recent trauma. She denies any history of DVT. She states that initially she noticed pain in the left ankle which made it difficult to stand and walk or even put her shoe on. She states that the area then turned red and warm and then she noticed some swelling throughout the leg. She denies any fevers or chills or trauma. She states there is no chest pain or shortness of breath or pleuritic chest pain however with concern potential DVT as a cause of her symptoms she presents for evaluation [facility] Medical History Chronic diastolic (congestive) heart failure Type 2 diabetes mellitus Anxiety and depression Fibromyalgia Hyperlipidemia Essential (primary) hypertension TIA (transient ischemic attack) MATTHEW (obstructive sleep apnea) Emphysema, unspecified Morbid obesity Diabetic neuropathy Tobacco use disorder COPD (chronic obstructive pulmonary disease) Home Medications ???Medication ???Instructions ???Recorded ???Last Taken ???Type insulin admin supplies (InPen (for #1 ea 07/26/17 Unknown History Novolog or Fiasp) subcutaneous) lorazepam 0.5 mg tablet (Ativan) 0.5 mg PO TID PRN anxiety 07/26/17 Unknown History simvastatin 20 mg tablet (Zocor) 20 mg PO QAM 07/26/17 Unknown Hist ory oxycodone-acetaminop hen 5 mg-325 1 tab PO Q8H PRN pain 05/09/20 Unk nown History mg tablet (Percocet) blood pressure cuff/machine #1 ea 01/03/21 Unknown Rx hydroxyzine HCl 25 mg tablet 12.5 - 50 mg PO TID-QID PRN itchin g 09/29/21 Unknown History cholecalciferol (vitamin D3) 125 125 mcg PO DAILY 12/16/21 Unknown History mcg (5,000 unit) tablet albuterol sulfate 2.5 mg/3 mL 2.5 mg (3 mL) inhalation Q4H PRN 0 02/24/23 Unknown Rx (0.083 %) solution for nebulization shortness of breath or wheezing #180 mL insulin glargine 100 unit/mL (3 60 unit subcut DAILY 06/29/23 Unkn own History mL) subcutaneous pen spironolactone 25 mg tablet See Rx Instructions .Route 3 Unknown Rx .COMPLEX #90 tabs glipizide 10 mg tablet, extended 10 mg PO DAILY 09/21/23 10/29/23 H istory release 24 hr ascorbic acid (vitamin C) 250 mg 250 mg PO BID 11/03/23 Unknown His tory tablet lisinopril 20 mg tablet 20 mg PO DAILY 11/03/23 Unknown Hi story zinc glycinate 30 mg capsule 30 mg PO DAILY 11/03/23 Unknown Hi story furosemide 40 mg tablet (Lasix) 40 mg PO DAILY #90 tabs 12/20/23 U nknown Rx albuterol sulfate 90 mcg/actuation 2 puff inhalation Q4H PRN Unknown Rx aerosol inhaler (Ventolin HFA) shortness of breath or wheezing #3 ea budesonide-formotero l HFA 160 2 puff inhalation BID #3 ea Unknown Rx mcg-4.5 mcg/actuation aerosol inhaler (Symbicort) fluticasone propionate 50 2 spray intranasal DAILY #16 grams 03/21/24 Unknown Rx mcg/actuation nasal spray,suspension ropinirole 2 mg tablet 2 mg PO QHS #90 tabs 03/21/24 Unkn own Rx tiotropium bromide 2.5 2 puff inhalation QDAY #3 ea 03/21 Unknown Rx mcg/actuation mist for inhalation (Spiriva Respimat) metoprolol succinate 25 mg 25 mg PO QDAY 05/12/24 Unknown His tory tablet,extended release 24 hr semaglutide 0.25 mg or 0.5 mg (2 mg subcut 05/12/24 Unknown History mg/3 mL) subcutaneous pen injector (Ozempic) colchicine 0.6 mg capsule 0.6 mg PO BID 7 days #14 caps 09/17 11/10 Unknown Rx Allergy/AdvReac Type Severity Reaction Status Date / Time acetaminophen (From Allergy Severe Unknown Verified 10/08/24 21:44 Darvocet-N) bupropion (From Wellbutrin) Allergy Severe Unknown Verified 10/08/24 21:44 gabapentin (From Neurontin) Allergy Severe Unknown Verified 10/08/24 21:44 pregabalin (From Lyrica) Allergy Severe Unknown Verified 10/08/24 21:44 propoxyphene (From Allergy Severe Unknown Verified 10/08/24 21:44 Darvocet-N) sulfadiazine Allergy Severe Unknown Verified 10/08/24 21:44 Family History Father CAD (coronary artery disease) Surgical History H (more content not included)... Normal [facility] L509.7001on 10-09-2024 Procalcitonin 0.07 ng/mL Normal <=0.10 [facility] Comment on above: Result Comment: Inte rpretation: <0.10-0.25 ng/mL: Antibiotic therapy discouraged. Bacterial infection unlikely. 0.25-0.50 ng/mL: Antibiotic therapy encouraged. Bacterial infection possible. >0.50 ng/mL: Antibiotic therapy strongly encouraged. Suggestive of presence of bacterial infection. PCT should always be interpreted in the clinical context of the patient. Therefore, clinicians should use the PCT results in conjunction with other laboratory findings and clinical signs of the patient. Performed By: #### L 503.6005, L100.0100, L501.1400, L509.7001, L500.2500 ####[facility] [address] [place], [address] Venous Duplex US, Unilateral on 10-09-2024 Venous Duplex US, Unilateral [facility] [address] [place] [address] Venous Duplex US, Unilateral 10/09/24 1423 MR#: [id number] Acct: [id number] Name: CANDICE BARRY Rep #: [id number] : 1940 84 From: Ernst Kidd MD Attending Dr: Homero Galvan DO Status: REG CLI Ordering Dr: Homero Galvan DO Date: 10/09/24 Location: [facility] Sex: F C Admitted: Reason For Study Reason For Study: Swelling LLE RIGHT LEFT CFV is compressible, spontaneous, phasic, competent GSV is normal. and demonstrates normal augmentation. CFV is compressible, spontaneous, phasic, competent, Procedure and demonstrates normal augmentation. This is a venous duplex using B-mode, color flow and FV is compressible, spontaneous, phasic, competent spectral Doppler. and demonstrates normal augmentation. Exam performed in department. POP V is compressible, spontaneous, phasic, competent A preliminary report was called and/or faxed to and demonstrates normal augmentation. Ann Marie. T/P Trunk is compressible. PTV is compressible. LT PerV is compressible. VL/Venous Duplex US, Unilateral Interpretation Summary Deep veins of the left lower extremity are patent and compressible segmentally. There is no evidence of left lower extremity deep vein thrombosis. Valvular competence appears intact within the proximal deep venous system on the left . The left great saphenous vein appears patent and compressible segmentally. The right common femoral vein is patent and compressible . Ordering Physician: Homero Galvan Referring Physician: Ruperto Jesus Performed By: Merna Hannah, RDCS, RVT 10/09/242327 Date Ernst Kidd MD CC: Dr. Ruperto Jesus DO; Homero Galvan DO Date Dictated: 10/09/243 Date Transcribed: 10/09/242327 Chief Radiology: Signed Normal [facility] Venous duplex ultrasound rep ortOrdered By: Ernst Kidd on 10-09-2024 US Vein [facility] [address] [place] [address] Venous Duplex US, Unilateral 10/09/24 1423 MR#: [id number] Acct: [id number] Name: CANDICE BARRY Rep #:[id number] : 1940 84 From: Ernst Kidd MD Attending Dr: Homero Galvan DO Stat us: REG CLI Ordering Dr: Homero Galvan DO Date: Location: CVS Sex: F C Admitted: Reason For Study Reason For Study: Swelling LLE RIGHT LEFT CFV is compressible, spontaneous, phasic, competent GSV is normal. and demonstrates normal augmentation. CFV is compressible, spontaneous, phasic, competent, Procedure and demonstrates normal augmentation. This is a venous duplex using B-mode, color flow and FV is compressible, spontaneous, phasic, competent spectral Doppler. and demonstrates normal augmentation. Exam performed in department. POP V is compressible, spontaneous, phasic, competent A preliminary report was called and/or faxed to and demonstrates normal augmentation. Ann Marie. T/P Trunk is compressible. PTV is compressible. LT PerV is compressible. VL/Venous Duplex US, Unilateral Interpretation Summary Deep veins of the left lower extremity are patent and compressible segmentally. There is no evidence of left lower extremity deep vein thrombosis. Valvular competence appears intact within the proximal deep venous system on the left . The left great saphenous vein appears patent and compressible segmentally. The right common femoral vein is patent and compressible . Ordering Physician: Homero Galvan Referring Physician: Ruperto Jesus Performed By: Merna Hannah, CSEARCS, RVT 10/09/241 Date _ Ernst Kidd MD CC: Dr. Ruperto Jesus DO; Homero Galvan DO ~ Date Dictated: 10/09/24 1423 Date Transcribed: 10/09/242327 Chief Radiology: Signed [facility] Other Phone: Absolute lymphocyte countOrd ered By: Homero Galvan on 10-08-2024 Lymphocytes Auto (Unsp spec) [#/Vol] 2.09 10*3/uL 0.83-4.51 [facility] Absolute neutrophil countOrd ered By: Homero Galvan on 10-08-2024 Neutrophils (Bld) [#/Vol] 8.4 10*3/uL High 2.0-7.7 [facility] Anion gap in Serum or Plasma Ordered By: Homero Galvan on 10-08-2024 Anion gap [Moles/Vol] 14 mmol/L 5-15 [facility] Ankle min 3 Viewson 10-09-19 Ankle min 3 Views [facility] Imaging Services [address], [place] [address] Ankle min 3 Views MR#: [id number] Acct: [id number] Name: CANDICE BARRY Rep #: [id number] : 1940 F 84 From: Vic Glaser MD PCP: Dr. Ruperto Jesus DO Status: REG ER Study: Ankle min 3 Views Date of Exam: 10/08/24 Exam# [id number] Ordering Dr: Homero Galvan DO PROCEDURE: ANKLE MIN 3 VIEWS 10/08/2024 REASON FOR EXAM: ? OSTEO TECHNIQUE: 3 views of the left ankle COMPARISON: None available FINDINGS: The foot is in plantar flexion on the oblique view causing overlap of the calcaneus and lateral malleolus limiting the evaluation. No definite fracture or dislocation identified. No bony destruction or periosteal reaction identified. The joint spaces appear within limits. Qbdddoqy-hj-jphvy enthesophyte at the plantar surface of the calcaneus noted. Vascular calcification seen. Appearance of lateral ankle soft tissue swelling suggested. RAD/Ankle min 3 Views IMPRESSION: The foot is in plantar flexion on the oblique view causing overlap of the calcaneus and lateral malleolus limiting the evaluation. No definite fracture or dislocation identified. No bony destruction or periosteal reaction identified. Appearance of lateral ankle soft tissue swelling suggested. Reading Location: [id number] CC: Dr. Ruperto Jesus DO; Homero Galvan DO Chief Radiology: Signed Normal [facility] Automated lymphocyte count a s percentage of total leukocytesOrdered By: Homero Galvan on 10-08-2024 Lymphocytes/100 WBC Auto (Unsp spec) 17.6 % Low 19-41 [facility] BUN/creatinine ratioOrdered By: Homero Galvan on 10-08-2024 Urea nitrogen/Creatinine [Mass ratio] 21.3 mg/mg High - [facility] Basic Metabolic Profile (BMP )on 10-08-2024 BUN/CRE 21.3 RATIO High 05-07 [facility] Comment on above: Performed By: #### L 503.6005, L100.0100, L501.1400, L509.7001, L500.2500 ####[facility] [address] [place], [address] Calcium [Mass/Vol] 8.9 mg/dL Normal 7.6-11.0 [facility] Comment on above: Performed By: #### L 503.6005, L100.0100, L501.1400, L509.7001, L500.2500 ####[facility] [address] [place], [address] Chloride [Moles/Vol] 99 mmol/L Normal 98-108 [facility] Comment on above: Performed By: #### L 503.6005, L100.0100, L501.1400, L509.7001, L500.2500 ####[facility] [address] [place], [address] CO2 [Moles/Vol] 21.7 mmol/L Normal 21.0-32.0 [facility] Comment on above: Performed By: #### L 503.6005, L100.0100, L501.1400, L509.7001, L500.2500 ####[facility] [address] [place], [address] Creatinine [Mass/Vol] 1.94 mg/dL High 0.70-1.20 [facility] Comment on above: Performed By: #### L 503.6005, L100.0100, L501.1400, L509.7001, L500.2500 ####[facility] [address] [place], [address] ECRCL 27.42 ml/min Low 50-250 [facility] Comment on above: Performed By: #### L 503.6005, L100.0100, L501.1400, L509.7001, L500.2500 ####[facility] [address] [place], [address] GAP 14 Normal 5-15 [facility] Comment on above: Performed By: #### L 503.6005, L100.0100, L501.1400, L509.7001, L500.2500 ####[facility] [address] [place], [address] GFR/1.73 sq M.predicted among non-blacks MDRD (S/P/Bld) [Vol rate/Area] 25 mL/min/{1.73_m2} Low >60 [facility] Comment on above: Result Comment: mL/m in/1.73m2 CKD-EPI Creatinine Equation (2020) Performed By: #### L 503.6005, L100.0100, L501.1400, L509.7001, L500.2500 ####[facility] [address] [place], [address] Glucose [Mass/Vol] 184 mg/dL High 70-99 [facility] Comment on above: Performed By: #### L 503.6005, L100.0100, L501.1400, L509.7001, L500.2500 ####[facility] [address] [place], [address] Potassium [Moles/Vol] 4.4 mmol/L Normal 3.3-5.1 [facility] Comment on above: Performed By: #### L 503.6005, L100.0100, L501.1400, L509.7001, L500.2500 ####[facility] [address] [place], [address] Sodium [Moles/Vol] 134 mmol/L Normal 133-145 [facility] Comment on above: Performed By: #### L 503.6005, L100.0100, L501.1400, L509.7001, L500.2500 ####[facility] [address] [place], [address] Urea nitrogen [Mass/Vol] 41 mg/dL High 4-19 [facility] Comment on above: Performed By: #### L 503.6005, L100.0100, L501.1400, L509.7001, L500.2500 ####[facility] [address] [place], [address] Basophil percentageOrdered B y: Homero Galvan on 10-08-2024 Basophils/100 WBC (Bld) 0.9 % 0-1 [facility] CBC W/Diff, Automatedon 09-17 Absolute Lymph 2.09 X10 3/uL Normal 0.83-4.51 [facility] Comment on above: Performed By: #### L 503.6005, L100.0100, L501.1400, L509.7001, L500.2500 ####[facility] [address] [place], [address] Absolute Neut 8.4 X10 3/uL High 2.0-7.7 [facility] Comment on above: Performed By: #### L 503.6005, L100.0100, L501.1400, L509.7001, L500.2500 ####[facility] [address] [place], [address] Basophils/100 WBC (Bld) 0.9 % Normal 0-1 [facility] Comment on above: Performed By: #### L 503.6005, L100.0100, L501.1400, L509.7001, L500.2500 ####[facility] [address] [place], [address] Eosinophils/100 WBC (Bld) 4.4 % Normal 0-5 [facility] Comment on above: Performed By: #### L 503.6005, L100.0100, L501.1400, L509.7001, L500.2500 ####[facility] [address] [place], [address] Erythrocyte distribution width (RBC) [Ratio] 14.6 % Normal 11.6-14.6 [facility] Comment on above: Performed By: #### L 503.6005, L100.0100, L501.1400, L509.7001, L500.2500 ####[facility] [address] [place], [address] Hematocrit (Bld) [Volume fraction] 35.1 % Low 37-47 [facility] Comment on above: Performed By: #### L 503.6005, L100.0100, L501.1400, L509.7001, L500.2500 ####[facility] [address] [place], [address] Hemoglobin (Bld) [Mass/Vol] 11.1 g/dL Low 12.0-15.0 [facility] Comment on above: Performed By: #### L 503.6005, L100.0100, L501.1400, L509.7001, L500.2500 ####[facility] [address] [place], [address] IG% 1.800 High 0.0-0.9 [facility] Comment on above: Result Comment: IG% - Immature Granulocytes (promyelocytes, myelocytes and metamyelocytes) > 1% indicates that a LEFT SHIFT is Present. Performed By: #### L 503.6005, L100.0100, L501.1400, L509.7001, L500.2500 ####[facility] [address] [place], [address] Lymphocytes/100 WBC (Bld) 17.6 % Low 19-41 [facility] Comment on above: Performed By: #### L 503.6005, L100.0100, L501.1400, L509.7001, L500.2500 ####[facility] [address] [place], [address] MCH (RBC) [Entitic mass] 26.9 pg Low 27.0-32.0 [facility] Comment on above: Performed By: #### L 503.6005, L100.0100, L501.1400, L509.7001, L500.2500 ####[facility] [address] [place], [address] MCHC (RBC) [Mass/Vol] 31.6 g/dL Low 32-36 [facility] Comment on above: Performed By: #### L 503.6005, L100.0100, L501.1400, L509.7001, L500.2500 ####[facility] [address] [place], [address] MCV (RBC) [Entitic vol] 85.2 fL Normal 81-99 [facility] Comment on above: Performed By: #### L 503.6005, L100.0100, L501.1400, L509.7001, L500.2500 ####[facility] [address] [place], [address] Monocytes/100 WBC (Bld) 5.0 % Normal 0-10 [facility] Comment on above: Performed By: #### L 503.6005, L100.0100, L501.1400, L509.7001, L500.2500 ####[facility] [address] [place], [address] Neutrophils/100 WBC (Bld) 70.3 % High 47-70 [facility] Comment on above: Performed By: #### L 503.6005, L100.0100, L501.1400, L509.7001, L500.2500 ####[facility] [address] [place], [address] Nucleated RBC (Bld) [#/Vol] 0 10*3/uL Normal 0-5 [facility] Comment on above: Performed By: #### L 503.6005, L100.0100, L501.1400, L509.7001, L500.2500 ####[facility] [address] [place], [address] Platelet mean volume (Bld) [Entitic vol] 9.9 fL Normal 6.2-12.0 [facility] Comment on above: Performed By: #### L 503.6005, L100.0100, L501.1400, L509.7001, L500.2500 ####[facility] [address] [place], [address] Platelets (Bld) [#/Vol] 310 10*3/uL Normal 150-450 [facility] Comment on above: Performed By: #### L 503.6005, L100.0100, L501.1400, L509.7001, L500.2500 ####[facility] [address] [place], [address] RBC (Bld) [#/Vol] 4.12 10*6/uL Low 4.2-5.4 [facility] Comment on above: Performed By: #### L 503.6005, L100.0100, L501.1400, L509.7001, L500.2500 ####[facility] [address] [place], [address] RDW SD 45.4 fl High 35.1-43.9 [facility] Comment on above: Performed By: #### L 503.6005, L100.0100, L501.1400, L509.7001, L500.2500 ####[facility] [address] [place], [address] WBC (Bld) [#/Vol] 11.9 10*3/uL High 4.4-11.0 [facility] Comment on above: Performed By: #### L 503.6005, L100.0100, L501.1400, L509.7001, L500.2500 ####[facility] [address] [place], [address] Carbon dioxide, total [Moles /volume] in Central venous bloodOrdered By: Homero Galvan on 10-08-2024 CO2 [Moles/Vol] 21.7 mmol/L 21.0-32.0 [facility] Chloride assayOrdered By: Pallavi Galvan on 10-08-2024 Chloride [Moles/Vol] 99 mmol/L 98-108 [facility] Eosinophil percentageOrdered By: Homero Galvan on 10-08-2024 Eosinophils/100 WBC (Bld) 4.4 % 0-5 [facility] Erythrocyte distribution wid th ratioOrdered By: Homero Galvan on 10-08-2024 Erythrocyte distribution width (RBC) [Ratio] 14.6 % 11.6-14.6 [facility] Erythrocyte distribution wid th standard deviationOrdered By: Homero Galvan on 10-08-2024 Erythrocyte distribution width (RBC) [Entitic vol] 45.4 fL High 35.1-43.9 [facility] Erythrocyte distribution width (RBC) [Ratio] 45.4 fl High 35.1-43.9 [facility] Estimation of creatinine terernce aranceOrdered By: Homero Galvan on 10-08-2024 Estimated Creatinine Clearance Calc 27.42 ml/min Low 50-250 [facility] GFR/1.73 sq M.predicted kim g non-blacks MDRD (S/P/Bld) [Vol rate/Area]Ordered By: Homero Galvan on 10-08-2024 Estimated GFR (MDRD) Non-Af Amer 25 Low >60 [facility] Comment on above: mL/min/1.73m2 CKD-EP I Creatinine Equation (2020) Glomerular filtration rate ( GFR) estimation/1.73 sq m using serum, plasma, or whole bOrdered By: Homero Galvan on 10-08-2024 GFR/1.73 sq M.predicted among non-blacks MDRD (S/P/Bld) [Vol rate/Area] 25 mL/min/{1.73_m2} Low >60 [facility] Comment on above: mL/min/1.73m2 CKD-EP I Creatinine Equation (2020) Hematocrit Auto (Bld) [Volum e fraction]Ordered By: Homero Galvan on 10-08-2024 Hematocrit (Bld) [Volume fraction] 35.1 % Low 37-47 [facility] Hemoglobin measurementOrdere d By: Homero Galvan on 10-08-2024 Hemoglobin (Bld) [Mass/Vol] 11.1 g/dL Low 12.0-15.0 [facility] Immature granulocytes/100 WB C Auto (Bld)Ordered By: Homero Galvan on 10-08-2024 Immature granulocytes/100 WBC (Bld) 1.800 % High 0.0-0.9 [facility] Comment on above: IG% - Immature Granu locytes (promyelocytes, myelocytes and metamyelocytes) > 1% indicates that a LEFT SHIFT is Present. Lactic Acidon 10-08-2024 Lactate [Moles/Vol] 1.6 mmol/L Normal 0.0-2.0 [facility] Comment on above: Order Comment: Y Performed By: #### L 503.6005, L100.0100, L501.1400, L509.7001, L500.2500 ####[facility] [address] [place], [place], [address] Lactic acid measurementOrder ed By: Homero Galvan on 10-08-2024 Lactate [Moles/Vol] 1.6 mmol/L 0.0-2.0 [facility] Lymphocytes Auto (Unsp spec) [#/Vol]Ordered By: Homero Galvan on 10-08-2024 Lymphocytes (Bld) [#/Vol] 2.09 10*3/uL 0.83-4.51 [facility] Lymphocytes/100 WBC Auto (Un sp spec)Ordered By: Homero Galvan on 10-08-2024 Lymphocytes/100 WBC (Bld) 17.6 % Low 19-41 [facility] MCV (mean corpuscular volume ) determinationOrdered By: Homero Galvan on 10-08-2024 MCV (RBC) [Entitic vol] 85.2 fL 81-99 [facility] Mean corpuscular hemoglobin (MCH) determinationOrdered By: Homero Galvan on 10-08-2024 MCH (RBC) [Entitic mass] 26.9 pg Low 27.0-32.0 [facility] Mean corpuscular hemoglobin concentration (MCHC) determinationOrdered By: Homero Galvan on 10-08-2024 MCHC (RBC) [Mass/Vol] 31.6 g/dL Low 32-36 [facility] Mean platelet volume determi nationOrdered By: Homero Galvan on 10-08-2024 Platelet mean volume (Bld) [Entitic vol] 9.9 fL 6.2-12.0 [facility] Monocyte percentageOrdered B y: Homero Galvan on 10-08-2024 Monocytes/100 WBC (Bld) 5.0 % 0-10 [facility] Neutrophil percentageOrdered By: Homero Galvan on 10-08-2024 Neutrophils/100 WBC (Bld) 70.3 % High 47-70 [facility] No Panel InformationOrdered By: Homero Galvan on 10-08-2024 Procalcitonin 0.07 ng/mL <0.11 [facility] Comment on above: Interpretation:<0.10 -0.25 ng/mL: Antibiotic therapy discouraged. Bacterial infection unlikely.0.25-0.50 ng/mL: Antibiotic therapy encouraged. Bacterial infection possible.>0.50 ng/mL: Antibiotic therapy strongly encouraged. Suggestive of presence of bacterial infection.PCT should always be interpreted in the clinical context of the patient. Therefore, clinicians should use the PCT results in conjunction with other laboratory findings and clinical signs of the patient. Nucleated red blood cell per centageOrdered By: Homero Galvan on 10-08-2024 Nucleated RBC/100 WBC (Bld) [Ratio] 0 % 0-5 [facility] Platelet countOrdered By: Pallavi Galvan on 10-08-2024 Platelets (Bld) [#/Vol] 310 10*3/uL 150-450 [facility] Potassium (Unsp spec) [Mass/ Vol]Ordered By: Homero Galvan on 10-08-2024 Potassium [Moles/Vol] 4.4 mmol/L 3.3-5.1 [facility] Potassium measurement (mass/ volume)Ordered By: Homero Galvan on 10-08-2024 Potassium (Unsp spec) [Mass/Vol] 4.4 mmol/L 3.3-5.1 [facility] RBC Auto (Bld) [#/Vol]Ordere d By: Homero Galvan on 10-08-2024 RBC (Bld) [#/Vol] 4.12 10*6/uL Low 4.2-5.4 [facility] Serum creatinine measurement (mass/volume)Ordered By: Homero Galvan on 10-08-2024 Creatinine [Mass/Vol] 1.94 mg/dL High 0.70-1.20 [facility] Serum glucose measurement (m ass/volume)Ordered By: Homero Galvan on 10-08-2024 Glucose [Mass/Vol] 184 mg/dL High 70-99 [facility] Serum or plasma calcium josh urement (mass/volume)Ordered By: Homero Galvan on 10-08-2024 Calcium [Mass/Vol] 8.9 mg/dL 7.6-11.0 [facility] Serum or plasma urea nitroge n measurement (mass/volume)Ordered By: Homero Galvan on 10-08-2024 Urea nitrogen [Mass/Vol] 41 mg/dL High 4-19 [facility] Serum or plasma uric acid me asurement (mass/volume)Ordered By: Homero Galvan on 10-08-2024 Urate [Mass/Vol] 11.4 mg/dL High 2.6-6.0 [facility] Comment on above: The drugs N-Acetylcy steine and Metamizole may falsely depress this assay. Sodium levelOrdered By: John Galvan on 10-08-2024 Sodium [Moles/Vol] 134 mmol/L 133-145 [facility] Uric Acidon 10-08-2024 URIC 11.4 mg/dL High 2.6-6.0 [facility] Comment on above: Result Comment: The drugs N-Acetylcysteine and Metamizole may falsely depress this assay. Performed By: #### L 503.6005, L100.0100, L501.1400, L509.7001, L500.2500 ####[facility] [address] [place], [address] White blood cell (WBC) count Ordered By: Homero Galvan on 10-08-2024 WBC (Bld) [#/Vol] 11.9 10*3/uL High 4.4-11.0 [facility] Cardiology Visit Reporton Cardiology Visit Report [facility] [address] [place] [address] OFFICE VISIT Date of Service: 09/21/24 MR#: [id number] Acct: [id number] Name: CANDICE BARRY Rep #: [id number] : 1940 Provider: MAYTE Gibson Age/Sex: 84/F Location: [facility] [place] [place] Status: Signed HPI HPI History of Present Illness Details: CANDICE BARRY, is a 84 F who presents to the office today for a cardiovascular outpatient follow-up. She has a history of hypertension, diabetes mellitus, previous tobacco abuse, status post cardiac catheterization in 2010 which demonstrated minimal coronary artery disease. She also has a hx of MATTHEW and is on CPAP. She does have hearing aides now, this has helped. She does have back pain and does have lower extremity edema. She does sometimes has chest pain. She does have SOB but does not feel that it is worse. She feels it is slightly better than the last time. She does have tremors. Intake Vital Signs 09/21/23 13:16 09/21/24 07:42 Height 5 ft 6 in 5 ft 6 in Weight: 241 lb BMI 38.9 BP 103/69 Blood Pressure Location Lt brachial Position Sitting Respiration 22 H Pulse 70 Pulse Source Monitor Pulse Oximetry (%) 97 Intake Visit Reasons: 1 Y FU Electronic Wirer Required: No Is patient in pain?: No Allergies acetaminophen (From Darvocet-N) Allergy (Severe, Verified 09/21/24 13:12) Unknown bupropion (From Wellbutrin) Allergy (Severe, Verified 09/21/24 13:12) Unknown gabapentin (From Neurontin) Allergy (Severe, Verified 09/21/24 13:12) Unknown pregabalin (From Lyrica) Allergy (Severe, Verified 09/21/24 13:12) Unknown propoxyphene (From Darvocet-N) Allergy (Severe, Verified 09/21/24 13:12) Unknown sulfadiazine Allergy (Severe, Verified 09/21/24 13:12) Unknown Medications ???Medication ???Instructions ???Recorded ???Confirmed ???Type insulin admin supplies (InPen (for #1 ea 07/26/17 05/12/24 History Novolog or Fiasp) subcutaneous) lorazepam 0.5 mg tablet (Ativan) 0.5 mg PO TID PRN anxiety 07/26/17 09/21/24 History simvastatin 20 mg tablet (Zocor) 20 mg PO QAM 07/26/17 09/21/24 His tory oxycodone-acetaminop hen 5 mg-325 1 tab PO Q8H PRN pain 05/09/2001/10 History mg tablet (Percocet) blood pressure cuff/machine #1 ea 01/03/21 05/12/24 Rx hydroxyzine HCl 25 mg tablet 12.5 - 50 mg PO TID-QID PRN itchin g 09/29/21 09/21/24 History cholecalciferol (vitamin D3) 125 125 mcg PO DAILY 12/16/21 09/21/24 History mcg (5,000 unit) tablet albuterol sulfate 2.5 mg/3 mL 2.5 mg (3 mL) inhalation Q4H PRN 0 02/24/23 09/21/24 Rx (0.083 %) solution for nebulization shortness of breath or wheezing #180 mL insulin glargine 100 unit/mL (3 60 unit subcut DAILY 06/29/2301/10 History mL) subcutaneous pen spironolactone 25 mg tablet See Rx Instructions .Route 3 09/21/24 Rx .COMPLEX #90 tabs glipizide 10 mg tablet, extended 10 mg PO DAILY 09/21/23 09/21/24 H istory release 24 hr ascorbic acid (vitamin C) 250 mg 250 mg PO BID 11/03/23 09/21/24 Hi story tablet lisinopril 20 mg tablet 20 mg PO DAILY 11/03/23 09/21/24 H istory zinc glycinate 30 mg capsule 30 mg PO DAILY 11/03/23 09/21/24 H istory furosemide 40 mg tablet (Lasix) 40 mg PO DAILY #90 tabs 12/20/23 0 09/21/24 Rx albuterol sulfate 90 mcg/actuation 2 puff inhalation Q4H PRN 09/21/24 Rx aerosol inhaler (Ventolin HFA) shortness of breath or wheezing #3 ea budesonide-formotero l HFA 160 2 puff inhalation BID #3 ea 09/21/24 Rx mcg-4.5 mcg/actuation aerosol inhaler (Symbicort) fluticasone propionate 50 2 spray intranasal DAILY #16 grams 03/21/24 09/21/24 Rx mcg/actuation nasal spray,suspension ropinirole 2 mg tablet 2 mg PO QHS #90 tabs 03/21/24 0301/10 Rx tiotropium bromide 2.5 2 puff inhalation QDAY #3 ea 03/2109/21/24 Rx mcg/actuation mist for inhalation (Spiriva Respimat) metoprolol succinate 25 mg 25 mg PO QDAY 05/12/24 09/21/24 Hi story tablet,extended release 24 hr semaglutide 0.25 mg or 0.5 mg (2 mg subcut 05/12/24 09/21/24 Histor y mg/3 mL) subcutaneous pen injector (Ozempic) Ejection fraction %: 45 Have you fallen in the past year?: No [facility] Medical History (Updated 09/21/24 @ 13:32 by Sarai HU, PA) Chronic diastolic (congestive) heart failure Type 2 diabetes mellitus Anxiety and depression Fibromyalgia Hyperlipidemia Essential (primary) hypertension TIA (transient ischemic attack) MATTHEW (obstructive sleep apnea) Emphysema, unspecified Morbid obesity Diabetic neuropathy Tobacco use disorder COPD (chronic obstructive pulmonary disease) Surgical History History of ear, nose, a (more content not included)... Normal [facility] Basic Metabolic Profile (BMP )on 08-25-2024 BUN/CRE 20.5 RATIO High 10-20 [facility] Comment on above: Performed By: #### L 500.2500 ####[facility] [address] [place], [address] CA,Total 8.9 mg/dL Normal 8.5-10.1 [facility] Comment on above: Performed By: #### L 500.2500 ####[facility] [address] [place], [address] Chloride [Moles/Vol] 102 mmol/L Normal 98-107 [facility] Comment on above: Performed By: #### L 500.2500 ####[facility] [address] [place], [address] CO2 [Moles/Vol] 25.0 mmol/L Normal 21.0-32.0 [facility] Comment on above: Performed By: #### L 500.2500 ####[facility] [address] [place], [address] Creatinine [Mass/Vol] 1.95 mg/dL High 0.55-1.02 [facility] Comment on above: Result Comment: The validity of the calculated GFR GFRAA in patients over 70 years has not been determined. Clinical correlation is essential. Performed By: #### L 500.2500 ####[facility] [address] [place], [address] EST GFR - AA 31 mL/min Low >60 [facility] Comment on above: Result Comment: Afri can Spanish GFR Calc Performed By: #### L 500.2500 ####[facility] [address] [place], [address] GAP 8 Normal 5-15 [facility] Comment on above: Performed By: #### L 500.2500 ####[facility] [address] [place], [address] GFR/1.73 sq M.predicted among non-blacks MDRD (S/P/Bld) [Vol rate/Area] 26 mL/min/{1.73_m2} Low >60 [facility] Comment on above: Result Comment: Non- GFR Calc Performed By: #### L 500.2500 ####[facility] [address] [place], [address] Glucose [Mass/Vol] 142 mg/dL High 74-106 [facility] Comment on above: Result Comment: Fast ing Glucose result greater than or equal to 126 mg/dL suggests DIABETES MELLITUS per A.D.A. criteria. Performed By: #### L 500.2500 ####[facility] [address] [place], [address] Potassium [Moles/Vol] 4.0 mmol/L Normal 3.5-5.1 [facility] Comment on above: Performed By: #### L 500.2500 ####[facility] [address] [place], [address] Sodium [Moles/Vol] 135 mmol/L Low 136-145 [facility] Comment on above: Performed By: #### L 500.2500 ####[facility] [address] [place], [address] Urea nitrogen [Mass/Vol] 40 mg/dL High 7-18 [facility] Comment on above: Performed By: #### L 500.2500 ####[facility] [address] [place], [address] Blood urea nitrogen (BUN)/cr eatinine ratioOrdered By: Ruperto Jesus on 08-25-2024 Urea nitrogen/Creatinine [Mass ratio] 20.5 mg/mg High 10-20 [facility] Carbon dioxide measurementOr dered By: Ruperto Jesus on 08-25-2024 CO2 [Moles/Vol] 25.0 mmol/L 21.0-32.0 [facility] Chloride measurementOrdered By: Ruperto Jesus on 08-25-2024 Chloride [Moles/Vol] 102 mmol/L 98-107 [facility] Estimated glomerular filtrat ion rate (GFR) AmericanOrdered By: Ruperto Jesus on 08-25-2024 Estimated GFR (MDRD) Amer 31 mL/min Low >60 [facility] Comment on above: GFR Calc Glomerular filtration rate ( GFR) estimationOrdered By: Ruperto Jesus on 08-25-2024 Estimated GFR (MDRD) Non-Af Amer 26 mL/min Low >60 [facility] Comment on above: Non- GFR Calc GFR/1.73 sq M.predicted among non-blacks MDRD (S/P/Bld) [Vol rate/Area] 26 mL/min/{1.73_m2} Low >60 [facility] Comment on above: Non- GFR Calc Glucose measurementOrdered B y: Ruperto Jeuss on 08-25-2024 Glucose [Mass/Vol] 142 mg/dL High 74-106 [facility] Comment on above: Fasting Glucose resu lt greater than or equal to 126 mg/dL suggests DIABETES MELLITUS per A.D.A. criteria. Potassium measurementOrdered By: Ruperto Jesus on 08-25-2024 Potassium [Moles/Vol] 4.0 mmol/L 3.5-5.1 [facility] Serum anion gap measurementO rdered By: Ruperto Jesus on 08-25-2024 Anion gap [Moles/Vol] 8 mmol/L 5-15 [facility] Serum or plasma calcium josh urement (mass/volume)Ordered By: Ruperto Jesus on 08-25-2024 Calcium [Mass/Vol] 8.9 mg/dL 8.5-10.1 [facility] Serum or plasma creatinine m easurement (mass/volume)Ordered By: Ruperto Jesus on 08-25-2024 Creatinine [Mass/Vol] 1.95 mg/dL High 0.55-1.02 [facility] Comment on above: The validity of the calculated GFR & GFRAA in patients over 70 years has not been determined. Clinical correlation is essential. Serum or plasma urea nitroge n measurement (mass/volume)Ordered By: Ruperto Jesus on 08-25-2024 Urea nitrogen [Mass/Vol] 40 mg/dL High 7-18 [facility] Sodium levelOrdered By: Ruperto Jesus on 08-25-2024 Sodium [Moles/Vol] 135 mmol/L Low 136-145 [facility] Basophil percentageOrdered B y: Ruperto Jesus on 11-22-2023 Cholesterol [Mass/Vol] 123 mg/dL <200 [facility] Comment on above: <200 mg/dL Desirable 200-240 mg/dL Borderline >240 mg/dL High Risk Triglyceride [Mass/Vol] 169 mg/dL <199 [facility] Comment on above: The drugs N-Acetylcy steine and Metamizole may falsely depress this assay.Serum Triglycerides Reference Interval Normal <150 mg/dL Borderline high 150 - 199 mg/dL High 200 - 499 mg/dL Very High > or = 500 mg/dL Culture, urineOrdered By: Robbi Jesus on 11-22-2023 Bacteria identified Cx Nom (U) Escherichia coli [facility] Laboratory - Chemistry and C hemistry - challengeOrdered By: Ruperto Jesus on 11-22-2023 Cholesterol in HDL [Mass/Vol] 42 mg/dL >40 [facility] Comment on above: The drugs N-Acetylcy steine and Metamizole may falsely depress this assay. Reference Range HDL <40 mg/dL Low HDL Cholesterol HDL >or= 60 mg/dL High HDL Cholesterol Cholesterol in LDL [Mass/Vol] 47 mg/dL 0-130 [facility] No Panel InformationOrdered By: Ruperto Jesus on 11-22-2023 Urine Microalbumin/Creatinine Ratio 90.0 mg/g CRE <30 [facility] VLDL Cholesterol 34 mg/dL 5-40 [facility] Thin prep Papanicolaou smear with manual screeningOrdered By: Ruperto Jesus on 11-22-2023 Thin prep Papanicolaou smear with manual screening 24.3 mg/L NO RANGE EST. [facility] Urine creatinine measurement (mass/volume)Ordered By: Ruperto Jesus on 11-22-2023 Creatinine (U) [Mass/Vol] 27.00 mg/dL NO RANGE EST. [facility] Basophil percentageOrdered B y: Montana Shepard on 10-18-2023 Bilirubin [Mass/Vol] 0.50 mg/dL 0.20-1.00 [facility] Comment on above: For patients on eltr ombopag therapy, use of Dimension Sweeny TBIL is not recommended. Chloride [Moles/Vol] 104 mmol/L 98-107 [facility] Cholesterol [Mass/Vol] 129 mg/dL <200 [facility] Comment on above: <200 mg/dL Desirable 200-240 mg/dL Borderline >240 mg/dL High Risk Glucose [Mass/Vol] 148 mg/dL 74-106 [facility] Comment on above: Fasting Glucose resu lt greater than or equal to 126 mg/dL suggests DIABETES MELLITUS per A.D.A. criteria. Hemoglobin (Bld) [Mass/Vol] 11.2 g/dL 12.0-15.0 [facility] Potassium [Moles/Vol] 4.1 mmol/L 3.5-5.1 [facility] Protein [Mass/Vol] 7.2 g/dL 6.4-8.2 [facility] Sodium [Moles/Vol] 138 mmol/L 136-145 [facility] Triglyceride [Mass/Vol] 98 mg/dL <199 [facility] Comment on above: The drugs N-Acetylcy steine and Metamizole may falsely depress this assay.Serum Triglycerides Reference Interval Normal <150 mg/dL Borderline high 150 - 199 mg/dL High 200 - 499 mg/dL Very High > or = 500 mg/dL WBC (Bld) [#/Vol] 12.6 10*3/uL 4.4-11.0 [facility] Determination of erythrocyte mean corpuscular volume (MCV)Ordered By: Montana Shepard on 10-18-2023 MCV (RBC) [Entitic vol] 83.6 fL 81-99 [facility] Direct bilirubinOrdered By: Montana Shepard on 10-18-2023 Bilirubin.direct [Mass/Vol] 0.16 mg/dL 0.00-0.30 [facility] Erythrocyte distribution wid th ratioOrdered By: Montana Shepard on 10-18-2023 Erythrocyte distribution width (RBC) [Ratio] 15.3 % 11.6-14.6 [facility] Erythrocyte distribution wid th standard deviationOrdered By: Montana Shepard on 10-18-2023 Erythrocyte distribution width (RBC) [Entitic vol] 46.6 fL 35.1-43.9 [facility] Hematocrit Auto (Bld) [Volum e fraction]Ordered By: Montana Shepard on 10-18-2023 Hematocrit (Bld) [Volume fraction] 36.1 % 37-47 [facility] Laboratory - Chemistry and C hemistry - challengeOrdered By: Montana Shepard on 10-18-2023 ALP [Catalytic activity/Vol] 92 U/L 45-117 [facility] ALT [Catalytic activity/Vol] 25 U/L 13-56 [facility] Cholesterol in HDL [Mass/Vol] 47 mg/dL >40 [facility] Comment on above: The drugs N-Acetylcy steine and Metamizole may falsely depress this assay. Reference Range HDL <40 mg/dL Low HDL Cholesterol HDL >or= 60 mg/dL High HDL Cholesterol Cholesterol in LDL [Mass/Vol] 62 mg/dL 0-130 [facility] CO2 [Moles/Vol] 29.0 mmol/L 21.0-32.0 [facility] Globulin (S) [Mass/Vol] 4.2 g/dL 2.2-4.2 [facility] Urea nitrogen/Creatinine [Mass ratio] 20.4 mg/mg 10-20 [facility] - Hematology and Cell countsOrdered By: Montana Shepard on 10-18-2023 MCH (RBC) [Entitic mass] 25.9 pg 27.0-32.0 [facility] MCHC (RBC) [Mass/Vol] 31.0 g/dL 32-36 [facility] Platelet mean volume (Bld) [Entitic vol] 10.0 fL 6.2-12.0 [facility] Platelets (Bld) [#/Vol] 327 10*3/uL 150-450 [facility] No Panel InformationOrdered By: Montana Shepard on 10-18-2023 Estimated GFR (MDRD) Amer 47 mL/min >60 [facility] Comment on above: GFR Calc Estimated GFR (MDRD) Non-Af Amer 39 mL/min >60 [facility] Comment on above: Non- GFR Calc VLDL Cholesterol 20 mg/dL 5-40 [facility] RBC Auto (Bld) [#/Vol]Ordere d By: Montana Shepard on 10-18-2023 RBC (Bld) [#/Vol] 4.32 10*6/uL 4.2-5.4 [facility] Serum or plasma calcium josh urement (mass/volume)Ordered By: Montana Shepard on 10-18-2023 Calcium [Mass/Vol] 9.2 mg/dL 8.5-10.1 [facility] Serum or plasma creatinine m easurement (mass/volume)Ordered By: Montana Drea on 10-18-2023 Creatinine [Mass/Vol] 1.37 mg/dL 0.55-1.02 [facility] Comment on above: The validity of the calculated GFR & GFRAA in patients over 70 years has not been determined. Clinical correlation is essential. Serum or plasma urea nitroge n measurement (mass/volume)Ordered By: Montana Shepard on 10-18-2023 Urea nitrogen [Mass/Vol] 28 mg/dL 7-18 [facility] Thin prep Papanicolaou smear with manual screeningOrdered By: [facility] on 10-18-2023 Thin prep Papanicolaou smear with manual screening 3.0 g/dL 3.2-5.0 [facility] Thin prep Papanicolaou smear with manual screening 16 U/L 15-37 [facility] Thin prep Papanicolaou smear with manual screening 5 5-15 [facility] Basophil percentageOrdered B y: Ruperto Jesus on 01-21-2023 Chloride [Moles/Vol] 103 mmol/L 98-107 [facility] Glucose [Mass/Vol] 204 mg/dL 74-106 [facility] Comment on above: Glucose result great er than or equal to 200 mg/dLsuggests DIABETES MELLITUS per A.D.A. criteria. Potassium [Moles/Vol] 4.2 mmol/L 3.5-5.1 [facility] Sodium [Moles/Vol] 136 mmol/L 136-145 [facility] Laboratory - Chemistry and C hemistry - challengeOrdered By: Ruperto Jesus on 01-21-2023 CO2 [Moles/Vol] 27.0 mmol/L 21.0-32.0 [facility] Cobalamin (Vitamin B12) [Mass/Vol] 1812 pg/mL 211-911 [facility] Free T4 [Mass/Vol] 1.01 ng/dL 0.76-1.46 [facility] Urea nitrogen/Creatinine [Mass ratio] 34.0 mg/mg 10-20 [facility] No Panel InformationOrdered By: Ruperto Jesus on 01-21-2023 Estimated GFR (MDRD) Amer 42 mL/min >60 [facility] Comment on above: GFR Calc Estimated GFR (MDRD) Non-Af Amer 34 mL/min >60 [facility] Comment on above: Non- GFR Calc Thyroid Stimulating Hormone (TSH) 0.97 uIU/mL 0.358-3.74 [facility] Serum or plasma calcium josh urement (mass/volume)Ordered By: Ruperto Jesus on 01-21-2023 Calcium [Mass/Vol] 10.0 mg/dL 8.5-10.1 [facility] Serum or plasma creatinine m easurement (mass/volume)Ordered By: Ruperto Jesus on 01-21-2023 Creatinine [Mass/Vol] 1.53 mg/dL 0.55-1.02 [facility] Comment on above: The validity of the calculated GFR & GFRAA in patients over 70 years has not been determined. Clinical correlation is essential. Serum or plasma urea nitroge n measurement (mass/volume)Ordered By: Ruperto Jesus on 01-21-2023 Urea nitrogen [Mass/Vol] 52 mg/dL 7-18 [facility] Thin prep Papanicolaou smear with manual screeningOrdered By: Ruperto Jesus on 01-21-2023 Thin prep Papanicolaou smear with manual screening 6 5-15 [facility] Absolute lymphocyte countOrd ered By: Dr. Jesus on 10-22-2022 Lymphocytes Auto (Unsp spec) [#/Vol] 2.83 10*3/uL 0.83-4.51 [facility] Basophil percentageOrdered B y: Dr. Jesus on 10-22-2022 Basophils/100 WBC (Bld) 0.8 % 0-1 [facility] Bilirubin [Mass/Vol] 0.30 mg/dL 0.20-1.00 [facility] Comment on above: For patients on eltr ombopag therapy, use of Dimension [place] TBIL is not recommended. Chloride [Moles/Vol] 103 mmol/L 98-107 [facility] Cholesterol [Mass/Vol] 131 mg/dL <200 [facility] Comment on above: <200 mg/dL Desirable 200-240 mg/dL Borderline >240 mg/dL High Risk Eosinophils/100 WBC (Bld) 5.2 % 0-5 [facility] Glucose [Mass/Vol] 172 mg/dL 74-106 [facility] Comment on above: Fasting Glucose resu lt greater than or equal to 126 mg/dL suggests DIABETES MELLITUS per A.D.A. criteria. Neutrophils (Bld) [#/Vol] 7.1 10*3/uL 2.0-7.7 [facility] Neutrophils/100 WBC (Bld) 62.1 % 47-70 [facility] Potassium [Moles/Vol] 4.4 mmol/L 3.5-5.1 [facility] Protein [Mass/Vol] 7.5 g/dL 6.4-8.2 [facility] Sodium [Moles/Vol] 135 mmol/L 136-145 [facility] Triglyceride [Mass/Vol] 196 mg/dL <199 [facility] Comment on above: The drugs N-Acetylcy steine and Metamizole may falsely depress this assay.Serum Triglycerides Reference Interval Normal <150 mg/dL Borderline high 150 - 199 mg/dL High 200 - 499 mg/dL Very High > or = 500 mg/dL WBC (Bld) [#/Vol] 11.5 10*3/uL 4.4-11.0 [facility] Blood erythrocytes count (nu mber/volume)Ordered By: Dr. Jesus on 10-22-2022 RBC (Bld) [#/Vol] 4.41 10*6/uL 4.2-5.4 [facility] Blood hemoglobin measurement (mass/volume)Ordered By: Dr. Jesus on 10-22-2022 Hemoglobin (Bld) [Mass/Vol] 11.9 g/dL 12.0-15.0 [facility] Blood lymphocytes/100 leukoc ytesOrdered By: Dr. Jesus on 10-22-2022 Lymphocytes/100 WBC (Bld) 24.6 % 19-41 [facility] Blood monocytes/100 leukocyt esOrdered By: Dr. Jesus on 10-22-2022 Monocytes/100 WBC (Bld) 5.6 % 0-10 [facility] Blood platelet mean volumeOr dered By: Dr. Jesus on 10-22-2022 Platelet mean volume (Bld) [Entitic vol] 10.9 fL 6.2-12.0 [facility] Determination of erythrocyte mean corpuscular volume (MCV)Ordered By: Dr. Jesus on 10-22-2022 MCV (RBC) [Entitic vol] 85.9 fL 81-99 [facility] Hematocrit Auto (Bld) [Volum e fraction]Ordered By: Dr. Jesus on 10-22-2022 Hematocrit (Bld) [Volume fraction] 37.9 % 37-47 [facility] Laboratory - Chemistry and C hemistry - challengeOrdered By: Dr. Jesus on 10-22-2022 ALP [Catalytic activity/Vol] 90 U/L 45-117 [facility] ALT [Catalytic activity/Vol] 26 U/L 13-56 [facility] CO2 [Moles/Vol] 24.0 mmol/L 21.0-32.0 [facility] Globulin (S) [Mass/Vol] 4.3 g/dL 2.2-4.2 [facility] Urea nitrogen/Creatinine [Mass ratio] 34.6 mg/mg 10-20 [facility] - Hematology and Cell countsOrdered By: Dr. Jesus on 10-22-2022 Erythrocyte distribution width (RBC) [Entitic vol] 45.2 fL 35.1-43.9 [facility] Erythrocyte distribution width (RBC) [Ratio] 14.4 % 11.6-14.6 [facility] Immature granulocytes/100 WBC (Bld) 1.700 % 0.0-0.9 [facility] Comment on above: IG% - Immature Granu locytes (promyelocytes, myelocytes and metamyelocytes) > 1% indicates that a LEFT SHIFT is Present. MCH (RBC) [Entitic mass] 27.0 pg 27.0-32.0 [facility] Nucleated RBC/100 WBC (Bld) [Ratio] 0 % 0[facility] [Mass/Vol]Or dered By: Dr. Jesus on 10-22-2022 MCHC (RBC) [Mass/Vol] 31.4 g/dL 32-36 [facility] No Panel InformationOrdered By: Dr. Jesus on 10-22-2022 Estimated GFR (MDRD) Amer 41 mL/min >60 [facility] Comment on above: GFR Calc Estimated GFR (MDRD) Non-Af Amer 34 mL/min >60 [facility] Comment on above: Non- GFR Calc Urine Microalbumin/Creatinine Ratio 19.7 mg/g CRE <30 [facility] Platelets bldOrdered By: Dr. Jesus on 10-22-2022 Platelets (Bld) [#/Vol] 297 10*3/uL 150-450 [facility] Serum or plasma albumin josh urement (mass/volume)Ordered By: Dr. Jesus on 10-22-2022 Albumin [Mass/Vol] 3.2 g/dL 3.2-5.0 [facility] Serum or plasma albumin/glob ulin mass ratioOrdered By: Dr. Jesus on 10-22-2022 Albumin/Globulin [Mass ratio] 0.7 {ratio} 0.9-2.4 [facility] Serum or plasma calcium josh urement (mass/volume)Ordered By: Dr. Jesus on 10-22-2022 Calcium [Mass/Vol] 9.6 mg/dL 8.5-10.1 [facility] Serum or plasma cholesterol in HDL measurement (mass/volume)Ordered By: Dr. Jesus on 10-22-2022 Cholesterol in HDL [Mass/Vol] 42 mg/dL >40 [facility] Comment on above: The drugs N-Acetylcy steine and Metamizole may falsely depress this assay. Reference Range HDL <40 mg/dL Low HDL Cholesterol HDL >or= 60 mg/dL High HDL Cholesterol Serum or plasma cholesterol in VLDL measurement (mass/volume)Ordered By: Dr. Jesus on 10-22-2022 Cholesterol in VLDL [Mass/Vol] 39 mg/dL 5-40 [facility] Serum or plasma creatinine m easurement (mass/volume)Ordered By: Dr. Jesus on 10-22-2022 Creatinine [Mass/Vol] 1.56 mg/dL 0.55-1.02 [facility] Comment on above: The validity of the calculated GFR & GFRAA in patients over 70 years has not been determined. Clinical correlation is essential. Serum or plasma low density lipoprotein (LDL) cholesterol measurement (mass/volume)Ordered By: Dr. Jesus on 10-22-2022 Cholesterol in LDL [Mass/Vol] 50 mg/dL 0-130 [facility] Serum or plasma urea nitroge n measurement (mass/volume)Ordered By: Dr. Jesus on 10-22-2022 Urea nitrogen [Mass/Vol] 54 mg/dL 7-18 [facility] Thin prep Papanicolaou smear with manual screeningOrdered By: Dr. Jesus on 10-22-2022 Thin prep Papanicolaou smear with manual screening 16 U/L 15-37 [facility] Thin prep Papanicolaou smear with manual screening 8 5-15 [facility] Thin prep Papanicolaou smear with manual screening 5.0 mg/L NO RANGE EST. [facility] Urine creatinine measurement (mass/volume)Ordered By: Dr. Jesus on 10-22-2022 Creatinine (U) [Mass/Vol] 25.50 mg/dL NO RANGE EST. [facility] Basophil percentageon 2021 Creatinine [Mass/Vol] 1.1 mg/dL 0.55-1.02 [facility] Work Phone: Laboratory - Chemistry and C hemistry - challengeon 06-05-2022 GFR/1.73 sq M.predicted among non-blacks MDRD (S/P/Bld) [Vol rate/Area] 50.0000 mL/min/{1.73_m2} >60 [facility] Work Phone: Office Visit: MATTHEW & COPDon 0 02-01-2017 Documentation of current medications (procedure) Done Invalid Interpretation Code [facility] Phone: Fall risk assessment Yes [facility] Work Phone: Protein mass conc Done [facility] Work Phone: Tobacco smoking status [facility] Former smoker [facility] Work Phone: [phone] Tobacco use [facility] Former smoker Invalid Interpretation Code [facility] Work Phone: Lab Report: Serum Creatinine AND GFRon 11-24-2016 Creatinine 1.00 mg/dL 0.55-1.02 [facility] Work Phone: eGFR (non-black) 57 mL/min/{1.73_m2} Low >60 [facility] Work Phone: eGFR (non-black) 69 mL/min/{1.73_m2} Invalid Interpretation Code >60 [facility] Work Phone: EST GFR - AA 69 mL/min >60 [facility] Work Phone: Office Visit: COPDon 017 Documentation of current medications (procedure) Done Invalid Interpretation Code [facility] Work Phone: Fall risk assessment No [facility] Work Phone: Tobacco smoking status [facility] Former smoker [facility] Work Phone: Tobacco use [facility] Former smoker Invalid Interpretation Code [facility] Work Phone: Office Visiton 04-05-2014 Protein mass conc yes [facility] [employer] [facility] Work Phone: Smoking cessation education (procedure) yes Invalid Interpretation Code [facility] Work Phone: Clinical 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 Anion gap 5 mmol/L Invalid Interpretation Code [facility] Work Phone: Anion gap [Moles/Vol] 5 mmol/L [facility] [employer] [facility] Work Phone: BUN/Creatinine Ratio 15.6 mg/mg [facility] Work Phone: [phone] Calcium 8.6 mg/dL [facility] Work Phone: [phone] Chloride 104 mmol/L [facility] Work Phone: [phone] Cholesterol 173 mg/dL [facility] Work Phone: [phone] CO2 28.0 mmol/L Invalid Interpretation Code [facility] Work Phone: [phone] CO2 (BldV) [Partial pressure] 28.0 mmol/L [facility] Work Phone: [phone] Erythrocytes (RBC) 4.83 10*6/uL Invalid Interpretation Code [facility] Work Phone: [phone] Glucose 104 mg/dL Invalid Interpretation Code [facility] Work Phone: [phone] Glucose [Mass/Vol] 104 mg/dL [facility] Work Phone: [phone] HDL Cholesterol 55 mg/dL [facility] Work Phone: [phone] Hematocrit (Bld) [Volume fraction] 39.1 % [facility] Work Phone: [phone] Hematocrit (HCT) 39.1 % Invalid Interpretation Code [facility] Work Phone: [phone] Hemoglobin (HGB) 12.8 g/dL [facility] Work Phone: [phone] LDL Cholesterol 90 mg/dL [facility] Work Phone: [phone] MCH 26.5 pg Low [facility] Work Phone: [phone] MCH (RBC) [Entitic mass] 26.5 pg Low [facility] Work Phone: [phone] MCV 81.0 fL Invalid Interpretation Code [facility] Work Phone: [phone] MCV (RBC) [Entitic vol] 81.0 fL [facility] Work Phone: [phone] Platelets 237 10*3/mm3 Invalid Interpretation Code [facility] Work Phone: [phone] Platelets (Bld) [#/Vol] 237 10*3/mm3 [facility] Work Phone: [phone] Potassium 3.8 mmol/L [facility] Work Phone: RBC (Bld) [#/Vol] 4.83 10*6/uL [facility] Work Phone: [phone] Sodium 137 mmol/L [facility] Work Phone: [phone] Triglyceride 139 mg/dL [facility] Work Phone: [phone] Urea nitrogen 14 mg/dL [facility] Work Phone: [phone] very low density lipoproteins 28 mg/dL [facility] Work Phone: [phone] WBC (Bld) [#/Vol] 11.0 10*3/uL [facility] Work Phone: WBC (Leukocytes) 11.0 10*3/uL Invalid Interpretation Code [facility] Work Phone: Vital Signs Date Time Vital Sign Value Performing Clinician Faci lity 03-23-2025 06:58-0400 Body mass index (BMI) [Ratio] 35.4 kg/m2 Dr. Ruperto Jesus DO Work Phone: [facility] 03-23-2025 06:58-0400 Body weight 108.[address] Ruperto Jesus DO Work Phone: [facility] 03-23-2025 06:58-0400 Diastolic blood pressure 69 mm[Hg] Dr. Ruperto Jesus DO Work Phone: [facility] 03-23-2025 06:58-0400 Heart rate 78 /min Dr. Ruperto Jesus DO Work Phone: [facility] 03-23-2025 06:58-0400 Respiratory rate 22 /min Dr. Ruperto Jesus DO Work Phone: [facility] 03-23-2025 06:58-0400 SaO2% (BldA) [Mass fraction] 97 % Dr. Ruperto Jesus DO Work Phone: [facility] 03-23-2025 06:58-0400 Systolic blood pressure 116 mm[Hg] Dr. Ruperto Jesus DO Work Phone: [facility] 12-05-2024 07:58-0400 Body height 175.[address] Ruperot Jesus DO Work Phone: [facility] 12-05-2024 07:58-0400 Body mass index (BMI) [Ratio] 35.7 kg/m2 Dr. Ruperto Jesus DO Work Phone: [facility] 12-05-2024 07:58-0400 Body temperature 97.4 [degF] Dr. Ruperto Jesus DO Work Phone: [facility] 12-05-2024 07:58-0400 Body weight 109.[address] Ruperto Jesus DO Work Phone: [facility] 12-05-2024 07:58-0400 Diastolic blood pressure 75 mm[Hg] Dr. Ruperto Jesus DO Work Phone: [facility] 12-05-2024 07:58-0400 Heart rate 88 /min Dr. Ruperto Jesus DO Work Phone: [facility] 12-05-2024 07:58-0400 Respiratory rate 20 /min Dr. Ruperto Jesus DO Work Phone: [facility] 12-05-2024 07:58-0400 SaO2% (BldA) [Mass fraction] 98 % Dr. Ruperto Jesus DO Work Phone: [facility] 12-05-2024 07:58-0400 Systolic blood pressure 110 mm[Hg] Dr. Ruperto Jesus DO Work Phone: [facility] 11-14-2024 08:38-0400 Body mass index (BMI) [Ratio] 35.7 kg/m2 Dr. Ruperto Jesus DO Work Phone: [facility] 11-14-2024 08:38-0400 Body temperature 97.3 [degF] Dr. Ruperto Jesus DO Work Phone: [facility] 11-14-2024 08:38-0400 Body weight 109.[address] Ruperto Jesus DO Work Phone: [facility] 11-14-2024 08:38-0400 Diastolic blood pressure 69 mm[Hg] Dr. Ruperto Jesus DO Work Phone: [facility] 11-14-2024 08:38-0400 Heart rate 83 /min Dr. Ruperto Jesus DO Work Phone: [facility] 11-14-2024 08:38-0400 Respiratory rate 18 /min Dr. Ruperto Jesus DO Work Phone: [facility] 11-14-2024 08:38-0400 SaO2% (BldA) [Mass fraction] 98 % Dr. Ruperto Jessu DO Work Phone: [facility] 11-14-2024 08:38-0400 Systolic blood pressure 122 mm[Hg] Dr. Ruperto Jesus DO Work Phone: [facility] 10-09-2024 01:13-0400 Body temperature 98 [degF] Dr. Ruperto Jesus DO Work Phone: [facility] 10-09-2024 01:13-0400 Diastolic blood pressure 56 mm[Hg] Dr. Ruperto Jesus DO Work Phone: [facility] 10-09-2024 01:13-0400 Heart rate 77 /min Dr. Ruperto Jesus DO Work Phone: [facility] 10-09-2024 01:13-0400 Respiratory rate 16 /min Dr. Ruperto Jesus DO Work Phone: [facility] 10-09-2024 01:13-0400 SaO2% (BldA) [Mass fraction] 97 % Dr. Ruperto Jesus DO Work Phone: [facility] 10-09-2024 01:13-0400 Systolic blood pressure 104 mm[Hg] Dr. Ruperto Jesus DO Work Phone: [facility] 10-08-2024 21:44-0400 Body height 175.[address] Ruperto Jesus DO Work Phone: [facility] 10-08-2024 21:44-0400 Body mass index (BMI) [Ratio] 35.6 kg/m2 Dr. Ruperto Jesus DO Work Phone: [facility] 10-08-2024 21:44-0400 Body weight 109.[address] Ruperto Jesus DO Work Phone: [facility] 09-21-2024 07:42-0500 Body mass index (BMI) [Ratio] 38.9 kg/m2 Dr. Ruperto Jesus DO Work Phone: [facility] 09-21-2024 07:42-0500 Body weight 109.[address] Ruperto Jesus DO Work Phone: [facility] 09-21-2024 07:42-0500 Diastolic blood pressure 69 mm[Hg] Dr. Ruperto Jesus DO Work Phone: [facility] 09-21-2024 07:42-0500 Heart rate 70 /min Dr. Ruperto Jesus DO Work Phone: [facility] 09-21-2024 07:42-0500 Respiratory rate 22 /min Dr. Ruperto Jesus DO Work Phone: [facility] 09-21-2024 07:42-0500 SaO2% (BldA) [Mass fraction] 97 % Dr. Ruperto Jesus DO Work Phone: [facility] 09-21-2024 07:42-0500 Systolic blood pressure 103 mm[Hg] Dr. Ruperto Jesus DO Work Phone: [facility] 11-03-2023 07:54-0400 Body height 167.[address] Ruperto Jesus Work Phone: [facility] 11-03-2023 07:54-0400 Body mass index (BMI) [Ratio] 39.6 kg/m2 Dr. Ruperto Jesus Work Phone: [facility] 11-03-2023 07:54-0400 Body temperature 97.5 [degF] Dr. Ruperto Jesus Work Phone: [facility] 11-03-2023 07:54-0400 Body weight 111.[address] Ruperto Jesus Work Phone: [facility] 11-03-2023 07:54-0400 Diastolic blood pressure 70 mm[Hg] Dr. Ruperto Jesus Work Phone: [facility] 11-03-2023 07:54-0400 Heart rate 58 /min Dr. Ruperto Jesus Work Phone: [facility] 11-03-2023 07:54-0400 Respiratory rate 24 /min Dr. Ruperto Jesus Work Phone: [facility] 11-03-2023 07:54-0400 SaO2% (BldA) [Mass fraction] 96 % Dr. Ruperto Jesus Work Phone: [facility] 11-03-2023 07:54-0400 Systolic blood pressure 133 mm[Hg] Dr. Ruperto Jesus Work Phone: [facility] 10-29-2023 10:28-0400 Body height 167.[address] Ruperto Jesus Work Phone: [facility] 09-21-2023 13:16-0500 Body height 167.[address] Ruperto Jesus Work Phone: [facility] 09-21-2023 13:16-0500 Body mass index (BMI) [Ratio] 40 kg/m2 Dr. Ruperto Jesus Work Phone: [facility] 09-21-2023 13:16-0500 Body weight 112.[address] Ruperto Jesus Work Phone: [facility] 09-21-2023 13:16-0500 Diastolic blood pressure 72 mm[Hg] Dr. Ruperto Jesus Work Phone: [facility] 09-21-2023 13:16-0500 Heart rate 56 /min Dr. Ruperto Jesus Work Phone: [facility] 09-21-2023 13:16-0500 Respiratory rate 22 /min Dr. Ruperto Jesus Work Phone: [facility] 09-21-2023 13:16-0500 Systolic blood pressure 145 mm[Hg] Dr. Ruperto Jesus Work Phone: [facility] 06-29-2023 05:47-0500 Body mass index (BMI) [Ratio] 41 kg/m2 Dr. Ruperto Jesus Work Phone: [facility] 06-29-2023 05:47-0500 Body temperature 97.3 [degF] Dr. Ruperto Jesus Work Phone: [facility] 06-29-2023 05:47-0500 Body weight 115.[address] Ruperto Jesus Work Phone: [facility] 06-29-2023 05:47-0500 Diastolic blood pressure 76 mm[Hg] Dr. Ruperto Jesus Work Phone: [facility] 06-29-2023 05:47-0500 Heart rate 81 /min Dr. Ruperto Jesus Work Phone: [facility] 06-29-2023 05:47-0500 Respiratory rate 24 /min Dr. Ruperto Jesus Work Phone: [facility] 06-29-2023 05:47-0500 SaO2% (BldA) [Mass fraction] 96 % Dr. Ruperto Jesus Work Phone: [facility] 06-29-2023 05:47-0500 Systolic blood pressure 143 mm[Hg] Dr. Ruperto Jesus Work Phone: [facility] 01-12-2023 13:11-0400 Body weight 116.[address] Trenton Subramanian Work Phone: [facility] 01-12-2023 13:11-0400 Diastolic blood pressure 49 mm[Hg] Dr. Trenton Subramanian Work Phone: [phone] [place] [address] 01-12-2023 13:11-0400 Heart rate 59 /min Dr. Trenton Subramanian Work Phone: [phone] [place] [address] 01-12-2023 13:11-0400 Respiratory rate 18 /min Dr. Trenton Subramanian Work Phone: [phone] [place] [address] 01-12-2023 13:11-0400 Systolic blood pressure 107 mm[Hg] Dr. Trenton Subramanian Work Phone: [phone] [place] [address] 01-12-2023 10:47-0400 Body height 167.[address] Trenton Subramanian Work Phone: [phone] [place] [address] 08-27-2022 05:59-0500 Body height 167.[address] Trenton Subramanian Work Phone: [phone] [place] [address] 08-27-2022 05:59-0500 Body mass index (BMI) [Ratio] 40.3 kg/m2 Dr. Trenton Subramanian Work Phone: [facility] 08-27-2022 05:59-0500 Body temperature 97.3 [degF] Dr. Trenton Subramanian Work Phone: [facility] 08-27-2022 05:59-0500 Body weight 113.[address] Trenton Subramanian Work Phone: [facility] 08-27-2022 05:59-0500 Diastolic blood pressure 59 mm[Hg] Dr. Trenton Subramanian Work Phone: [facility] 08-27-2022 05:59-0500 Heart rate 63 /min Dr. Trenton Subramanian Work Phone: [facility] 08-27-2022 05:59-0500 Respiratory rate 18 /min Dr. Trenton Subramanian Work Phone: [facility] 08-27-2022 05:59-0500 SaO2% (BldA) [Mass fraction] 95 % Dr. Trenton Subramanian Work Phone: [facility] 08-27-2022 05:59-0500 Systolic blood pressure 123 mm[Hg] Dr. Trenton Subramanian Work Phone: [facility] 04-30-2022 07:41-0400 Body height 167.[address] Trenton Subramanian Work Phone: [facility] Work Phone: 04-30-2022 07:41-0400 Body mass index (BMI) [Ratio] 39.9 kg/m2 Dr. Trenton Subramanian Work Phone: [facility] Work Phone: 04-30-2022 07:41-0400 Body temperature 99.1 [degF] Dr. Trenton Subramanian Work Phone: [facility] Work Phone: 04-30-2022 07:41-0400 Body weight 112.[address] Trenton Subramanian Work Phone: [facility] Work Phone: 04-30-2022 07:41-0400 Diastolic blood pressure 76 mm[Hg] Dr. Trenton Subramanian Work Phone: [facility] Work Phone: 04-30-2022 07:41-0400 Heart rate 82 /min Dr. Trenton Subramanian Work Phone: [facility] Work Phone: 04-30-2022 07:41-0400 Respiratory rate 16 /min Dr. Trenton Subramanian Work Phone: [facility] Work Phone: 04-30-2022 07:41-0400 SaO2% (BldA) [Mass fraction] 93 % Dr. Trenton Subramanian Work Phone: [facility] Work Phone: 04-30-2022 07:41-0400 Systolic blood pressure 146 mm[Hg] Dr. Trenton Subramanian Work Phone: [facility] Work Phone: 02-01-2017 09:30-0400 BMI (Body Mass Index) 37.51 kg/m2 Fani Jeronimo LPN [facility] Work Phone: 02-01-2017 09:30-0400 Body Temperature 98.1 [degF] Fani Jeronimo LPN [facility] [employer] [facility] Work Phone: 02-01-2017 09:30-0400 BP Diastolic 75 mm[Hg] Faniabel Jeronimo LPN [facility] [employer] [facility] Work Phone: 02-01-2017 09:30-0400 BP Systolic 136 mm[Hg] Fani Kandace [employer] [facility] Work Phone: 02-01-2017 09:30-0400 Height 175.26 cm Faniabel Jeronimo LPN [facility] [employer] Phone: 02-01-2017 09:30-0400 Pulse (Heart Rate) 72 /min Fani Jeronimo LPN [facility] [employer] [facility] Work Phone: 02-01-2017 09:30-0400 Respiratory Rate 18 /min Fani Jeronimo LPN [facility] [employer] Work Phone: 02-01-2017 09:30-0400 Weight 115.21 kg Fani Jeronimo LPN [facility] [employer] Work Phone: 11-11-2016 06:52-0400 BMI (Body Mass Index) 36.62 kg/m2 Quintin Uribe [facility] Work Phone: 11-11-2016 06:52-0400 Body Temperature 98 [degF] Quintin Rony [facility] [employer] [facility] Work Phone: 11-11-2016 06:52-0400 Body weight 112.49 kg Fani Jeronimo LANDY [facility] [employer] [facility] Work Phone: 11-11-2016 06:52-0400 BP Diastolic 79 mm[Hg] Quintin Rony [facility] [employer] [facility] Work Phone: 11-11-2016 06:52-0400 BP Systolic 173 mm[Hg] Quintin Rony [facility] [employer] [facility] Work Phone: 11-11-2016 06:52-0400 Height 175.26 cm Quintin Rony [facility] [employer] [facility] Work Phone: 11-11-2016 06:52-0400 Pulse (Heart Rate) 62 /min Quintin Rony [facility] [employer] Work Phone: 11-11-2016 06:52-0400 Pulse Oximetry 98 % Quintin Rony [facility] [employer] [facility] Work Phone: 11-11-2016 06:52-0400 Respiratory Rate 18 /min Quintin Rony [facility] [employer] Work Phone: 11-11-2016 06:52-0400 Weight 112.49 kg Quintin Rony [facility] [employer] Phone: Encounters Encounter Date Encounter Type Care Provider Facility Start: 05-31-2025 ambulatory Ruperto Jesus Facility: [facility] [place] [place] Start: 04-06-2025 End: 04-06-[address] Montana Shepard MD -Laboratory Pat Villalobos [facility] Start: 04-06-2025 End: 04-06-[address] Ruperto Jesus DO Work Phone: -Yana Villalobos [facility] Start: 03-23-2025 End: 03-23-2025 Patient encounter procedure Maldonado Guillory PA -[employer] Work Phone: Start: 03-23-2025 End: 03-23-[address] Ruperto Jesus DO Work Phone: -[facility] Start: 03-20-2025 End: 03-20-[address] Ruperto Jesus DO Work Phone: -Laboratory Pat [facility] Start: 03-20-2025 End: 03-20-[address] [facility] Start: 03-20-2025 End: 03-20-2025 ambulatory Ruperto Jesus Facility:[facility] Start: 12-05-2024 End: 12-05-2024 Patient encounter procedure Patricia LÓPEZ [facility] Work Phone: Start: 12-05-2024 End: 12-05-[address] Ruperto Jesus DO Work Phone: [facility] Work Phone: Start: 11-14-2024 End: 11-14-2024 Patient encounter procedure Patricia LÓPEZ -[facility] Work Phone: Start: 11-14-2024 End: 11-14-2024 ambulatory Ruperto Ann Marie Facility:[facility] [place] [place] Start: 10-09-2024 End: 10-09-[address] Ruperto Jesus DO Work Phone: [facility] Work Phone: Start: 10-09-2024 End: 10-09-2024 Patient encounter procedure Homero Galvan DO -Cardiovascular Services Work Phone: Start: 10-09-2024 End: 10-09-2024 ambulatory [facility] Facility:[facility] Start: 10-08-2024 End: 10-09-2024 Emergency department patient visit Dr. Ruperto Jesus DO Work Phone: -Emergency Department Work Phone: Start: 09-21-2024 End: 09-21-2024 Patient encounter procedure Sarai Manzo PA -[facility] Work Phone: Start: 09-21-2024 End: 09-21-2024 ambulatory Ruperto Jesus Facility:[facility] [place] [place] Start: 08-25-2024 End: 08-25-[address] Ruperto Jesus -Laboratory, [facility] Start: 08-25-2024 End: 08-25-2024 ambulatory Ruperto Jesus Facility:[facility] Start: 11-22-2023 End: 11-22-[address] Ruperto Jesus Work Phone: [facility] Work Phone: Start: 11-22-2023 End: 11-22-[address] Ruperto Jesus Work Phone: [facility] Start: 11-03-2023 End: 11-03-[address] Ruperto Jesus Work Phone: [facility] Work Phone: Start: 10-29-2023 End: 10-29-2023 Admission to same day surgery center Dr. Ruperto Jesus Work Phone: [facility] Weigher/Special Procedures Work Phone: Start: 10-29-2023 End: 10-29-[address] Ruperto Jesus Work Phone: [facility] Work Phone: Start: 10-20-2023 Non-patient / Non-visit Dr. Robbi Jesus Work Phone: [facility] Start: 10-14-2023 Non-patient / Non-visit Dr. Robbi Jesus Work Phone: [facility] Start: 10-14-2023 End: 10-14-[address] Ruperto Jesus Work Phone: [facility] Work Phone: Start: 10-14-2023 End: 10-14-[address] [facility] Start: 09-21-2023 End: 09-21-[address] Ruperto Jesus Work Phone: [facility] Work Phone: Start: 06-29-2023 End: 06-29-[address] Ruperto Jesus Work Phone: [facility]-Pulmonary Medicine [facility] Work Phone: Start: 01-21-2023 Non-patient / Non-visit Dr. Ray Subramanian Work Phone: [facility] Start: 01-21-2023 End: 01-21-[address] Trenton Subramanian Work Phone: [facility] Work Phone: Start: 01-21-2023 End: 01-21-[address] Trent[facility]anian [facility] Start: 01-12-2023 End: 01-12-[address] Trenton Subramanian Work Phone: [facility] Work Phone: Start: 10-22-2022 End: 10-22-[address] Trenton Subramanian Work Phone: [facility] Work Phone: Start: 10-22-2022 End: 10-22-[address] [facility] Start: 08-27-2022 End: 02-09-[address] Trent[facility] Start: 06-05-2022 End: 06-05-[address] Trenton Subramanian Work Phone: [facility] Work Phone: Start: 06-05-2022 End: 06-05-[address] Trenton Subramanian Work Phone: [facility] Start: 04-30-2022 End: 04-30-[address] Trent[facility]ramanian [facility] Procedures Date Procedure Procedure Detail Performing Clinician Start: 10-08-2024 X-ray of ankle, thre e or more views Dr. Ruperto Jesus DO Work Phone: Start: 10-08-[address] Ruperto Jesus DO Work Phone: Start: 08-25-2024 Measurement of renal function Dr. Ruperto Jesus DO Work Phone: Comment on above: GFR Calc Start: 11-22-[address] Ruperto Jesus Work Phone: Start: 10-27-2023 Plain chest X-ray Dr. Petros Jesus Work Phone: Start: 10-14-2023 Cardiovascular stres s test using pharmacologic stress agent Dr. Ruperto Jesus Work Phone: Start: 06-05-2022 MRI of brain with contrast Dr. Trenton Subramanian Work Phone: Start: 11-11-2016 End: 11-11-2016 Documentation of current medications Fani Jeronimo LPN Start: 11-11-2016 End: 11-24-2016 Complete sleep workup (PSG,CPAP as indicated) & Follow up Quintin Uribe Work Phone: Start: 11-11-2016 End: 11-24-2016 Ct thorax w/dye Quintin Uribe Work Phone: Start: 11-11-2016 End: 11-24-2016 Follow Up Appt 3 months Quintin Uribe Work Phone: Start: 11-11-2016 End: 11-24-2016 Pulmonary Function Test - complete Quintin Uribe Work Phone: Start: 11-11-2016 End: 11-24-2016 Pulmonary stress test/simple Quintin Uribe Work Phone: Start: 04-05-2014 End: 04-05-2014 Smoking cessation education Fani cortes LANDY Start: 04-05-2014 End: 04-05-2014 Follow Up Appt Other Montana Shepard MD Start: 09-08-2013 End: 09-08-2013 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 Sarai Manzo PA-C Work Phone: Start: 09-08-2013 End: 09-08-2013 Follow Up Appt 6 months Sarai altamirano PA-C Work Phone: Start: 09-08-2013 End: 09-08-2013 Follow Up Appt Other Sarai gomez PA-C Work Phone: Start: 09-13-2012 End: 09-13-2012 Follow Up Appt 1 year Montana Shepard MD Start: 09-13-2012 End: 09-13-2012 MM Montana Shepard MD Start: 06-17-2011 End: 06-17-2011 Follow Up Appt 1 year Montana Shepard MD Plan of Treatment Date Care Activity Detail Author Start: 10-09-2024 US.doppler Lower extremity vein [facility] Start: 10-09-2024 [facility] Start: 10-29-2023 Patient discharge [facility] Start: 08-03-2017 End: 08-03-2017 Appointment Appointment [facility] [place] Work Phone: Start: 02-01-2017 End: 02-01-2017 Appointment Appointment [facility] [place] Work Phone: Start: 02-01-2017 End: 02-01-2017 Appointment Appointment [facility] [place] Work Phone: Start: 02-01-2017 End: 02-01-2017 [facility] [place] Work Phone: Start: 02-01-2017 End: 02-01-2017 Follow Up Appt 6 months Follow Up Appt 6 months [facility] [place] Work Phone: Start: 11-11-2016 End: 11-24-2016 Complete sleep workup (PSG,CPAP as indicated) & Follow up Complete sleep workup (PSG,CPAP as indicated) & Follow up [facility] [place] Work Phone: Start: 11-11-2016 End: 11-24-2016 Ct thorax w/dye CT Chest with Contrast [facility] [employer] [facility] Work Phone: Start: 11-11-2016 End: 11-24-2016 Follow Up Appt 3 months Follow Up Appt 3 months [facility] [place] Work Phone: Start: 11-11-2016 End: 11-24-2016 Pulmonary Function Test - complete Pulmonary Function Test - complete [facility] [employer] [facility] Work Phone: Start: 11-11-2016 End: 11-24-2016 Pulmonary stress test/simple Pulmonary stress testing; simple (eg, 6-minute walk) [facility] [place] Work Phone: Start: 04-05-2014 End: 04-05-2014 Follow Up Appt Other Follow Up Appt Other [facility] [place] Work Phone: Start: 09-08-2013 End: 09-08-2013 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 [facility] [place] Work Phone: Start: 09-08-2013 End: 09-08-2013 Follow Up Appt 6 months Follow Up Appt 6 months [facility] [place] Work Phone: Start: 09-08-2013 End: 09-08-2013 Follow Up Appt Other Follow Up Appt Other [facility] Work Phone: Start: 09-13-2012 End: 09-13-2012 Follow Up Appt 1 year Follow Up Appt 1 year [facility] [place] Work Phone: Start: 09-13-2012 End: 09-13-2012 MMM MMM [facility] [place] Work Phone: Start: 06-17-2011 End: 06-17-2011 Follow Up Appt 1 year Follow Up Appt 1 year [facility] [place] Work Phone: Basic metabolic 2008 panel with ionized calcium - Serum or Plasma [facility] Patient Education ED Gout ED Gout Diet [facility] Work Phone: Patient referral [facility] Work Phone: Payers Date Payer Category Payer Self-pay [id number] 2023 Medicare [id number] 2023 Unknown [id number] 2015 Unknown [id number] [facility] [id number] Medicare [id number] [facility] [id number] Unknown [id number] 2.16.8 [id number] Unknown [id number] 2.16.8 [id number] Unknown [id number] 2.16.8 [id number] Unknown [id number] 2.16.8 [id number] Unknown [id number] 2.16.8 [id number] Unknown [id number] 2.16.8 [id number] Unknown [id number] 2.16.8 [id number] Unknown [id number] 2.16.8 [id number] Unknown [id number] 2.16.8 [id number] Unknown [id number] 2.16.8 [id number] Social History Date Type Detail Facility Start: 04-30-2022 End: 11-03-2023 Tobacco smoking status ALIS Unknown if ever smoked [facility] Start: 01-03-2021 None [facility] Start: 01-03-2021 Cigarettes [facility] Start: 1940 Sex Assigned At Female [facility] Start: 10-08-2024 Tobacco smoking stat us ALIS Ex-smoker (finding) [facility] Start: 10-09-2024 End: 10-14-2024 Sex Female (finding) [facility] Sex Female [facility] Mental Status Date Assessment Result Facility 10-08-2024 Cognitive function Level Of Cons ciousness Awake;Alert;Appropriate;Follow s Commands [facility] Work Phone: Clinical Notes 10-21-2023 to 03-23-2025 Note Date & Type Note Facility 03-23-2025 Evaluation note Diagnosis Onset Date Resolution Chronic diastolic (congestive) heart failure chronic March 23, 025 1:19pm Essential (primary) hypertension chronic March 23 025 1:19pm Hyperlipidemia chronic March 23, 2025 1:19pm [facility] Work Phone: 1(416) 339-676105-20-2025 Evaluation note* Diagnosis Onset Date Resolution Status Admit Date Chronic diastolic (congestiv e) heart failure chronic December 05, 2024 1 1:03am COPD (chronic obstructive pulmonary disease) chronic December 05 11:03am Morbid obesity chronic December 05, 2024 11:03am MATTHEW (obstructive sleep apnea) chroni c December 05, 2024 11:03am Chronic diastolic (congestiv e) heart failure chronic March 23, 2 025 1:19pm Essential (primary) hypertension chronic March 23, 025 1:19pm Hyperlipidemia chronic March 23, 2025 1:19pm [facility] Work Phone: 1(482) 172-239003-24-2025 Radiology Diagnostic study note [facility] Imaging Services [address] [place], [place] [address] Ankle min 3 Views MR#: [id number] Acct: [id number] Name: CANDICE BARRY Rep #: [id number] : 1940 F 84 From: Dylan Glaser MD PCP: Dr. Ruperto Jesus DO Status: REG ER Study:Ankle min 3 Views Date of Exam: Exam# [id number] Ordering Dr: Pallavi Galvan DO PROCEDURE: ANKLE MIN 3 VIEWS 10/08/2024 REASON FOR EXAM: ? OSTEO TECHNIQUE: 3 views of the left ankle COMPARISON: None available FINDINGS: The foot is in plantar flexion on the oblique view causing overlap of the calcaneus and lateral malleolus limiting the evaluation. No definite fracture or dislocation identified. No bony destruction or periosteal reaction identified. The joint spaces appear within limits. [id number] enthesophyte at the plantar surface of the calcaneusnoted. Vascular calcification seen. Appearance of lateral ankle soft tissue swelling suggested. RAD/Ankle min 3 Views IMPRESSION: The foot is in plantar flexion on the oblique view causing overlap of the calcaneus and lateral malleolus limiting the evaluation. No definite fracture or dislocation identified. No bony destructionor periosteal reaction identified. Appearance of lateral ankle soft tissue swelling suggested. Reading Location: [id number] CC: Dr. Ruperto Jesus DO; Homero Galvan DO ~ Chief Radiology: Signed [facility]03-06-2025 Evaluation note* Diagnosis Onset Date Resolution Status Admit Date Chronic diastolic (congestiv e) heart failure chronic September 21, 2024 1:07pm Essential (primary) hypertension chr onic September 21, 2024 1:07pm Hyperlipidemia chronic September 21, 2024 1:07pm [facility] Work Phone: 1(115) 465-847303-06-2025 Evaluation note* Diagnosis Onset Date Resolution Status Admit Date Chronic diastolic (congestiv e) heart failure chronic September 21, 2024 1:07pm Essential (primary) hypertension chr onic September 21, 2024 1:07pm Hyperlipidemia chronic September 21, 2024 1:07pm Chronic diastolic (congestiv e) heart failure chronic November 14, 2024 2:28pm COPD (chronic obstructive pulmonary disease) chronic November 14, 2 025 2:28pm Morbid obesity chronic October 2:28pm MATTHEW (obstructive sleep apnea) chroni c November 14, 2024 2:28pm [facility] Work Phone: [phone]) 141-8526089986-36-2010 History and physical note Author Montana Shepard [facility] October 21, 2023 11:47am Note Date/Time October 20, 2023 9:04 pm [facility] Medical Records Department [address] [place] [address] History & Physical Exam 10/20/232056 MR#: [id number] Acct: [id number] Name: CANDICE BARRY Rep #:[id number] : 1940 83 From: Montana Shepard MD PCP: Dr. Ruperto Jesus, DO [place] [facility] History and Physical Date of Admission: 10/29/23 CANDICE BARRY, is a 83 F who presents to the photo lab technician today for a left heart catheterization after an abnormal stress test. She has a history of hypertension, diabetes mellitus, previous tobacco abuse, status post cardiac catheterization in 2010 which demonstrated minimal coronary artery disease. She also has a hx of MATTHEW and is on CPAP. She does have hearing aides now, this has helped. Pt notes that previously she had a chest heaviness that this lasted a couple days. She does have mild sharp chest pain. She does not have any worsening SOB. She used a WC to get up to the office and walked back to the exam room. She does not have any palpitations. She does have some edema but she feels that this is better. Intake Vital Signs: See EMR Intake Visit Reasons: [facility] Electronic Wirer Required: No Is patient in pain?: No Allergies acetaminophen [From Darvocet-N] Allergy (Severe, Verified 09/21/23 13:16) Unknown bupropion [From Wellbutrin] Allergy (Severe, Verified 09/21/23 13:16) Unknown gabapentin [From Neurontin] Allergy (Severe, Verified 09/21/23 13:16) Unknown pregabalin [From Lyrica] Allergy (Severe, Verified 09/21/23 13:16) Unknown propoxyphene [From Darvocet-N] Allergy (Severe, Verified 09/21/23 13:16) Unknown sulfadiazine Allergy (Severe, Verified 09/21/23 13:16) Unknown Medications See EMR [facility] History Anxiety and depression Chronic diastolic (congestive) heart failure COPD (chronic obstructive pulmonary disease) Diabetic neuropathy Emphysema, unspecified Essential (primary) hypertension Fibromyalgia Hyperlipidemia Morbid obesity MATTHEW (obstructive sleep apnea) TIA (transient ischemic attack) Tobacco use disorder Type 2 diabetes mellitus Surgical History History of ear, nose, and throat (ENT) surgery History of hysterectomy History of knee replacement Hx of cholecystectomy Family History Father CAD (coronary artery disease) Social History Smoking Status: Former smoker how long ago did patient quit smokin years ago second hand exposure: Yes alcohol intake: never substance use type: does not use caffeine: Yes Type: coffee Number of servings: 1 ROS Const Const: Negative for fatigue, weakness, headache(s), frequent falls, difficulty sleeping or excessive sweating Eyes Eyes: Negative for loss of peripheral vision, transient loss of vision, blurry vision, double vision or tunnel vision ENT ENT: Negative for headache(s), dizziness, Nosebleed/epistaxis or balance problems Cardio Chest Pain: Yes Palpitations: No Edema: Bilateral Muscle aches with walking: None Resp Respiratory: Negative for SOB with activity, SOB at rest, SOB orthopnea\SOB lying down, Cough or paroxysmal nocturnal dyspnea GI GI: Negative nausea, vomiting or heartburn : Negative for hematuria Musc Musc: Negative for muscle aches/ myalgia, muscle weakness, joint pain or balanceproblems Skin Skin: Negative non-healing lesions, rash or unusual bruising Neuro Neuro: Negative for dizziness, lightheadedness, near syncope, syncope, orthostatic symptoms, frequent falls, headache(s), weakness, confusion, memory loss, blurry vision, double vision, vertigo or lack of coordination Shane Hematologic/Lymphatic: Negative for easy bleeding or easy bruising Endo Endo: Negative for fatigue, excessive sweating, flushing or increased thirst/drinking Psych Psych: Negative for anxiety or depression Allergy Allergy/Immunology: Negative for hives and Negative for rash Cardiology Exam Const Appearance: cooperative, no acute distress and well developed Nutritional Appearance: obese Orientation: alert, awake and oriented x3 Limitations: physical limitations (uses walker) Head Head: normal to inspection Ears: hearing grossly normal bilaterally Nose: external nose normal Face and Sinus: face symmetric Mouth: oral mucosae normal, lip normal and moist mucous membranes Eyes General: appearance normal, both eyes and all related structures Eyelids: eyelids normal Conjunctivae: conjunctivae normal Pupils: PERRL EOM: EOM intact bilaterally Neck Neck: normal visual inspection and trachea midline; Negative no JVD Carotids: Negative bruit Chest Chest inspection: normal inspection of the chest Auscultation: Bilateral: Diminished Lung Sounds Cardio Palpation: normal PMI Rate: regular rate Rhythm: regular rhythm Heart sounds: S1 normal and S2 normal; Negative rub, gallop or murmur GI GI: soft, no hepatosplenomegaly, bowel sounds present and obese Neuro General: patient alert, patient awake, patient oriented x3 and CN's II-XI intactbilaterally Extremities Pulses: Normal: Right Posterior Tibial Pulse, Left Posterior Tibial Pulse, RightRadial Pulse and Left Radial Pulse Lower Extremity Edema: Trace: Bilateral Psych Psychological: normal affect Supplemental Info Supplemental Information Echocardiogram 2022: Normal LV size. Left ventricular systolic function is normal. The estimated ejection fraction is 45 %. Stage 1 diastolic dysfunction. The study was technically difficult. Contrast injection was performed. Echocardiogram 10/19/2017: The estimated ejection fraction is 60 %. Trivial tricuspid valve insufficiency. Right ventricular systolic pressure estimated to be 16 mmHg, may be underestimated. Stage 1 diastolic dysfunction. Compared to echo report dated 09/15/2016, No appreciable changes noted. The studywas technically difficult. Contrast injection was performed. Stress Test From 10/14/2023: Conclusion: Abnormal pharmacologic myocardial perfusion stress test. Preserved ejection fraction. Anteroseptal ischemia noted Assessment and Plan Assessment and Plan (1) Chronic diastolic (congestive) heart failure: Status: Chronic Plan: She has a history of diastolic heart failure. She appears to doing quite well at this time will not recommend that we make any changes. Reviewed echocardiogram from 2022. She will continue with her metoprolol, lisinopril, spironolactone, furosemide. She does not have any symptoms of heart failure. (2) Essential (primary) hypertension: Status: Chronic Plan: She does have a history of hypertension. Her blood pressure is under good control I would not recommend that we make any other major changes. (3) Hyperlipidemia: Status: Chronic Qualifiers: Hyperlipidemia type: unspecified Qualified Code(s): E78.5 - Hyperlipidemia, unspecified Plan: She does have a history of hyperlipidemia. She will continue with the current risk factor modification. (4) Chest pain: Status: Acute Plan: With patient's symptoms of chest discomfort, she underwent a stress test on 10/14/2023 to assess further. It was abnormal. On account of symptoms and test results, she will proceed with heart catheterization. Depending on results, further recommendation will be made. 10/21/23 1147 <Electronically signed by Montana Shepard MD> Cosigner Signature (if applicable): 10/20/232103 <Electronically signed by Satnam LÓPEZ> CC: MARIBEL Hannah; Dr. Montana Shepard MD; Dr. Ruperto Jesus DO~ Signed [facility] Work Phone: Evaluation note* Diagnosis Onset Date Resolution Status Chronic diastolic (congestive) heart failure chronic COPD (chronic obstructive pulmonary disease) chronic Morbid obesity chronic MATTHEW (obstructive sleep apnea) [facility] Work Phone: Evaluation note* Diagnosis Onset Date Resolution Status Chronic diastolic (congestive) heart failure chronic Emphysema, unspecified chron ic MATTHEW (obstructive sleep apnea) chronic [facility] Work Phone: Evaluation note* Diagnosis Onset Date Resolution Status Chronic diastolic (congestive) heart failure chronic Essential (primary) hypertension chronic Hyperlipidemia chronic [facility] Work Phone: Evaluation note* Diagnosis Onset Date Resolution Status Chronic diastolic (congestive) heart failure chronic Emphysema, unspecified chron ic MATTHEW (obstructive sleep apnea) chronic Chest pain acute Chronic diastolic (congestive) heart failure chronic Essential (primary) hypertension chronic Hyperlipidemia [facility] Work Phone: Evaluation note* Diagnosis Onset Date Resolution Status Chest pain acute Chronic diastolic (congestive) heart failure chronic Essential (primary) hypertension chronic Hyperlipidemia [facility] Work Phone: Evaluation note* Diagnosis Onset Date Resolution Status Chest pain acute Chronic diastolic (congestive) heart failure chronic Essential (primary) hypertension chronic Hyperlipidemia chronic Chronic diastolic (congestive) heart failure chronic COPD (chronic obstructive pulmonary disease) chronic Morbid obesity chronic MATTHEW (obstructive sleep apnea) [facility] Work Phone: Hospital Discharge instructions Additional Instructions Your workup today is most consistent with gout which should resolve in the next 48 to 72 hours with the prescribed colchicine. However as there is concern for potential DVT/blood clot obtain your outpatient venous duplex. Return to the ER should you have any further concerns or worsening of symptomsWCleveland [facility] Work Phone: Reason for referral (narrative)No reason for referral information availableWCleveland Clinic [facility] Work Phone: Chief Complaint and Reason for Visit Chief Complaint 3 M FU HEARING LOSS Reason for Visit Chronic diastolic (c ongestive) heart failure COPD (chronic obstructive pulmonary disease) Morbid obesity MATTHEW (obstructive sleep apnea) Chief Complaint 4 M FU Reason for Visit Chronic diastolic (c ongestive) heart failure Emphysema, unspecified MATTHEW (obstructive sleep apnea) Chief Complaint 1 Y FU Obstructive sleep apnea (adult) (pediatric) Reason for Visit Chronic diastolic (c ongestive) heart failure Essential (primary) hypertension Hyperlipidemia Chief Complaint 4 M FU 9 M FU CP CP Reason for Visit Chronic diastolic (c ongestive) heart failure Emphysema, unspecified MATTHEW (obstructive sleep apnea) Chest pain Chronic diastolic (congestive) heart failure Essential (primary) hypertension Hyperlipidemia Chief Complaint 9 M FU CP CP CP, ABN STRESS TEST CP, ABN STRESS TEST Reason for Visit Chest pain Chronic diastolic (congestive) heart failure Essential (primary) hypertension Hyperlipidemia Chief Complaint 9 M FU CP CP CP, ABN STRESS TEST CP, ABN STRESS TEST 4 M FU Reason for Visit Chest pain Chronic diastolic (congestive) heart failure Essential (primary) hypertension Hyperlipidemia Chronic diastolic (congestive) heart failure COPD (chronic obstructive pulmonary disease) Morbid obesity MATTHEW (obstructive sleep apnea) Chief Complaint Admit Date 1 Y September 21, 2024 1:07 pm LEG SWELLING October 08, 2024 9:4 2pm Reason for Visit Admit Date Chronic diastolic (congestive) heart jose lure September 21, 2024 1:07pm Essential (primary) hypertension September 212024 1:07pm Hyperlipidemia September 21, 2024 1:07 pm Chief Complaint Admit Date 1 Y September 21, 2024 1:07 pm LEG SWELLING October 08, 2024 9:4 2pm LT LEG SWELLING October 09, 2024 2:1 5pm Chief Complaint Admit Date 1 Y September 21, 2024 1:07 pm LEG SWELLING October 08, 2024 9:4 2pm LT LEG SWELLING October 09, 2024 2:1 5pm SWELLING LLE October 09, 2024 2:2 3pm 6 M FU November 14, 2024 2:2 8pm 3 wk December 05, 2024 11:03 am Reason for Visit Admit Date Chronic diastolic (congestive) heart jose lure September 21, 2024 1:07pm Essential (primary) hypertension September 212024 1:07pm Hyperlipidemia September 21, 2024 1:07 pm Chronic diastolic (congestive) heart jose lure November 14, 2024 2:28pm COPD (chronic obstructive pulmonary dise ase) November 14, 2024 2:28pm Morbid obesity November 14, 2024 2:2 8pm MATTHEW (obstructive sleep apnea) October 2:28pm Chief Complaint Admit Date 3 wk December 05, 2024 11:03 am 6 M March 23, 2025 1:19pm Reason for Visit Admit Date Chronic diastolic (congestive) heart jose lure December 05, 2024 11:03am COPD (chronic obstructive pulmonary dise ase) December 05, 2024 11:03am Morbid obesity December 05, 2024 11:03 am MATTHEW (obstructive sleep apnea) December 05, 2024 11:03am Chronic diastolic (congestive) heart jose lure March 23, 2025 1:19pm Essential (primary) hypertension 2024 1:19pm Hyperlipidemia March 23, 2025 1:19pm Chief Complaint Admit Date 6 M FU March 23, 2025 1:19pm Reason for Visit Admit Date Chronic diastolic (congestive) heart jose lure March 23, 2025 1:19pm Essential (primary) hypertension Septemb er 2024 1:19pm Hyperlipidemia March 23, 2025 1:19pm Advance Directives No Advanced Directives Records Found Advance Directive Response Recorded Date/ Time Advance Directives on File No October 28, 2023 9:52am Advance Directives No October 28 024 10:28am Living Will No October 29, 2023 10:28am Power of Policy Officer No October 28 10:28am Advance Directive Response Recorded Date/ Time Living Will No October 08, 2024 9:51pm Do you have a Healthcare Power of Policy Officer? No October 08, 2024 9:51pm Advance Directives No October 28 10:28am Advance Directive Response Recorded Date/ Time Living Will No October 29, 2023 10:28am Do you have a Healthcare Power of Policy Officer? No October 29, 2023 10:28am Living Will No October 08, 2024 9:51pm Do you have a Healthcare Power of Policy Officer? No October 08, 2024 9:51pm Advance Directives No October 28 10:28am Advance Directive Response Recorded Date/ Time Advance Directives No October 28 10:28am Summary Purpose Family History No Family History Records Found Additional Source Comments Goals (unrecognized section and content) Goals may be documented in a n alternate sectionGoals may be documented in an alternate sectionGoals may be documented in an alternate sectionGoals may be documented in an alternate sectionGoals may be documented in an alternate sectionGoals may be documented in an alternate sectionGoals may be documented in an alternate sectionGoals may be documented in an alternate sectionGoals may be documented in an alternate sectionGoals may be documented in an alternate sectionGoals may be documented in an alternate sectionGoals may be documented in an alternate sectionGoals may be documented in an alternate section Care Teams (unrecognized sec tion and content) Team Status: Active Member Role Status Dates Dr. Trenton Subramanian MD Family Provider Active Dr. Ruperto Jesus DO Primary Care Provider Active Team Status: Inactive Member Role Status Dates Dr. Trenton Subramanian MD Primary Care Provider, Referring Provider Active Dr. Quintin Uribe MD Attending Provider Active Team Status: Inactive Member Role Status Dates Dr. Ruperto Jesus DO Primary Care Prov ider, Attending Provider, Referring Provider Active Team Status: Inactive Member Role Status Dates Dr. Trenton Subramanian MD Referring Provider Active Dr. Montana Shepard MD Attending Provider Active Dr. Ruperto Jesus DO Primary Care Provider Active Team Status: Active Member Role Status Dates Dr. Ruperto Jesus DO Primary Care Provider Active Dr. Montana Shepard MD Attending Provider Active Team Status: Inactive Member Role Status Dates Dr. Ruperto Jesus DO Primary Care Provider Active Dr. Montana Shepard MD Attending Provider, Referring Pro vider Active Team Status: Active Member Role Status Dates Dr. Ruperto Jesus DO Primary Care Prov ider, Attending Provider, Referring Provider Active Team Status: Inactive Member Role Status Dates Dr. Ruperto Jesus DO Primary Care Provider, Referrin g Provider Active Sarai Manzo PA, PA Attending Provider Active Team Status: Inactive Member Role Status Dates Dr. Ruperto Jesus DO Primary Care Provider, Referrin g Provider Active Dr. Quintin Uribe MD Attending Provider Active Team Status: Active Member Role Status Dates Dr. Ruperto Jesus DO Primary Care Provider Active Sarai Manzo PA, PA Referring Provider, Other Provider Active Dr. Montana Shepard MD Attending Provider Active Team Status: Inactive Member Role Status Dates Dr. Ruperto Jesus DO Primary Care Provider Active Sarai Manzo PA, PA Attending Provider, Referr ing Provider Active Team Status: Active Member Role Status Dates Dr. Ruperto Jesus DO Primary Care Provider Active Dr. Montana Shepard MD Attending Provider, Other Provide r Active Team Status: Inactive Member Role Status Dates Dr. Ruperto Jesus DO Primary Care Provider, Referrin g Provider Active Patricia Espana LOW VISION THERAPIST, LOW VISION THERAPIST-C Attending Provider Active Team Status: Active Member Role Status Dates Dr. Ruperto Jesus DO Primary Care Provider Active Team Status: Inactive Member Role Status Dates Dr. Ruperto Jesus DO Primary Care Provider Active Start: August 25, 2024 End: August 25, 2024 Dr. Ruperto Jesus DO Attending Provider Active Start: August 25, 2024 End: August 25, 2024 Team Status: Inactive Member Role Status Dates Dr. Ruperto Jesus DO Primary Care Provider Active Start: September 21, 2024 End: September 21, 2024 Dr. Ruperto Jesus DO Referring Provider Active Start: September 21, 2024 End: September 21, 2024 Sarai Manzo PA, PA Attending Provider Active Start: September 21, 2024 End: September 21, 2024 Team Status: Inactive Member Role Status Dates Dr. Ruperto Jesus DO Primary Care Provider Active Start: October 08, 2024 End: October 09, 2024 Dr. Homero Galvan DO Emergency Provider Active Start: October 08, 2024 End: October 09, 2024 Team Status: Inactive Member Role Status Dates Dr. Ruperto Jesus DO Primary Care Provider Active Start: October 09, 2024 End: October 09, 2024 Dr. Homero Galvan DO Attending Provider Active Start: October 09, 2024 End: October 09, 2024 Dr. Homero Galvan DO Referring Provider Active Start: October 09, 2024 End: October 09, 2024 Team Status: Inactive Member Role Status Dates Dr. Ruperto Jesus DO Primary Care Provider Active Start: October 08, 2024 End: October 09, 2024 Dr. Homero Galvan DO Attending Provider Active Start: October 08, 2024 End: October 09, 2024 Dr. Homero Galvan DO Emergency Provider Active Start: October 08, 2024 End: October 09, 2024 Team Status: Active Member Role Status Dates Dr. Ernst Kidd MD Attending Provider Active Start: October 09, 2024 Dr. Homero Galvan DO Referring Provider Active Start: October 09, 2024 Team Status: Inactive Member Role Status Dates Dr. Ruperto Jesus DO Primary Care Provider Active Start: November 14, 2024 End: November 14, 2024 Dr. Ruperto Jesus DO Referring Provider Active Start: November 14, 2024 End: November 14, 2024 Patricia Espana NP, LOW VISION THERAPIST-C Attending Provider Active Start: November 14, 2024 End: November 14, 2024 Team Status: Inactive Member Role Status Dates Dr. Ruperto Jesus DO Primary Care Provider Active Start: December 05, 2024 End: December 05, 2024 Dr. Ruperto Jesus DO Referring Provider Active Start: December 05, 2024 End: December 05, 2024 Patricia Espana LOW VISION THERAPIST, LOW VISION THERAPIST-C Attending Provider Active Start: December 05, 2024 End: December 05, 2024 Team Status: Active Member Role/Relationship Status Dates Dr. Ruperto Jesus DO Primary Care Provider Active Team Status: Inactive Member Role/Relationship Status Dates Dr. Ruperto Jesus DO Primary Care Provider Active Start: December 05, 2024 End: December 05, 2024 Dr. Ruperto Jesus DO Referring Provider Active Start: December 05, 2024 End: December 05, 2024 Patricia Espana LOW VISION THERAPIST, LOW VISION THERAPIST-C Attending Provider Active Start: December 05, 2024 End: December 05, 2024 Team Status: Active Member Role/Relationship Status Dates Dr. Ruperto Jesus DO Primary Care Provider Active Start: March 20, 2025 Dr. Ruperto Jesus DO Attending Provider Active Start: March 20, 2025 Team Status: Inactive Member Role/Relationship Status Dates Dr. Ruperto Jesus DO Primary Care Provider Active Start: March 23, 2025 End: March 23, 2025 Dr. Ruperto Jesus DO Referring Provider Active Start: March 23, 2025 End: March 23, 2025 MAYTE Ash Attending Provider Active St art: March 23, 2025 End: March 23, 2025 Team Status: Inactive Member Role/Relationship Status Dates Dr. Ruperto Jesus DO Primary Care Provider Active Start: March 20, 2025 End: March 20, 2025 Dr. Ruperto Jesus DO Attending Provider Active Start: March 20, 2025 End: March 20, 2025 Team Status: Active Member Role/Relationship Status Dates Dr. Ruperto Jesus DO Primary care physician Active Team Status: Inactive Member Role/Relationship Status Dates Dr. Ruperto Jesus DO Primary care physician Active Start: March 20, 2025 End: March 20, 2025 Dr. Ruperto Jesus DO Attending physician Active Start: March 20, 2025 End: March 20, 2025 Team Status: Inactive Member Role/Relationship Status Dates Dr. Ruperto Jesus DO Primary care physician Active Start: March 23, 2025 End: March 23, 2025 Dr. Ruperto Jesus DO Referring Provider Active Start: March 23, 2025 End: March 23, 2025 MAYTE Ash Attending physician Active S tart: March 23, 2025 End: March 23, 2025 Team Status: Inactive Member Role/Relationship Status Dates Dr. Ruperto Jesus DO Primary care physician Active Start: April 06, 2025 End: April 06, 2025 Dr. Montana Shepard MD Attending physician Active Start: April 06, 2025 End: April 06, 2025 INFORMATION SOURCE (unrecogn ized section and content) DATE CREATED AUTHOR 05/27/2025 [facility] FOR RECORDS PERTAINING TO PATIENTS WHO ARE OR HAVE BEEN ENROLLED IN A CHEMICAL DEPENDENCY/SUBSTANCEABUSE PROGRAM, SOME INFORMATION MAY BE OMITTED. This clinical summary was aggregated from multiple sources. Caution should be exercised in using it in the provision of clinical care. This summary normalizes information from multiple sources, and as a consequence, information in this document may materially change the coding, format and clinical context of patient data. In addition, data may be omitted in some cases. CLINICAL DECISIONS SHOULD BE BASED ON THE PRIMARY CLINICAL RECORDS. [employer] provides no warranty or guarantee of the accuracy or completeness of information in this document.
== END | disposition home or self-care (01) ==
LOC: US 16:52
PROVIDERS: PCP Family Medicine; Referring Provider Family Medicine; Visit Provider Family Medicine
DX: R10.A1 Flank pain, right side (principal)
CPT/HCPCS: 76770